=== PATIENT | male | born 1935 | race Caucasian/White ===

== ENCOUNTER 2020-07-25 08:39 | Outpatient (REF) | payer MEDICARE, OTHER, SELFPAY ==
[2020-07-25 09:55] LABS: MANUAL DIFF FLAG NO
[2020-07-25 10:05] LABS: Basophils Percent Auto 0.7 % (0-2); Eosinophils Absolute Auto 0.4 X10*3/uL (0.0-0.4); Eosinophils Percent Auto 7.3 % (0-4); Hematocrit 44.5 % (42-52); Hemoglobin 14.6 g/dl (14.0-18.0); Imm Gran Abs Auto 0.03 X10*3/uL (0.00-0.03); Imm Gran Pct Auto 0.5 % (0.0-0.4); Lymphocytes Absolute Auto 1.8 X10*3/uL (1.2-4.9); Lymphocytes Percent Auto 29.2 % (20-40); Mean Corpuscular HGB Conc 32.8 g/dl (31.0-36.0); Mean Corpuscular Hemoglobin 30.9 pg (27.0-33.0); Mean Corpuscular Volume 94.3 fL (80-98); Mean Platelet Volume 11.4 fL (9.4-12.4); Monocytes Absolute Auto 0.4 X10*3/uL (0.1-1.2); Monocytes Percent Auto 7.3 % (2-11); Neutrophils Absolute Auto 3.3 X10*3/uL (2.0-8.3); Platelet Count 176 X10*3/uL (160-400); Red Blood Count 4.72 X10*6/uL (4.60-5.80); Red Cell Distribution Width 12.5 % (11.0-16.0)
[2020-07-25 10:34] LABS: Creatinine Urine 237.54 mg/dL; Microalbum/Creatinine Ratio Ur 4.6 ug/mg cr
[2020-07-25 10:46] LABS: Alanine Aminotransferase 16 U/L (0-40); Albumin Level 4.1 g/dL (3.5-5.0); Alkaline Phosphatase 66 U/L (39-117); Anion Gap 10 (12-20); Aspartate Amino Transferase 21 U/L (5-37); Bilirubin Total 0.8 mg/dL (0.0-1.0); Blood Urea Nitrogen 22 mg/dL (9-16); Calcium 8.8 mg/dL (8.4-10.2); Carbon Dioxide 28 mmol/L (22-29); Chloride 110 mmol/L (96-108); Cholesterol 102 mg/dL; Estimated Glomerular Filt Rate > 60; Glucose Random 109 mg/dL (60-115); HDL Cholesterol 33 mg/dL; LDL Cholesterol Calculated 59 mg/dl; Potassium 4.3 mmol/L (3.3-5.1); Sodium 144 mmol/L (135-145); Total Protein 6.4 g/dL (6.5-8.0); Triglycerides 50 mg/dL
[2020-07-25 11:07] LABS: Free T4 (Free Thyroxine) 0.89 ng/dL (0.71-1.85); Prostate Specific Antigen Scr 0.13 ng/mL (<0.05-4.0); Thyroid Stimulating Hormone 2.33 uIU/mL (0.32-4.0)
[2020-07-25 13:02] LABS: Folate 12.1 ng/mL (> or = 4.0); Vitamin B12 279 pg/mL (200-900)
== END 2020-07-25 08:40 | disposition home or self-care (01) ==
LOC: HO.LAB 08:39
PROVIDERS: PCP Internal Medicine; Visit Provider Internal Medicine
DX: E78.00 Pure hypercholesterolemia, unspecified (principal); Z85.46 Personal history of malignant neoplasm of prostate; Z12.5 Encounter for screening for malignant neoplasm of prostate
CPT/HCPCS: 36415; 80053; 80061; 82043; 82607; 82746; 84153; 84439; 84443; 85025

== ENCOUNTER 2020-12-30 16:21 | Outpatient (REF) | payer MEDICARE, OTHER, SELFPAY ==
--- NOTE | ~2020-12-30 | US_ITS ---
EXAMINATION: US VENOUS ULTRASOUND WITH DOPPLER LOWER EXTREMITY, LEFT CLINICAL INFORMATION: Pain. Swelling. COMPARISON: None TECHNIQUE: Ultrasound of the deep veins is performed from the hip to the calf with compression sonography and color and pulse Doppler assessment. Spectral analysis with color-flow imaging is performed. FINDINGS: There is normal venous compression and respiratory variation and augmented flow. The visualized common femoral vein, superficial femoral vein, profunda femoral vein, popliteal vein, and the trifurcation region shows no evidence of deep venous thrombosis. There is no significant popliteal fossa cyst. If the patient's symptoms persist, followup ultrasound in 5 days 7 days might be of value to exclude proximal propagation from a non-visualized calf vein. US/US venous duplex LE LT IMPRESSION: No DVT demonstrated in the left lower extremity.
== END 2020-12-30 16:22 | disposition home or self-care (01) ==
LOC: HO.US 16:21
PROVIDERS: PCP Internal Medicine; Visit Provider Nurse Practitioner Family
DX: M79.605 Pain in left leg (principal)
CPT/HCPCS: 93971

== ENCOUNTER 2021-01-09 11:44 | Emergency (ER) | payer MEDICARE, OTHER, SELFPAY ==
--- NOTE | ~2021-01-09 | XR_ITS ---
EXAMINATION: XR TIBIA AND FIBULA, LEFT CLINICAL INFORMATION: Pain. Trauma COMPARISON: None TECHNIQUE: AP and lateral views of the left tibia and fibula were obtained. FINDINGS: There is soft tissue calcification along the tip of medial malleolus likely old old avulsion injury. The ankle mortise and subtalar joints are normal. There is mild medial malleolar soft tissue swelling. There is no acute fracture bony abnormality involving rest of the tibia or fibula. XR/XR tibia fibula LT 2V IMPRESSION: Old avulsion injury tip of medial malleolus. This was visualized on previous CT left foot exam 03/10/2015. No acute fracture or dislocation.
[2021-01-09 11:58] VITALS: BP 149/79; PULSE 53; RESP 18; TEMP 36.6; O2SAT 96; BMI 26.4
--- NOTE | 2021-01-09 12:45 | ED.EXTPRO ---
HPI - Extremity Problem General Chief complaint: Extremity Problem Stated complaint: left leg pain Time Seen by Provider: 01/09/21 12:02 Source: patient Mode of arrival: ambulatory Limitations: no limitations History of Present Illness HPI Narrative: 85-year-old male with a past medical history of AFib on eliquis, coronary artery disease status post stent placement in 2011, GERD, high cholesterol, hypertension, obstructive sleep apnea here with complaints of left lower extremity pain described as burning since November. Patient tells me initially while he was gardening he had a twisting injury of the left lower leg. Since then he has had persistent pain followed up with [facility] group on December 30 and had a an ultrasound which was negative for DVT. Started topical arthritis medication and Tylenol with continued symptoms. Followed up on January 07. Thought to be secondary to restless leg and so started ropinirole. Continued pain which is worsened at night time. Patient tells me he is only able to sleep for for 1-2 hours without experiencing pain. Since January 09 his pain is now up into his left hip and into the left buttocks. Pain is worsened with standing and sitting. Described as burning. No new injury or trauma. No numbness in the groin. No fevers or chills. No bowel or bladder incontinence. No recent illnesses or travel. Called primary today and referred into the emergency department for further evaluation. Related Data Home Medications Medication Instructions Recorded Confirmed apixaban 5 mg tablet (Eliquis) 5 mg PO BID 05/22/20 01/07/21 aspirin 81 mg tablet,delayed 81 mg PO DAILY 05/22/20 01/07/21 release (Adult Aspirin Regimen) atorvastatin 80 mg tablet 80 mg PO DAILY 05/22/20 01/07/21 cholecalciferol (vitamin D3) 25 25 mcg PO DAILY 05/22/20 01/07/21 mcg (1,000 unit) capsule fluticasone propionate 50 2 spray INTRANASAL DAILY 05/22/20 01/07/21 mcg/actuation nasal spray,suspension terazosin 2 mg capsule 4 mg PO DAILY cap 05/22/20 01/07/21 Previous Rx's Medication Instructions Recorded lisinopril 40 mg tablet 40 mg PO DAILY #90 cap 03/18/20 metoprolol succinate 50 mg 75 mg PO DAILY #135 cap 07/19/20 tablet,extended release 24 hr diclofenac sodium 1 % topical gel 4 g TOPICAL BID 14 Days #100 g 01/05/21 (Arthritis Pain (diclofenac)) ropinirole 0.25 mg tablet 0.25 mg PO BEDTIME 30 Days #30 tab 01/07/21 oxycodone 5 mg tablet 5 mg PO Q8H PRN #8 tab 01/09/21 Allergies Allergy/AdvReac Type Severity Reaction Status Date / Time cyclobenzaprine Allergy Mild UNCONTROLLED Verified 01/07/21 09:53 [Cyclobenzaprine] SHAKING oxycodone [From Percocet] Allergy Mild DIFFICULTING Verified 01/07/21 09:53 BREATHING tramadol [Tramadol] Allergy Mild UNCONTROLLED Verified 01/07/21 09:53 SHAKING acetaminophen [Percocet] Allergy Unknown Unknown Verified 01/07/21 09:53 meperidine [Demerol] Allergy Unknown Unknown Verified 01/07/21 09:53 Review of Systems Review of Systems: Yes all other systems are reviewed and are negative Constitutional: Constitutional: Reports no additional constitutional complaints, Denies body ache(s), Denies chills, Denies fever(s), Denies headache(s) and Denies weakness Eyes: Eyes: Reports no additional eye complaints and Denies change in vision ENT: Reports system reviewed and no additional complaints, except as documented, Denies dizziness, Denies headache(s), Denies nasal congestion, Denies nasal discharge and Denies neck pain Cardiovascular: Cardiovascular: Reports no additional cardiovascular complaints, Denies chest pain, Denies leg edema and Denies dyspnea Respiratory: Respiratory: Reports no additional respiratory complaints, Denies cough and Denies dyspnea Gastrointestinal: Gastrointestinal: Reports no additional gastrointestinal complaints, Denies abdominal pain, Denies diarrhea, Denies nausea and Denies vomiting Genitourinary: Genitourinary: Denies urinary incontinence Musculoskeletal: Musculoskeletal: Reports no additional musculoskeletal complaints, Denies back pain, Denies arthralgias, Denies joint swelling, Denies neck pain, Denies numbness, Reports radiating pain into limb and Denies tingling Comments: +burning Integumentary/Breasts: Skin/Breast: Reports system reviewed and no additional complaints, except as docu and Denies rash Neurologic: Reports system reviewed and no additional complaints, except as documented, Denies Abnormal speech present, Denies dizziness, Denies headache(s), Denies numbness, Denies tingling and Denies weakness [facility] Past Medical History Attestation statement: The following information was validated with the patient. Source: old records reviewed and nursing notes reviewed Medical History Atrial fibrillation Coronary artery disease Erectile dysfunction GERD (gastroesophageal reflux disease) History of prostate cancer Hypercholesterolemia Hypertension Left leg pain Obstructive sleep apnea Right foot drop Right leg pain Saddle thrombus of abdominal aorta Surgical History History of cervical spinal surgery History of inguinal hernia repair History of intravascular stent placement History of lumbar surgery History of pacemaker History of tonsillectomy Family History Family History Father No problems noted. Mother Hypertension Lung cancer Brother No problems noted. Sister No problems noted. Son No problems noted. Daughter No problems noted. Social History Social History Housing: House Alcohol intake: current Alcohol intake frequency: a few times a week Alcohol type: beer Patient Tobacco Use Status: Never used Tobacco e-Cigarette/Vaping Use: Never Used Advance Directives: Yes Advance Directives Information Provided: Yes Advance Directives on File: No Current occupational status: retired Physical Exam Vital Signs: Vital Signs: Last Vital Signs Temp 97.9 F 01/09/21 11:58 Pulse 87 01/09/21 13:03 Resp 16 01/09/21 13:03 BP 134/78 01/09/21 13:03 Pulse Ox 98 01/09/21 13:03 Body Mass Index 26.4 Const: General: cooperative, healthy appearing, comfortable and no acute distress Orientation/consciousness: patient oriented x3 Limitations: no limitations HENMT: Head: Yes normal to inspection Ears: hearing grossly normal bilaterally General nose exam: Normal external nose present Face and sinus: Yes normal facial exam Mouth: Normal oral and palatal mucosa present Throat: Yes posterior oropharynx normal Eyes: General: appearance normal, both eyes and all related structures Pupils: Equal, round and reactive pupils present Neck: Neck: Yes normal visual inspection Chest: Chest palpation & inspection: normal inspection of the chest Resp: Effort & Inspection: normal respiratory effort Auscultation: clear to auscultation bilaterally Cardio: Rate: regular rate Rhythm: regular rhythm Peripheral pulses: Peripheral pulses 2+ throughout GI: Inspection: Yes normal to inspection Palpation (GI): Soft to palpation and nontender Auscultation: normal bowel sounds : General: Yes no CVA tenderness Back/Spine/Pelvis: Other: No midline tenderness, step-offs or deformities. There is tenderness to the left buttocks on exam. Full range of motion of hips Straight leg raise normal Back: no CVA tenderness Thoracic/Lumbar Spine: thoracic and lumbar spine normal to inspection Pelvis: no pain with anterior-posterior compression Skin: General skin exam: no rashes or lesions noted Neuro: General: patient oriented x3, no focal motor deficits and normal sensation to monofilament Cranial nerves: Yes Equal, round and reactive pupils present, Yes Bilaterally intact EOM present, Yes Nystagmus not present and Yes Normal facial strength present Cognition (Neuro): normal cognition Speech: No Abnormal speech present Gait exam (Neuro): Normal gait present Motor exam (neuro): 5/5 motor strength present throughout Sensory Exam: Normal double simultaneous stimulation for sensation Deep tendon reflexes (DTR's): Right patellar reflex intensity grade: 2+, Left patellar reflex intensity grade: 2+, Right ankle reflex intensity grade: 2+ and Left ankle reflex intensity grade: 2+ Extrem: Other: Tenderness to the proximal tibia on the left side with no General: Yes normal to inspection Course Course Course Narrative: 85 year old male here with persistent left lower extremity pain after twisting injury in November. Pain is severe enough that the patient is taking both Tylenol, ropinirole with continued symptoms. Seen by PCP twice with negative ultrasound to rule out DVT. Also now complaining of pain in the left buttocks radiating down the leg. Normal neuro exam. No red flag symptoms or neurological deficits. Patient has not had x-rays of will check x-ray and labs. 1300-x-ray shows old medial malleolus avulsion fracture. However on my own independent review there appears to be some periosteal thickening of the proximal fibula at the site of the patient's pain. I discussed this with Aneta from Orthopedics. Recommended placing an walking boot and following up with Ortho next week. -all other labs are unremarkable. Patient was placed in a walking boot and referral given for Orthopedics. Reviewed worrisome signs and symptoms of when to return to the emergency department. Comfortable discharge home. MDM - Extremity (Nontraumatic) Lab Data Result diagrams: 01/09/21 12:46 01/09/21 12:46 Labs: Lab Results 01/09/21 01/09/21 Range/Units 12:46 12:46 WBC 7.0 (4.8-10.8) X10*3/uL RBC 4.47 L (4.60-5.80) X10*6/uL Hgb 14.0 (14.0-18.0) g/dl Hct 41.5 L (42-52) % MCV 92.8 (80-98) fL MCH 31.3 (27.0-33.0) pg MCHC 33.7 (31.0-36.0) g/dl RDW 12.5 (11.0-16.0) % Plt Count 148 L (160-400) X10*3/uL MPV 10.8 (9.4-12.4) fL Immature Gran % (Auto) 0.3 (0.0-0.4) % Neut % (Auto) 56.3 (45-73) % Lymph % (Auto) 28.8 (20-40) % [place] % (Auto) 7.8 (2-11) % Eos % (Auto) 6.2 H (0-4) % Baso % (Auto) 0.6 (0-2) % Lymph # (Auto) 2.0 (1.2-4.9) X10*3/uL [place] # (Auto) 0.5 (0.1-1.2) X10*3/uL Eos # (Auto) 0.4 (0.0-0.4) X10*3/uL Baso # (Auto) 0.0 (0.0-0.2) X10*3/uL Abs Immat Gran (auto) 0.02 (0.00-0.03) X10*3/uL Absolute Neuts (auto) 3.9 (2.0-8.3) X10*3/uL Absolute Nucleated RBC 0.000 (0.0-0.012) X10*3/uL Nucleated RBC % (auto) 0.0 (0.0-0.2) /100WBC Sodium 140 (135-145) mmol/L Potassium 3.9 (3.3-5.1) mmol/L Chloride 109 H (96-108) mmol/L Carbon Dioxide 23 (22-29) mmol/L Anion Gap 12 (12-20) BUN 17 H (9-16) mg/dL Creatinine 1.04 (0.5-1.4) mg/dL Estim Creat Clear Calc 56.3 Estimated GFR > 60 Random Glucose 93 (60-115) mg/dL Calcium 8.9 (8.4-10.2) mg/dL Magnesium 2.3 (1.6-2.6) mg/dL Total Bilirubin 0.6 (0.0-1.0) mg/dL Direct Bilirubin 0.3 (0.0-0.5) mg/dL AST 20 (5-37) U/L ALT 18 (0-40) U/L Alkaline Phosphatase 57 (39-117) U/L Total Creatine Kinase 106 (38-174) U/L Total Protein 6.2 L (6.5-8.0) g/dL Albumin 4.1 (3.5-5.0) g/dL Imaging Data tibia/fibula xray left: Attestation: I personally reviewed and interpreted this imaging study as follows: Radiologist's impression: FINDINGS: There is soft tissue calcification along the tip of medial malleolus likely old old avulsion injury. The ankle mortise and subtalar joints are normal. There is mild medial malleolar soft tissue swelling. There is no acute fracture bony abnormality involving rest of the tibia or fibula. XR/XR tibia fibula LT 2V IMPRESSION: Old avulsion injury tip of medial malleolus. This was visualized on previous CT left foot exam 03/10/2015. No acute fracture or dislocation. Procedures Procedure Narrative Procedure Narrative: Orthopedic walking boot Discharge Plan Discharge Clinical Impression: Stress fracture of left fibula with delayed healing Patient Disposition: Home, Self-Care Instructions: Leg Fracture (ED) Additional Instructions: You appear to have an old stress fracture of your left proximal fibula Use the boot during the day while walking When it is off apply ice as needed Take the oxycodone at nighttime for pain as needed. This may wake you feel sleepy to be careful moving around Call orthopedics today for a follow-up appointment next week Prescriptions: New oxycodone 5 mg tablet 5 mg PO Q8H PRN (Reason: pain) Qty: 8 RF: 0 No Action lisinopril 40 mg tablet 40 mg PO DAILY Qty: 90 RF: 3 metoprolol succinate 50 mg tablet extended release 24 hr 75 mg PO DAILY Qty: 135 RF: 1 diclofenac sodium [Arthritis Pain (diclofenac)] 1 % gel 4 g topical BID 14 Days Qty: 100 RF: 0 ropinirole 0.25 mg tablet 0.25 mg PO BEDTIME 30 Days Qty: 30 RF: 0 cholecalciferol (vitamin D3) 25 mcg (1,000 unit) capsule 25 mcg PO DAILY RF: 0 Eliquis 5 mg tablet 5 mg PO BID RF: 0 fluticasone propionate 50 mcg/actuation spray,suspension 2 spray intranasal DAILY RF: 0 aspirin [Adult Aspirin Regimen] 81 mg tablet,delayed release (DR/EC) 81 mg PO DAILY RF: 0 terazosin 2 mg capsule 4 mg PO DAILY RF: 0 atorvastatin 80 mg tablet 80 mg PO DAILY RF: 0 Referrals: Ye Ayers MD [Physician] - 2 days Interventions: ED Discharge Assessment Last Done: 01/09/21 14:01 Discharge Date/Time: 01/09/21 14:01
[2021-01-09 12:50] LABS: MANUAL DIFF FLAG NO
[2021-01-09 12:53] LABS: Basophils Percent Auto 0.6 % (0-2); Eosinophils Absolute Auto 0.4 X10*3/uL (0.0-0.4); Eosinophils Percent Auto 6.2 % (0-4); Hematocrit 41.5 % (42-52); Imm Gran Abs Auto 0.02 X10*3/uL (0.00-0.03); Imm Gran Pct Auto 0.3 % (0.0-0.4); Lymphocytes Percent Auto 28.8 % (20-40); Mean Corpuscular HGB Conc 33.7 g/dl (31.0-36.0); Mean Corpuscular Hemoglobin 31.3 pg (27.0-33.0); Mean Corpuscular Volume 92.8 fL (80-98); Mean Platelet Volume 10.8 fL (9.4-12.4); Monocytes Absolute Auto 0.5 X10*3/uL (0.1-1.2); Monocytes Percent Auto 7.8 % (2-11); Neutrophils Absolute Auto 3.9 X10*3/uL (2.0-8.3); Neutrophils Percent Auto 56.3 % (45-73); Platelet Count 148 X10*3/uL (160-400); Red Blood Count 4.47 X10*6/uL (4.60-5.80); Red Cell Distribution Width 12.5 % (11.0-16.0)
[2021-01-09] MEDS: Acetaminophen 325 MG TABLET 650 MG PO (12:56)
[2021-01-09 13:03] VITALS: BP 134/78; PULSE 87; RESP 16; O2SAT 98
[2021-01-09 13:14] LABS: Alanine Aminotransferase 18 U/L (0-40); Albumin Level 4.1 g/dL (3.5-5.0); Alkaline Phosphatase 57 U/L (39-117); Anion Gap 12 (12-20); Aspartate Amino Transferase 20 U/L (5-37); Bilirubin Direct 0.3 mg/dL (0.0-0.5); Bilirubin Total 0.6 mg/dL (0.0-1.0); Blood Urea Nitrogen 17 mg/dL (9-16); Calcium 8.9 mg/dL (8.4-10.2); Carbon Dioxide 23 mmol/L (22-29); Chloride 109 mmol/L (96-108); Creatinine Clr Calc Pharmacy 56.3; Estimated Glomerular Filt Rate > 60; Glucose Random 93 mg/dL (60-115); Magnesium 2.3 mg/dL (1.6-2.6); Potassium 3.9 mmol/L (3.3-5.1); Sodium 140 mmol/L (135-145); Total Protein 6.2 g/dL (6.5-8.0)
== END 2021-01-09 14:01 | disposition home or self-care (01) ==
PROVIDERS: Nurse Practitioner Family; Emergency Provider Emergency Medicine; PCP Internal Medicine
DX: S82.402A Unspecified fracture of shaft of left fibula, initial encounter for closed fracture (principal); M79.605 Pain in left leg; I48.91 Unspecified atrial fibrillation; I10 Essential (primary) hypertension; W01.0XXA Fall on same level from slipping, tripping and stumbling without subsequent striking against object, initial encounter; Y93.H2 Activity, gardening and landscaping; Y92.007 Garden or yard of unspecified non-institutional (private) residence as the place of occurrence of the external cause; Y99.9 Unspecified external cause status; Z79.899 Other long term (current) drug therapy; Z79.01 Long term (current) use of anticoagulants
CPT/HCPCS: 36415; 73590; 80048; 80076; 82550; 83735; 85025; 99283; 99284

== ENCOUNTER 2021-01-13 07:51 | Outpatient (REF) | payer MEDICARE, OTHER, SELFPAY ==
--- NOTE | ~2021-01-13 | XR_ITS ---
EXAMINATION: XR ANKLE, LEFT CLINICAL INFORMATION: Pain. COMPARISON: Left tibia and fibula radiographs dated 01/09/2021. CT left foot dated 03/10/2015. TECHNIQUE: AP, lateral, and mortise views of the left ankle. FINDINGS: No acute fracture or dislocation. The ankle mortise is maintained. Tiny, remote avulsion fractures at the medial malleolus, unchanged when compared to imaging from 2015. No new lytic or blastic osseous lesion. Plantar and dorsal calcaneal spurs. XR/XR ankle LT min 3V IMPRESSION: No acute osseous abnormality.
== END 2021-01-13 07:52 | disposition home or self-care (01) ==
LOC: HO.HOSX 07:51
PROVIDERS: Visit Provider Physician Assistant
DX: S82.832A Other fracture of upper and lower end of left fibula, initial encounter for closed fracture (principal)
CPT/HCPCS: 73610; 99202

== ENCOUNTER → 2021-01-16 08:02 | Outpatient (BNVA) | payer MEDICARE, OTHER, SELFPAY | PROVIDERS: PCP Internal Medicine; Visit Provider Internal Medicine | DX: M54.16 Radiculopathy, lumbar region (principal) | CPT/HCPCS: 99202 ==

== ENCOUNTER → 2021-01-23 08:22 | Outpatient (BNVA) | payer MEDICARE, OTHER, SELFPAY | PROVIDERS: PCP Internal Medicine; Visit Provider Internal Medicine | DX: M54.16 Radiculopathy, lumbar region (principal) | CPT/HCPCS: 99212 ==

== ENCOUNTER → 2021-01-26 08:54 | Outpatient (BNVA) | payer MEDICARE, OTHER, SELFPAY | PROVIDERS: PCP Internal Medicine; Visit Provider Internal Medicine | DX: M54.16 Radiculopathy, lumbar region (principal); Z95.0 Presence of cardiac pacemaker | CPT/HCPCS: 99212 ==

== ENCOUNTER 2021-01-29 10:06 | Outpatient (REF) | payer MEDICARE, OTHER, SELFPAY ==
--- NOTE | ~2021-01-29 | MR_ITS ---
EXAMINATION: MR LUMBAR SPINE WITHOUT CONTRAST CLINICAL INFORMATION: Left lower back pain with left leg/thigh pain. COMPARISON: Lumbar spine MRI dated 06/17/2008. TECHNIQUE: MRI of the lumbar spine was obtained using routine sequences without contrast. FINDINGS: VERTEBRAL BODIES AND PARASPINAL STRUCTURES: There is lumbarization of the S1 vertebral body, consistent with transitional anatomy. The examination is labeled as such any significant image. The lumbar lordosis is maintained. No acute fracture or subluxation. No loss of vertebral body height. Loss of intervertebral disc height with disc desiccation throughout the lumbar spine, most prominent at L5-S1 and slightly progressed when compared to the prior MRI. Probable vertebral body hemangiomas within L2 and L4. No marrow edema to suggest acute osseous injury. Modic type II degenerative endplate changes at L5-S1, slightly increased when compared to the prior MRI. The visualized paraspinal soft tissues are unremarkable. CONUS MEDULLARIS AND CAUDA EQUINA: Normal, terminating at the level of L2. SPINAL LEVELS: T12-L1: No significant disc bulge. No central canal or neural foraminal stenosis. L1-L2: Mild broad-based disc bulge with bilateral facet arthropathy. No significant central canal or neural foraminal stenosis. Findings are unchanged. L2-L3: Mild broad-based disc bulge with bilateral facet arthropathy and thickening of the ligamentum flavum causing mild bilateral neural foraminal stenosis, unchanged. L3-L4: Broad-based disc bulge with a superimposed left paracentral disc protrusion which abuts the traversing left L4 nerve root within the lateral recess, new/increased when compared to the prior examination. Bilateral facet arthropathy and thickening of the ligamentum flavum has slightly increased causing [id number] left and mild right neural foraminal stenosis, slightly progressed. L4-L5: Mild broad-based disc bulge with bilateral facet arthropathy and thickening of the ligamentum flavum causing mild central canal as well as moderate bilateral neural foraminal stenosis, progressed when compared to the prior examination. The previously seen disc extrusion at this level is no longer identified. L5-S1: Broad-based disc bulge with a superimposed right paracentral/subarticular disc protrusion which contacts the traversing bilateral S1 nerve roots, right greater than left. Bilateral facet arthropathy and thickening of ligamentum flavum causing [id number] central canal as well as severe right and moderate left neural foraminal stenosis, progressed when compared to the prior examination. MR/MR lumbar spine wo con IMPRESSION: 1. Broad-based disc bulge at L3-L4 with a left paracentral disc protrusion abutting the traversing left L4 nerve root, new/increased when compared to the prior examination. Bilateral facet arthropathy and thickening of the ligamentum flavum causing mild to moderate left and mild right neural foraminal stenosis, slightly increased. 2. Broad-based disc bulge at L5-S1 with a right paracentral/subarticular disc protrusion contacting the traversing bilateral S1 nerve roots, right greater than left. Bilateral facet arthropathy and thickening of the ligamentum flavum with [id number] central canal as well as severe right and moderate left neural foraminal stenosis. Findings have progressed when compared to the prior examination. 3. Mild broad-based disc bulge at L4-L5 with bilateral facet arthropathy and thickening of the ligamentum flavum causing mild central canal as well as moderate bilateral neural foraminal stenosis, slightly increased. The previously seen disc extrusion is no longer identified.
== END 2021-01-29 10:07 | disposition home or self-care (01) ==
LOC: HO.MRI 10:06
PROVIDERS: PCP Internal Medicine; Visit Provider Internal Medicine
DX: M54.16 Radiculopathy, lumbar region (principal)
CPT/HCPCS: 72148

== ENCOUNTER → 2021-02-06 11:47 | Outpatient (BNVA) | payer MEDICARE, OTHER, SELFPAY | PROVIDERS: Visit Provider Internal Medicine | DX: M48.061 Spinal stenosis, lumbar region without neurogenic claudication (principal) | CPT/HCPCS: 99212 ==

== ENCOUNTER 2021-02-13 11:30 | Outpatient (REF) | payer MEDICARE, OTHER, SELFPAY ==
--- NOTE | ~2021-02-13 | XR_ITS ---
EXAMINATION: XR TIBIA AND FIBULA, LEFT CLINICAL INFORMATION: Leg pain COMPARISON: Previous x-ray December 2020 TECHNIQUE: AP and lateral views of the left tibia and fibula were obtained. FINDINGS: Bone alignment is normal. No acute fracture or dislocation is seen. There are soft tissue calcifications or ossifications adjacent to the medial malleolus that appear unchanged suggestive of old trauma. Soft tissues are unremarkable. XR/XR tibia fibula LT 2V IMPRESSION: Evidence of old trauma to the medial malleolus. Otherwise unremarkable exam.
== END 2021-02-13 11:31 | disposition home or self-care (01) ==
LOC: HO.HMGCX 11:30
PROVIDERS: PCP Internal Medicine; Visit Provider Internal Medicine
DX: Z13.89 Encounter for screening for other disorder (principal)
CPT/HCPCS: 73590

== ENCOUNTER 2021-02-19 15:48 | Outpatient (REF) | payer MEDICARE, OTHER, SELFPAY ==
--- NOTE | ~2021-02-19 | XR_ITS ---
EXAMINATION: XR FOOT, LEFT CLINICAL INFORMATION: Pain in left foot COMPARISON: None TECHNIQUE: AP, lateral, and oblique views of the left foot. FINDINGS: There is no visible acute fracture, dislocation or subluxation seen. The ankle mortise and subtalar joints are normal. A small retrocalcaneal and calculi heel enthesophyte. The soft tissues are normal. XR/XR foot LT min 3V IMPRESSION: Small retrocalcaneal and calcaneal heel enthesophyte. No visible acute fracture or dislocation seen.
== END 2021-02-19 15:49 | disposition home or self-care (01) ==
LOC: HO.HMGCX 15:48
PROVIDERS: PCP Internal Medicine; Visit Provider Internal Medicine
DX: Z13.89 Encounter for screening for other disorder (principal)
CPT/HCPCS: 73630

== ENCOUNTER 2021-03-04 06:11 | Outpatient (REF) | payer MEDICARE, OTHER, SELFPAY ==
--- NOTE | ~2021-03-04 | FL_ITS ---
EXAMINATION: XR FLUOROSCOPY WITH IMAGES CLINICAL INFORMATION: M54.16 - Radiculopathy, lumbar region COMPARISON: Lumbar MRI on 01/29/2021 TECHNIQUE: Fluoroscopy performed by Dr. Lopez. Fluoroscopy time: 0.4 minutes DAP: 1.977 Gycm2 Images: 2 FINDINGS: There is a spinal needle at the interlaminar L5-S1 space with tip just left of midline. There is epidural contrast present. No visible vascular communication. FL/FL guidance in treatment room IMPRESSION: Fluoroscopy for pain management procedure.
== END 2021-03-04 06:12 | disposition home or self-care (01) ==
LOC: HO.RADIR 06:11
PROVIDERS: Visit Provider Internal Medicine
DX: M54.16 Radiculopathy, lumbar region (principal); M48.061 Spinal stenosis, lumbar region without neurogenic claudication
CPT/HCPCS: 62323; J1040; Q9967

== ENCOUNTER 2021-03-11 11:00 | Outpatient (RCR) | payer MEDICARE, OTHER, SELFPAY ==
--- NOTE | 2021-02-11 12:42 | MHC.PT.EP ---
[facility] [place] Office [place] Office [place] Office [address] Christen Ozuna [address] [phone] F: [phone] F: [phone] F: [phone] F: [phone] Physical Therapy Plan of Care Date of Evaluation: Date of Surgery: n/a Diagnosis: lumbar radiculopathy Assessment: Patient is a 85 year old male presenting to PT with complaints of pain in his low back extending into his LLE. Pt reports onset of pain began in early December 2020 due to insidious onset. He presents today with impairments in pain, hip strength, core strength, lumbar ROM, numbness and tingling. Pt's current occupation is retired, with baseline physical activities including pain, hip strength, core strength, lumbar ROM, numbness and tingling. Pt expresses mcc goal of returning to ambulating and aquaexercise with less pain and is motivated to work towards this in PT. Clinical presentation today is most consistent with signs and sx associated with MRI findings of disk bulge and stenosis and pt will benefit from skilled PT to address the following problems and impairments noted upon evaluation: pain, hip strength, core strength, lumbar ROM, numbness and tingling. These problems limit the patient with the following functional activities: pain, hip strength, core strength, lumbar ROM, numbness and tingling, and sleep. The prescribed treatment plan of care is medically necessary. Co-morbidities of pacemaker, L fib stress fx were identified and taken into considerations of plan of care. Pt was educated on HEP, role of PT, prognosis, POC, sleep position. Frequency and Duration: The patient will be seen 2x/week x 4 weeks Short Term Goals: Pt will demonstrate improved postural awareness by sitting with biomechanically correct posture without cues throughout session to improve overall postural function. Pt will demonstrate good TA recruitment in hook lying, sitting, and standing. Pt will demonstrate lumbar AROM without increase in pain in available range in 2 weeks. Pt will demonstrate increased B hip strength by 1/3 MMT for increased lumbopelvic stability in 2 weeks. [employer] Goals: Pt will demonstrate ability to care for his at home including cooking, shopping with pain <3/10 in 4 weeks. Pt will demonstrate ability to sleep through the night waking <2 times due to pain in 4 weeks. Pt will demonstrate ability return to leisure walking and aqua exercise classes in 4 weeks to allow return to PLOF. Pt will demonstrate improved score on LEFS by 9 points to improve tolerance to functional mobility in 4 weeks. Treatment Plan: Modalities to reduce pain, spasms and effusion. Manual therapy to restore motion and function. Therapeutic exercise to improve strength and flexibility. Neuromuscular re-education for posture and balance. Therapeutic activities to return to functional activities of daily living. Electronically signed by: Elena Stallworth, PT, DPT, ATC Please sign and return to therapist. Thank you for your referral.
--- NOTE | 2021-03-13 12:18 | MHC.PT.DC ---
[facility] [place] [facility] [place] [facility] [place] [facility] [address] Christen Ozuna [address] [phone] F: [phone] F: [phone] F: [phone] F: [phone] Physical Therapy Discharge Report Diagnosis: lumbar radiculopathy Date of Surgery: n/a Date of Evaluation: 02/11/21 Date of Discharge: 03/13/21 Treatments to Date: 6 Cancellations to Date: 1 No Shows to Date: 2 Discharge Status: Recommend MD Follow-up Discharge Summary: Pt no showed final appointment. Called and spoke with pt over the phone who stated he is continuing to have pain primarily in his anterior ankle and not feeling much improvement since starting PT. At this time he appears to have reached a plateau and not tolerated much progression due to inability to control his pain. The pain in his anterior ankle and dorsal foot is reproduced with palpation and ankle ROM however x-rays were negative. He recently had an injection in his back which does not appear to have resolved his pain. He states he is going to try to get back into the pool for aqua exercise and advised him that this will likely be a good mode of exercise for him. Max benefits of PT have been provided at this time and due to pt plateau, skilled PT is no longer indicated at this time. Pt is in agreement with d/c today and understands the importance of continuing HEP as tolerated to maintain gains that have been made with PT. Advised pt to follow up with MD regarding his continued pain as he feels it is limiting him and PT was not significantly helping with this. Pt with good verbal understanding. Electronically signed by: Elena Stallworth, PT, DPT, ATC Please sign and return to therapist. Thank you for your referral.
== END 2021-03-13 12:20 | disposition home or self-care (01) ==
LOC: HO.PT 11:00
PROVIDERS: PCP Internal Medicine; Visit Provider Internal Medicine
DX: M54.16 Radiculopathy, lumbar region (principal)
CPT/HCPCS: 97110; 97112; 97162

== ENCOUNTER → 2021-03-20 10:12 | Outpatient (BNVA) | payer MEDICARE, OTHER, SELFPAY | PROVIDERS: PCP Internal Medicine; Visit Provider Internal Medicine | DX: M54.16 Radiculopathy, lumbar region (principal); Z79.891 Long term (current) use of opiate analgesic | CPT/HCPCS: 99212 ==

== ENCOUNTER → 2021-04-03 10:14 | Outpatient (BNVA) | payer MEDICARE, OTHER, SELFPAY | PROVIDERS: PCP Internal Medicine; Visit Provider Internal Medicine | DX: Z51.81 Encounter for therapeutic drug level monitoring (principal); M54.16 Radiculopathy, lumbar region; Z79.891 Long term (current) use of opiate analgesic | CPT/HCPCS: 99212 ==

== ENCOUNTER 2021-04-06 09:51 | Outpatient (REF) | payer MEDICARE, OTHER, SELFPAY ==
[2021-04-06 10:37] LABS: MANUAL DIFF FLAG NO
[2021-04-06 11:33] LABS: B Type Natriuretic Peptide 69 pg/mL (<100)
[2021-04-06 11:41] LABS: Basophils Percent Auto 0.3 % (0-2); Eosinophils Absolute Auto 0.3 X10*3/uL (0.0-0.4); Eosinophils Percent Auto 5.4 % (0-4); Hematocrit 40.9 % (42.0-52.0); Hemoglobin 13.8 g/dl (14.0-18.0); Imm Gran Abs Auto 0.04 X10*3/uL (0.00-0.03); Imm Gran Pct Auto 0.6 % (0.0-0.4); Lymphocytes Absolute Auto 1.9 X10*3/uL (1.2-4.9); Lymphocytes Percent Auto 30.5 % (20-40); Mean Corpuscular HGB Conc 33.7 g/dl (31.0-36.0); Mean Corpuscular Volume 94.9 fL (80.0-98.0); Mean Platelet Volume 10.8 fL (9.4-12.4); Monocytes Absolute Auto 0.3 X10*3/uL (0.1-1.2); Monocytes Percent Auto 5.5 % (2-11); Neutrophils Absolute Auto 3.6 x10*3/uL (2.0-8.3); Neutrophils Percent Auto 57.7 % (45-73); Platelet Count 149 X10*3/uL (160-400); Red Blood Count 4.31 X10*6/uL (4.60-5.80); Red Cell Distribution Width 12.7 % (11.0-16.0); White Blood Count 6.2 X10*3/uL (4.8-10.8)
[2021-04-06 11:50] LABS: Alanine Aminotransferase 16 U/L (0-40); Alkaline Phosphatase 64 U/L (39-117); Anion Gap 9 (12-20); Aspartate Amino Transferase 19 U/L (5-37); Bilirubin Total 0.8 mg/dL (0.0-1.0); Blood Urea Nitrogen 16 mg/dL (9-16); Carbon Dioxide 24 mmol/L (22-29); Chloride 110 mmol/L (96-108); Cholesterol 106 mg/dL; Estimated Glomerular Filt Rate > 60; Free T4 (Free Thyroxine) 1.02 ng/dL (0.71-1.85); Glucose Random 109 mg/dL (60-115); HDL Cholesterol 35 mg/dL; LDL Cholesterol Calculated 59 mg/dl; Potassium 3.9 mmol/L (3.3-5.1); Sodium 139 mmol/L (135-145); Total Protein 6.1 g/dL (6.5-8.0); Triglycerides 60 mg/dL
[2021-04-06 12:57] LABS: PSA,Total (Free>4and<10) 0.19 ng/mL (0.00-4.00)
[2021-04-06 14:36] LABS: Folate 15.7 ng/mL (> or = 4.0); Vitamin B12 310 pg/mL (200-900)
== END 2021-04-06 09:52 | disposition home or self-care (01) ==
LOC: HO.LAB 09:51
PROVIDERS: PCP Internal Medicine; Visit Provider Internal Medicine
DX: Z12.5 Encounter for screening for malignant neoplasm of prostate (principal); E78.00 Pure hypercholesterolemia, unspecified; I48.91 Unspecified atrial fibrillation; Z85.46 Personal history of malignant neoplasm of prostate
CPT/HCPCS: 36415; 80053; 80061; 82607; 82746; 83880; 84153; 84439; 84443; 85025

== ENCOUNTER 2021-04-08 06:49 | Outpatient (REF) | payer MEDICARE, OTHER, SELFPAY ==
--- NOTE | ~2021-04-08 | FL_ITS ---
EXAMINATION: XR FLUOROSCOPY WITH IMAGES CLINICAL INFORMATION: Radiculopathy lumbar region COMPARISON: March 04, 2021 TECHNIQUE: Fluoroscopy performed by Jeanette Mohamud NP. Fluoroscopy time: 0.7 minutes DAP: 6.05 Gycm2 Images: 3 FINDINGS: Some contrast and needle is seen in the region of the right L4-L5 facet. FL/FL guidance in treatment room IMPRESSION: Intraoperative fluoroscopy.
== END 2021-04-08 06:50 | disposition home or self-care (01) ==
LOC: HO.RADIR 06:49
PROVIDERS: Visit Provider Internal Medicine
DX: M54.16 Radiculopathy, lumbar region (principal)
CPT/HCPCS: 64483; J1100; Q9967

== ENCOUNTER → 2021-05-01 11:00 | Outpatient (BNVA) | payer MEDICARE, OTHER, SELFPAY | PROVIDERS: PCP Internal Medicine; Visit Provider Internal Medicine | DX: Z51.81 Encounter for therapeutic drug level monitoring (principal); M54.16 Radiculopathy, lumbar region | CPT/HCPCS: 99212 ==

== ENCOUNTER → 2021-06-18 14:58 | Outpatient (REF) | payer MEDICARE, OTHER, SELFPAY | LOC: HO.SL 14:58 | PROVIDERS: PCP Internal Medicine; Visit Provider Internal Medicine | DX: G47.33 Obstructive sleep apnea (adult) (pediatric) (principal) | CPT/HCPCS: 95806 ==

== ENCOUNTER → 2021-07-21 13:30 | Outpatient (BNVA) | payer MEDICARE, OTHER, SELFPAY | PROVIDERS: PCP Internal Medicine; Visit Provider Internal Medicine | DX: G47.33 Obstructive sleep apnea (adult) (pediatric) (principal) | CPT/HCPCS: 99202 ==

== ENCOUNTER → 2021-09-23 09:51 | Outpatient (BNVA) | payer MEDICARE, OTHER, SELFPAY | PROVIDERS: PCP Internal Medicine; Visit Provider Internal Medicine | DX: G47.33 Obstructive sleep apnea (adult) (pediatric) (principal) | CPT/HCPCS: 99212 ==

== ENCOUNTER → 2021-10-23 11:33 | Outpatient (BNVA) | payer MEDICARE, OTHER, SELFPAY | PROVIDERS: PCP Internal Medicine; Referring Provider Internal Medicine; Visit Provider Internal Medicine Cardiovascular Disease | DX: I48.0 Paroxysmal atrial fibrillation (principal); I25.10 Atherosclerotic heart disease of native coronary artery without angina pectoris; I35.0 Nonrheumatic aortic (valve) stenosis; Z95.0 Presence of cardiac pacemaker | CPT/HCPCS: 93005; 93280; 99202 ==

== ENCOUNTER 2021-11-25 18:16 | Emergency (ER) | payer MEDICARE, OTHER, SELFPAY ==
--- NOTE | ~2021-11-25 | CT_ITS ---
EXAMINATION: NONCONTRAST HEAD CT NONCONTRAST CERVICAL SPINE CT INDICATION INFORMATION: Head injury. Fall. COMPARISON: 02/26/2016 TECHNIQUE: Separate noncontrast CT examinations of the head and cervical spine were performed. Coronal and sagittal images were created for each examination at the technologist workstation. This CT examination was performed using dose optimization techniques as appropriate, variously including the following: *Automated exposure control *Adjustment of mA and/or kV according to patient size (this includes techniques or standardized protocols for targeted exams where dose is matched to indication/reason for exam; i.e. extremities or head) *Use of iterative reconstruction technique DLP: 1171 mGy-cm FINDINGS: Head: There is no evidence of acute intracranial hemorrhage or territorial infarction. No abnormal mass effect or midline shift is seen. Dye to white matter differentiation is well preserved. No extra-axial fluid collections are identified. No hydrocephalus. Proportional prominence of the ventricles and sulcal spaces is consistent with mild volume loss. Patchy periventricular and deep white matter hypoattenuation is consistent with moderate small vessel ischemic changes. No acute osseous or soft tissue abnormality. The mastoid air cells are well aerated. Moderate opacification of the ethmoid air cells bilaterally. Mucous retention cyst of the left maxillary sinus. Cervical spine: There is anatomic alignment of the vertebral bodies and posterior elements. The atlantoaxial and atlantooccipital articulations are intact. Vertebral body heights are maintained. There is multilevel intervertebral disc space narrowing with endplate osteophyte formation and facet arthropathy. No evidence of acute fracture. No prevertebral soft tissue swelling. Calcification of the ligamentum nuchae. Visualized portions of the lung apices are unremarkable. The thyroid gland is unremarkable. CT/CT cervical spine wo con IMPRESSION: 1. No acute intracranial finding. 2. No fracture or malalignment of the cervical spine. Moderate degenerative change.
--- NOTE | ~2021-11-25 | XR_ITS ---
EXAMINATION: XR CHEST CLINICAL INFORMATION: Rhinorrhea. Sore throat, cough. COMPARISON: 10/15/2014 TECHNIQUE: 2 views of the chest were obtained. FINDINGS: Left chest wall pacer. The lungs are well expanded. There is no focal consolidation, edema, or effusion. No pneumothorax. The cardiomediastinal silhouette is within normal limits. No acute osseous abnormality. XR/XR chest 2V IMPRESSION: Clear lungs.
[2021-11-25 18:32] VITALS: BP 158/76; BP 166/88; PULSE 69; PULSE 96; RESP 18; TEMP 36.9; O2SAT 90; BMI 25.7
--- NOTE | 2021-11-25 18:40 | PC.NURSE ---
pt a&ox3, c/o 5/10 headache w some mild lower back pain and moderate bilateral lower extremity pain. pt fell out of bed during nap, denies headstrike/LOC, reports that he experienced bilateral leg weakness after fall and was unable to stand. normal ambulates independently, but endorses some recent increased difficulty walking. pt reports nausea and was diaphoretic during ambulance ride. radiation monitor applied - paced, hx stents. provider in room.
--- NOTE | 2021-11-25 18:52 | ECG_ITS ---
Test Reason : WEAKNESS Blood Pressure : / mmHG Vent. Rate : 075 BPM Atrial Rate : 075 BPM P-R Int : 174 ms QRS Dur : 190 ms QT Int : 450 ms P-R-T Axes : 030 -42 096 degrees QTc Int : 502 ms Atrial-sensed ventricular-paced rhythm Abnormal ECG When compared with ECG of 15-OCT-2014 18:13, Electronic ventricular pacemaker has replaced Sinus rhythm Referred By: Dougie Sawyer Electronically Signed By:RICKEY SALCIDO
--- NOTE | 2021-11-25 18:58 | ED.FALL ---
HPI - Fall General Chief Complaint: Weakness Stated Complaint: leg weakness Time Seen by Provider: 11/25/21 18:35 Source: patient Mode of arrival: EMS Limitations: no limitations History of Present Illness HPI Narrative: 86-year-old male who presents emergency department for evaluation of injuries from a fall. The patient states that he was tired and he took a nap . He states he takes a nap every afternoon. He woke up at 16:30 hours and reached over to look at his clock and fell out of bed. He is not certain if he hit his head but he believes that he landed on his back. He had no loss of consciousness. He tried to get up for approximately 30 minutes then called his . His was unable to assist him and she called 911. On presentation, the patient states that he is having some mild pain in his lower back and neck. He is also having some mild throbbing pain in his right lower extremity. He also states he has had mild nausea since the fall with no vomiting. He states that over the past 2 days he has had rhinorrhea sore throat nonproductive cough. He denied fever, chills, shortness of breath, dyspnea on exertion, vomiting, diarrhea, abdominal pain, frequency, dysuria, black tarry stools or bloody stools. The patient has a history of paroxysmal atrial fibrillation and is on apixaban. complaint: fall Onset (ago): hour(s) (2) Fall from: out of bed Fall witnessed: no Place fall occurred: home Loss of consciousness: none Prolonged down time: no (30 minutes) Symptoms prior to fall: other (Rhinorrhea, sore throat, nonproductive cough x2 days) Context: other (Rolled over to check o'clock in fell out of bed) Location of injury: neck, back (Lower) and other (Right lower extremity) Severity: mild Severity scale (1-10): 2 Quality: dull Associated symptoms (after fall): neck pain and other (Back pain, nausea) Related Data Home Medications Medication Instructions Recorded Confirmed apixaban 5 mg tablet (Eliquis) 5 mg PO BID 05/22/20 07/21/21 aspirin 81 mg tablet,delayed 81 mg PO DAILY 05/22/20 07/21/21 release (Adult Aspirin Regimen) atorvastatin 80 mg tablet 80 mg PO DAILY 05/22/20 07/21/21 cholecalciferol (vitamin D3) 25 25 mcg PO DAILY 05/22/20 07/21/21 mcg (1,000 unit) capsule fluticasone propionate 50 2 spray intranasal DAILY PRN 09/23/21 mcg/actuation nasal spray,suspension terazosin 2 mg capsule 4 mg PO BEDTIME 09/23/21 fexofenadine 180 mg tablet 180 mg PO DAILY 09/30/21 (Allergy Relief (fexofenadine)) nitroglycerin 0.4 mg sublingual 0.4 mg sublingual Q5M PRN 09/30/21 tablet (Nitrostat) tadalafil 20 mg tablet (Cialis) 20 mg PO DAILY PRN 09/30/21 tamsulosin 0.4 mg capsule 0.4 mg PO DAILY 09/30/21 Previous Rx's Medication Instructions Recorded metoprolol succinate 50 mg 75 mg PO DAILY #135 caps 01/26/21 tablet,extended release 24 hr cane #1 ea 03/09/21 lisinopril 40 mg tablet 40 mg PO DAILY #90 caps 03/23/21 AUTO PAP 6-16 cm humidified AIR #1 ea 06/04/21 full face nasal mask Allergies Allergy/AdvReac Type Severity Reaction Status Date / Time cyclobenzaprine Allergy Mild UNCONTROLLED Verified 11/25/21 18:37 [Cyclobenzaprine] SHAKING oxycodone [From Percocet] Allergy Mild DIFFICULTING Verified 11/25/21 18:37 BREATHING acetaminophen [Percocet] Allergy Unknown Unknown Verified 11/25/21 18:37 meperidine [Demerol] Allergy Unknown Unknown Verified 11/25/21 18:37 Review of Systems Review of Systems: Yes all other systems are reviewed and are negative [facility] Past Medical History [facility] Narrative: Social history: The patient is . He lives with his Ramila who is here in the emergency department with him. He denies tobacco, and drug use. He drinks 1 beer per day. Medical History Aortic stenosis Cardiac pacemaker in situ Coronary artery disease Erectile dysfunction GERD (gastroesophageal reflux disease) History of prostate cancer Hypercholesterolemia Hypertension Left leg pain Obstructive sleep apnea Paroxysmal atrial fibrillation Right foot drop Right leg pain Saddle thrombus of abdominal aorta Spinal stenosis of lumbar region Surgical History History of cervical spinal surgery History of inguinal hernia repair History of lumbar surgery History of tonsillectomy Stented coronary artery Family History Family History Father No problems noted. Mother Hypertension Lung cancer Brother No problems noted. Sister No problems noted. Son No problems noted. Daughter No problems noted. Social History Social History Housing: House Alcohol intake: current Alcohol intake frequency: 0-2 drinks per day Alcohol type: beer Patient Tobacco Use Status: Never used Tobacco e-Cigarette/Vaping Use: Never Used Second Hand Smoke Exposure: Yes Use of substances other than those prescribed or required for medical reasons: No Advance Directives: No service: Yes Current occupational status: retired Cognitive needs: No Hearing needs: No Vision needs: Yes Physical Exam Vital Signs: Vital Signs: Last Vital Signs Temp 99.2 F 11/25/21 19:06 Pulse 69 11/25/21 19:06 Resp 18 11/25/21 19:06 BP 165/68 H 11/25/21 19:06 Pulse Ox 96 11/25/21 19:06 O2 Del Method 11/25/21 19:06 O2 Flow Rate 4 11/25/21 19:06 BMI result Body Mass Index 25.7 Const: General: cooperative and no acute distress Orientation/consciousness: oriented to person and oriented to place Limitations: no limitations HEENT: Head: Yes normal to inspection, Yes normocephalic and Yes atraumatic Ears: external ears normal General nose exam: Normal external nose present Face and sinus: Yes normal facial exam Mouth: Normal oral and palatal mucosa present Throat: Yes posterior oropharynx normal Eyes: General: appearance normal, both eyes and all related structures Pupils: Equal, round and reactive pupils present Neck: Other: Mild trapezius muscle tenderness bilaterally and cervical spine tenderness Chest: Chest palpation & inspection: normal inspection of the chest and normal palpation of entire chest wall Resp: Effort & Inspection: normal respiratory effort and able to speak in complete sentences Auscultation: clear to auscultation bilaterally Cardio: Rate: regular rate Rhythm: regular rhythm Heart sounds: S1 normal heart sound present, S2 normal heart sound present and no murmurs GI: Inspection: Yes normal to inspection Palpation (GI): Soft to palpation, nontender and no guarding Auscultation: normal bowel sounds : General: Yes no CVA tenderness Back/Spine/Pelvis: Back: no CVA tenderness Skin: General skin exam: no rashes or lesions noted Neuro: General: oriented to person and oriented to place Cranial nerves: Yes CN's II-XII intact bilaterally and Yes Equal, round and reactive pupils present Cognition (Neuro): normal cognition Motor exam (neuro): 5/5 motor strength present throughout Extrem: Other: The patient has no obvious ecchymosis or hematomas to his lower extremities, the patient has full range of motion of both hips in his lower extremities both passively and actively without any discomfort Psych: Appearance: grossly normal Speech and movement: Normal speech and movement present Affect: normal affect Attitude: cooperative Thought process: Normal thought process present Thought content: Normal thought content present Course Course Course Narrative: 86-year-old male who has a history of atrial fibrillation on apixaban who rolled out of bed today at around 16:30 hours. The patient has had some minor symptoms over the past 2 days of an URI with rhinorrhea, sore throat and a nonproductive cough otherwise he was in his usual state of health. After falling he was unable to get off the floor and was on the floor for approximately 30 minutes and his then called 911. Here in the emergency department he states that he has nausea that was not present prior to the fall. He complains of neck pain lower back pain and right leg. He states that these pains are mild. Vital signs revealed an elevated blood pressure 158/76, O2 saturation was 90% on room air. The patient's exam did reveal tenderness palpation of his trapezius muscles and cervical spine, tenderness palpation does lower back and no significant abnormalities his lower extremities. Given his fall and the fact that he is on apixaban I did order CT scan of the head and cervical spine. Will also check a CBC, CMP, PT/INR, PTT, and chest x-ray. 2116: Patient's laboratory evaluation did reveal low platelet count of a 143 and elevated glucose of 142 otherwise was unremarkable. Twelve EKG revealed a paced rhythm. CT scan of the head and cervical spine revealed no acute fracture or bleed. Chest x-ray revealed no acute disease. The patient's O2 saturation is 91% on room air. I did have the patient stand and I did walk with him in the emergency department, the patient does have a slow gait but was able to walk without any difficulty. When we got back to the stretcher I placed O2 saturation pro back on his finger and it was still 91%. At this point I believe that the patient suffered minor contusions from the fall but I did discuss the risk of increased bleeding while on apixaban with the patient and the patient's . Patient was discharged home with printed and verbal instructions on contusions. He was advised to take Tylenol for pain. MDM - Fall Medical Records Attestation: I reviewed the patient's medical records. Lab Data Attestation: I reviewed the patient's lab results. Result diagrams: 11/25/21 20:01 11/25/21 20:01 Labs: Lab Results 11/25/21 11/25/21 11/25/21 Range/Units 20:01 20:01 20:01 WBC 10.0 (4.8-10.8) X10*3/uL RBC 4.41 L (4.60-5.80) X10*6/uL Hgb 14.0 (14.0-18.0) g/dl Hct 40.8 L (42.0-52.0) % MCV 92.5 (80.0-98.0) fL MCH 31.7 (27.0-33.0) pg MCHC 34.3 (31.0-36.0) g/dl RDW 12.7 (11.0-16.0) % Plt Count 143 L (160-400) X10*3/uL MPV 10.8 (9.4-12.4) fL Immature Gran % (Auto) 0.4 (0.0-0.4) % Neut % (Auto) 83.9 H (45-73) % Lymph % (Auto) 7.5 L (20-40) % [place] % (Auto) 7.1 (2-11) % Eos % (Auto) 0.8 (0-4) % Baso % (Auto) 0.3 (0-2) % Lymph # (Auto) 0.8 L (1.2-4.9) X10*3/uL [place] # (Auto) 0.7 (0.1-1.2) X10*3/uL Eos # (Auto) 0.1 (0.0-0.4) X10*3/uL Baso # (Auto) 0.0 (0.0-0.2) X10*3/uL Abs Immat Gran (auto) 0.04 H (0.00-0.03) X10*3/uL Absolute Neuts (auto) 8.4 H (2.0-8.3) x10*3/uL Absolute Nucleated RBC 0.000 (0.0-0.012) X10*3/uL Nucleated RBC % (auto) 0.0 (0.0-0.2) /100WBC PT (10.0-13.1) SEC INR (0.9-1.1) APTT 32.7 (24.1-38.0) SEC Sodium 140 (135-145) mmol/L Potassium 3.8 (3.3-5.1) mmol/L Chloride 109 H (96-108) mmol/L Carbon Dioxide 24 (22-29) mmol/L Anion Gap 11 L (12-20) BUN 21 H (9-16) mg/dL Creatinine 1.12 (0.5-1.4) mg/dL Estim Creat Clear Calc 51.3 Estimated GFR > 60 Random Glucose 142 H (60-115) mg/dL Calcium 8.5 (8.4-10.2) mg/dL Total Bilirubin 0.5 (0.0-1.0) mg/dL AST 20 (5-37) U/L ALT 13 (0-40) U/L Alkaline Phosphatase 69 (39-117) U/L Total Protein 6.2 L (6.5-8.0) g/dL Albumin 3.9 (3.5-5.0) g/dL 11/25/21 Range/Units 20:01 WBC (4.8-10.8) X10*3/uL RBC (4.60-5.80) X10*6/uL Hgb (14.0-18.0) g/dl Hct (42.0-52.0) % MCV (80.0-98.0) fL MCH (27.0-33.0) pg MCHC (31.0-36.0) g/dl RDW (11.0-16.0) % Plt Count (160-400) X10*3/uL MPV (9.4-12.4) fL Immature Gran % (Auto) (0.0-0.4) % Neut % (Auto) (45-73) % Lymph % (Auto) (20-40) % [place] % (Auto) (2-11) % Eos % (Auto) (0-4) % Baso % (Auto) (0-2) % Lymph # (Auto) (1.2-4.9) X10*3/uL [place] # (Auto) (0.1-1.2) X10*3/uL Eos # (Auto) (0.0-0.4) X10*3/uL Baso # (Auto) (0.0-0.2) X10*3/uL Abs Immat Gran (auto) (0.00-0.03) X10*3/uL Absolute Neuts (auto) (2.0-8.3) x10*3/uL Absolute Nucleated RBC (0.0-0.012) X10*3/uL Nucleated RBC % (auto) (0.0-0.2) /100WBC PT 15.6 H (10.0-13.1) SEC INR 1.3 H (0.9-1.1) APTT (24.1-38.0) SEC Sodium (135-145) mmol/L Potassium (3.3-5.1) mmol/L Chloride (96-108) mmol/L Carbon Dioxide (22-29) mmol/L Anion Gap (12-20) BUN (9-16) mg/dL Creatinine (0.5-1.4) mg/dL Estim Creat Clear Calc Estimated GFR Random Glucose (60-115) mg/dL Calcium (8.4-10.2) mg/dL Total Bilirubin (0.0-1.0) mg/dL AST (5-37) U/L ALT (0-40) U/L Alkaline Phosphatase (39-117) U/L Total Protein (6.5-8.0) g/dL Albumin (3.5-5.0) g/dL ECG Data Attestation: I personally reviewed and interpreted this ECG as follows: Interpretation: Paced rhythm with a rate of 75, atrial sensed ventricular paced Discharge Plan Discharge Clinical Impression: Fall Qualifiers: Encounter type: initial encounter Qualified Code(s): W19.XXXA - Unspecified fall, initial encounter Contusion Qualifiers: Encounter type: initial encounter Patient Disposition: Home, Self-Care Instructions: Contusion in Adults (ED) Additional Instructions: Your blood work was unremarkable. The CT scan of your head and neck did not reveal any broken bones or bleeding in your brain which is reassuring. The chest x-ray was also normal. Your EKG shows that your pacemaker is working. At this time I do not think that you had any significant injury broken bones from the fall, however you are on apixaban which is a blood thinner which makes you at increased risk for bleeding. If you developed headache, nausea, vomiting, weakness or any large hematomas (bleeding in the muscles) then you should either follow-up with her doctor return to the emergency department for re-evaluation. Continue taking medications as prescribed by your doctor Take Tylenol (acetaminophen) 500 mg pills, 2 pills every 4 to 6 hours as needed for pain. Follow-up with your doctor in 2 days. Please return to the emergency department if your symptoms get worse or if you develop any symptoms that are concerning to you. Prescriptions: No Action metoprolol succinate 50 mg tablet extended release 24 hr 75 mg PO DAILY Qty: 135 3RF lisinopril 40 mg tablet 40 mg PO DAILY Qty: 90 3RF (DME) AUTO PAP 6-16 cm humidified AIR full face nasal mask See Rx Instructions .Route .MEDSUPPLY Qty: 1 0RF Rx Instructions: As directed cholecalciferol (vitamin D3) 25 mcg (1,000 unit) capsule 25 mcg PO DAILY Eliquis 5 mg tablet 5 mg PO BID aspirin [Adult Aspirin Regimen] 81 mg tablet,delayed release (DR/EC) 81 mg PO DAILY atorvastatin 80 mg tablet 80 mg PO DAILY fluticasone propionate 50 mcg/actuation spray,suspension 2 spray intranasal DAILY PRN Rx Instructions: administer into each nostril (DME) cane Device See Rx Instructions .Route Qty: 1 0RF Rx Instructions: As directed tamsulosin 0.4 mg capsule 0.4 mg PO DAILY fexofenadine [Allergy Relief (fexofenadine)] 180 mg tablet 180 mg PO DAILY tadalafil [Cialis] 20 mg tablet 20 mg PO DAILY PRN Rx Instructions: administer approximately 30min before sexual activity; do not use more than 1 dose per 24hrs nitroglycerin [Nitrostat] 0.4 mg tablet, sublingual 0.4 mg sublingual Q5M PRN Rx Instructions: do not exceed 3 doses per episode terazosin 2 mg capsule 4 mg PO BEDTIME
[2021-11-25 19:06] VITALS: BP 165/68; PULSE 69; RESP 18; TEMP 37.3; O2SAT 96
[2021-11-25] MEDS: Acetaminophen 325 MG TABLET 975 MG PO (19:53)
--- NOTE | 2021-11-25 19:55 | PC.NURSE ---
medicated per provider order pt c/o 12/06 back of head/back/leg pain.
[2021-11-25 20:07] LABS: MANUAL DIFF FLAG NO
[2021-11-25 20:17] LABS: Basophils Percent Auto 0.3 % (0-2); Eosinophils Absolute Auto 0.1 X10*3/uL (0.0-0.4); Eosinophils Percent Auto 0.8 % (0-4); Hematocrit 40.8 % (42.0-52.0); Imm Gran Abs Auto 0.04 X10*3/uL (0.00-0.03); Imm Gran Pct Auto 0.4 % (0.0-0.4); Lymphocytes Absolute Auto 0.8 X10*3/uL (1.2-4.9); Lymphocytes Percent Auto 7.5 % (20-40); Mean Corpuscular HGB Conc 34.3 g/dl (31.0-36.0); Mean Corpuscular Hemoglobin 31.7 pg (27.0-33.0); Mean Corpuscular Volume 92.5 fL (80.0-98.0); Mean Platelet Volume 10.8 fL (9.4-12.4); Monocytes Absolute Auto 0.7 X10*3/uL (0.1-1.2); Monocytes Percent Auto 7.1 % (2-11); Neutrophils Absolute Auto 8.4 x10*3/uL (2.0-8.3); Neutrophils Percent Auto 83.9 % (45-73); Platelet Count 143 X10*3/uL (160-400); Red Blood Count 4.41 X10*6/uL (4.60-5.80); Red Cell Distribution Width 12.7 % (11.0-16.0)
[2021-11-25 20:23] LABS: Alanine Aminotransferase 13 U/L (0-40); Albumin Level 3.9 g/dL (3.5-5.0); Alkaline Phosphatase 69 U/L (39-117); Anion Gap 11 (12-20); Aspartate Amino Transferase 20 U/L (5-37); Bilirubin Total 0.5 mg/dL (0.0-1.0); Blood Urea Nitrogen 21 mg/dL (9-16); Calcium 8.5 mg/dL (8.4-10.2); Carbon Dioxide 24 mmol/L (22-29); Chloride 109 mmol/L (96-108); Creatinine Clr Calc Pharmacy 51.3; Estimated Glomerular Filt Rate > 60; Glucose Random 142 mg/dL (60-115); INTERNATIONAL NORM RATIO 1.3 (0.9-1.1); Potassium 3.8 mmol/L (3.3-5.1); Prothrombin Time 15.6 SEC (10.0-13.1); Sodium 140 mmol/L (135-145); Total Protein 6.2 g/dL (6.5-8.0)
[2021-11-25 20:25] LABS: Partial Thromboplastin Time 32.7 SEC (24.1-38.0)
[2021-11-25 21:35] VITALS: BP 134/61; PULSE 70; RESP 16; TEMP 37.1; O2SAT 92
[2021-11-25 21:46] LABS: Appearance Urine CLEAR; Color Urine YELLOW; Glucose Urine UA NEG (NEG); Leukocyte Esterase Urine NEG (NEG); Nitrite Urine NEG (NEG); PH 5.5 (5.0-8.0); UACC Culture Trigger NO; Urine Blood 1+ (NEG); Urine Ketones NEG (NEG); Urine Protein NEG (NEG-TRACE)
[2021-11-25 22:31] LABS: Squamous Epithelial Cell Urine TRACE /LPF
== END 2021-11-25 22:10 | disposition home or self-care (01) ==
PROVIDERS: Emergency Provider Emergency Medicine Emergency Medical Services; PCP Internal Medicine
DX: S00.93XA Contusion of unspecified part of head, initial encounter (principal); W06.XXXA Fall from bed, initial encounter; M54.50 Low back pain, unspecified; M54.2 Cervicalgia; M79.661 Pain in right lower leg; R53.1 Weakness; I10 Essential (primary) hypertension; I48.0 Paroxysmal atrial fibrillation; E78.5 Hyperlipidemia, unspecified; Z79.01 Long term (current) use of anticoagulants; Y93.89 Activity, other specified; Y92.013 Bedroom of single-family (private) house as the place of occurrence of the external cause; Y99.9 Unspecified external cause status
CPT/HCPCS: 36415; 70450; 71046; 72125; 80053; 81001; 85025; 85610; 85730; 93005; 99284

== ENCOUNTER 2021-11-27 13:13 | Outpatient (REF) | payer MEDICARE, OTHER, SELFPAY ==
[2021-11-27 13:47] LABS: Binax Internal Control QC Valid; Binax Now Covid-19 Ag Positive (Negative); Binax Performed by: HO.BONILM
== END 2021-11-27 13:14 | disposition home or self-care (01) ==
LOC: HO.HMGCLDS 13:13
DX: J06.9 Acute upper respiratory infection, unspecified (principal); Z20.822 Contact with and (suspected) exposure to COVID-19
CPT/HCPCS: 87811; C9803

== ENCOUNTER → 2022-03-23 10:08 | Outpatient (BNVA) | payer MEDICARE, OTHER, SELFPAY | PROVIDERS: PCP Internal Medicine; Visit Provider Internal Medicine | DX: G47.33 Obstructive sleep apnea (adult) (pediatric) (principal); Z99.89 Dependence on other enabling machines and devices | CPT/HCPCS: 99212 ==

== ENCOUNTER 2022-04-02 11:55 | Outpatient (REF) | payer MEDICARE, OTHER, SELFPAY ==
[2022-04-02 14:01] LABS: Prostate Specific Antigen 0.16 ng/mL (<0.05-4.0)
[2022-04-02 14:05] LABS: Appearance Urine Clear; Color Urine Yellow; Glucose Urine UA Negative (Negative); Leukocyte Esterase Urine Small (1+) (Negative); Nitrite Urine Negative (Negative); UMIC TRIGGER UACC YES; Urine Blood Trace (Negative); Urine Ketones Negative (Negative); Urine Protein Negative (Neg-Trace)
[2022-04-02 14:11] LABS: Bacteria Urine None Seen (None Seen); Hyaline Casts Urine 0-2 /LPF (0-2); UACC Culture Trigger YES
== END 2022-04-02 11:56 | disposition home or self-care (01) ==
LOC: HO.LAB 11:55
PROVIDERS: PCP Internal Medicine; Visit Provider Physician Assistant
DX: Z12.5 Encounter for screening for malignant neoplasm of prostate (principal); R30.9 Painful micturition, unspecified
CPT/HCPCS: 36415; 81001; 81003; 84153; 87086

== ENCOUNTER → 2022-04-19 13:37 | Outpatient (BNVA) | payer MEDICARE, OTHER, SELFPAY | PROVIDERS: PCP Internal Medicine; Referring Provider Internal Medicine; Visit Provider Internal Medicine Cardiovascular Disease | DX: Z45.018 Encounter for adjustment and management of other part of cardiac pacemaker (principal); I48.0 Paroxysmal atrial fibrillation; I25.10 Atherosclerotic heart disease of native coronary artery without angina pectoris; I35.0 Nonrheumatic aortic (valve) stenosis | CPT/HCPCS: 93280; 99212 ==

== ENCOUNTER 2022-06-22 09:19 | Outpatient (REF) | payer MEDICARE, OTHER, SELFPAY ==
[2022-06-22 09:38] LABS: MANUAL DIFF FLAG NO
[2022-06-22 10:37] LABS: Basophils Percent Auto 0.4 % (0-2); Eosinophils Absolute Auto 0.4 X10*3/uL (0.0-0.4); Eosinophils Percent Auto 5.6 % (0-4); Hematocrit 45.3 % (42.0-52.0); Hemoglobin 14.9 g/dl (14.0-18.0); Imm Gran Abs Auto 0.03 X10*3/uL (0.00-0.03); Imm Gran Pct Auto 0.4 % (0.0-0.4); Immature Retic Fraction 7.9 % (2.3-13.4); Lymphocytes Absolute Auto 2.3 X10*3/uL (1.2-4.9); Lymphocytes Percent Auto 33.2 % (20-40); Mean Corpuscular HGB Conc 32.9 g/dl (31.0-36.0); Mean Corpuscular Hemoglobin 31.1 pg (27.0-33.0); Mean Corpuscular Volume 94.6 fL (80.0-98.0); Mean Platelet Volume 10.9 fL (9.4-12.4); Monocytes Absolute Auto 0.5 X10*3/uL (0.1-1.2); Monocytes Percent Auto 6.9 % (2-11); Neutrophils Absolute Auto 3.7 x10*3/uL (2.0-8.3); Neutrophils Percent Auto 53.5 % (45-73); Platelet Count 167 X10*3/uL (160-400); Red Blood Count 4.79 X10*6/uL (4.60-5.80); Red Cell Distribution Width 12.6 % (11.0-16.0); Retic HGB Equivalent 36.7 pg (30.0-35.0); Reticulocyte Percent 0.8 % (0.5-1.8); Reticulocytes Absolute 0.038 X10*6/uL (0.026-0.095); White Blood Count 6.9 X10*3/uL (4.8-10.8)
[2022-06-22 10:50] LABS: Estimated Average Glucose 134 mg/dL; Hemoglobin A1c % 6.3 %
[2022-06-22 11:33] LABS: Alanine Aminotransferase 16 U/L (0-40); Albumin Level 4.1 g/dL (3.5-5.0); Alkaline Phosphatase 68 U/L (39-117); Anion Gap 11 (12-20); Aspartate Amino Transferase 22 U/L (5-37); Bilirubin Total 0.6 mg/dL (0.0-1.0); Blood Urea Nitrogen 18 mg/dL (9-16); Calcium 9.4 mg/dL (8.4-10.2); Carbon Dioxide 26 mmol/L (22-29); Chloride 108 mmol/L (96-108); Cholesterol 108 mg/dL; Estimated Glomerular Filt Rate > 60; Glucose Random 102 mg/dL (60-115); HDL Cholesterol 31 mg/dL; Iron 90 mcg/dL (45-160); LDL Cholesterol Calculated 63 mg/dl; Percent Iron Saturation 33 % (15-50); Potassium 4.1 mmol/L (3.3-5.1); Sodium 141 mmol/L (135-145); Total Iron Binding Capacity 274 mcg/dL (228-428); Total Protein 6.3 g/dL (6.5-8.0); Triglycerides 74 mg/dL; Unsaturated Iron Binding 184 ug/dL; Uric Acid 5.5 mg/dL (3.4-7.0)
[2022-06-22 11:53] LABS: Ferritin 161 ng/mL (20-250); Folate 12.4 ng/mL (> or = 4.0); Free T4 (Free Thyroxine) 0.92 ng/dL (0.71-1.85); PSA,Total (Free>4and<10) 0.11 ng/mL (0.00-4.00); Thyroid Stimulating Hormone 2.63 uIU/mL (0.32-4.0); Vitamin B12 372 pg/mL (200-900); Vitamin D 25-OH Total 33.6 ng/mL (>30)
== END 2022-06-22 09:20 | disposition home or self-care (01) ==
LOC: HO.LAB 09:19
PROVIDERS: PCP Internal Medicine; Visit Provider Internal Medicine
DX: Z12.5 Encounter for screening for malignant neoplasm of prostate (principal); D64.9 Anemia, unspecified; I48.0 Paroxysmal atrial fibrillation; E78.00 Pure hypercholesterolemia, unspecified; Z85.46 Personal history of malignant neoplasm of prostate; R73.02 Impaired glucose tolerance (oral); S82.402A Unspecified fracture of shaft of left fibula, initial encounter for closed fracture; X58.XXXA Exposure to other specified factors, initial encounter; Y93.9 Activity, unspecified; Y92.9 Unspecified place or not applicable; Y99.9 Unspecified external cause status
CPT/HCPCS: 36415; 80053; 80061; 82306; 82607; 82728; 82746; 83036; 83540; 84153; 84439; 84443; 84550; 85025; 85045

== ENCOUNTER 2022-07-09 08:30 | Outpatient (REF) | payer MEDICARE, OTHER, SELFPAY ==
--- NOTE | ~2022-07-09 | US_ITS ---
EXAMINATION: US ABDOMEN COMPLETE CLINICAL INFORMATION: Other specified abnormal findings of blood chemistry. COMPARISON: Ultrasound kidneys and bladder 03/21/2017. Ultrasound kidneys 11/11/2016. CT abdomen and pelvis 10/15/2014. TECHNIQUE: Real-time imaging of the abdominal viscera. FINDINGS: PANCREAS: Visualized portions of the pancreas are unremarkable. The pancreatic tail is obscured by bowel gas. ABDOMINAL AORTA: The proximal, mid, and distal segments are normal in caliber. INFERIOR VENA CAVA: Visualized portions are normal. LIVER: The liver is normal in size. The liver contour is normal. There is diffuse increased liver parenchymal echogenicity, consistent with infiltrative hepatocellular disease. Benign-appearing hepatic cysts measuring up to 2.9 cm. There is no intrahepatic biliary duct dilatation seen. GALLBLADDER: Normal. The gallbladder is physiologically distended without evidence of stones, sludge, polyps, wall thickening or pericholecystic fluid. COMMON BILE DUCT: Normal in caliber measuring 0.7 cm in diameter. RIGHT KIDNEY: Normal. No hydronephrosis. No renal calculi or focal parenchymal lesions. The kidney measures 10.6 cm in maximum dimension. LEFT KIDNEY: Normal. No hydronephrosis. No renal calculi or focal parenchymal lesions. The kidney measures 11.3 cm in maximum dimension. SPLEEN: Normal. The spleen measures 9.6 cm in maximum dimension. FREE FLUID: None. US/US abdomen complete IMPRESSION: Increased hepatic echogenicity which can be seen in the setting of hepatic steatosis or underlying liver disease.
== END 2022-07-09 08:31 | disposition home or self-care (01) ==
LOC: HO.HMGCX 08:30
PROVIDERS: PCP Internal Medicine; Visit Provider Internal Medicine
DX: R10.11 Right upper quadrant pain (principal); R79.89 Other specified abnormal findings of blood chemistry
CPT/HCPCS: 76700

== ENCOUNTER → 2022-09-22 10:06 | Outpatient (REF) | payer MEDICARE, OTHER, SELFPAY ==
--- NOTE | 2022-09-22 10:09 | CA_ITS ---
Transthoracic Echocardiogram Patient (Last, First, Middle): Yuriy Matthew H Gender: Male Date of : 1935 Age: 87 Procedure Date: 09/22/2022 Procedure Type: Transthoracic Echocardiogram Location: OP Height: 180.34 cm Weight: 88. kg BSA: 2.08 m2 Heart Rate: bpm BP: 134 / 70 mmHg Data Security Administrator: Referring MD: Abdirizak Barbosa MD Director Systems: Abdirizak Barbosa MD Symptoms: I35.0 - Nonrheumatic aortic (valve) stenosis Study Quality: Fair ECG Rhythm: Sinus Conclusions: - 1. Normal LV systolic function with LVEF of 60 65% with moderate LVH with impaired relaxation filling pattern 2. Moderate aortic stenosis 3. Normal RV systolic pressure 4. No gross pericardial effusion Findings Left Ventricle Normal left ventricular size and systolic function. There is moderately increased left ventricular wall thickness. The visually estimated ejection fraction is between 60-65%. Spectral Doppler is indicative of an impaired relaxation filling pattern. E/E prime ratio is <8, consistent with normal filling pressures. Evidence suggests grade I (mild) diastolic dysfunction. Right Ventricle Normal right ventricular cavity size and systolic function. Atria The left atrium is likely dilated. There is lipomatous hypertrophy of the interatrial septum. There is no evidence of interatrial shunt. The right atrium is normal in size. Aortic Valve The aortic valve was not well visualized. There is moderate calcification of the aortic valve. There is moderate aortic valve stenosis. There is no aortic valve regurgitation. Mitral Valve There is mild anterior and posterior mitral leaflet thickening. There is mild mitral annular calcification. There is trace mitral valve regurgitation. There is no mitral valve stenosis. Pulmonic Valve The pulmonic valve was not well visualized. Tricuspid Valve Likely normal tricuspid valve structure and function. There is mild tricuspid valve regurgitation. The right ventricular systolic pressure is normal. The right ventricular systolic pressure is 25 mmHg. Normal right atrial pressure. There is no evidence of pulmonary hypertension. Great Vessels The pulmonary artery was not well visualized. There is mild dilatation of the ascending aorta. Venous The inferior vena cava is normal in size and collapses greater than 50% with inspiration. Pericardium/Pleural There is no evidence of pericardial effusion. Prior Study Comparison Changes noted compared to prior study dated: 07/23/2016. moderate aortic stenosis is noted. LV systolic function appears to be normal on this study Measurements 2D Linear Measurements RVIDd: 3.90 RVIDd Index: 1.88 IVSd: 1.61 0.6-0.9/0.6-1.0 cm LVIDd: 4.52 3.9-5.3/4.2-5.9 cm LVIDd Index: 2.17 2.4-3.2/2.2-3.1 cm/m2 LVIDs: 3.38 2.0-3.6 cm LVPWd: 1.50 0.7-1.1 cm Ao Root: 3.50 2.1-3.5 cm LA Diam: 3.90 2.7-3.8/3.0-4.0 cm LAIDs Index: 1.88 1.5-2.3 cm/m2 LV Mass: 365.92 67-162/88-224 g LV Mass Index: 175.92 43-95/49-115 g/m2 LVOT Diam: 2.00 3.0+(-)1.3 cm 2D Systolic Function EF 4C: 68.20 >55% EF 2C: 49.20 >55% EF BiP: 61.80 >55% Mitral Valve MV Pk E: 0.40 MV PK A: 0.91 MV Decel Time: 243.00 E/A: 0.40 E'Lateral: 4.24 E'Medial: 4.35 E/E' Med: 9.10 E/E' Lat: 9.40 PHT: 71.00 MVA PHT: 3.10 Decel Duchesne: 1.63 Aortic Valve AoV Pk Jose Juan: 2.42 AoV Mn Jose Juan: 1.71 AoV VTI: 0.58 AoV Pk Grad: 23.00 Aov Mn Grad: 14.00 CARMELITA Cont.VTI: 1.15 LVOT LVOT Pk Jose Juan: 0.84 LVOT Mn Jose Juan: 0.56 LVOT VTI: 0.21 LVOT Pk Grad: 3.00 LVOT Mn Grad: 2.00 LVOT Diam: 2.00 LVOT Area: 3.14 Diastolic Function MV Pk E: 0.40 MV Pk A: 0.91 E/A: 0.40 E'Medial: 4.35 E/E' Med: 9.10 E' Laterial: 4.24 E/E' Lat: 9.40 Right Ventricle TAPSE (mm): 32.00 TVS' Jose Juan: 14.00 Tricuspid Valve TR Pk Jose Juan: 2.32 TR Pk Grad: 22.00 RA Press: 3.00 RVSP: 25.00 Great Vessels Aorta Ao Root-2D: 3.50 2.0-3.7 cm Ao Asc: 4.00 2.1-3.4 cm Pulmonary Valve PV Pk Jose Juan: 1.17 Peak PV Grad: 5.00 Updated in Other Vendor System with Status of Final Abdirizak Barbosa MD electronically signed on 09/22/2022 3:30:15 PM with status of Final
== END ==
LOC: HO.CARD 10:06
PROVIDERS: PCP Internal Medicine; Visit Provider Internal Medicine Cardiovascular Disease
DX: I35.0 Nonrheumatic aortic (valve) stenosis (principal)
CPT/HCPCS: 93306; 99212

== ENCOUNTER → 2022-09-30 12:45 | Outpatient (BNVA) | payer MEDICARE, OTHER, SELFPAY | PROVIDERS: PCP Internal Medicine; Referring Provider Internal Medicine; Visit Provider Internal Medicine Cardiovascular Disease | DX: Z45.018 Encounter for adjustment and management of other part of cardiac pacemaker (principal); I35.0 Nonrheumatic aortic (valve) stenosis; I48.0 Paroxysmal atrial fibrillation; I25.10 Atherosclerotic heart disease of native coronary artery without angina pectoris | CPT/HCPCS: 93280; 99212 ==

== ENCOUNTER → 2023-01-24 23:59 | Outpatient (BNV) | payer MEDICARE, OTHER, SELFPAY ==
--- NOTE | 2023-01-24 15:07 | MHC.OFFVIS ---
Intake Intake Visit Reasons: Remote Device Check- [employer] logo [employer] Allergies cyclobenzaprine [Cyclobenzaprine] Allergy (Mild, Verified 10/27/22 14:27) UNCONTROLLED SHAKING oxycodone [From Percocet] Allergy (Mild, Verified 10/27/22 14:27) DIFFICULTING BREATHING acetaminophen [Percocet] Allergy (Unknown, Verified 10/27/22 14:27) Unknown meperidine [Demerol] Allergy (Unknown, Verified 10/27/22 14:27) Unknown [facility] Medical History (Updated 10/27/22 @ 14:58 by Edmond Cevallos MD) Aortic stenosis Cardiac pacemaker in situ Coronary artery disease Erectile dysfunction GERD (gastroesophageal reflux disease) History of prostate cancer Hypercholesterolemia Hypertension Left leg pain Obstructive sleep apnea Paroxysmal atrial fibrillation Right foot drop Right leg pain Saddle thrombus of abdominal aorta Spinal stenosis of lumbar region Surgical History History of cervical spinal surgery History of inguinal hernia repair History of lumbar surgery History of tonsillectomy Stented coronary artery Family History Father No problems noted. Mother Hypertension Lung cancer Brother No problems noted. Sister No problems noted. Son No problems noted. Daughter No problems noted. Social History Housing: House Alcohol intake: current Alcohol intake frequency: 0-2 drinks per day Alcohol type: beer Patient Tobacco Use Status: Never used Tobacco e-Cigarette/Vaping Use: Never Used Second Hand Smoke Exposure: Yes service: Yes Current occupational status: retired Cognitive needs: No Hearing needs: No Vision needs: Yes Office Procedures Cardiac Device Check Cardiac Device Check Details: Remote pacemaker report generated 01/24/2023. Pacemaker function is adequate. Patient is pacer dependent in the ventricle. Few short episodes of PMT noted [id number] Cardiac Device Interrogation, pacemaker Procedure code (CPT) selection complete Coding Level of Care Code Procedure Only Diagnoses CPT Codes Cardiac Device Check - Cardiac Device 12: [id number] Cardiac Device Interrogation, pacemaker ([id number])
== END ==
PROVIDERS: PCP Internal Medicine; Visit Provider Internal Medicine Cardiovascular Disease
DX: I48.0 Paroxysmal atrial fibrillation (principal); Z95.0 Presence of cardiac pacemaker
CPT/HCPCS: 93294

== ENCOUNTER 2023-02-03 06:55 | Outpatient (REF) | payer MEDICARE, OTHER, SELFPAY ==
[2023-02-03 07:27] LABS: MANUAL DIFF FLAG NO
[2023-02-03 08:24] LABS: Estimated Average Glucose 126 mg/dL
[2023-02-03 08:37] LABS: Basophils Percent Auto 0.3 % (0-2); Eosinophils Absolute Auto 0.4 X10*3/uL (0.0-0.4); Eosinophils Percent Auto 5.1 % (0-4); Hematocrit 44.7 % (42.0-52.0); Hemoglobin 14.8 g/dl (14.0-18.0); Imm Gran Abs Auto 0.03 X10*3/uL (0.00-0.03); Imm Gran Pct Auto 0.4 % (0.0-0.4); Immature Retic Fraction 7.2 % (2.3-13.4); Lymphocytes Absolute Auto 2.6 X10*3/uL (1.2-4.9); Lymphocytes Percent Auto 37.2 % (20-40); Mean Corpuscular HGB Conc 33.1 g/dl (31.0-36.0); Mean Corpuscular Hemoglobin 30.6 pg (27.0-33.0); Mean Corpuscular Volume 92.4 fL (80.0-98.0); Mean Platelet Volume 11.4 fL (9.4-12.4); Monocytes Absolute Auto 0.5 X10*3/uL (0.1-1.2); Monocytes Percent Auto 7.4 % (2-11); Neutrophils Absolute Auto 3.5 x10*3/uL (2.0-8.3); Neutrophils Percent Auto 49.6 % (45-73); Platelet Count 135 X10*3/uL (160-400); Red Blood Count 4.84 X10*6/uL (4.60-5.80); Red Cell Distribution Width 12.5 % (11.0-16.0); Retic HGB Equivalent 37.3 pg (30.0-35.0); Reticulocyte Percent 1.1 % (0.5-1.8); Reticulocytes Absolute 0.052 X10*6/uL (0.026-0.095); White Blood Count 7.1 X10*3/uL (4.8-10.8)
[2023-02-03 08:54] LABS: Alanine Aminotransferase 16 U/L (0-40); Albumin Level 4.2 g/dL (3.5-5.0); Alkaline Phosphatase 62 U/L (39-117); Anion Gap 11 (12-20); Aspartate Amino Transferase 20 U/L (5-37); Bilirubin Total 0.5 mg/dL (0.0-1.0); Blood Urea Nitrogen 17 mg/dL (9-16); Calcium 9.3 mg/dL (8.4-10.2); Carbon Dioxide 24 mmol/L (22-29); Chloride 110 mmol/L (96-108); Cholesterol 109 mg/dL (<200); Estimated Glomerular Filt Rate > 60; Glucose Random 112 mg/dL (60-115); HDL Cholesterol 33 mg/dL (>40); Iron 78 mcg/dL (45-160); LDL Cholesterol Calculated 63 mg/dL (<100); Percent Iron Saturation 30 % (15-50); Potassium 3.9 mmol/L (3.3-5.1); Sodium 141 mmol/L (135-145); Total Iron Binding Capacity 257 mcg/dL (228-428); Total Protein 6.7 g/dL (6.5-8.0); Triglycerides 65 mg/dL (<150); Unsaturated Iron Binding 179 ug/dL
[2023-02-03 09:00] LABS: Ferritin 177 ng/mL (20-250); Free T4 (Free Thyroxine) 0.92 ng/dL (0.71-1.85); Thyroid Stimulating Hormone 3.44 uIU/mL (0.32-4.0)
[2023-02-03 09:20] LABS: Folate 12.8 ng/mL (> or = 4.0); Vitamin B12 408 pg/mL (200-900)
== END 2023-02-03 06:56 | disposition home or self-care (01) ==
LOC: HO.LAB 06:55
PROVIDERS: PCP Internal Medicine; Visit Provider Internal Medicine
DX: R73.02 Impaired glucose tolerance (oral) (principal); I48.0 Paroxysmal atrial fibrillation; E78.00 Pure hypercholesterolemia, unspecified
CPT/HCPCS: 36415; 80053; 80061; 82607; 82728; 82746; 83036; 83540; 84439; 84443; 85025; 85045

== ENCOUNTER 2023-02-08 15:47 | Outpatient (AMB) | payer MEDICARE, OTHER, SELFPAY ==
[2023-02-08 15:55] VITALS: BP 136/82; PULSE 55; O2SAT 95; BMI 27.1
--- NOTE | 2023-02-08 15:55 | MHC.PC.OV ---
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: Not Required per policy Accompanied by: Self / Same As Patient Allergies cyclobenzaprine [Cyclobenzaprine] Allergy (Mild, Verified 02/08/23 15:55) UNCONTROLLED SHAKING oxycodone [From Percocet] Allergy (Mild, Verified 02/08/23 15:55) DIFFICULTING BREATHING acetaminophen [Percocet] Allergy (Unknown, Verified 02/08/23 15:55) Unknown meperidine [Demerol] Allergy (Unknown, Verified 02/08/23 15:55) Unknown Medication List - Last Reconciled 02/08/23 by Edmond Cevallos MD apixaban (Eliquis) 5 mg PO BID 90 days atorvastatin 80 mg PO DAILY 90 days [AUTO PAP 6-16 cm humidified AIR full face nasal mask As directed] cane As directed cholecalciferol (vitamin D3) 25 mcg PO DAILY fexofenadine 180 mg PO DAILY PRN fluticasone propionate 50 mcg/actuation 2 sprays intranasal DAILY PRN lisinopril 40 mg PO DAILY metoprolol succinate ER 75 mg (1.5 x 50 mg) PO DAILY nitroglycerin (Nitrostat) 0.4 mg sublingual Q5M PRN tadalafil (Cialis) 20 mg PO DAILY PRN tamsulosin 0.4 mg PO DAILY terazosin 4 mg PO BEDTIME Tobacco use date assessed: 06/29/22 Fall risk assessment: No Falls in past year Last assessed Fall Risk: 02/08/23 Dental Screening Dental Screen Date: 02/08/23 Did you have a dental visit in the last 12 months?: Yes Did you have a dental problem in the last 6 months where you did not have access to dental care?: No Was dental information given to patient?: Patient has dentist HPI , HTN , IGT HPI Details 87-year-old male with impaired glucose tolerance aortic stenosis paroxysmal atrial fibrillation GERD hypertension obstructive sleep apnea hypercholesterolemia and coronary artery disease last seen in September 2022 patient is here for follow-up [facility] Medical History (Updated 02/08/23 @ 16:26 by Edmond Cevallos MD) Gait instability Aortic stenosis Cardiac pacemaker in situ Paroxysmal atrial fibrillation Spinal stenosis of lumbar region Left leg pain Right leg pain Right foot drop Erectile dysfunction GERD (gastroesophageal reflux disease) Hypertension Obstructive sleep apnea Saddle thrombus of abdominal aorta History of prostate cancer Hypercholesterolemia Coronary artery disease Surgical History Stented coronary artery History of lumbar surgery History of cervical spinal surgery History of inguinal hernia repair History of tonsillectomy Family History Father No problems noted. Mother Hypertension Lung cancer Brother No problems noted. Sister No problems noted. Son No problems noted. Daughter No problems noted. Social History Housing: House Alcohol intake: current Alcohol intake frequency: 0-2 drinks per day Alcohol type: beer Patient Tobacco Use Status: Never used Tobacco e-Cigarette/Vaping Use: Never Used Second Hand Smoke Exposure: Yes service: Yes Current occupational status: retired Cognitive needs: No Hearing needs: No Vision needs: Yes Questionnaire PHQ-9 Over the last 2 weeks, how often have you been bothered by any of the following problems? 1. Little interest or pleasure in doing things: not at all 2. Feeling down, depressed, or hopeless: not at all 3. Trouble falling or staying asleep, or sleeping too much: not at all 4. Feeling tired or having little energy: not at all 5. Poor appetite or overeating: not at all 6. Feeling bad about yourself - or that you are a failure or have let yourself or your family down: not at all 7. Trouble concentrating on things, such as reading the newspaper or watching television: not at all 8. Moving or speaking so slowly that other people could have noticed. Or the opposite - being so fidgety or restless that you have been moving around a lot more than usual: not at all 9. Thoughts that you would be better off or of hurting yourself in some way: not at all Total score: 0 Depression Screening Interpretation: Negative Source: Developed by Drs. Michael Boothe, Cindi Montenegro, Michele Dukes and colleagues, with an educational elliott from [employer]. Thrive Questionnaire Date Thrive assessed: 06/29/22 AUDIT C Alcohol Use Questionnaire (AUDIT-C) 1. How often do you have a drink containing alcohol?: Never 3. How often do you have six or more drinks on one occasion?: Never Total Score: 0 SEJAL-7 AMB Questionnaire SEJAL-7 Date SEJAL - 7 assessed: 10/27/22 Source: Developed by Drs. Michael Boothe, Cindi Montenegro, Michele Dukes and colleagues, with an educational elliott from [employer]. Physical exam (Primary Care) Vital Signs: Last Vital Signs Pulse 55 02/08/23 15:55 BP 136/82 02/08/23 15:55 Pulse Ox 95 02/08/23 15:55 Oxygen Delivery Method Room Air 02/08/23 15:55 BMI result Body Mass Index 27.1 Tobacco/Smoking Status: Tobacco use Status Tobacco use date assessed 06/29/22 02/08/23 16:01 Patient Tobacco Use Status Never used Tobacco 02/08/23 16:01 e-Cigarette/Vaping Use Never Used 02/08/23 16:01 PHQ-9: PHQ-9 Score PHQ-9: Total score 0 02/08/23 16:01 Depression Screening Interpretation: Negative Thrive Assessment: Date of Thrive Assessment Date Thrive assessed 06/29/22 02/08/23 16:01 Const General: alert; No acute distress Eyes Conjunctivae: conjunctivae normal Resp Auscultation: clear to auscultation bilaterally Cardio Rate: regular rate Rhythm: regular rhythm GI Inspection: Yes normal to inspection Extrem General: Yes normal to inspection and No edema Assessment and Plan Assessment & Plan (1) Coronary artery disease: Comment: Stent placement 2011 Code(s): I25.10 - Atherosclerotic heart disease of [place] coronary artery without angina pectoris Qualifiers: Coronary Disease-Associated Artery/Lesion type: [place] artery [place] vs. transplanted heart: [place] heart Associated angina: without angina Qualified Code(s): I25.10 - Atherosclerotic heart disease of [place] coronary artery without angina pectoris Plan: Control the cholesterol, weight, blood pressure, (2) Hypercholesterolemia: Code(s): E78.00 - Pure hypercholesterolemia, unspecified Plan: Avoid fried foods, chicken skin, eggs, butter margarine, pastries and meat. Be it pork or beef they have a lot of cholesterol LDL goal of less than 70 and triglyceride of less than 150 patient is presently taking atorvastatin 80 mg once a day January 2023 blood work (3) Obstructive sleep apnea: Comment: MODERATELY SEVERE OBSTRUCTIVE SLEEP APNEA WITH TOTAL SLEEP TIME AHI 20.3. 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 HE IS USING CPAP REGULARLY AND IS VERY COMPLIANT WELL BENEFITING. COMPLAINS OF PRESSURE BEING TOO HIGH SOMETIMES. DRYNESS OF THE MOUTH IS LESS WITH THE USE OF CHINSTRAP. TX: DOWN ADJUSTED THE PRESSURE TO 6-14. AND A RAMP MODE OF 5 MINUTES USE HUMIDIFCATION AT LEVEL 3 HE HAS SOME AEROPHAGIA , AND MAY USE MYLICON-82 TABLETS TO CHEW BEFORE PUTTING ON THE MASK. Code(s): G47.33 - Obstructive sleep apnea (adult) (pediatric) Plan: Continue to use the CPAP more than 4 hours a night and benefits from this (4) Hypertension: Code(s): I10 - Essential (primary) hypertension Qualifiers: Hypertension type: essential hypertension Qualified Code(s): I10 - Essential (primary) hypertension Plan: Continue with blood pressure medication. Decrease salt intake and exercise patient is on lisinopril 40 mg once a day metoprolol 75 mg once a day (5) GERD (gastroesophageal reflux disease): Code(s): K21.9 - Gastro-esophageal reflux disease without esophagitis Qualifiers: Esophagitis presence: without esophagitis Qualified Code(s): K21.9 - Gastro-esophageal reflux disease without esophagitis Plan: Avoid the foods that causes that usually spicy foods, tomato products, juices, coffee, soda and foods that your sensitive to. After eating do not lie down, allow 3-4 hours before in lie down. And keep the head of bed above 30 degrees to avoid the acid from going up. (6) Paroxysmal atrial fibrillation: Code(s): I48.0 - Paroxysmal atrial fibrillation Plan: Continue with anticoagulation semi annual renal function (7) Aortic stenosis: Comment: Mild September 2021 1.04 September 2022 moderate aortic stenosis Code(s): I35.0 - Nonrheumatic aortic (valve) stenosis Plan: Patient is due for echocardiogram (8) Cataract: Code(s): H26.9 - Unspecified cataract Plan: scheduled 02/2023 (9) Peripheral neuropathy: Code(s): G62.9 - Polyneuropathy, unspecified Plan: decline wirk up for now (10) Gait instability: Code(s): R26.81 - Unsteadiness on feet Plan: physical therapy Orders: Orders CA echo transthoracic complete Today I35.0 - Nonrheumatic aortic (valve) stenosis PT Evaluation and Treatment Today R26.81 - Unsteadiness on feet Coding Level of Care Code Est Pt Level 4 (36273) Diagnoses Coronary artery disease involving [place] coronary artery of [place] heart without angina pectoris I25.10 Coronary Disease-Associated Artery/Lesion type: [place] artery [place] vs. transplanted heart: [place] heart Associated angina: without angina Hypercholesterolemia E78.00 Obstructive sleep apnea G47.33 Essential hypertension I10 Hypertension type: essential hypertension Gastroesophageal reflux disease without esophagitis K21.9 Esophagitis presence: without esophagitis Paroxysmal atrial fibrillation I48.0 Aortic stenosis I35.0 Cataract H26.9 Peripheral neuropathy G62.9 Gait instability R26.81
== END 2023-02-08 16:37 | disposition home or self-care (01) ==
PROVIDERS: PCP Internal Medicine; Visit Provider Internal Medicine
DX: I10 Essential (primary) hypertension (principal); K21.9 Gastro-esophageal reflux disease without esophagitis; I48.0 Paroxysmal atrial fibrillation; I25.10 Atherosclerotic heart disease of native coronary artery without angina pectoris; E78.00 Pure hypercholesterolemia, unspecified; G47.33 Obstructive sleep apnea (adult) (pediatric); I35.0 Nonrheumatic aortic (valve) stenosis; H26.9 Unspecified cataract; G62.9 Polyneuropathy, unspecified; R26.81 Unsteadiness on feet
CPT/HCPCS: 99214

== ENCOUNTER 2023-03-24 10:22 | Outpatient (AMB) | payer MEDICARE, OTHER, SELFPAY ==
--- NOTE | 2023-03-24 10:25 | MHC.PC.OV ---
Vital Signs 03/24/23 10:26 Height 5 ft 11 in Weight 185 lb 4 oz BMI 25.8 BP 110/62 Blood Pressure Location Lt brachial Position Sitting Pulse 64 Pulse Source Pulse Oximeter Pulse Oximetry (%) 97 Oxygen Delivery Method Room Air Intake Visit Reasons: recently discharged home after rehab stay Char Filter Tank Tender Required: No Accompanied by: Self / Same As Patient Allergies cyclobenzaprine [Cyclobenzaprine] Allergy (Mild, Verified 03/24/23 10:37) UNCONTROLLED SHAKING oxycodone [From Percocet] Allergy (Mild, Verified 03/24/23 10:37) DIFFICULTING BREATHING acetaminophen [Percocet] Allergy (Unknown, Verified 03/24/23 10:37) Unknown meperidine [Demerol] Allergy (Unknown, Verified 03/24/23 10:37) Unknown Medication List - Last Reconciled 03/25/23 by Ulises Raphael MD acetaminophen 500 mg PO Q6H PRN apixaban (Eliquis) 5 mg PO BID 90 days atorvastatin 80 mg PO DAILY 90 days [AUTO PAP 6-16 cm humidified AIR full face nasal mask As directed] cane As directed cholecalciferol (vitamin D3) 25 mcg PO DAILY fexofenadine 180 mg PO DAILY PRN fluticasone propionate 50 mcg/actuation 2 sprays intranasal DAILY PRN lisinopril 40 mg PO DAILY metoprolol succinate ER 75 mg (1.5 x 50 mg) PO DAILY nitroglycerin (Nitrostat) 0.4 mg sublingual Q5M PRN tadalafil (Cialis) 20 mg PO DAILY PRN terazosin 4 mg PO BEDTIME Tobacco use date assessed: 03/24/23 Fall risk assessment: 1 Fall in past year Last assessed Fall Risk: 03/24/23 Dental Screening Dental Screen Date: 03/24/23 Did you have a dental visit in the last 12 months?: Yes Did you have a dental problem in the last 6 months where you did not have access to dental care?: No Was dental information given to patient?: Patient has dentist HPI recently discharged home after rehab stay HPI Details Patient comes in today for his [facility] follow up visit - was just discharged from short-term rehab a couple of weeks ago He was brought to the ER at [facility] on 02/25/2023 following a fall - he reportedly lost his balance when he was walking at a parking lot that day and he did not bring his cane with him thene He apparently hit his head on the pavement (on the left frontoparietal area) and passed out Initial head CT revealed (+) 3 mm left frontoparietal subdural hematoma and mild deformity of the nasal bone Patient is on Eliquis and low dose Aspirin at the time and these were held temporarily at the recommendation of neurosurgery Patient also sustained some laceration injuries to his left eyebrow area and left lower lip, both of which were sutured and are now resolved Repeat head CT done a couple of days later revealed a stable and possibly improved left subdural hematoma and his anticoagulation was restarted a couple of days later on 02/27/2023 He was then discharged to short-term rehab for gait training and strengthening States that he spent about weeks at rehab and was just discharged couple of weeks ago States that he is currently still experiencing some on and off dizziness; denies any headaches Denies any chest pains, no increased shortness of breath No nausea/ vomiting, no abdominal pain No change in bowel habits noted [facility] Medical History (Updated 03/25/23 @ 05:51 by Ulises Raphael MD) Subdural hematoma Benign prostatic hyperplasia Pure hypercholesterolemia Benign essential hypertension Gait instability Aortic stenosis Cardiac pacemaker in situ Paroxysmal atrial fibrillation Spinal stenosis of lumbar region Right foot drop Erectile dysfunction GERD (gastroesophageal reflux disease) Obstructive sleep apnea Saddle thrombus of abdominal aorta History of prostate cancer Coronary artery disease Surgical History Stented coronary artery History of lumbar surgery History of cervical spinal surgery History of inguinal hernia repair History of tonsillectomy Family History Father No problems noted. Mother Hypertension Lung cancer Brother No problems noted. Sister No problems noted. Son No problems noted. Daughter No problems noted. Social History Housing: House Alcohol intake: current Alcohol intake frequency: 0-2 drinks per day Alcohol type: beer Patient Tobacco Use Status: Never used Tobacco e-Cigarette/Vaping Use: Never Used Second Hand Smoke Exposure: Yes service: Yes Current occupational status: retired Cognitive needs: No Hearing needs: No Vision needs: Yes Questionnaire PHQ-9 Over the last 2 weeks, how often have you been bothered by any of the following problems? 1. Little interest or pleasure in doing things: not at all 2. Feeling down, depressed, or hopeless: not at all 3. Trouble falling or staying asleep, or sleeping too much: not at all 4. Feeling tired or having little energy: not at all 5. Poor appetite or overeating: not at all 6. Feeling bad about yourself - or that you are a failure or have let yourself or your family down: not at all 7. Trouble concentrating on things, such as reading the newspaper or watching television: not at all 8. Moving or speaking so slowly that other people could have noticed. Or the opposite - being so fidgety or restless that you have been moving around a lot more than usual: not at all 9. Thoughts that you would be better off or of hurting yourself in some way: not at all Total score: 0 Depression Screening Interpretation: Negative Depression Screening Done: Yes 00020 - PHQ-9 Billing: Yes Source: Developed by Drs. Michael Boothe, Cindi Montenegro, Michele Dukes and colleagues, with an educational elliott from [employer]. Thrive Questionnaire Date Thrive assessed: 03/24/23 I am a: Patient What is your living situation today?: I have a steady place to live Within the past 12 months, did the food you bought not last and you didn't have the money to get more?: Never true Within the past 12 months, did you worry whether your food would run out before you got money to buy more?: Never true Do you have trouble paying for medicines?: No Do you have trouble getting transportation to medical appointments?: No Do you have trouble paying your heating and electricity bill?: No Do you have trouble taking care of your child, family member or friend?: No Do you have trouble with day-to-day activities such as bathing, preparing meals, shopping, managing finances, etc.?: No Are you currently unemployed and looking for a job?: No Are you interested in more education?: No Please select the resources that you would like help with: None Currently or been in a relationship where the following occur: no concerns reported AUDIT C Alcohol Use Questionnaire (AUDIT-C) 1. How often do you have a drink containing alcohol?: Never 3. How often do you have six or more drinks on one occasion?: Never Total Score: 0 Score Reviewed/Action Taken: Yes SEJAL-7 AMB Questionnaire SEJAL-7 Date SEJAL - 7 assessed: 03/24/23 Feeling nervous, anxious, or on edge: 0 = Not at all Not being able to stop or control worryin = Not at all Worrying too much about different things: 0 = Not at all Trouble relaxin = Not at all Being so restless that it is hard to sit still: 0 = Not at all Becoming easily annoyed or irritable: 0 = Not at all Feeling afraid as if something awful might happen: 0 = Not at all Total SEJAL-7 score (0-4 normal; 5-9 mild; 10-14 moderate; 15-21 severe): 0 Source: Developed by Drs. Michael Boothe, Cindi Montenegro, Michele Dukes and colleagues, with an educational elliott from [employer]. Review of Systems Const Denies chills, Reports fatigue, Denies fever(s) and Denies headache(s) ENT Denies dysphagia, Reports dizziness (on and off), Denies otalgia, Denies headache(s), Denies neck pain, Denies odynophagia and Denies sore throat Card Denies chest pain, Denies palpitations and Denies dyspnea Resp Denies cough and Denies dyspnea GI Denies abdominal pain, Denies constipation, Denies dysphagia, Denies heartburn, Denies diarrhea, Denies nausea, Denies odynophagia and Denies vomiting Denies dysuria, Denies nocturia and Denies urinary frequency Musc Reports abnormal gait (unsteady) and Denies neck pain Neuro Reports abnormal gait (unsteady), Reports dizziness (on and off) and Denies headache(s) Endo Reports fatigue and Denies palpitations Physical exam (Primary Care) Vital Signs: Last Vital Signs Pulse 64 03/24/23 10:26 BP 110/62 03/24/23 10:26 Pulse Ox 97 03/24/23 10:26 Oxygen Delivery Method Room Air 03/24/23 10:26 BMI result Body Mass Index 25.8 Tobacco/Smoking Status: Tobacco use Status Tobacco use date assessed 03/24/23 03/24/23 10:33 Patient Tobacco Use Status Never used Tobacco 03/24/23 10:33 e-Cigarette/Vaping Use Never Used 03/24/23 10:33 PHQ-9: PHQ-9 Score PHQ-9: Total score 0 03/25/23 05:32 Depression Screening Interpretation: Negative Thrive Assessment: Date of Thrive Assessment Date Thrive assessed 03/24/23 03/24/23 10:33 Currently or been in a relationship where the following occur: no concerns reported Const General: no acute distress and alert Neck Neck: Yes no lymphadenopathy and Yes supple Resp Auscultation: clear to auscultation bilaterally, no rales and no wheezes Cardio Rate: regular rate Rhythm: regular rhythm Heart sounds: no murmurs GI Palpation (GI): Soft to palpation, nontender and No hepatosplenomegaly present Extrem General: Yes no clubbing, cyanosis or edema Assessment and Plan Assessment & Plan (1) Subdural hematoma: Comment: S/P fall with head trauma and brief LOC on 02/25/2023 Code(s): S06.5XAA - Traumatic subdural hemorrhage with loss of consciousness status unknown, initial encounter Plan: S/P fall on 02/25/2023 with head trauma and brief LOC Initial head CT revealed a 3 mm left frontoparietal subdural hematoma as well as a mild deformity of the nasal bone Repeat head CT subsequently showed a stable and possibly improved left subdural hematoma He is neurologically intact and has no surgical indication Patient also sustained a left eyebrow laceration and left lip laceration from his fall - both lacerations have been sutured and are currently healed (2) Gait instability: Code(s): R26.81 - Unsteadiness on feet Plan: S/P short term rehab - was just discharged from rehab facility a couple of weeks ago Fall precautions reinforced He is instructed to continue using assistive devices, including a cane and/or walker when ambulating to help minimize his risks of falling (3) Paroxysmal atrial fibrillation: Code(s): I48.0 - Paroxysmal atrial fibrillation Plan: Continue Eliquis 5 mg BID for thromboembolism prophylaxis His anticoagulation was briefly held when his initial head CT revealed a left frontoparietal subdural hematoma and was resumed when subsequent head CT revealed stability of the subdural hematomaS/ (4) Coronary artery disease: Comment: Stent placement 2011 (ROMÁN x 2 to LAD) Code(s): I25.10 - Atherosclerotic heart disease of [place] coronary artery without angina pectoris Qualifiers: Associated angina: without angina Coronary Disease-Associated Artery/Lesion type: [place] artery [place] vs. transplanted heart: [place] heart Qualified Code(s): I25.10 - Atherosclerotic heart disease of [place] coronary artery without angina pectoris Plan: S/P PCI and stenting (ROMÁN x 2 to LAD) on 04/06/2012 Has Nitrostat 0.4 mg SL PRN for chest pains; was previously also on Aspirin 81 mg QD but this was discontinued on 12/10/2021 - patient is on Eliquis Follow-up with cardiology as scheduled (5) Cardiac pacemaker in situ: Comment: Biotronik pacemaker for sick sinus syndrome?, 2010 Code(s): Z95.0 - Presence of cardiac pacemaker Plan: S/P pacemaker insertion in 2010 for what appears to be syncope and bradycardia as well as underlying left bundle-branch block Pacemaker is monitored remotely by cardiology Follow up with cardiology as scheduled (6) Benign essential hypertension: Code(s): I10 - Essential (primary) hypertension Plan: Reinforced low sodium diet - goal is systolic BP of 120 to 130 mm or less Continue Lisinopril 40 mg QD and Metoprolol ER 50 mg 1.5 tablets (75 mg) QD He was also on Amlodipine previously and dose was reportedly increased to 10 mg QD back on 03/15/2023 but this was recently discontinued - patient states that he was only given a limited supply of his Rx and last took it about 3 days ago His blood pressure currently appears okay without his Amlodipine (systolic BP is actually lower than expected at 110 mm despite being off Amlodipine at 10 mg recently) - have advised patient to continue to hold his Amlodpine for now and to continue monitoring his blood pressure regularly (he has [facility]NA services who can help check his BP) Have advised patient to call us of as soon as possible if his systolic blood pressure increases and consistently stays above 130 to 140 mm over the next few weeks (7) Pure hypercholesterolemia: Code(s): E78.00 - Pure hypercholesterolemia, unspecified Plan: Reinforced low cholesterol diet Continue Atorvastatin 80 mg QD (8) Obstructive sleep apnea: Comment: MODERATELY SEVERE OBSTRUCTIVE SLEEP APNEA WITH TOTAL SLEEP TIME AHI 20.3. 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 HE IS USING CPAP REGULARLY AND IS VERY COMPLIANT WELL BENEFITING. COMPLAINS OF PRESSURE BEING TOO HIGH SOMETIMES. DRYNESS OF THE MOUTH IS LESS WITH THE USE OF CHINSTRAP. TX: DOWN ADJUSTED THE PRESSURE TO 6-14. AND A RAMP MODE OF 5 MINUTES USE HUMIDIFCATION AT LEVEL 3 HE HAS SOME AEROPHAGIA , AND MAY USE MYLICON-82 TABLETS TO CHEW BEFORE PUTTING ON THE MASK. Code(s): G47.33 - Obstructive sleep apnea (adult) (pediatric) Plan: Continue using his CPAP device regularly when sleeping at night Follow up with Sleep Medicine (Dr. Fajardo) as scheduled (9) Impaired fasting glucose: Code(s): R73.01 - Impaired fasting glucose Plan: Reinforced low calorie/low carb diet HgbA1c was at 6.0% recently on 02/03/2023 (10) Benign prostatic hyperplasia: Code(s): N40.0 - Benign prostatic hyperplasia without lower urinary tract symptoms Qualifiers: Lower urinary tract symptom presence: symptoms present Lower urinary tract symptom detail: urinary frequency Qualified Code(s): N40.1 - Benign prostatic hyperplasia with lower urinary tract symptoms; R35.0 - Frequency of micturition Plan: Continue Terazosin 4 mg Q HS Follow up with urology (Dr. Jean Huerta) as scheduled Plan Follow up with PCP as scheduled in May 2023 Coding Level of Care Code Est Pt Level 4 (76610) Diagnoses Subdural hematoma S06.5XAA Gait instability R26.81 Paroxysmal atrial fibrillation I48.0 Coronary artery disease involving [place] coronary artery of [place] heart without angina pectoris I25.10 Associated angina: without angina Coronary Disease-Associated Artery/Lesion type: [place] artery [place] vs. transplanted heart: [place] heart Cardiac pacemaker in situ Z95.0 Benign essential hypertension I10 Pure hypercholesterolemia E78.00 Obstructive sleep apnea G47.33 Impaired fasting glucose R73.01 Benign prostatic hyperplasia with urinary frequency N40.1; R35.0 Lower urinary tract symptom presence: symptoms present Lower urinary tract symptom detail: urinary frequency
[2023-03-24 10:26] VITALS: BP 110/62; PULSE 64; O2SAT 97; BMI 25.8
== END 2023-03-24 11:03 | disposition home or self-care (01) ==
PROVIDERS: PCP Internal Medicine; Visit Provider Internal Medicine
DX: S06.5XAA Traumatic subdural hemorrhage with loss of consciousness status unknown, initial encounter (principal); R26.81 Unsteadiness on feet; I48.0 Paroxysmal atrial fibrillation; I25.10 Atherosclerotic heart disease of native coronary artery without angina pectoris; Z95.0 Presence of cardiac pacemaker; I10 Essential (primary) hypertension; E78.00 Pure hypercholesterolemia, unspecified; G47.33 Obstructive sleep apnea (adult) (pediatric); R73.01 Impaired fasting glucose; N40.1 Benign prostatic hyperplasia with lower urinary tract symptoms; R35.0 Frequency of micturition
CPT/HCPCS: 99214

== ENCOUNTER 2023-03-30 11:20 | Outpatient (AMB) | payer MEDICARE, OTHER, SELFPAY ==
--- NOTE | 2023-03-30 11:30 | A.OFFVIS_ITS ---
Intake Vital Signs 03/30/23 11:31 Height 5 ft 11 in Weight 186 lb BMI 25.9 BP 80/62 L Blood Pressure Location Lt brachial Position Sitting Pulse 57 Pulse Source Pulse Oximeter Pulse Oximetry (%) 96 Oxygen Delivery Method Room Air Intake Visit Reasons: jaswinder Intake Note: pt is here for follow up of JASWINDER and states he is doing better with chin strap, but only little water in reservoir and it is set on 3. 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: No Allergies cyclobenzaprine [Cyclobenzaprine] Allergy (Mild, Verified 03/30/23 11:38) UNCONTROLLED SHAKING oxycodone [From Percocet] Allergy (Mild, Verified 03/30/23 11:38) DIFFICULTING BREATHING acetaminophen [Percocet] Allergy (Unknown, Verified 03/30/23 11:38) Unknown meperidine [Demerol] Allergy (Unknown, Verified 03/30/23 11:38) Unknown Medication List - Last Reconciled 03/30/23 by Satinder Fajardo MD acetaminophen 500 mg PO Q6H PRN apixaban (Eliquis) 5 mg PO BID 90 days atorvastatin 80 mg PO DAILY 90 days [AUTO PAP 6-16 cm humidified AIR full face nasal mask As directed] cane As directed cholecalciferol (vitamin D3) 25 mcg PO DAILY fexofenadine 180 mg PO DAILY PRN fluticasone propionate 50 mcg/actuation 2 sprays intranasal DAILY PRN lisinopril 40 mg PO DAILY metoprolol succinate ER 75 mg (1.5 x 50 mg) PO DAILY nitroglycerin (Nitrostat) 0.4 mg sublingual Q5M PRN tadalafil (Cialis) 20 mg PO DAILY PRN terazosin 4 mg PO BEDTIME Do you need a note to return to daycare/school/sports/work: No HPI jaswinder HPI Details 87 YEARS OLD VERY PLEASANT GENTLEMAN WIT H A CASE OF OBSTRUCTIVE SLEEP APNEA, COMES AFTER 6 MONTHS FOR HIS ROUTINE FOLLOW-UP. A FEW WEEKS AGO HE FELL DOWN AND WAS TREATED AT [facility]. FOR MINOR INJURIES THERE WAS NO RELATIONSHIP TO HIS USE OF CPAP. HE USES CPAP WITH THE NASAL INTERFACE AND A CHINSTRAP WHICH . HAS BEEN VERY HELPFUL HAS SOME ISSUES WITH HUMIDIFICATION WHICH WE HAVE TALKED ABOUT. KEEPING HUMIDIFICATION AT LEVEL 3 IS WORKING OKAY. HE HAS AN OLD Gather MODEL AND WE CANNOT DOWNLOAD THE COMPLIANCE DATA. HE IS NOT GETTING SUPPLIES REGULARLY AND HAS BEEN USING THE SAME OLD MASK AND TUBING. WE HAVE DISCUSSED WITH HIM AND ADVISED HIM TO TAKE THE MACHINE TO DME SUPPLIER, AND HAVE IT CHECKED . [facility] Medical History Subdural hematoma Benign prostatic hyperplasia Pure hypercholesterolemia Benign essential hypertension Gait instability Aortic stenosis Cardiac pacemaker in situ Paroxysmal atrial fibrillation Spinal stenosis of lumbar region Right foot drop Erectile dysfunction GERD (gastroesophageal reflux disease) Obstructive sleep apnea Saddle thrombus of abdominal aorta History of prostate cancer Coronary artery disease Surgical History Stented coronary artery History of lumbar surgery History of cervical spinal surgery History of inguinal hernia repair History of tonsillectomy Family History Father No problems noted. Mother Hypertension Lung cancer Brother No problems noted. Sister No problems noted. Son No problems noted. Daughter No problems noted. Social History Housing: House Alcohol intake: current Alcohol intake frequency: 0-2 drinks per day Alcohol type: beer Patient Tobacco Use Status: Never used Tobacco e-Cigarette/Vaping Use: Never Used Second Hand Smoke Exposure: Yes service: Yes Current occupational status: retired Cognitive needs: No Hearing needs: No Vision needs: Yes Review of Systems Const All systems reviewed & are unremarkable except as noted in HPI and below Eyes Reports no additional complaints ENT Denies nasal congestion, Denies nasal discharge and Reports other (Dry mouth in the morning) Card Reports irregular heart rhythm and Denies leg edema Resp Reports no additional complaints, Denies cough and Denies wheezing GI Reports no additional complaints Reports erectile dysfunction Musc Reports back pain and Reports arthralgias (Left lower extremity) Skin/Breast Reports system reviewed and no additional complaints, except as documented Neuro Reports no additional complaints Psych Reports no additional complaints Endo Reports no additional complaints Aller/Immun Denies wheezing Physical Exam Vital Signs: Last Vital Signs Pulse 57 03/30/23 11:31 BP 80/62 L 03/30/23 11:31 Pulse Ox 96 03/30/23 11:31 Oxygen Delivery Method Room Air 03/30/23 11:31 BMI result Body Mass Index 25.9 He is only slightly overweight, Const General: healthy appearing, comfortable, no acute distress, alert and awake Orientation/consciousness: patient oriented x3 HEENT Head: Yes normal to inspection General nose exam: No nasal polyps present and No nasal discharge present Face and sinus: Yes sinuses nontender Mouth: oropharynx normal Teeth and gingiva: other (Has moderate retroganthia of the lower jaw.) Throat: Yes posterior oropharynx normal Eyes General: appearance normal, both eyes and all related structures Neck Neck: Yes normal visual inspection, Yes no lymphadenopathy, Yes trachea midline and Yes no JVD Thyroid: Thyroid normal Chest Chest palpation & inspection: normal inspection of the chest, normal palpation of entire chest wall and no tenderness Resp Effort & Inspection: normal respiratory effort Auscultation: clear to auscultation bilaterally, no crackles and no wheezes Percussion: percussion normal Cardio Palpation: normal PMI Rate: regular rate Rhythm: regular rhythm and abnormal rhythm (Atrial fib) Heart sounds: Gallop heart sound present and Murmur heart sound present GI Palpation (GI): Soft to palpation, nontender, No hepatosplenomegaly present and no masses Auscultation: normal bowel sounds Back/Spine/Pelvis Thoracic/Lumbar Spine: thoracic and lumbar spine normal to inspection, thoraco- lumbar ROM limited and thoraco-lumbar spasm Skin General skin exam: no rashes or lesions noted Neuro General: patient oriented x3 and no focal motor deficits Cranial nerves: Yes CN's II-XII intact bilaterally Extrem General: Yes normal to inspection, Yes no clubbing, cyanosis or edema and Yes no calf tenderness Psych Appearance: grossly normal and well kempt Speech and movement: Normal speech and movement present Assessment & Plan Assessment & Plan (1) Obstructive sleep apnea: Comment: CAT IS KNOWN TO HAVE MODERATELY SEVERE OBSTRUCTIVE SLEEP APNEA WITH TOTAL SLEEP TIME AHI 20.3. 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 HE IS USING CPAP REGULARLY AND IS VERY COMPLIANT WELL BENEFITING. CURRENT OF PRESSURE SETTING USE OF CHINSTRAP IS WORKING WELL, DRYNESS OF THE MOUTH IS LESS WITH THE USE OF CHINSTRAP. TX: PRESSURE SETTING 6-14. AND A RAMP MODE OF 5 MINUTES NASAL MASK WITH A CHIN STRAP USE HUMIDIFCATION AT LEVEL 3 HE HAS SOME AEROPHAGIA , AND MAY USE MYLICON-82 TABLETS TO CHEW BEFORE PUTTING ON THE MASK. Code(s): G47.33 - Obstructive sleep apnea (adult) (pediatric) Coding Level of Care Code Est Pt Level 3 (76470) Diagnoses Obstructive sleep apnea G47.33
[2023-03-30 11:31] VITALS: BP 80/62; PULSE 57; O2SAT 96; BMI 25.9
== END 2023-03-30 11:59 | disposition home or self-care (01) ==
PROVIDERS: PCP Internal Medicine; Visit Provider Internal Medicine
DX: G47.33 Obstructive sleep apnea (adult) (pediatric) (principal)
CPT/HCPCS: 99213

== ENCOUNTER → 2023-03-30 11:20 | Outpatient (BNVA) | payer MEDICARE, OTHER, SELFPAY | PROVIDERS: PCP Internal Medicine; Visit Provider Internal Medicine | DX: G47.33 Obstructive sleep apnea (adult) (pediatric) (principal) | CPT/HCPCS: 99212 ==

== ENCOUNTER 2023-04-18 13:19 | Outpatient (AMB) | payer MEDICARE, OTHER, SELFPAY ==
[2023-04-18 13:42] VITALS: BP 114/64; PULSE 60; BMI 25.8
--- NOTE | 2023-04-18 13:42 | A.OFFVIS_ITS ---
Intake Vital Signs 04/18/23 13:42 Height 5 ft 11 in Weight 185 lb BMI 25.8 BP 114/64 Blood Pressure Location Rt brachial Position Sitting Pulse 60 Intake Visit Reasons: 6 mth w/ [employer] [facility] Allergies cyclobenzaprine [Cyclobenzaprine] Allergy (Mild, Verified 04/18/23 13:42) UNCONTROLLED SHAKING oxycodone [From Percocet] Allergy (Mild, Verified 04/18/23 13:42) DIFFICULTING BREATHING acetaminophen [Percocet] Allergy (Unknown, Verified 04/18/23 13:42) Unknown meperidine [Demerol] Allergy (Unknown, Verified 04/18/23 13:42) Unknown Medication List - Last Reconciled 04/18/23 by BHAVIK Shepherd acetaminophen 500 mg PO Q6H PRN apixaban (Eliquis) 5 mg PO BID 90 days atorvastatin 80 mg PO DAILY 90 days [AUTO PAP 6-16 cm humidified AIR full face nasal mask As directed] cane As directed cholecalciferol (vitamin D3) 25 mcg PO DAILY fexofenadine 180 mg PO DAILY PRN fluticasone propionate 50 mcg/actuation 2 sprays intranasal DAILY PRN lisinopril 20 mg PO DAILY metoprolol succinate ER 50 mg PO DAILY nitroglycerin (Nitrostat) 0.4 mg sublingual Q5M PRN tadalafil (Cialis) 20 mg PO DAILY PRN terazosin 4 mg PO BEDTIME HPI 6 mth w/ [employer] [facility] HPI Details Yuriy is an 87-year-old male with past medical history of hypertension, hyperlipidemia, paroxysmal AFib, CAD with coronary stent 2011, aortic stenosis, Biotronik dual-chamber pacemaker who was admitted to [facility] on 02/25/2023 after having a fall and receiving facial lacerations and found to have frontoparietal subdural hematoma. His anticoagulation was held for a few days then restarted. He now presents for follow-up. Today he reports he has been feeling some mild lightheadedness at times since his hospital discharge. His blood pressure had been low in his PCP office and his lisinopril was reduced from to 40 mg daily down to 20 mg daily earlier this month. Blood pressure remains on the low side and he does have symptoms with position changes still. No recurrent falls, no presyncope, syncope. No chest discomfort at rest or with activity. No shortness of breath, PND, orthopnea or edema. He is taking his meds as directed. No bleeding issues reported. He is wearing his CPAP at night. [facility] Medical History Subdural hematoma Benign prostatic hyperplasia Pure hypercholesterolemia Benign essential hypertension Gait instability Aortic stenosis Cardiac pacemaker in situ Paroxysmal atrial fibrillation Spinal stenosis of lumbar region Right foot drop Erectile dysfunction GERD (gastroesophageal reflux disease) Obstructive sleep apnea Saddle thrombus of abdominal aorta History of prostate cancer Coronary artery disease Surgical History Stented coronary artery History of lumbar surgery History of cervical spinal surgery History of inguinal hernia repair History of tonsillectomy Family History Father No problems noted. Mother Hypertension Lung cancer Brother No problems noted. Sister No problems noted. Son No problems noted. Daughter No problems noted. Social History Housing: House Alcohol intake: current Alcohol intake frequency: 0-2 drinks per day Alcohol type: beer Patient Tobacco Use Status: Never used Tobacco e-Cigarette/Vaping Use: Never Used Second Hand Smoke Exposure: Yes service: Yes Current occupational status: retired Cognitive needs: No Hearing needs: No Vision needs: Yes Review of Systems Const All systems reviewed & are unremarkable except as noted in HPI and below ENT Denies dizziness Card Denies chest pain, Denies chest pain at rest, Denies chest pain with activity, Denies rapid heart rate, Denies pedal edema, Denies edema, Denies leg edema, Denies lightheadedness, Denies palpitations, Denies dyspnea, Denies dyspnea on exertion and Denies orthopnea Resp Denies cough, Denies dyspnea and Denies dyspnea on exertion GI Denies hematochezia and Denies change in stool character Musc Denies abnormal gait, Denies limited range of motion, Denies muscle cramps, Denies muscle weakness, Denies numbness, Denies radiating pain into limb, Denies stiffness and Denies tingling Neuro Denies abnormal gait, Denies dizziness, Denies numbness and Denies tingling Endo Denies palpitations Physical Exam Vital Signs: Last Vital Signs Pulse 60 04/18/23 13:42 BP 114/64 04/18/23 13:42 BMI result Body Mass Index 25.8 Const General: cooperative, healthy appearing, comfortable and no acute distress Orientation/consciousness: patient oriented x3 Eyes Sclerae: sclerae normal Neck Neck: Yes normal visual inspection Resp Effort & Inspection: normal respiratory effort Auscultation: clear to auscultation bilaterally, no crackles, no rales, no rhonchi and no wheezes Cardio Jugular venous distension: no JVD Rate: regular rate Rhythm: regular rhythm Heart sounds: S1 normal heart sound present, S2 normal heart sound present, no murmurs and no rubs Skin General skin exam: no rashes or lesions noted Neuro General: patient oriented x3 Extrem General: Yes normal to inspection Psych Appearance: grossly normal Mental Status: mental status grossly normal Speech and movement: Normal speech and movement present Office Procedures Cardiac Device Check Cardiac Device Check Details: [employer] dual-chamber pacemaker in place, battery 1.5 years, DDD are mode low rate 50, upper tracking rate 120, V paced 100%, a paced 22%, RA threshold 0.6 at 0.4, RV threshold 1.8 at 1.0, V output changed to 3.3 for safety margin [id number] Cardiac Device Check, pacemaker dual lead Procedure code (CPT) selection complete EKG Details: Today, read by me, atrial sensed and ventricular paced rhythm, rate 60 [id number], Complete Assessment & Plan Assessment & Plan (1) Aortic stenosis: Comment: Mild September 2021 1.04 September 2022 moderate aortic stenosis Code(s): I35.0 - Nonrheumatic aortic (valve) stenosis Plan: History of aortic stenosis. Last echo 09/22/2022 shows EF 60-65%, moderate a ortic stenosis. Heart murmur noted on examination today. He denies cardinal symptoms of severe including presyncope/syncope, chest discomfort, shortness of breath. He does have some lightheadedness with position changes. Will reduce his lisinopril dose to give him more blood pressure support. Will plan for repeat echo 1 year from last, due for 2023. Cardiology follow-up 6 months, sooner if needed. Instructed to call us if he has any concerning symptoms in the meantime. (2) Paroxysmal atrial fibrillation: Code(s): I48.0 - Paroxysmal atrial fibrillation Plan: History of paroxysmal atrial fibrillation. Pulse regular on examination today. EKG done today showing a sensed, V paced rhythm, 60 beats per minute, QTC falsely prolonged at 492 millisecond. He is on metoprolol for heart rate control. He is on Eliquis for anticoagulation. Recent mechanical fall with subdural hematoma that was Evaluated and treated at [facility]. Records reviewed. Eliquis was initially held for a few days then restarted. Since his hospital discharge he has not had any bleeding issues, headaches, vision changes, neurological changes. He reports good activity tolerance. (3) Coronary artery disease: Comment: Stent placement 2011 (ROMÁN x 2 to LAD) Code(s): I25.10 - Atherosclerotic heart disease of [place] coronary artery without angina pectoris Qualifiers: Associated angina: without angina Coronary Disease-Associated Artery/Lesion type: [place] artery [place] vs. transplanted heart: [place] heart Qualified Code(s): I25.10 - Atherosclerotic heart disease of [place] coronary artery without angina pectoris Plan: History of CAD with coronary stent 2011. No reports of anginal sounding symptoms at this time. Continue with risk factor modification. He is not on aspirin as he is on Eliquis. Continue high-dose atorvastatin with ideal LDL goal less than 70. Continue metoprolol. Labs done on 02/03/2023 show LDL 63. (4) Cardiac pacemaker in situ: Comment: Biotronik pacemaker for sick sinus syndrome?, 2010 Code(s): Z95.0 - Presence of cardiac pacemaker Plan: Biotronik dual-chamber pacemaker in place. Functioning normally on interrogation today. Next office interrogation due in 6 months. Remote monitoring in use. (5) Benign essential hypertension: Code(s): I10 - Essential (primary) hypertension Plan: Running on low side. Will further reduce lisinopril due to reports of lightheadedness at times with position changes (6) Hospital discharge follow-up: Code(s): Z09 - Encounter for follow-up examination after completed treatment for conditions other than malignant neoplasm Plan: [facility] records reviewed Orders: Orders CA echo transthoracic complete 5 Months I35.0 - Nonrheumatic aortic (valve) stenosis Medications: New lisinopril 10 mg PO DAILY 30 days 30 tabs 5RF Coding Level of Care Code Est Pt Level 4 (93119) Diagnoses Aortic stenosis I35.0 Paroxysmal atrial fibrillation I48.0 Coronary artery disease involving [place] coronary artery of [place] heart without angina pectoris I25.10 Associated angina: without angina Coronary Disease-Associated Artery/Lesion type: [place] artery [place] vs. transplanted heart: [place] heart Cardiac pacemaker in situ Z95.0 Benign essential hypertension I10 Hospital discharge follow-up Z09 CPT Codes Cardiac Device Check - Cardiac Device 2: [id number] Cardiac Device Check, pacemaker dual lead ([id number]) EKG - CPT: 00788-[id number], Complete ([id number]) Time Spent (min) 28
== END 2023-04-18 14:09 | disposition home or self-care (01) ==
PROVIDERS: Visit Provider Nurse Practitioner Family
DX: I35.0 Nonrheumatic aortic (valve) stenosis (principal); I48.0 Paroxysmal atrial fibrillation; I25.10 Atherosclerotic heart disease of native coronary artery without angina pectoris; Z95.0 Presence of cardiac pacemaker; I10 Essential (primary) hypertension; Z09 Encounter for follow-up examination after completed treatment for conditions other than malignant neoplasm
CPT/HCPCS: 93280; 99214

== ENCOUNTER → 2023-04-18 13:19 | Outpatient (BNVA) | payer MEDICARE, OTHER, SELFPAY | PROVIDERS: Visit Provider Nurse Practitioner Family | DX: I35.0 Nonrheumatic aortic (valve) stenosis (principal); I48.0 Paroxysmal atrial fibrillation; I25.10 Atherosclerotic heart disease of native coronary artery without angina pectoris; I10 Essential (primary) hypertension; Z95.5 Presence of coronary angioplasty implant and graft; Z45.02 Encounter for adjustment and management of automatic implantable cardiac defibrillator; Z79.01 Long term (current) use of anticoagulants; Z79.899 Other long term (current) drug therapy | CPT/HCPCS: 93005; 93280; 99212 ==

== ENCOUNTER → 2023-04-25 23:59 | Outpatient (BNV) | payer MEDICARE, OTHER, SELFPAY ==
--- NOTE | 2023-04-25 15:10 | MHC.OFFVIS ---
Intake Intake Visit Reasons: Remote Device Check- [employer] Allergies cyclobenzaprine [Cyclobenzaprine] Allergy (Mild, Verified 04/18/23 13:42) UNCONTROLLED SHAKING oxycodone [From Percocet] Allergy (Mild, Verified 04/18/23 13:42) DIFFICULTING BREATHING acetaminophen [Percocet] Allergy (Unknown, Verified 04/18/23 13:42) Unknown meperidine [Demerol] Allergy (Unknown, Verified 04/18/23 13:42) Unknown [facility] Medical History Subdural hematoma Benign prostatic hyperplasia Pure hypercholesterolemia Benign essential hypertension Gait instability Aortic stenosis Cardiac pacemaker in situ Paroxysmal atrial fibrillation Spinal stenosis of lumbar region Right foot drop Erectile dysfunction GERD (gastroesophageal reflux disease) Obstructive sleep apnea Saddle thrombus of abdominal aorta History of prostate cancer Coronary artery disease Surgical History Stented coronary artery History of lumbar surgery History of cervical spinal surgery History of inguinal hernia repair History of tonsillectomy Family History Father No problems noted. Mother Hypertension Lung cancer Brother No problems noted. Sister No problems noted. Son No problems noted. Daughter No problems noted. Housing: House Alcohol intake: current Alcohol intake frequency: 0-2 drinks per day Alcohol type: beer Patient Tobacco Use Status: Never used Tobacco e-Cigarette/Vaping Use: Never Used Second Hand Smoke Exposure: Yes service: Yes Current occupational status: retired Cognitive needs: No Hearing needs: No Vision needs: Yes Office Procedures Cardiac Device Check Cardiac Device Check Details: Remote pacemaker report generated 04/25/2023. Pacemaker function is adequate [id number] Cardiac Device Interrogation, pacemaker Procedure code (CPT) selection complete Coding Level of Care Code Procedure Only CPT Codes Cardiac Device Check - Cardiac Device 12: [id number] Cardiac Device Interrogation, pacemaker ([id number])
== END ==
PROVIDERS: PCP Internal Medicine; Visit Provider Internal Medicine Cardiovascular Disease
DX: I48.0 Paroxysmal atrial fibrillation (principal); Z95.0 Presence of cardiac pacemaker
CPT/HCPCS: 93294

== ENCOUNTER 2023-05-26 10:07 | Outpatient (REF) | payer MEDICARE, OTHER, SELFPAY ==
[2023-05-26 10:21] LABS: MANUAL DIFF FLAG NO
[2023-05-26 11:46] LABS: Basophils Percent Auto 0.5 % (0-2); Eosinophils Absolute Auto 0.3 X10*3/uL (0.0-0.4); Eosinophils Percent Auto 4.7 % (0-4); Hematocrit 45.4 % (42.0-52.0); Hemoglobin 15.2 g/dl (14.0-18.0); Imm Gran Abs Auto 0.02 X10*3/uL (0.00-0.03); Imm Gran Pct Auto 0.3 % (0.0-0.4); Lymphocytes Absolute Auto 2.4 X10*3/uL (1.2-4.9); Lymphocytes Percent Auto 36.3 % (20-40); Mean Corpuscular HGB Conc 33.5 g/dl (31.0-36.0); Mean Corpuscular Hemoglobin 31.4 pg (27.0-33.0); Mean Corpuscular Volume 93.8 fL (80.0-98.0); Mean Platelet Volume 11.8 fL (9.4-12.4); Monocytes Absolute Auto 0.4 X10*3/uL (0.1-1.2); Monocytes Percent Auto 5.9 % (2-11); Neutrophils Absolute Auto 3.5 x10*3/uL (2.0-8.3); Neutrophils Percent Auto 52.3 % (45-73); Platelet Count 170 X10*3/uL (160-400); Red Blood Count 4.84 X10*6/uL (4.60-5.80); White Blood Count 6.6 X10*3/uL (4.8-10.8)
[2023-05-26 12:12] LABS: B Type Natriuretic Peptide 92 pg/mL (<100)
[2023-05-26 12:30] LABS: Alanine Aminotransferase 11 U/L (0-40); Albumin Level 4.2 g/dL (3.5-5.0); Alkaline Phosphatase 74 U/L (39-117); Anion Gap 8 (12-20); Aspartate Amino Transferase 18 U/L (5-37); Bilirubin Total 0.6 mg/dL (0.0-1.0); Blood Urea Nitrogen 16 mg/dL (9-16); Calcium 9.4 mg/dL (8.4-10.2); Carbon Dioxide 29 mmol/L (22-29); Chloride 110 mmol/L (96-108); Cholesterol 113 mg/dL (<200); Estimated Glomerular Filt Rate > 60; Glucose Random 104 mg/dL (60-115); HDL Cholesterol 36 mg/dL (>40); LDL Cholesterol Calculated 63 mg/dL (<100); Potassium 3.9 mmol/L (3.3-5.1); Sodium 143 mmol/L (135-145); Total Protein 6.9 g/dL (6.5-8.0); Triglycerides 72 mg/dL (<150)
[2023-05-26 12:48] LABS: Free T4 (Free Thyroxine) 0.88 ng/dL (0.71-1.85); Thyroid Stimulating Hormone 2.33 uIU/mL (0.32-4.0)
[2023-05-26 12:50] LABS: Folate 9.7 ng/mL (> or = 4.0); Prostate Specific Antigen Scr 0.11 ng/mL (<0.05-4.0)
[2023-05-26 13:03] LABS: Estimated Average Glucose 120 mg/dL; Hemoglobin A1c % 5.8 % (<6.0)
[2023-05-26 14:16] LABS: Vitamin B12 355 pg/mL (200-900)
== END 2023-05-26 10:08 | disposition home or self-care (01) ==
LOC: HO.LAB 10:07
PROVIDERS: PCP Internal Medicine; Visit Provider Internal Medicine
DX: R73.01 Impaired fasting glucose (principal); R10.11 Right upper quadrant pain; N40.1 Benign prostatic hyperplasia with lower urinary tract symptoms; R35.0 Frequency of micturition; E78.00 Pure hypercholesterolemia, unspecified; I48.0 Paroxysmal atrial fibrillation; Z12.5 Encounter for screening for malignant neoplasm of prostate
CPT/HCPCS: 36415; 80053; 80061; 82607; 82746; 83036; 83880; 84153; 84439; 84443; 85025

== ENCOUNTER 2023-06-01 11:56 | Outpatient (AMB) | payer MEDICARE, OTHER, SELFPAY ==
--- NOTE | 2023-06-01 11:57 | MHC.PC.OV ---
Vital Signs 06/01/23 11:58 Height 5 ft 11 in Weight 186 lb BMI 25.9 BP 128/82 Blood Pressure Location Lt brachial Position Sitting Pulse 55 Pulse Source Pulse Oximeter Pulse Oximetry (%) 97 Oxygen Delivery Method Room Air Intake Visit Reasons: A fib Joint Setter Required: No Allergies cyclobenzaprine [Cyclobenzaprine] Allergy (Mild, Verified 06/01/23 12:00) UNCONTROLLED SHAKING oxycodone [From Percocet] Allergy (Mild, Verified 06/01/23 12:00) DIFFICULTING BREATHING acetaminophen [Percocet] Allergy (Unknown, Verified 06/01/23 12:00) Unknown meperidine [Demerol] Allergy (Unknown, Verified 06/01/23 12:00) Unknown Tobacco use date assessed: 06/01/23 Fall risk assessment: No Falls in past year Last assessed Fall Risk: 06/01/23 HPI A fib HPI Details 87-year-old male with coronary artery disease hypercholesterolemia hypertension obstructive sleep apnea GERD atrial fibrillation coming in for follow-up. Last seen in January 2023 had cataracts scheduled surgery in February patient is here for follow-up. Review of the notes was seen by Urology in May 04 having history of prostate cancer TRUS P December 2010 presently disease just followed up with PSA patient was offered gym test. Avoid anticholinergics. Patient did follow-up with cardiology March 2023 had a fall in January 2023 facial laceration and found to have frontoparietal subdural hematoma. For the aortic stenosis mild September 2021 1.04 September 2022 moderate aortic stenosis. For the paroxysmal atrial fibrillation has the pacemaker on metoprolol also on anticoagulation January 2023 last blood work LDL of 63 fall showing left frontal 2 mm acute subdural hematoma and advised to have a re scan. Patient also follows up with Pulmonary for the obstructive sleep apnea uses the CPAP regular. PAtient is still feeling orthostatic [facility] Medical History Subdural hematoma Benign prostatic hyperplasia Pure hypercholesterolemia Benign essential hypertension Gait instability Aortic stenosis Cardiac pacemaker in situ Paroxysmal atrial fibrillation Spinal stenosis of lumbar region Right foot drop Erectile dysfunction GERD (gastroesophageal reflux disease) Obstructive sleep apnea Saddle thrombus of abdominal aorta History of prostate cancer Coronary artery disease Surgical History Stented coronary artery History of lumbar surgery History of cervical spinal surgery History of inguinal hernia repair History of tonsillectomy Family History Father No problems noted. Mother Hypertension Lung cancer Brother No problems noted. Sister No problems noted. Son No problems noted. Daughter No problems noted. Social History Housing: House Alcohol intake: current Alcohol intake frequency: 0-2 drinks per day Alcohol type: beer Patient Tobacco Use Status: Never used Tobacco e-Cigarette/Vaping Use: Never Used Second Hand Smoke Exposure: Yes service: Yes Current occupational status: retired Cognitive needs: No Hearing needs: No Vision needs: Yes Questionnaire Thrive Questionnaire Date Thrive assessed: 03/24/23 AUDIT C Alcohol Use Questionnaire (AUDIT-C) 1. How often do you have a drink containing alcohol?: Never 3. How often do you have six or more drinks on one occasion?: Never Total Score: 0 Score Reviewed/Action Taken: Yes SEJAL-7 AMB Questionnaire SEJAL-7 Date SEJAL - 7 assessed: 03/24/23 Source: Developed by Drs. Michael Boothe, Cindi Montenegro, Michele Dukes and colleagues, with an educational elliott from [employer]. Physical exam (Primary Care) Vital Signs: Last Vital Signs Pulse 55 06/01/23 11:58 BP 128/82 06/01/23 11:58 Pulse Ox 97 06/01/23 11:58 Oxygen Delivery Method Room Air 06/01/23 11:58 BMI result Body Mass Index 25.9 Tobacco/Smoking Status: Tobacco use Status Tobacco use date assessed 06/01/23 06/01/23 12:01 Patient Tobacco Use Status Never used Tobacco 06/01/23 12:01 e-Cigarette/Vaping Use Never Used 06/01/23 12:01 Thrive Assessment: Date of Thrive Assessment Date Thrive assessed 03/24/23 06/01/23 12:01 Const General: alert; No acute distress Eyes Conjunctivae: conjunctivae normal Resp Auscultation: clear to auscultation bilaterally Cardio Rate: regular rate Rhythm: regular rhythm GI Inspection: Yes normal to inspection Extrem General: Yes normal to inspection and No edema Assessment and Plan Assessment & Plan (1) Coronary artery disease: Comment: Stent placement 2011 (ROMÁN x 2 to LAD) Code(s): I25.10 - Atherosclerotic heart disease of [place] coronary artery without angina pectoris Qualifiers: Coronary Disease-Associated Artery/Lesion type: [place] artery [place] vs. transplanted heart: [place] heart Associated angina: without angina Qualified Code(s): I25.10 - Atherosclerotic heart disease of [place] coronary artery without angina pectoris Plan: Control the cholesterol, weight, blood pressure presently on anticoagulation with Eliquis (2) Hypercholesterolemia: Code(s): E78.00 - Pure hypercholesterolemia, unspecified Plan: Avoid fried foods, chicken skin, eggs, butter margarine, pastries and meat. Be it pork or beef they have a lot of cholesterol LDL goal of less than January last blood work patient takes atorvastatin 80 mg once a (3) Obstructive sleep apnea: Comment: CAT IS KNOWN TO HAVE MODERATELY SEVERE OBSTRUCTIVE SLEEP APNEA WITH TOTAL SLEEP TIME AHI 20.3. 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 HE IS USING CPAP REGULARLY AND IS VERY COMPLIANT WELL BENEFITING. CURRENT OF PRESSURE SETTING USE OF CHINSTRAP IS WORKING WELL, DRYNESS OF THE MOUTH IS LESS WITH THE USE OF CHINSTRAP. TX: PRESSURE SETTING 6-14. AND A RAMP MODE OF 5 MINUTES NASAL MASK WITH A CHIN STRAP USE HUMIDIFCATION AT LEVEL 3 HE HAS SOME AEROPHAGIA , AND MAY USE MYLICON-82 TABLETS TO CHEW BEFORE PUTTING ON THE MASK. Code(s): G47.33 - Obstructive sleep apnea (adult) (pediatric) Plan: Continue to use the CPAP more than 4 hours a night and benefits from this and follows up with Pulmonary (4) Hypertension: Code(s): I10 - Essential (primary) hypertension Qualifiers: Hypertension type: essential hypertension Qualified Code(s): I10 - Essential (primary) hypertension Plan: Continue with blood pressure medication. Decrease salt intake and exercise because of hypotension patient had changes in the lisinopril to 10 mg once a day and metoprolol 50 mg once a day (5) GERD (gastroesophageal reflux disease): Code(s): K21.9 - Gastro-esophageal reflux disease without esophagitis Qualifiers: Esophagitis presence: without esophagitis Qualified Code(s): K21.9 - Gastro-esophageal reflux disease without esophagitis Plan: Avoid the foods that causes that usually spicy foods, tomato products, juices, coffee, soda and foods that your sensitive to. After eating do not lie down, allow 3-4 hours before in lie down. And keep the head of bed above 30 degrees to avoid the acid from going up. (6) History of prostate cancer: Comment: External beam radiation May 2011 Code(s): Z85.46 - Personal history of malignant neoplasm of prostate Plan: Patient follows up with urology on terazosin and Cialis (7) Aortic stenosis: Comment: Mild September 2021 1.04 September 2022 moderate aortic stenosis Code(s): I35.0 - Nonrheumatic aortic (valve) stenosis Plan: Continue to follow-up with echocardiogram cardiology is aware (8) Subdural hematoma: Comment: S/P fall with head trauma and brief LOC on 02/25/2023 Code(s): S06.5XAA - Traumatic subdural hemorrhage with loss of consciousness status unknown, initial encounter (9) Hip pain, right: Code(s): M25.551 - Pain in right hip (10) Hip pain, right: Code(s): M25.551 - Pain in right hip Orders: Orders XR hip RT w PEL1V Today M25.551 - Pain in right hip Coding Level of Care Code Est Pt Level 4 (76544) Diagnoses Coronary artery disease involving [place] coronary artery of [place] heart without angina pectoris I25.10 Coronary Disease-Associated Artery/Lesion type: [place] artery [place] vs. transplanted heart: [place] heart Associated angina: without angina Hypercholesterolemia E78.00 Obstructive sleep apnea G47.33 Essential hypertension I10 Hypertension type: essential hypertension Gastroesophageal reflux disease without esophagitis K21.9 Esophagitis presence: without esophagitis History of prostate cancer Z85.46 Aortic stenosis I35.0 Subdural hematoma S06.5XAA Hip pain, right M25.551
[2023-06-01 11:58] VITALS: BP 128/82; PULSE 55; O2SAT 97; BMI 25.9
== END 2023-06-01 12:52 | disposition home or self-care (01) ==
PROVIDERS: PCP Internal Medicine; Visit Provider Internal Medicine
DX: I25.10 Atherosclerotic heart disease of native coronary artery without angina pectoris (principal); S06.5XAA Traumatic subdural hemorrhage with loss of consciousness status unknown, initial encounter; I48.0 Paroxysmal atrial fibrillation; E78.00 Pure hypercholesterolemia, unspecified; G47.33 Obstructive sleep apnea (adult) (pediatric); I10 Essential (primary) hypertension; K21.9 Gastro-esophageal reflux disease without esophagitis; Z85.46 Personal history of malignant neoplasm of prostate; I35.0 Nonrheumatic aortic (valve) stenosis; M25.551 Pain in right hip
CPT/HCPCS: 99214

== ENCOUNTER → 2023-07-25 23:59 | Outpatient (BNV) | payer MEDICARE, OTHER, SELFPAY ==
--- NOTE | 2023-07-26 13:30 | MHC.OFFVIS ---
Intake Intake Visit Reasons: Remote Device Check- [employer] Allergies cyclobenzaprine [Cyclobenzaprine] Allergy (Mild, Verified 06/01/23 12:00) UNCONTROLLED SHAKING oxycodone [From Percocet] Allergy (Mild, Verified 06/01/23 12:00) DIFFICULTING BREATHING acetaminophen [Percocet] Allergy (Unknown, Verified 06/01/23 12:00) Unknown meperidine [Demerol] Allergy (Unknown, Verified 06/01/23 12:00) Unknown [facility] Medical History Subdural hematoma Benign prostatic hyperplasia Pure hypercholesterolemia Benign essential hypertension Gait instability Aortic stenosis Cardiac pacemaker in situ Paroxysmal atrial fibrillation Spinal stenosis of lumbar region Right foot drop Erectile dysfunction GERD (gastroesophageal reflux disease) Obstructive sleep apnea Saddle thrombus of abdominal aorta History of prostate cancer Coronary artery disease Surgical History Stented coronary artery History of lumbar surgery History of cervical spinal surgery History of inguinal hernia repair History of tonsillectomy Family History Father No problems noted. Mother Hypertension Lung cancer Brother No problems noted. Sister No problems noted. Son No problems noted. Daughter No problems noted. Social History Housing: House Alcohol intake: current Alcohol intake frequency: 0-2 drinks per day Alcohol type: beer Patient Tobacco Use Status: Never used Tobacco e-Cigarette/Vaping Use: Never Used Second Hand Smoke Exposure: Yes service: Yes Current occupational status: retired Cognitive needs: No Hearing needs: No Vision needs: Yes Office Procedures Cardiac Device Check Cardiac Device Check Details: Remote pacemaker report generated 07/25/2023. Patient pacer dependent in the ventricle. Few high atrial rate episodes noted although they are [id number] Cardiac Device Interrogation, pacemaker Procedure code (CPT) selection complete Assessment & Plan Assessment & Plan (1) Cardiac pacemaker in situ: Comment: Biotronik pacemaker for sick sinus syndrome?, 2010 Code(s): Z95.0 - Presence of cardiac pacemaker Plan: See above Coding Level of Care Code Procedure Only Diagnoses Cardiac pacemaker in situ Z95.0 CPT Codes Cardiac Device Check - Cardiac Device 12: [id number] Cardiac Device Interrogation, pacemaker ([id number])
== END ==
PROVIDERS: PCP Internal Medicine; Visit Provider Internal Medicine Cardiovascular Disease
DX: I48.0 Paroxysmal atrial fibrillation (principal); Z95.0 Presence of cardiac pacemaker
CPT/HCPCS: 93294

== ENCOUNTER 2023-08-31 10:07 | Outpatient (AMB) | payer MEDICARE, OTHER, SELFPAY ==
[2023-08-31 10:15] VITALS: BP 126/74; PULSE 50; O2SAT 98; BMI 26.4
--- NOTE | 2023-08-31 10:15 | A.OFFPC_ITS ---
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: No Allergies cyclobenzaprine [Cyclobenzaprine] Allergy (Mild, Verified 08/31/23 10:18) UNCONTROLLED SHAKING oxycodone [From Percocet] Allergy (Mild, Verified 08/31/23 10:18) DIFFICULTING BREATHING acetaminophen [Percocet] Allergy (Unknown, Verified 08/31/23 10:18) Unknown meperidine [Demerol] Allergy (Unknown, Verified 08/31/23 10:18) Unknown Medication List - Last Reconciled 08/31/23 by Edmond Mathias Po, acetaminophen 500 mg PO Q6H PRN apixaban (Eliquis) 5 mg PO BID 90 days atorvastatin 80 mg PO DAILY 90 days [AUTO PAP 6-16 cm humidified AIR full face nasal mask As directed] cane As directed cholecalciferol (vitamin D3) 25 mcg PO DAILY fexofenadine 180 mg PO DAILY PRN fluticasone propionate 50 mcg/actuation 2 sprays intranasal DAILY PRN lisinopril 10 mg PO DAILY 30 days metoprolol succinate ER 50 mg PO DAILY nitroglycerin (Nitrostat) 0.4 mg sublingual Q5M PRN tadalafil (Cialis) 20 mg PO DAILY PRN terazosin 4 mg PO BEDTIME Tobacco use date assessed: 08/31/23 Fall risk assessment: No Falls in past year Last assessed Fall Risk: 08/31/23 Dental Screening Dental Screen Date: 03/24/23 HPI CAD, SALMA HPI Details 88-year-old male with coronary artery di sease hypercholesterolemia obstructive sleep apnea hypertension GERD history of prostate cancer coming in for follow-up. Last seen in May 2023 patient has aortic stenosis also. [facility] Medical History Subdural hematoma Benign prostatic hyperplasia Pure hypercholesterolemia Benign essential hypertension Gait instability Aortic stenosis Cardiac pacemaker in situ Paroxysmal atrial fibrillation Spinal stenosis of lumbar region Right foot drop Erectile dysfunction GERD (gastroesophageal reflux disease) Obstructive sleep apnea Saddle thrombus of abdominal aorta History of prostate cancer Coronary artery disease Surgical History Stented coronary artery History of lumbar surgery History of cervical spinal surgery History of inguinal hernia repair History of tonsillectomy Family History Father No problems noted. Mother Hypertension Lung cancer Brother No problems noted. Sister No problems noted. Son No problems noted. Daughter No problems noted. Social History Housing: House Alcohol intake: current Alcohol intake frequency: 0-2 drinks per day Alcohol type: beer Patient Tobacco Use Status: Never used Tobacco e-Cigarette/Vaping Use: Never Used Second Hand Smoke Exposure: Yes service: Yes Current occupational status: retired Cognitive needs: No Hearing needs: No Vision needs: Yes Questionnaire PHQ-9 Over the last 2 weeks, how often have you been bothered by any of the following problems? 1. Little interest or pleasure in doing things: not at all 2. Feeling down, depressed, or hopeless: not at all 3. Trouble falling or staying asleep, or sleeping too much: not at all 4. Feeling tired or having little energy: not at all 5. Poor appetite or overeating: not at all 6. Feeling bad about yourself - or that you are a failure or have let yourself or your family down: not at all 7. Trouble concentrating on things, such as reading the newspaper or watching television: not at all 8. Moving or speaking so slowly that other people could have noticed. Or the opposite - being so fidgety or restless that you have been moving around a lot more than usual: not at all 9. Thoughts that you would be better off or of hurting yourself in some way: not at all Total score: 0 Depression Screening Interpretation: Negative Depression Screening Done: Yes 98154 - PHQ-9 Billing: Yes Source: Developed by Drs. Michael Boothe, Cindi Montenegro, Michele Dukes and colleagues, with an educational elliott from [employer]. Thrive Questionnaire Date Thrive assessed: 08/31/23 I am a: Patient What is your living situation today?: I have a steady place to live Within the past 12 months, did the food you bought not last and you didn't have the money to get more?: Never true Within the past 12 months, did you worry whether your food would run out before you got money to buy more?: Never true Do you have trouble paying for medicines?: No Do you have trouble getting transportation to medical appointments?: No Do you have trouble paying your heating and electricity bill?: No Do you have trouble taking care of your child, family member or friend?: No Do you have trouble with day-to-day activities such as bathing, preparing meals, shopping, managing finances, etc.?: No Are you currently unemployed and looking for a job?: No Are you interested in more education?: No Please select the resources that you would like help with: None Currently or been in a relationship where the following occur: no concerns reported THRIVE Score: 0 AUDIT C Alcohol Use Questionnaire (AUDIT-C) 1. How often do you have a drink containing alcohol?: Never 3. How often do you have six or more drinks on one occasion?: Never Total Score: 0 Score Reviewed/Action Taken: Yes SEJAL-7 AMB Questionnaire SEJAL-7 Date SEJAL - 7 assessed: 08/31/23 Feeling nervous, anxious, or on edge: 1 = Several days Not being able to stop or control worryin = Not at all Worrying too much about different things: 0 = Not at all Trouble relaxin = Not at all Being so restless that it is hard to sit still: 0 = Not at all Becoming easily annoyed or irritable: 0 = Not at all Feeling afraid as if something awful might happen: 0 = Not at all Total SEJAL-7 score (0-4 normal; 5-9 mild; 10-14 moderate; 15-21 severe): 1 Source: Developed by Drs. Michael Boothe, Cindi Montenegro, Michele Dukes and colleagues, with an educational elliott from [employer]. SEJAL-7 Assessment Billing SEJAL-7 Assessment Tool: SEJAL-7 Assessment 53957 Physical exam (Primary Care) Vital Signs: Last Vital Signs Pulse 50 08/31/23 10:15 BP 126/74 08/31/23 10:15 Pulse Ox 98 08/31/23 10:15 Oxygen Delivery Method Room Air 08/31/23 10:15 BMI result Body Mass Index 26.4 Tobacco/Smoking Status: Tobacco use Status Tobacco use date assessed 08/31/23 08/31/23 10:21 Patient Tobacco Use Status Never used Tobacco 08/31/23 10:15 e-Cigarette/Vaping Use Never Used 08/31/23 10:15 PHQ-9: PHQ-9 Score PHQ-9: Total score 0 08/31/23 10:21 Depression Screening Interpretation: Negative Thrive Assessment: Date of Thrive Assessment Date Thrive assessed 08/31/23 08/31/23 10:21 Currently or been in a relationship where the following occur: no concerns reported Const General: alert; No acute distress Eyes Conjunctivae: conjunctivae normal Resp Auscultation: clear to auscultation bilaterally Cardio Rate: regular rate Rhythm: regular rhythm GI Inspection: Yes normal to inspection Extrem General: Yes normal to inspection and No edema Assessment and Plan Assessment & Plan (1) Paroxysmal atrial fibrillation: Code(s): I48.0 - Paroxysmal atrial fibrillation Plan: Continue with anticoagulation twice a day year blood work needed (2) History of prostate cancer: Comment: External beam radiation May 2011 Code(s): Z85.46 - Personal history of malignant neoplasm of prostate Plan: Stable (3) Coronary artery disease: Comment: Stent placement 2011 (ROMÁN x 2 to LAD) Code(s): I25.10 - Atherosclerotic heart disease of [place] coronary artery without angina pectoris Qualifiers: Coronary Disease-Associated Artery/Lesion type: [place] artery [place] vs. transplanted heart: [place] heart Associated angina: without angina Qualified Code(s): I25.10 - Atherosclerotic heart disease of [place] coronary art yuniel without angina pectoris Plan: Control the cholesterol, weight, blood pressure, April 2023 last blood work patient is on anticoagulation (4) Hypercholesterolemia: Code(s): E78.00 - Pure hypercholesterolemia, unspecified Plan: Avoid fried foods, chicken skin, eggs, butter margarine, pastries and meat. Be it pork or beef they have a lot of cholesterol LDL goal of less than 70 and triglyceride of less than 150 on atorvastatin 80 mg once a day (5) Obstructive sleep apnea: Comment: CAT IS KNOWN TO HAVE MODERATELY SEVERE OBSTRUCTIVE SLEEP APNEA WITH TO GRANT SLEEP TIME AHI 20.3. 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 HE IS USING CPAP REGULARLY AND IS VERY COMPLIANT WELL BENEFITING. CURRENT OF PRESSURE SETTING USE OF CHINSTRAP IS WORKING WELL, DRYNESS OF THE MOUTH IS LESS WITH THE USE OF CHINSTRAP. TX: PRESSURE SETTING 6-14. AND A RAMP MODE OF 5 MINUTES NASAL MASK WITH A CHIN STRAP USE HUMIDIFCATION AT LEVEL 3 HE HAS SOME AEROPHAGIA , AND MAY USE MYLICON-82 TABLETS TO CHEW BEFORE PUTTING ON THE MASK. Code(s): G47.33 - Obstructive sleep apnea (adult) (pediatric) Plan: Continue to use the CPAP more than 4 hours a night and benefits from the (6) Hypertension: Code(s): I10 - Essential (primary) hypertension Qualifiers: Hypertension type: essential hypertension Qualified Code(s): I10 - Essential (primary) hypertension Plan: Continue with blood pressure medication. Decrease salt intake and exercise on metoprolol 50 mg once a day lisinopril 10 mg once a day (7) GERD (gastroesophageal reflux disease): Code(s): K21.9 - Gastro-esophageal reflux disease without esophagitis Qualifiers: Esophagitis presence: without esophagitis Qualified Code(s): K21.9 - Gastro-esophageal reflux disease without esophagitis Plan: Avoid the foods that causes that usually spicy foods, tomato products, juices, coffee, soda and foods that your sensitive to. After eating do not lie down, allow 3-4 hours before in lie down. And keep the head of bed above 30 degrees to avoid the acid from going up. (8) Cardiac pacemaker in situ: Comment: Biotronik pacemaker for sick sinus syndrome?, 2010 Code(s): Z95.0 - Presence of cardiac pacemaker Plan: Patient follows up with Cardiology and has the device check routinely. (9) Aortic stenosis: Comment: Mild September 2021 1.04 September 2022 moderate aortic stenosis Code(s): I35.0 - Nonrheumatic aortic (valve) stenosis Plan: Continue to follow-up August 2022 last echocardiogram (10) Impaired fasting glucose: Code(s): R73.01 - Impaired fasting glucose Plan: Decrease the amount of carbohydrate intake, pasta, bread, rice and potatoes are all sugar and that is aside from all the sweet stuff, remember that fruits are good but they are Sweet also. Orders: Orders Comprehensive Met. Panel Today I48.0 - Paroxysmal atrial fibrillation Hemoglobin A1c Today R73.02 - Impaired glucose tolerance (oral) Complete Blood Count Auto Diff Today I48.0 - Paroxysmal atrial fibrillation Coding Level of Care Code Est Pt Level 4 (93528) Diagnoses Paroxysmal atrial fibrillation I48.0 History of prostate cancer Z85.46 Coronary artery disease involving [place] coronary artery of [place] heart without angina pectoris I25.10 Coronary Disease-Associated Artery/Lesion type: [place] artery [place] vs. transplanted heart: [place] heart Associated angina: without angina Hypercholesterolemia E78.00 Obstructive sleep apnea G47.33 Essential hypertension I10 Hypertension type: essential hypertension Gastroesophageal reflux disease without esophagitis K21.9 Esophagitis presence: without esophagitis Cardiac pacemaker in situ Z95.0 Aortic stenosis I35.0 Impaired fasting glucose R73.01 Additional Codes SEJAL-7 Assessment Billing - SEJAL-7 Assessment Tool: SEJAL-7 Assessment 12214 ([id number])
== END 2023-08-31 10:46 | disposition home or self-care (01) ==
PROVIDERS: PCP Internal Medicine; Visit Provider Internal Medicine
DX: I48.0 Paroxysmal atrial fibrillation (principal); Z85.46 Personal history of malignant neoplasm of prostate; I25.10 Atherosclerotic heart disease of native coronary artery without angina pectoris; E78.00 Pure hypercholesterolemia, unspecified; G47.33 Obstructive sleep apnea (adult) (pediatric); I10 Essential (primary) hypertension; K21.9 Gastro-esophageal reflux disease without esophagitis; Z95.0 Presence of cardiac pacemaker; I35.0 Nonrheumatic aortic (valve) stenosis; R73.01 Impaired fasting glucose
CPT/HCPCS: 99214

== ENCOUNTER 2023-09-07 10:56 | Outpatient (AMB) | payer MEDICARE, OTHER, SELFPAY ==
[2023-09-07 11:06] VITALS: BP 120/62; PULSE 56; O2SAT 96; BMI 27.0
--- NOTE | 2023-09-07 11:06 | HO.NEPHOV ---
HPI HPI Comments History of Present Illness Details I had the privilege of seeing Yuriy in follow-up of his hypertension and mild CKD. He had a fall with subdural hematoma. Those issues are currently resolved. He is caring for his who has dementia which is adding a lot of stress on him. He does not eat much sodium in the diet. He denies chest pain, shortness of breath, syncope, paroxysmal nocturnal dyspnea, orthopnea, pedal edema or orthostatic symptoms. He does not have any dysuria, frequency or hematuria. He does not take any nonsteroidal anti-inflammatories. His blood pressure has been at goal. At times he feels he is having some memory lapses. He ambulates with a cane as a security to prevent him from falls. [facility] Medical History Subdural hematoma Benign prostatic hyperplasia Pure hypercholesterolemia Benign essential hypertension Gait instability Aortic stenosis Cardiac pacemaker in situ Paroxysmal atrial fibrillation Spinal stenosis of lumbar region Right foot drop Erectile dysfunction GERD (gastroesophageal reflux disease) Obstructive sleep apnea Saddle thrombus of abdominal aorta History of prostate cancer Coronary artery disease Surgical History Stented coronary artery History of lumbar surgery History of cervical spinal surgery History of inguinal hernia repair History of tonsillectomy Family History Father No problems noted. Mother Hypertension Lung cancer Brother No problems noted. Sister No problems noted. Son No problems noted. Daughter No problems noted. Social History Housing: House Alcohol intake: current Alcohol intake frequency: 0-2 drinks per day Alcohol type: beer Patient Tobacco Use Status: Never used Tobacco e-Cigarette/Vaping Use: Never Used Second Hand Smoke Exposure: Yes service: Yes Current occupational status: retired Cognitive needs: No Hearing needs: No Vision needs: Yes Vital Signs 09/07/23 11:06 Height 5 ft 11 in Weight 193 lb 6 oz BMI 27.0 BP 120/62 Blood Pressure Location Lt brachial Position Sitting Pulse 56 Pulse Source Pulse Oximeter Pulse Oximetry (%) 96 Oxygen Delivery Method Room Air Physical Exam Vital Signs: Last Vital Signs Pulse 56 09/07/23 11:06 BP 120/62 09/07/23 11:06 Pulse Ox 96 09/07/23 11:06 Oxygen Delivery Method Room Air 09/07/23 11:06 BMI result Body Mass Index 27.0 Const General: comfortable and no acute distress Orientation/consciousness: patient oriented x3 HEENT Head: Yes normocephalic Mouth: Normal oral and palatal mucosa present Eyes EOM: EOMs intact bilaterally Neck Neck: Yes supple Resp Auscultation: clear to auscultation bilaterally Cardio Jugular venous distension: no JVD Rate: regular rate Heart sounds: Murmur heart sound present GI Palpation (GI): Soft to palpation Auscultation: normal bowel sounds General: Yes no CVA tenderness Back/Spine/Pelvis Back: no CVA tenderness Skin General skin exam: no rashes or lesions noted Neuro General: patient oriented x3 and moves all extremities Extrem General: Yes no pedal edema Assessment & Plan Assessment & Plan (1) Hypertension: Code(s): I10 - Essential (primary) hypertension Qualifiers: Hypertension type: essential hypertension Qualified Code(s): I10 - Essential (primary) hypertension Plan Yuriy has mild CKD which has been stable. His blood pressure is at goal. He is not orthostatic. His volume status is optimal. His serum potassium and creatinine are at baseline. He maintains good hydration and avoids nonsteroidal anti-inflammatories. I did not make any medication changes today. All the recent blood work and current physical exam findings were discussed in detail. Answered all questions. Orders: Orders Blood Urea Nitrogen Today I10 - Essential (primary) hypertension Creatinine Today I10 - Essential (primary) hypertension Electrolytes Today I10 - Essential (primary) hypertension Calcium Today I10 - Essential (primary) hypertension Coding Level of Care Code Est Pt Level 4 (22732) Diagnoses Essential hypertension I10 Hypertension type: essential hypertension Results Reviewed Nephrology Results: Hgb 15.2 g/dl (14.0-18.0) 05/26/23 WBC 6.6 X10*3/uL (4.8-10.8) 05/26/23 Plt Count 170 X10*3/uL (160-400) 05/26/23 Sodium 143 mmol/L (135-145) 05/26/23 Potassium 3.9 mmol/L (3.3-5.1) 05/26/23 Chloride 110 mmol/L (96-108) H 05/26/23 Carbon Dioxide 29 mmol/L (22-29) 05/26/23 BUN 16 mg/dL (9-16) 05/26/23 Creatinine 0.96 mg/dL (0.5-1.4) 05/26/23 Calcium 9.4 mg/dL (8.4-10.2) 05/26/23
== END 2023-09-07 12:30 ==
PROVIDERS: PCP Internal Medicine; Visit Provider Internal Medicine Nephrology
DX: I10 Essential (primary) hypertension (principal)
CPT/HCPCS: 99214

== ENCOUNTER → 2023-09-07 10:56 | Outpatient (BNVA) | payer MEDICARE, OTHER, SELFPAY | PROVIDERS: PCP Internal Medicine; Visit Provider Internal Medicine Nephrology | DX: I10 Essential (primary) hypertension (principal) | CPT/HCPCS: 99212 ==

== ENCOUNTER → 2023-09-20 10:08 | Outpatient (REF) | payer MEDICARE, OTHER, SELFPAY ==
--- NOTE | 2023-09-20 10:13 | CA_ITS ---
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 Normal LV ejection fraction of 60 65% with moderate left ventricular hypertrophy with impaired relaxation filling pattern 2. Mildly dilated left atrium 3. Fpor-er-dphpbbej calcific aortic stenosis 4. Normal RV systolic pressure 5. Mildly dilated ascending aorta at 3.8 cm 6. No pericardial effusion Findings Left Ventricle Normal left ventricular size and systolic function. There is moderately increased left ventricular wall thickness. The visually estimated ejection fraction is between 60-65%. Spectral Doppler is indicative of an impaired relaxation filling pattern. E/E prime ratio is between 8 and 15 consistent with indeterminate filling pressures. Right Ventricle Normal right ventricular cavity size and systolic function. Atria The left atrium is mildly dilated. The right atrium is normal in size. Aortic Valve There is moderate calcification of the aortic valve. There is mild to moderate aortic valve stenosis. The peak aortic gradient is 26 mmHg.The mean gradient is 15 mmHg. The aortic valve area is 1.53 cm2. There is no aortic valve regurgitation. Mitral Valve There is mild anterior and posterior mitral leaflet thickening. There is trace mitral valve regurgitation. There is no mitral valve stenosis. Pulmonic Valve The pulmonic valve was not well visualized. Tricuspid Valve Likely normal tricuspid valve structure and function. There is trace tricuspid valve regurgitation. The right ventricular systolic pressure is normal. The right ventricular systolic pressure is 27 mmHg. Normal right atrial pressure. There is no evidence of pulmonary hypertension. Great Vessels The pulmonary artery was not well visualized. There is mild dilatation of the ascending aorta measuring 3.80 cm. Venous The inferior vena cava is normal in size and collapses greater than 50% with inspiration. Pericardium/Pleural There is no evidence of pericardial effusion. Measurements 2D Linear Measurements IVSd: 1.65 0.6-0.9/0.6-1.0 cm LVIDd: 4.42 3.9-5.3/4.2-5.9 cm LVIDd Index: 2.16 2.4-3.2/2.2-3.1 cm/m2 LVIDs: 2.53 2.0-3.6 cm LVPWd: 1.38 0.7-1.1 cm Ao Root: 3.70 2.1-3.5 cm LA Diam: 3.80 2.7-3.8/3.0-4.0 cm LAIDs Index: 1.85 1.5-2.3 cm/m2 LV Mass: 340.23 67-162/88-224 g LV Mass Index: 165.97 43-95/49-115 g/m2 LVOT Diam: 2.20 3.0+(-)1.3 cm 2D Systolic Function EF 4C: 65.40 >55% EF 2C: 60.90 >55% EF BiP: 63.80 >55% Mitral Valve MV Pk E: 0.56 MV PK A: 0.80 MV Decel Time: 279.00 E/A: 0.70 E'Lateral: 5.33 E'Medial: 4.79 E/E' Med: 11.70 E/E' Lat: 10.50 PHT: 82.00 MVA PHT: 2.68 Decel Parke: 2.01 Aortic Valve AoV Pk Jose Juan: 2.53 AoV Mn Jose Juan: 1.83 AoV VTI: 0.62 AoV Pk Grad: 26.00 Aov Mn Grad: 15.00 CARMELITA Cont.VTI: 1.53 LVOT LVOT Pk Jose Juan: 0.91 LVOT Mn Jose Juan: 0.68 LVOT VTI: 0.25 LVOT Pk Grad: 3.00 LVOT Mn Grad: 2.00 LVOT Diam: 2.20 LVOT Area: 3.80 Diastolic Function MV Pk E: 0.56 MV Pk A: 0.80 E/A: 0.70 E'Medial: 4.79 E/E' Med: 11.70 E' Laterial: 5.33 E/E' Lat: 10.50 Right Ventricle TAPSE (mm): 12.00 TVS' Jose Juan: 12.00 Tricuspid Valve TR Pk Jose Juan: 2.44 TR Pk Grad: 24.00 RA Press: 3.00 RVSP: 27.00 Great Vessels Aorta Ao Root-2D: 3.70 2.0-3.7 cm Ao Asc: 3.80 2.1-3.4 cm Pulmonary Valve PV Pk Jose Juan: 1.29 Peak PV Grad: 7.00 Updated in Other Vendor System with Status of Final Abdirizak Barbosa MD electronically signed on 09/21/2023 2:28:08 PM with status of Final
== END ==
LOC: HO.CARD 10:08
PROVIDERS: PCP Internal Medicine; Visit Provider Nurse Practitioner Family
DX: I35.0 Nonrheumatic aortic (valve) stenosis (principal)
CPT/HCPCS: 93306

== ENCOUNTER → 2023-09-20 10:13 | Outpatient (BNV) | payer MEDICARE, OTHER, SELFPAY | PROVIDERS: PCP Internal Medicine; Visit Provider Internal Medicine Cardiovascular Disease | DX: I35.0 Nonrheumatic aortic (valve) stenosis (principal) | CPT/HCPCS: 93306 ==

== ENCOUNTER 2023-10-05 11:12 | Outpatient (AMB) | payer MEDICARE, OTHER, SELFPAY ==
--- NOTE | 2023-10-05 11:16 | MHC.OFFVIS ---
Vital Signs 10/05/23 11:17 Height 5 ft 11 in Weight 194 lb 0.108 oz BMI 27.1 BP 112/54 L Blood Pressure Location Lt brachial Position Sitting Pulse 64 Pulse Source Pulse Oximeter Pulse Oximetry (%) 94 Oxygen Delivery Method Room Air Intake Visit Reasons: Obstructive sleep apnea Intake Note: pt is here for follow up and using cpap at night and daytime with naps, the only problem is that it does not use much water. 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 Allergies cyclobenzaprine [Cyclobenzaprine] Allergy (Mild, Verified 10/05/23 11:33) UNCONTROLLED SHAKING oxycodone [From Percocet] Allergy (Mild, Verified 10/05/23 11:33) DIFFICULTING BREATHING acetaminophen [Percocet] Allergy (Unknown, Verified 10/05/23 11:33) Unknown meperidine [Demerol] Allergy (Unknown, Verified 10/05/23 11:33) Unknown Medication List - Last Reconciled 10/05/23 by Satinder Fajardo MD acetaminophen 500 mg PO Q6H PRN apixaban (Eliquis) 5 mg PO BID 90 days atorvastatin 80 mg PO DAILY 90 days [AUTO PAP 6-16 cm humidified AIR full face nasal mask As directed] cane As directed cholecalciferol (vitamin D3) 25 mcg PO DAILY fexofenadine 180 mg PO DAILY PRN fluticasone propionate 50 mcg/actuation 2 sprays intranasal DAILY PRN lisinopril 10 mg PO DAILY 30 days metoprolol succinate ER 50 mg PO DAILY nitroglycerin (Nitrostat) 0.4 mg sublingual Q5M PRN tadalafil (Cialis) 20 mg PO DAILY PRN terazosin 4 mg PO BEDTIME Do you need a note to return to daycare/school/sports/work: No HPI HPI Obstructive sleep apnea: Details: 88 YEARS OLD VERY PLEASANT GENTLEMAN A CASE OF OBSTRUCTIVE SLEEP APNEA DUE TO RETROGANTHIA OF THE LOWER JAW, HE USES CPAP VERY REGULARLY THROUGHOUT THE NIGHT AND FOR 1-2 HOURS IN THE AFTERNOON WHEN H.E TAKES A NAP. HAS NO ISSUE WITH THE MASK ( NASAL PILLOWS + CHINSTRAP ) INTERESTINGLY HIS ALSO HAS SALMA AND USES NASAL PILLOWS WITH CHINSTRAP. NO PROBLEM WITH HIS BREATHING. [facility] Medical History Subdural hematoma Benign prostatic hyperplasia Pure hypercholesterolemia Benign essential hypertension Gait instability Aortic stenosis Cardiac pacemaker in situ Paroxysmal atrial fibrillation Spinal stenosis of lumbar region Right foot drop Erectile dysfunction GERD (gastroesophageal reflux disease) Obstructive sleep apnea Saddle thrombus of abdominal aorta History of prostate cancer Coronary artery disease Surgical History Stented coronary artery History of lumbar surgery History of cervical spinal surgery History of inguinal hernia repair History of tonsillectomy Family History Father No problems noted. Mother Hypertension Lung cancer Brother No problems noted. Sister No problems noted. Son No problems noted. Daughter No problems noted. Social History Housing: House Alcohol intake: current Alcohol intake frequency: 0-2 drinks per day Alcohol type: beer Patient Tobacco Use Status: Never used Tobacco e-Cigarette/Vaping Use: Never Used Second Hand Smoke Exposure: Yes service: Yes Current occupational status: retired Cognitive needs: No Hearing needs: No Vision needs: Yes Review of Systems Const All systems reviewed & are unremarkable except as noted in HPI and below Eyes Reports no additional complaints ENT Denies nasal congestion, Denies nasal discharge and Reports other (Dry mouth in the morning) Card Reports irregular heart rhythm and Denies leg edema Resp Reports no additional complaints, Denies cough and Denies wheezing GI Reports no additional complaints Reports erectile dysfunction Musc Reports back pain and Reports arthralgias (Left lower extremity) Skin/Breast Reports system reviewed and no additional complaints, except as documented Neuro Reports no additional complaints Psych Reports no additional complaints Endo Reports no additional complaints Aller/Immun Denies wheezing Physical Exam Vital Signs: Last Vital Signs Pulse 64 10/05/23 11:17 BP 112/54 L 10/05/23 11:17 Pulse Ox 94 10/05/23 11:17 Oxygen Delivery Method Room Air 10/05/23 11:17 BMI result Body Mass Index 27.1 He is only slightly overweight, Const General: healthy appearing, comfortable, no acute distress, alert and awake Orientation/consciousness: patient oriented x3 HEENT Head: Yes normal to inspection General nose exam: No nasal polyps present and No nasal discharge present Face and sinus: Yes sinuses nontender Mouth: oropharynx normal Teeth and gingiva: other (Has moderate retroganthia of the lower jaw.) Throat: Yes posterior oropharynx normal Eyes General: appearance normal, both eyes and all related structures Neck Neck: Yes normal visual inspection, Yes no lymphadenopathy, Yes trachea midline and Yes no JVD Thyroid: Thyroid normal Chest Chest palpation & inspection: normal inspection of the chest, normal palpation of entire chest wall and no tenderness Resp Effort & Inspection: normal respiratory effort Auscultation: clear to auscultation bilaterally, no crackles and no wheezes Percussion: percussion normal Cardio Palpation: normal PMI Rate: regular rate Rhythm: regular rhythm and abnormal rhythm (Atrial fib) Heart sounds: Gallop heart sound present and Murmur heart sound present GI Palpation (GI): Soft to palpation, nontender, No hepatosplenomegaly present and no masses Auscultation: normal bowel sounds Back/Spine/Pelvis Thoracic/Lumbar Spine: thoracic and lumbar spine normal to inspection, thoraco-lumbar ROM limited and thoraco-lumbar spasm Skin General skin exam: no rashes or lesions noted Neuro General: patient oriented x3 and no focal motor deficits Cranial nerves: Yes CN's II-XII intact bilaterally Extrem General: Yes normal to inspection, Yes no clubbing, cyanosis or edema and Yes no calf tenderness Psych Appearance: grossly normal and well kempt Speech and movement: Normal speech and movement present Assessment & Plan Assessment & Plan (1) Obstructive sleep apnea: Comment: CAT IS KNOWN TO HAVE MODERATELY SEVERE OBSTRUCTIVE SLEEP APNEA WITH TOTAL SLEEP TIME AHI 20.3. 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 HE IS USING CPAP REGULARLY AND IS VERY COMPLIANT WELL BENEFITING. HE DESCRIBES SOME ISSUE WITH THE HUMIDIFICATION, AND APPARENTLY NOT USING THE WHOLE WATER IN THE TANK. Code(s): G47.33 - Obstructive sleep apnea (adult) (pediatric) Category: Medical Plan: . TX: PRESSURE SETTING 6-14. AND A RAMP MODE OF 5 MINUTES NASAL MASK WITH A CHIN STRAP USE HUMIDIFCATION AT LEVEL 3 AND MAY INCREASE TO LEVEL 4, IF NEEDED HE HAS SOME AEROPHAGIA , AND MAY USE MYLICON-82 TABLETS TO CHEW BEFORE PUTTING ON THE MASK. Coding Level of Care Code Est Pt Level 3 (30239) Diagnoses Obstructive sleep apnea G47.33
[2023-10-05 11:17] VITALS: BP 112/54; PULSE 64; O2SAT 94; BMI 27.1
== END 2023-10-05 11:36 | disposition home or self-care (01) ==
PROVIDERS: PCP Internal Medicine; Visit Provider Internal Medicine
DX: G47.33 Obstructive sleep apnea (adult) (pediatric) (principal)
CPT/HCPCS: 99213

== ENCOUNTER → 2023-10-05 11:12 | Outpatient (BNVA) | payer MEDICARE, OTHER, SELFPAY | PROVIDERS: PCP Internal Medicine; Visit Provider Internal Medicine | DX: G47.33 Obstructive sleep apnea (adult) (pediatric) (principal) | CPT/HCPCS: 99212 ==

== ENCOUNTER 2023-10-17 14:15 | Outpatient (AMB) | payer MEDICARE, OTHER, SELFPAY ==
[2023-10-17 14:28] VITALS: BP 108/52; PULSE 55; BMI 26.1
--- NOTE | 2023-10-17 14:28 | MHC.OFFVIS ---
Vital Signs 10/17/23 14:28 Height 5 ft 11 in Weight 187 lb BMI 26.1 BP 108/52 L Blood Pressure Location Lt brachial Position Sitting Pulse 55 Pulse Source Pulse Oximeter Intake Visit Reasons: 6 mth w/ charisma [employer] Required: No Allergies cyclobenzaprine [Cyclobenzaprine] Allergy (Mild, Verified 10/17/23 14:29) UNCONTROLLED SHAKING oxycodone [From Percocet] Allergy (Mild, Verified 10/17/23 14:29) DIFFICULTING BREATHING acetaminophen [Percocet] Allergy (Unknown, Verified 10/17/23 14:29) Unknown meperidine [Demerol] Allergy (Unknown, Verified 10/17/23 14:29) Unknown Medication List - Last Reconciled 10/17/23 by Stephany Gibson NP-C acetaminophen 500 mg PO Q6H PRN apixaban (Eliquis) 5 mg PO BID 90 days atorvastatin 80 mg PO DAILY 90 days [AUTO PAP 6-16 cm humidified AIR full face nasal mask As directed] cane As directed cholecalciferol (vitamin D3) 25 mcg PO DAILY fexofenadine 180 mg PO DAILY PRN fluticasone propionate 50 mcg/actuation 2 sprays intranasal DAILY PRN lisinopril 10 mg PO DAILY metoprolol succinate ER 50 mg PO DAILY nitroglycerin (Nitrostat) 0.4 mg sublingual Q5M PRN tadalafil (Cialis) 20 mg PO DAILY PRN terazosin 4 mg PO BEDTIME PFSH Medical History Subdural hematoma Benign prostatic hyperplasia Pure hypercholesterolemia Benign essential hypertension Gait instability Aortic stenosis Cardiac pacemaker in situ Paroxysmal atrial fibrillation Spinal stenosis of lumbar region Right foot drop Erectile dysfunction GERD (gastroesophageal reflux disease) Obstructive sleep apnea Saddle thrombus of abdominal aorta History of prostate cancer Coronary artery disease Surgical History Stented coronary artery History of lumbar surgery History of cervical spinal surgery History of inguinal hernia repair History of tonsillectomy Family History Father No problems noted. Mother Hypertension Lung cancer Brother No problems noted. Sister No problems noted. Son No problems noted. Daughter No problems noted. Social History Housing: House Alcohol intake: current Alcohol intake frequency: 0-2 drinks per day Alcohol type: beer Patient Tobacco Use Status: Never used Tobacco e-Cigarette/Vaping Use: Never Used Second Hand Smoke Exposure: Yes service: Yes Current occupational status: retired Cognitive needs: No Hearing needs: No Vision needs: Yes Review of Systems Const All systems reviewed & are unremarkable except as noted in HPI and below ENT Denies dizziness Card Denies chest pain, Denies chest pain at rest, Denies chest pain with activity, Denies rapid heart rate, Denies pedal edema, Denies edema, Denies leg edema, Denies lightheadedness, Denies palpitations, Denies dyspnea, Denies dyspnea on exertion and Denies orthopnea Resp Denies cough, Denies dyspnea and Denies dyspnea on exertion GI Denies hematochezia and Denies change in stool character Musc Denies abnormal gait, Denies limited range of motion, Denies muscle cramps, Denies muscle weakness, Denies numbness, Denies radiating pain into limb, Denies stiffness and Denies tingling Neuro Denies abnormal gait, Denies dizziness, Denies numbness and Denies tingling Endo Denies palpitations Physical Exam Vital Signs: Last Vital Signs Pulse 55 10/17/23 14:28 BP 108/52 L 10/17/23 14:28 BMI result Body Mass Index 26.1 Const General: cooperative, healthy appearing, comfortable and no acute distress Orientation/consciousness: patient oriented x3 Neck Neck: Yes normal visual inspection and Yes no JVD Chest Chest palpation & inspection: normal inspection of the chest Resp Effort & Inspection: normal respiratory effort Auscultation: clear to auscultation bilaterally, no rales, no rhonchi and no wheezes Cardio Jugular venous distension: no JVD Rate: regular rate Rhythm: regular rhythm Heart sounds: S1 normal heart sound present, S2 normal heart sound present, no murmurs and no rubs Neuro General: patient oriented x3 Extrem General: Yes normal to inspection and No no pedal edema Psych Appearance: grossly normal Mental Status: mental status grossly normal Speech and movement: Normal speech and movement present Office Procedures Cardiac Device Check Cardiac Device Check Details: GoGoPin dual-chamber pacemaker interrogation today shows battery 11 months, DDDR mode, low rate 50, upper tracking rate 130, 21% atrial paced, 100% ventricular paced, right atrial threshold 0.7 volts at 0.4 milliseconds, RV threshold 1.1 volts at 1 millisecond [id number] Cardiac Device Check, dual lead implantable defibrillator Procedure code (CPT) selection complete Assessment & Plan Assessment & Plan (1) Aortic stenosis: Comment: Mild September 2021 1.04 September 2022 moderate aortic stenosis Code(s): I35.0 - Nonrheumatic aortic (valve) stenosis Category: Medical Plan: History of aortic stenosis. Last echo 09/22/2022 shows EF 60-65%, moderate aortic stenosis. Heart murmur noted on examination today. He denies cardinal symptoms of severe including presyncope/syncope, chest discomfort, shortness of breath. He does have some lightheadedness with position changes. Will reduce his lisinopril dose to give him more blood pressure support. Will plan for repeat echo 1 year from last, due for 2023. Cardiology follow-up 6 months, sooner if needed. Instructed to call us if he has any concerning symptoms in the meantime. (2) Paroxysmal atrial fibrillation: Code(s): I48.0 - Paroxysmal atrial fibrillation Category: Medical Plan: History of paroxysmal atrial fibrillation. Pulse regular on examination today. EKG done today showing a sensed, V paced rhythm, 60 beats per minute, QTC falsely prolonged at 492 millisecond. He is on metoprolol for heart rate control. He is on Eliquis for anticoagulation. Recent mechanical fall with subdural hematoma that was Evaluated and treated at [facility]. Records reviewed. Eliquis was initially held for a few days then restarted. Since his hospital discharge he has not had any bleeding issues, headaches, vision changes, neurological changes. He reports good activity tolerance. (3) Coronary artery disease: Comment: Stent placement 2011 (ROMÁN x 2 to LAD) Code(s): I25.10 - Atherosclerotic heart disease of [place] coronary artery without angina pectoris Category: Medical Qualifiers: Coronary Disease-Associated Artery/Lesion type: [place] artery [place] vs. transplanted heart: [place] heart Associated angina: without angina Qualified Code(s): I25.10 - Atherosclerotic heart disease of [place] coronary artery without angina pectoris Plan: History of CAD with coronary stent 2011. No reports of anginal sounding symptoms at this time. Continue with risk factor modification. He is not on aspirin as he is on Eliquis. Continue high-dose atorvastatin with ideal LDL goal less than 70. Continue metoprolol. Labs done on 02/03/2023 show LDL 63. (4) Cardiac pacemaker in situ: Comment: Biotronik pacemaker for sick sinus syndrome?, 2010 Code(s): Z95.0 - Presence of cardiac pacemaker Category: Medical Plan: Biotronik dual-chamber pacemaker in place. Functioning normally on interrogation today. Next office interrogation due in 6 months. Remote monitoring in use. (5) Benign essential hypertension: Code(s): I10 - Essential (primary) hypertension Category: Medical Plan: Running on low side. Will further reduce lisinopril due to reports of lightheadedness at times with position changes (6) Hospital discharge follow-up: Code(s): Z09 - Encounter for follow-up examination after completed treatment for conditions other than malignant neoplasm Category: Medical Plan: [facility] [place] Coding Level of Care Code Est Pt Level 4 (77364) Diagnoses Aortic stenosis I35.0 Paroxysmal atrial fibrillation I48.0 Coronary artery disease involving [place] coronary artery of [place] heart without angina pectoris I25.10 Coronary Disease-Associated Artery/Lesion type: [place] artery [place] vs. transplanted heart: [place] heart Associated angina: without angina Cardiac pacemaker in situ Z95.0 Benign essential hypertension I10 Hospital discharge follow-up Z09 CPT Codes Cardiac Device Check - Cardiac Device 5: [id number] Cardiac Device Check, dual lead implantable defibrillator ([id number]) Time Spent (min) 28
== END 2023-10-17 15:23 | disposition home or self-care (01) ==
PROVIDERS: PCP Internal Medicine; Visit Provider Nurse Practitioner Family
DX: I35.0 Nonrheumatic aortic (valve) stenosis (principal); I48.0 Paroxysmal atrial fibrillation; I25.10 Atherosclerotic heart disease of native coronary artery without angina pectoris; Z95.0 Presence of cardiac pacemaker; I10 Essential (primary) hypertension; Z09 Encounter for follow-up examination after completed treatment for conditions other than malignant neoplasm
CPT/HCPCS: 93283; 99214

== ENCOUNTER → 2023-10-17 14:15 | Outpatient (BNVA) | payer MEDICARE, OTHER, SELFPAY | PROVIDERS: PCP Internal Medicine; Visit Provider Nurse Practitioner Family | DX: I48.0 Paroxysmal atrial fibrillation (principal); I25.10 Atherosclerotic heart disease of native coronary artery without angina pectoris; I35.0 Nonrheumatic aortic (valve) stenosis; I10 Essential (primary) hypertension; Z45.018 Encounter for adjustment and management of other part of cardiac pacemaker | CPT/HCPCS: 99212 ==

== ENCOUNTER → 2023-10-24 23:59 | Outpatient (BNV) | payer MEDICARE, OTHER, SELFPAY ==
--- NOTE | 2023-11-01 15:57 | MHC.OFFVIS ---
Intake Visit Reasons: Remote Device check- [employer] Allergies cyclobenzaprine [Cyclobenzaprine] Allergy (Mild, Verified 10/17/23 14:29) UNCONTROLLED SHAKING oxycodone [From Percocet] Allergy (Mild, Verified 10/17/23 14:29) DIFFICULTING BREATHING acetaminophen [Percocet] Allergy (Unknown, Verified 10/17/23 14:29) Unknown meperidine [Demerol] Allergy (Unknown, Verified 10/17/23 14:29) Unknown [facility] Medical History Subdural hematoma Benign prostatic hyperplasia Pure hypercholesterolemia Benign essential hypertension Gait instability Aortic stenosis Cardiac pacemaker in situ Paroxysmal atrial fibrillation Spinal stenosis of lumbar region Right foot drop Erectile dysfunction GERD (gastroesophageal reflux disease) Obstructive sleep apnea Saddle thrombus of abdominal aorta History of prostate cancer Coronary artery disease Surgical History Stented coronary artery History of lumbar surgery History of cervical spinal surgery History of inguinal hernia repair History of tonsillectomy Family History Father No problems noted. Mother Hypertension Lung cancer Brother No problems noted. Sister No problems noted. Son No problems noted. Daughter No problems noted. Social History Housing: House Alcohol intake: current Alcohol intake frequency: 0-2 drinks per day Alcohol type: beer Patient Tobacco Use Status: Never used Tobacco e-Cigarette/Vaping Use: Never Used Second Hand Smoke Exposure: Yes service: Yes Current occupational status: retired Cognitive needs: No Hearing needs: No Vision needs: Yes Office Procedures Cardiac Device Check Cardiac Device Check Details: Remote pacemaker report generated 10/24/2023. Pacemaker function is adequate [id number] Cardiac Device Interrogation, pacemaker Procedure code (CPT) selection complete Assessment & Plan Assessment & Plan (1) Cardiac pacemaker in situ: Comment: Biotronik pacemaker for sick sinus syndrome?, 2010 Code(s): Z95.0 - Presence of cardiac pacemaker Category: Medical Plan: See above Coding Level of Care Code Procedure Only Diagnoses Cardiac pacemaker in situ Z95.0 CPT Codes Cardiac Device Check - Cardiac Device 12: [id number] Cardiac Device Interrogation, pacemaker ([id number])
== END ==
PROVIDERS: PCP Internal Medicine; Visit Provider Internal Medicine Cardiovascular Disease
DX: Z45.018 Encounter for adjustment and management of other part of cardiac pacemaker (principal)
CPT/HCPCS: 93294

== ENCOUNTER 2024-01-13 09:52 | Outpatient (AMB) | payer MEDICARE, OTHER, SELFPAY ==
--- NOTE | 2024-01-13 10:00 | A.OFFPC_ITS ---
Vital Signs 01/13/24 10:01 Height 5 ft 11 in Weight 193 lb BMI 26.9 BP 124/72 Blood Pressure Location Lt brachial Position Sitting Pulse 53 Pulse Source Pulse Oximeter Pulse Oximetry (%) 96 Oxygen Delivery Method Room Air Intake Visit Reasons: SHAYY, Teresa fib, HTN Grape Grower Required: No Allergies cyclobenzaprine [Cyclobenzaprine] Allergy (Mild, Verified 01/13/24 10:06) UNCONTROLLED SHAKING oxycodone [From Percocet] Allergy (Mild, Verified 01/13/24 10:06) DIFFICULTING BREATHING acetaminophen [Percocet] Allergy (Unknown, Verified 01/13/24 10:06) Unknown meperidine [Demerol] Allergy (Unknown, Verified 01/13/24 10:06) Unknown Medication List - Last Reconciled 01/13/24 by Edmond Cevallos MD acetaminophen 500 mg PO Q6H PRN apixaban (Eliquis) 5 mg PO BID 90 days atorvastatin 80 mg PO DAILY 90 days [AUTO PAP 6-16 cm humidified AIR full face nasal mask As directed] cane As directed cholecalciferol (vitamin D3) 25 mcg PO DAILY fexofenadine 180 mg PO DAILY PRN fluticasone propionate 50 mcg/actuation 2 sprays intranasal DAILY PRN lisinopril TAKE ONE TABLET BY MOUTH ONCE DAILY metoprolol succinate ER 50 mg PO DAILY nitroglycerin (Nitrostat) 0.4 mg sublingual Q5M PRN tadalafil (Cialis) 20 mg PO DAILY PRN terazosin 4 mg PO BEDTIME Tobacco use date assessed: 08/31/23 Fall risk assessment: No Falls in past year Last assessed Fall Risk: 01/13/24 Dental Screening Dental Screen Date: 03/24/23 HPI , A fib, HTN HPI Details 88-year-old male with atrial fibrillatio n prostate cancer coronary artery disease hypercholesterolemia obstructive sleep apnea hypertension GERD aortic stenosis impaired glucose tolerance last seen in August 2023. Patient follows up with Cardiology and was seen in September aortic stenosis moderate at 1.8 in 09/16/2022 ejection fraction of 60-65% lisinopril dose was decreased atrial fibrillation on anticoagulation. Patient also follows up with Pulmonary for the obstructive sleep apnea on CPAP. Echocardiogram August 2023 . Normal LV ejection fraction of 60 65% with moderate left ventricular hypertrophy with impaired relaxation filling pattern 2. Mildly dilated left atrium 3. [id number] calcific aortic sten osis 1.5 4. Normal RV systolic pressure 5. Mildly dilated ascending aorta at 3.8 cm 6. No pericardial effusion Patient has also seen nephrology for the hypertension with mild chronic kidney disease [facility] Medical History (Updated 01/13/24 @ 10:45 by Edmond Cevallos MD) Subdural hematoma Benign prostatic hyperplasia Pure hypercholesterolemia Benign essential hypertension Gait instability Aortic stenosis Cardiac pacemaker in situ Paroxysmal atrial fibrillation Spinal stenosis of lumbar region Right foot drop Erectile dysfunction GERD (gastroesophageal reflux disease) Obstructive sleep apnea Saddle thrombus of abdominal aorta History of prostate cancer Coronary artery disease Surgical History Stented coronary artery History of lumbar surgery History of cervical spinal surgery History of inguinal hernia repair History of tonsillectomy Family History Father No problems noted. Mother Hypertension Lung cancer Brother No problems noted. Sister No problems noted. Son No problems noted. Daughter No problems noted. Social History Housing: House Alcohol intake: current Alcohol intake frequency: 0-2 drinks per day Alcohol type: beer Patient Tobacco Use Status: Never used Tobacco e-Cigarette/Vaping Use: Never Used Second Hand Smoke Exposure: Yes service: Yes Current occupational status: retired Cognitive needs: No Hearing needs: No Vision needs: Yes Questionnaire Thrive Questionnaire Date Thrive assessed: 08/31/23 AUDIT C Alcohol Use Questionnaire (AUDIT-C) 1. How often do you have a drink containing alcohol?: Never 3. How often do you have six or more drinks on one occasion?: Never Total Score: 0 Score Reviewed/Action Taken: Yes SEJAL-7 AMB Questionnaire SEJAL-7 Date SEJAL - 7 assessed: 08/31/23 Source: Developed by Drs. Michael Boothe, Cindi Montenegro, Michele Dukes and colleagues, with an educational elliott from [employer]. Physical exam (Primary Care) Vital Signs: Last Vital Signs Pulse 53 01/13/24 10:01 BP 124/72 01/13/24 10:01 Pulse Ox 96 01/13/24 10:01 Oxygen Delivery Method Room Air 01/13/24 10:01 BMI result Body Mass Index 26.9 Tobacco/Smoking Status: Tobacco use Status Tobacco use date assessed 08/31/23 01/13/24 10:00 Patient Tobacco Use Status Never used Tobacco 01/13/24 10:00 e-Cigarette/Vaping Use Never Used 01/13/24 10:00 Thrive Assessment: Date of Thrive Assessment Date Thrive assessed 08/31/23 01/13/24 10:00 Const General: alert; No acute distress Eyes Conjunctivae: conjunctivae normal Resp Auscultation: clear to auscultation bilaterally Cardio Rate: regular rate Rhythm: regular rhythm GI Inspection: Yes normal to inspection Extrem General: Yes normal to inspection and No edema Assessment and Plan Assessment & Plan (1) Obstructive sleep apnea: Comment: CAT IS KNOWN TO HAVE MODERATELY SEVERE OBSTRUCTIVE SLEEP APNEA WITH TOTAL SLEEP TIME AHI 20.3. 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 HE IS USING CPAP REGULARLY AND IS VERY COMPLIANT WELL BENEFITING. HE DESCRIBES SOME ISSUE WITH THE HUMIDIFICATION, AND APPARENTLY NOT USING THE WHOLE WATER IN THE TANK. Code(s): G47.33 - Obstructive sleep apnea (adult) (pediatric) Plan: Patient follows up with Pulmonary and continuing to use the CPAP every day more than 4 hours a night (2) Coronary artery disease: Comment: Stent placement 2011 (ROMÁN x 2 to LAD) Code(s): I25.10 - Atherosclerotic heart disease of [place] coronary artery without angina pectoris Qualifiers: Coronary Disease-Associated Artery/Lesion type: [place] artery [place] vs. transplanted heart: [place] heart Associated angina: without angina Qualified Code(s): I25.10 - Atherosclerotic heart disease of [place] coronary artery without angina pectoris Plan: Control the cholesterol, weight, blood pressure, continue with anticoagulation (3) Hypercholesterolemia: Code(s): E78.00 - Pure hypercholesterolemia, unspecified Plan: Avoid fried foods, chicken skin, eggs, butter margarine, pastries and meat. Be it pork or beef they have a lot of cholesterol LDL goal of less than 70 and triglyceride of less than 150 on atorvastatin 80 mg once a day (4) Hypertension: Code(s): I10 - Essential (primary) hypertension Qualifiers: Hypertension type: essential hypertension Qualified Code(s): I10 - Essential (primary) hypertension Plan: Continue with blood pressure medication. Decrease salt intake and exercise follows up by Nephrology on metoprolol 50 mg once a day lisinopril (5) GERD (gastroesophageal reflux disease): Code(s): K21.9 - Gastro-esophageal reflux disease without esophagitis Qualifiers: Esophagitis presence: without esophagitis Qualified Code(s): K21.9 - Gastro-esophageal reflux disease without esophagitis Plan: Avoid the foods that causes that usually spicy foods, tomato products, juices, coffee, soda and foods that your sensitive to. After eating do not lie down, allow 3-4 hours before in lie down. And keep the head of bed above 30 degrees to avoid the acid from going up. (6) Paroxysmal atrial fibrillation: Code(s): I48.0 - Paroxysmal atrial fibrillation Plan: Continue with anticoagulation (7) Aortic stenosis: Comment: Mild September 2021 1.04 September 2022 moderate aortic stenosis August 2023 1.5 cm Code(s): I35.0 - Nonrheumatic aortic (valve) stenosis Plan: Continue with monitoring August 2023 last (8) Urinary incontinence: Code(s): R32 - Unspecified urinary incontinence (9) Peripheral neuropathy: Code(s): G62.9 - Polyneuropathy, unspecified Plan: uses the cane and asking for the handicap silviod (10) Left lumbar radiculopathy: Code(s): M54.16 - Radiculopathy, lumbar region Orders: Orders Hemoglobin A1c Today R73.01 - Impaired fasting glucose Complete Blood Count Auto Diff Today E78.00 - Pure hypercholesterolemia, unspecified Thyroid Stimulating Hormone Today E78.00 - Pure hypercholesterolemia, u nspecified Free T4 (Free Thyroxine) Today E78.00 - Pure hypercholesterolemia, unspecified Vitamin B12 and Folate Today E78.00 - Pure hypercholesterolemia, unspecified PSA,Total (Free>4and<10) Today Z85.46 - Personal history of malignant neoplasm of prostate US bladder Today R32 - Unspecified urinary incontinence Comprehensive Met. Panel Today R73.01 - Impaired fasting glucose Lipid Panel Today E78.00 - Pure hypercholesterolemia, unspecified Coding Level of Care Code Est Pt Level 4 (59995) Diagnoses Obstructive sleep apnea G47.33 Coronary artery disease involving [place] coronary artery of [place] heart without angina pectoris I25.10 Coronary Disease-Associated Artery/Lesion type: [place] artery [place] vs. transplanted heart: [place] heart Associated angina: without angina Hypercholesterolemia E78.00 Essential hypertension I10 Hypertension type: essential hypertension Gastroesophageal reflux disease without esophagitis K21.9 Esophagitis presence: without esophagitis Paroxysmal atrial fibrillation I48.0 Aortic stenosis I35.0 Urinary incontinence R32 Peripheral neuropathy G62.9 Left lumbar radiculopathy M54.16
[2024-01-13 10:01] VITALS: BP 124/72; PULSE 53; O2SAT 96; BMI 26.9
== END 2024-01-13 10:55 | disposition home or self-care (01) ==
PROVIDERS: PCP Internal Medicine; Visit Provider Internal Medicine
DX: G47.33 Obstructive sleep apnea (adult) (pediatric) (principal); I48.0 Paroxysmal atrial fibrillation; I25.10 Atherosclerotic heart disease of native coronary artery without angina pectoris; E78.00 Pure hypercholesterolemia, unspecified; I10 Essential (primary) hypertension; K21.9 Gastro-esophageal reflux disease without esophagitis; I35.0 Nonrheumatic aortic (valve) stenosis; R32 Unspecified urinary incontinence; G62.9 Polyneuropathy, unspecified; M54.16 Radiculopathy, lumbar region
CPT/HCPCS: 99214

== ENCOUNTER → 2024-01-23 23:59 | Outpatient (BNV) | payer MEDICARE, OTHER, SELFPAY ==
--- NOTE | 2024-01-24 11:54 | MHC.OFFVIS ---
Intake Visit Reasons: Remote device check- Kieran Scient Allergies cyclobenzaprine [Cyclobenzaprine] Allergy (Mild, Verified 01/13/24 10:06) UNCONTROLLED SHAKING oxycodone [From Percocet] Allergy (Mild, Verified 01/13/24 10:06) DIFFICULTING BREATHING acetaminophen [Percocet] Allergy (Unknown, Verified 01/13/24 10:06) Unknown meperidine [Demerol] Allergy (Unknown, Verified 01/13/24 10:06) Unknown [facility] Medical History (Updated 01/13/24 @ 10:45 by Edmond Cevallos MD) Subdural hematoma Benign prostatic hyperplasia Pure hypercholesterolemia Benign essential hypertension Gait instability Aortic stenosis Cardiac pacemaker in situ Paroxysmal atrial fibrillation Spinal stenosis of lumbar region Right foot drop Erectile dysfunction GERD (gastroesophageal reflux disease) Obstructive sleep apnea Saddle thrombus of abdominal aorta History of prostate cancer Coronary artery disease Surgical History Stented coronary artery History of lumbar surgery History of cervical spinal surgery History of inguinal hernia repair History of tonsillectomy Family History Father No problems noted. Mother Hypertension Lung cancer Brother No problems noted. Sister No problems noted. Son No problems noted. Daughter No problems noted. Social History Housing: House Alcohol intake: current Alcohol intake frequency: 0-2 drinks per day Alcohol type: beer Patient Tobacco Use Status: Never used Tobacco e-Cigarette/Vaping Use: Never Used Second Hand Smoke Exposure: Yes service: Yes Current occupational status: retired Cognitive needs: No Hearing needs: No Vision needs: Yes Office Procedures Cardiac Device Check Cardiac Device Check Details: Remote pacemaker report generated 01/23/2024. Pacemaker function is adequate [id number] Cardiac Device Interrogation, pacemaker Procedure code (CPT) selection complete Assessment & Plan Assessment & Plan (1) Cardiac pacemaker in situ: Comment: Biotronik pacemaker for sick sinus syndrome?, 2010 Code(s): Z95.0 - Presence of cardiac pacemaker Category: Medical Plan: See above Coding Level of Care Code Procedure Only Diagnoses Cardiac pacemaker in situ Z95.0 CPT Codes Cardiac Device Check - Cardiac Device 12: [id number] Cardiac Device Interrogation, pacemaker ([id number])
== END ==
PROVIDERS: PCP Internal Medicine; Visit Provider Internal Medicine Cardiovascular Disease
DX: I49.5 Sick sinus syndrome (principal); Z95.0 Presence of cardiac pacemaker
CPT/HCPCS: 93294

== ENCOUNTER 2024-02-02 13:26 | Outpatient (AMB) | payer MEDICARE, OTHER, SELFPAY ==
[2024-02-02 13:31] VITALS: BP 112/68; PULSE 69; O2SAT 95; BMI 26.8
--- NOTE | 2024-02-02 13:31 | MHC.PC.OV ---
Vital Signs 02/02/24 13:31 Height 5 ft 11 in Weight 192 lb BMI 26.8 BP 112/68 Blood Pressure Location Lt brachial Position Sitting Pulse 69 Pulse Source Pulse Oximeter Pulse Oximetry (%) 95 Oxygen Delivery Method Room Air Intake Visit Reasons: Pre op 02/15 L eye cataract surgery Intake Note: Patient is here for a Pre-op for Bilateral Cataract scheduled with on 02/16/24 and 03/01/24 Allergies cyclobenzaprine [Cyclobenzaprine] Allergy (Mild, Verified 02/02/24 13:41) UNCONTROLLED SHAKING oxycodone [From Percocet] Allergy (Mild, Verified 02/02/24 13:41) DIFFICULTING BREATHING acetaminophen [Percocet] Allergy (Unknown, Verified 02/02/24 13:41) Unknown meperidine [Demerol] Allergy (Unknown, Verified 02/02/24 13:41) Unknown Medication List - Last Reconciled 02/02/24 by June Michael PA-C acetaminophen 500 mg PO Q6H PRN apixaban (Eliquis) 5 mg PO BID 90 days atorvastatin 80 mg PO DAILY 90 days [AUTO PAP 6-16 cm humidified AIR full face nasal mask As directed] cane As directed cholecalciferol (vitamin D3) 25 mcg PO DAILY fexofenadine 180 mg PO DAILY PRN fluticasone propionate 50 mcg/actuation 2 sprays intranasal DAILY PRN lisinopril TAKE ONE TABLET BY MOUTH ONCE DAILY metoprolol succinate ER 50 mg PO DAILY nitroglycerin (Nitrostat) 0.4 mg sublingual Q5M PRN tadalafil (Cialis) 20 mg PO DAILY PRN terazosin 4 mg PO BEDTIME Tobacco use date assessed: 08/31/23 Fall risk assessment: No Falls in past year Last assessed Fall Risk: 02/02/24 Dental Screening Dental Screen Date: 03/24/23 HPI Pre op 02/15 L eye cataract surgery HPI Details 88-year-old male with past medical history of coronary artery disease, hypercholesterolemia, obstructive sleep apnea, hypertension, GERD, history of prostate cancer, atrial fibrillation on Eliquis, impaired glucose tolerance, BPH last seen by Dr. Cevallos coming in for preop. Patient is scheduled for left eye cataract surgery 02/16/2024. Patient has had anesthesia in the past without issue. According to the paperwork patient has the appointment with eye physicians have [facility] with Dr. Montenegro under local anesthesia on 02/16/2024 and 03/01/2024. No history of OH, CVA, diabetes mellitus, CHF. Hypertension: Blood pressure well controlled on lisinopril and metoprolol, today 112/68. Obstructive sleep apnea: Reliably uses a CPAP for more than 4 hours per night. Impaired glucose tolerance: Last A1c 5.8% not currently on medical management Atrial fibrillation: Implanted pacemaker regularly followed by Cardiology and [facility] Medical History Subdural hematoma Benign prostatic hyperplasia Pure hypercholesterolemia Benign essential hypertension Gait instability Aortic stenosis Cardiac pacemaker in situ Paroxysmal atrial fibrillation Spinal stenosis of lumbar region Right foot drop Erectile dysfunction GERD (gastroesophageal reflux disease) Obstructive sleep apnea Saddle thrombus of abdominal aorta History of prostate cancer Coronary artery disease Surgical History Stented coronary artery History of lumbar surgery History of cervical spinal surgery History of inguinal hernia repair History of tonsillectomy Family History Father No problems noted. Mother Hypertension Lung cancer Brother No problems noted. Sister No problems noted. Son No problems noted. Daughter No problems noted. Social History Housing: House Alcohol intake: current Alcohol intake frequency: 0-2 drinks per day Alcohol type: beer Patient Tobacco Use Status: Never used Tobacco e-Cigarette/Vaping Use: Never Used Second Hand Smoke Exposure: Yes service: Yes Current occupational status: retired Cognitive needs: No Hearing needs: No Vision needs: Yes Questionnaire Thrive Questionnaire Date Thrive assessed: 08/31/23 AUDIT C Alcohol Use Questionnaire (AUDIT-C) 1. How often do you have a drink containing alcohol?: Never 3. How often do you have six or more drinks on one occasion?: Never Total Score: 0 Score Reviewed/Action Taken: Yes SEJAL-7 AMB Questionnaire SEJAL-7 Date SEJAL - 7 assessed: 08/31/23 Source: Developed by Drs. Michael Boothe, Cindi Montenegro, Michele Dukes and colleagues, with an educational elliott from [employer]. Review of Systems Const Denies body aches, Denies chills, Denies fever(s), Denies headache(s) and Denies poor appetite Eyes Reports no additional complaints ENT Denies dysphagia, Denies dizziness, Denies headache(s) and Denies odynophagia Card Denies chest pain, Denies syncope, Denies edema, Denies irregular heart rhythm, Denies lightheadedness and Denies dyspnea Resp Denies cough and Denies dyspnea GI Denies abdominal pain, Denies constipation, Denies dysphagia, Denies diarrhea, Denies nausea, Denies odynophagia and Denies vomiting Reports no additional complaints Musc Reports no additional complaints and Denies abnormal gait Skin/Breast Reports system reviewed and no additional complaints, except as documented Neuro Denies abnormal gait, Denies dizziness, Denies syncope and Denies headache(s) Psych Reports no additional complaints Physical exam (Primary Care) Tobacco/Smoking Status: Tobacco use Status Tobacco use date assessed 08/31/23 01/13/24 10:00 Patient Tobacco Use Status Never used Tobacco 01/13/24 10:00 e-Cigarette/Vaping Use Never Used 01/13/24 10:00 Thrive Assessment: Date of Thrive Assessment Date Thrive assessed 08/31/23 01/13/24 10:00 Const General: cooperative, healthy appearing, comfortable and no acute distress Orientation/consciousness: patient oriented x3 HENMT Head: Yes normocephalic Ears: hearing grossly normal bilaterally General nose exam: Normal external nose present Eyes General: appearance normal, both eyes and all related structures Conjunctivae: conjunctivae normal Neck Neck: Yes full ROM and Yes no lymphadenopathy Resp Effort & Inspection: normal respiratory effort Auscultation: clear to auscultation bilaterally, no crackles, no rales, no rhonchi and no wheezes Cardio Rate: regular rate Rhythm: regular rhythm Skin General skin exam: no rashes or lesions noted Neuro General: patient oriented x3 Gait exam (Neuro): Normal gait present Extrem General: Yes normal to inspection, Yes full ROM and No edema Psych Affect: normal affect Attitude: cooperative Insight: Good insight present (Psych) Judgement: Good judgement present (Psych) Assessment and Plan Assessment & Plan (1) Pre-op evaluation: Code(s): Z01.818 - Encounter for other preprocedural examination Plan: Regarding preop clearance, the patient is at moderate risk for proposed surgery due to age and presence of comorbidities. His comorbidities are well managed and he follows appropriately with his specialists. Reviewed with the patient that no surgery is completely free of risk and that this examination is to assist the surgeon in reviewing informed consent. Patient will be undergoing cataract surgery with local anesthesia. No need to discontinue medications and may continue on current medical regimen. Per paperwork, lab testing and EKGs not necessary for this procedure. Plan This note was constructed using voice recognition software. While every effort has been made to ensure accuracy and photographic artist, still areas may have been included sometimes these areas may affect the content or meeting of the given symptoms. Total time spent caring for the patient today was 30 minutes. This includes time spent before the visit reviewing the chart, time spent during the visit, and time spent after the visit and documentation. Coding Level of Care Code Est Pt Level 3 (21398) Diagnoses Pre-op evaluation Z01.818
== END 2024-02-02 13:58 | disposition home or self-care (01) ==
PROVIDERS: PCP Internal Medicine
DX: Z01.818 Encounter for other preprocedural examination (principal)
CPT/HCPCS: 99213

== ENCOUNTER 2024-02-14 13:24 | Outpatient (REF) | payer MEDICARE, OTHER, SELFPAY ==
--- NOTE | ~2024-02-14 | US_ITS ---
EXAMINATION: US PELVIS LIMITED (BLADDER) CLINICAL INFORMATION: Urinary incontinence. COMPARISON: 07/09/2022 TECHNIQUE: Real-time imaging of the bladder. FINDINGS: BLADDER: Well distended and normal. Bilateral ureteral jets are demonstrated. Prevoid bladder volume is 192 mL. Postvoid bladder volume is 45.2 mL. Prostate is within normal limits. US/US bladder IMPRESSION: Large postvoid residual of 45.2 mL. Electronically signed by: Leigh Ann Benitez MD 02/18/2024 12:18 AM EDT
== END 2024-02-14 13:25 | disposition home or self-care (01) ==
LOC: HO.HMGCX 13:24
PROVIDERS: PCP Internal Medicine; Visit Provider Internal Medicine
DX: R32 Unspecified urinary incontinence (principal)
CPT/HCPCS: 76857

== ENCOUNTER 2024-04-10 11:09 | Outpatient (AMB) | payer MEDICARE, OTHER, SELFPAY ==
--- NOTE | 2024-04-10 11:11 | A.OFFVIS_ITS ---
Vital Signs 04/10/24 11:14 Height 5 ft 11 in Weight 196 lb BMI 27.3 BP 102/58 L Blood Pressure Location Lt brachial Position Sitting Respiration 16 Pulse 67 Pulse Source Pulse Oximeter Pulse Oximetry (%) 95 Oxygen Delivery Method Room Air Intake Visit Reasons: Obstructive sleep apnea Allergies cyclobenzaprine [Cyclobenzaprine] Allergy (Mild, Verified 04/10/24 11:16) UNCONTROLLED SHAKING oxycodone [From Percocet] Allergy (Mild, Verified 04/10/24 11:16) DIFFICULTING BREATHING meperidine [Demerol] Allergy (Unknown, Verified 04/10/24 11:16) Unknown Medication List - Last Reconciled 04/10/24 by Satinder Fajardo MD acetaminophen 500 mg PO Q6H PRN apixaban (Eliquis) 5 mg PO BID 90 days atorvastatin 80 mg PO DAILY 90 days [AUTO PAP 6-16 cm humidified AIR full face nasal mask As directed] cane As directed cholecalciferol (vitamin D3) 25 mcg PO DAILY fexofenadine 180 mg PO DAILY PRN fluticasone propionate 50 mcg/actuation 2 sprays intranasal DAILY PRN lisinopril TAKE ONE TABLET BY MOUTH ONCE DAILY metoprolol succinate ER 50 mg PO DAILY nitroglycerin (Nitrostat) 0.4 mg sublingual Q5M PRN tadalafil (Cialis) 20 mg PO DAILY PRN terazosin 4 mg PO BEDTIME Do you need a note to return to daycare/school/sports/work: No HPI HPI Obstructive sleep apnea: Details: THIS 88 YEARS OLD VERY PLEASANT GENTLEMAN IS A CASE OF OBSTRUCTIVE SLEEP APNEA, 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 SALMA IS WELL CONTROLLED WITH THE USE OF CPAP. USES THE NASAL MASK, AND TO AVOID AIR LEAK THROUGH THE MOUTH HE IS USING THE CHINSTRAP. HE USES EVERY NIGHT REGULARLY AT LEAST FOR 6-7 HOURS AND SOMETIME FOR SHORT PERIODS DURING THE DAY ALSO. MAIN ISSUE IS THAT HIS MOUTH FEELS DRY AND THERE IS THE ISSUE WITH THE HUMIDIFICATION. WHEN HE WAKES UP IN THE MORNING THERE IS STILL SOME WATER IN THE WATER 10. HE SAY IS THAT HE HAS SET HIS HUMIDITY LEVEL AT 2 . THAT MAY BE LOW FOR HIM. OVERALL HE REMAINS VERY COMPLIANT AND IS BENEFITING FROM THE USE OF CPAP . PENDING SALE TO [facility] Medical History Subdural hematoma Benign prostatic hyperplasia Pure hypercholesterolemia Benign essential hypertension Gait instability Aortic stenosis Cardiac pacemaker in situ Paroxysmal atrial fibrillation Spinal stenosis of lumbar region Right foot drop Erectile dysfunction GERD (gastroesophageal reflux disease) Obstructive sleep apnea Saddle thrombus of abdominal aorta History of prostate cancer Coronary artery disease Surgical History Stented coronary artery History of lumbar surgery History of cervical spinal surgery History of inguinal hernia repair History of tonsillectomy Family History Father No problems noted. Mother Hypertension Lung cancer Brother No problems noted. Sister No problems noted. Son No problems noted. Daughter No problems noted. Social History Housing: House Alcohol intake: current Alcohol intake frequency: 0-2 drinks per day Alcohol type: beer Patient Tobacco Use Status: Never used Tobacco e-Cigarette/Vaping Use: Never Used Second Hand Smoke Exposure: Yes service: Yes Current occupational status: retired Cognitive needs: No Hearing needs: No Vision needs: Yes Review of Systems Const All systems reviewed & are unremarkable except as noted in HPI and below Eyes Reports no additional complaints ENT Denies nasal congestion, Denies nasal discharge and Reports other (Dry mouth in the morning) Card Reports irregular heart rhythm and Denies leg edema Resp Reports no additional complaints, Denies cough and Denies wheezing GI Reports no additional complaints Reports erectile dysfunction Musc Reports back pain and Reports arthralgias (Left lower extremity) Skin/Breast Reports system reviewed and no additional complaints, except as documented Neuro Reports no additional complaints Psych Reports no additional complaints Endo Reports no additional complaints Aller/Immun Denies wheezing Physical Exam Vital Signs: Last Vital Signs Pulse 67 04/10/24 11:14 Resp 16 04/10/24 11:14 BP 102/58 L 04/10/24 11:14 Pulse Ox 95 04/10/24 11:14 Oxygen Delivery Method Room Air 04/10/24 11:14 BMI result Body Mass Index 27.3 He is only slightly overweight, Const General: healthy appearing, comfortable, no acute distress, alert and awake Orientation/consciousness: patient oriented x3 HEENT Head: Yes normal to inspection General nose exam: No nasal polyps present and No nasal discharge present Face and sinus: Yes sinuses nontender Mouth: oropharynx normal Teeth and gingiva: other (Has moderate retroganthia of the lower jaw.) Throat: Yes posterior oropharynx normal Eyes General: appearance normal, both eyes and all related structures Neck Neck: Yes normal visual inspection, Yes no lymphadenopathy, Yes trachea midline and Yes no JVD Thyroid: Thyroid normal Chest Chest palpation & inspection: normal inspection of the chest, normal palpation of entire chest wall and no tenderness Resp Effort & Inspection: normal respiratory effort Auscultation: clear to auscultation bilaterally, no crackles and no wheezes Percussion: percussion normal Cardio Palpation: normal PMI Rate: regular rate Rhythm: regular rhythm and abnormal rhythm (Atrial fib) Heart sounds: Gallop heart sound present and Murmur heart sound present GI Palpation (GI): Soft to palpation, nontender, No hepatosplenomegaly present and no masses Auscultation: normal bowel sounds Back/Spine/Pelvis Thoracic/Lumbar Spine: thoracic and lumbar spine normal to inspection, thoraco- lumbar ROM limited and thoraco-lumbar spasm Skin General skin exam: no rashes or lesions noted Neuro General: patient oriented x3 and no focal motor deficits Cranial nerves: Yes CN's II-XII intact bilaterally Extrem General: Yes normal to inspection, Yes no clubbing, cyanosis or edema and Yes no calf tenderness Psych Appearance: grossly normal and well kempt Speech and movement: Normal speech and movement present Results Reviewed Results Reviewed: COMPLIANCE REPORT COULD NOT BE DOWNLOADED. BUT ACCORDING TO HIM HE IS USING CPAP REGULARLY EVERY NIGHT AND MORE THAN 6 HOURS PER NIGHT ALSO SOME TIMES DURING THE DAY WELL. Assessment & Plan Assessment & Plan (1) Obstructive sleep apnea: Comment: CAT IS KNOWN TO HAVE MODERATELY SEVERE OBSTRUCTIVE SLEEP APNEA WITH TOTAL SLEEP TIME AHI 20.3. 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 HE IS USING CPAP REGULARLY AND IS VERY COMPLIANT AND WELL BENEFITING. HE DESCRIBES SOME ISSUE WITH THE HUMIDIFICATION, AND APPARENTLY NOT USING THE WHOLE WATER IN THE TANK. Code(s): G47.33 - Obstructive sleep apnea (adult) (pediatric) Category: Medical Plan: ADVISED TO CONTINUE USING THE CPAP REGULARLY EVERY NIGHT. USE THE WITH THE NASAL MASK AND CHINSTRAP. THE HUMIDITY ISSUES DISCUSSED. HE NEEDS TO INCREASE THE LEVEL OF HUMIDIFICATION TO MEDIUM LEVEL. I ASKED HIM TO DISCUSS WITH THE PROVIDER [facility], AND HAVE THEM CHECK THE CPAP MACHINE. HE TOLD ME THAT THEY WANT HIM TO SENT THE MACHINE BY [employer], AND THEY USUALLY RETURNED IT BACK WITHOUT ANY CHANGES. I HAVE OFFERED HIM TO BRING THE CPAP DEVICE HERE TO THE OFFICE AND WE WILL BE GLAD TO CHECK AND RESET THE HUMIDITY LEVEL Coding Level of Care Code Est Pt Level 3 (09012) Diagnoses Obstructive sleep apnea G47.33
[2024-04-10 11:14] VITALS: BP 102/58; PULSE 67; RESP 16; O2SAT 95; BMI 27.3
== END 2024-04-10 11:49 | disposition home or self-care (01) ==
PROVIDERS: PCP Internal Medicine; Visit Provider Internal Medicine
DX: G47.33 Obstructive sleep apnea (adult) (pediatric) (principal)
CPT/HCPCS: 99213

== ENCOUNTER → 2024-04-10 11:09 | Outpatient (BNVA) | payer MEDICARE, OTHER, SELFPAY | PROVIDERS: PCP Internal Medicine; Visit Provider Internal Medicine | DX: G47.33 Obstructive sleep apnea (adult) (pediatric) (principal); Z99.89 Dependence on other enabling machines and devices | CPT/HCPCS: 99212 ==

== ENCOUNTER 2024-04-16 13:25 | Outpatient (AMB) | payer MEDICARE, OTHER, SELFPAY ==
[2024-04-16 13:21] VITALS: BP 122/70; PULSE 64; BMI 27.4
--- NOTE | 2024-04-16 13:21 | MHC.OFFVIS ---
Vital Signs 04/16/24 13:21 Height 5 ft 11 in Weight 196 lb 3.382 oz BMI 27.4 BP 122/70 Blood Pressure Location Lt brachial Position Sitting Pulse 64 Intake Visit Reasons: 6 mth f/up w/ [facility] Intake Note: 6 month follow-up with [facility] feeling good Chief Airport Guide Required: No Take Off Man: Take Off Man Present Accompanied by: Spouse Allergies cyclobenzaprine [Cyclobenzaprine] Allergy (Mild, Verified 04/10/24 11:16) UNCONTROLLED SHAKING oxycodone [From Percocet] Allergy (Mild, Verified 04/10/24 11:16) DIFFICULTING BREATHING meperidine [Demerol] Allergy (Unknown, Verified 04/10/24 11:16) Unknown Medication List - Last Reviewed 04/16/24 by RANJEET Bee acetaminophen 500 mg PO Q6H PRN apixaban (Eliquis) 5 mg PO BID 90 days atorvastatin 80 mg PO DAILY 90 days [AUTO PAP 6-16 cm humidified AIR full face nasal mask As directed] cane As directed cholecalciferol (vitamin D3) 25 mcg PO DAILY fexofenadine 180 mg PO DAILY PRN fluticasone propionate 50 mcg/actuation 2 sprays intranasal DAILY PRN lisinopril TAKE ONE TABLET BY MOUTH ONCE DAILY metoprolol succinate ER 75 mg PO DAILY nitroglycerin (Nitrostat) 0.4 mg sublingual Q5M PRN tadalafil (Cialis) 20 mg PO DAILY PRN terazosin 4 mg PO BEDTIME HPI Comments Details: Yuriy comes for follow-up, accompanied by his . Overall he has been doing well from cardiac perspective. Denies any symptoms of prolonged palpitation. Occasionally gets orthostatic lightheadedness especially if he is brings up quickly. He denies any exertional chest pain or shortness of breath. No orthopnea, PND, leg edema. Takes all his medications. No bleeding issues or neurologic events. [facility] Medical History Subdural hematoma Benign prostatic hyperplasia Pure hypercholesterolemia Benign essential hypertension Gait instability Aortic stenosis Cardiac pacemaker in situ Paroxysmal atrial fibrillation Spinal stenosis of lumbar region Right foot drop Erectile dysfunction GERD (gastroesophageal reflux disease) Obstructive sleep apnea Saddle thrombus of abdominal aorta History of prostate cancer Coronary artery disease Surgical History Stented coronary artery History of lumbar surgery History of cervical spinal surgery History of inguinal hernia repair History of tonsillectomy Family History Father No problems noted. Mother Hypertension Lung cancer Brother No problems noted. Sister No problems noted. Son No problems noted. Daughter No problems noted. Social History Housing: House Alcohol intake: current Alcohol intake frequency: 0-2 drinks per day Alcohol type: beer Patient Tobacco Use Status: Never used Tobacco e-Cigarette/Vaping Use: Never Used Second Hand Smoke Exposure: Yes service: Yes Current occupational status: retired Cognitive needs: No Hearing needs: No Vision needs: Yes Review of Systems Const Denies chills, Denies fatigue, Denies fever(s), Denies frequent falls, Denies weakness, Denies weight gain and Denies weight loss ENT Denies dizziness Card Denies chest pain, Denies leg edema, Denies lightheadedness, Denies palpitations, Denies dyspnea, Denies dyspnea on exertion, Denies orthopnea and Denies other (loss of consciousness) Resp Denies cough, Denies dyspnea and Denies dyspnea on exertion GI Denies hematochezia and Denies change in stool character Musc Denies abnormal gait, Denies muscle weakness, Denies numbness, Denies radiating pain into limb and Denies tingling Neuro Denies abnormal gait, Denies dizziness, Denies frequent falls, Denies numbness, Denies tingling and Denies weakness Endo Denies fatigue and Denies palpitations Physical Exam Vital Signs: Last Vital Signs Pulse 64 04/16/24 13:21 BP 122/70 04/16/24 13:21 BMI result Body Mass Index 27.4 Const General: cooperative, healthy appearing, comfortable and no acute distress Orientation/consciousness: patient oriented x3 Neck Neck: Yes normal visual inspection and Yes no JVD Chest Chest palpation & inspection: normal inspection of the chest Resp Effort & Inspection: normal respiratory effort Auscultation: clear to auscultation bilaterally, no rales, no rhonchi and no wheezes Cardio Jugular venous distension: no JVD Rate: regular rate Rhythm: regular rhythm Heart sounds: S1 normal heart sound present, S2 normal heart sound present, no murmurs and no rubs Neuro General: patient oriented x3 Extrem General: Yes normal to inspection and No no pedal edema Psych Appearance: grossly normal Mental Status: mental status grossly normal Speech and movement: Normal speech and movement present Office Procedures Cardiac Device Check Cardiac Device Check Details: Dual-chamber [employer] pacemaker in place. Ventricular pacing 100% of time. Couple of episodes of brief atrial fibrillation noted. Battery life is at about 4 months. Atrial ventricular sensing is adequate. Pacing lead impedance is stable. Atrial ventricular pacing thresholds adequate. [id number] Cardiac Device Check, pacemaker dual lead Procedure code (CPT) selection complete Assessment & Plan Assessment & Plan (1) Paroxysmal atrial fibrillation: Code(s): I48.0 - Paroxysmal atrial fibrillation Category: Medical Plan: Paroxysmal atrial fibrillation without any overt significant symptoms at this point time. Brief episodes of AFib noted. No need for antiarrhythmic drug therapy. Continue full oral anticoagulation, currently on Eliquis 5 mg b.i.d.. Quarterly renal function test should be pursued. Avoidance of stimulants was discussed. Advised to call me with any new symptoms. (2) Cardiac pacemaker in situ: Comment: [employer]ron[employer] pacemaker for sick sinus syndrome?, 2010 Code(s): Z95.0 - Presence of cardiac pacemaker Category: Medical Plan: Cardiac pacemaker in-situ, dual-chamber with ventricularly pacer dependent. Battery life is at 4 months will recheck in 3 months in the office. (3) Aortic stenosis: Comment: Mild September 2021 1.04 September 2022 moderate aortic stenosis August 2023 1.5 cm Code(s): I35.0 - Nonrheumatic aortic (valve) stenosis Category: Medical Plan: Aortic stenosis which appears to be [id number]. Continue monitor by echocardiogram, follow up in 6 months time. Continue full oral anticoagulation Eliquis. Continue aggressive vascular risk factor modification. See below (4) Coronary artery disease: Comment: Stent placement 2011 (ROMÁN x 2 to LAD) Code(s): I25.10 - Atherosclerotic heart disease of [place] coronary artery without angina pectoris Category: Medical Qualifiers: Coronary Disease-Associated Artery/Lesion type: [place] artery [place] vs. transplanted heart: [place] heart Associated angina: without angina Qualified Code(s): I25.10 - Atherosclerotic heart disease of [place] coronary artery without angina pectoris Plan: LAD with drug-eluting stents with no symptoms. Currently on full oral anticoagulation therefore would avoid aspirin therapy to reduce bleeding risk. Continue aggressive blood pressure control which is currently well optimized. Continue statin therapy with target goal LDL closer to 60 mg/dL. Advised to call me with any new symptoms. (5) Orthostatic lightheadedness: Code(s): R42 - Dizziness and giddiness Plan: Symptoms of orthostatic lightheadedness. Discussed management. Discussed orthostatic precautions. Advised to increase oral hydration. Continue monitor blood pressure at home maintain a log. Follow up in the clinic in 3 months time for pacer check. Orders: Orders CA echo transthoracic complete 6 Months I35.0 - Nonrheumatic aortic (valve) stenosis Coding Level of Care Code Est Pt Level 4 (49415) Complex EM visit Add On G2211 Diagnoses Paroxysmal atrial fibrillation I48.0 Cardiac pacemaker in situ Z95.0 Aortic stenosis I35.0 Coronary artery disease involving [place] coronary artery of [place] heart without angina pectoris I25.10 Coronary Disease-Associated Artery/Lesion type: [place] artery [place] vs. transplanted heart: [place] heart Associated angina: without angina Orthostatic lightheadedness R42 CPT Codes Cardiac Device Check - Cardiac Device 2: [id number] Cardiac Device Check, pacemaker dual lead ([id number])
== END 2024-04-16 13:49 | disposition home or self-care (01) ==
PROVIDERS: PCP Internal Medicine; Visit Provider Internal Medicine Cardiovascular Disease
DX: I48.0 Paroxysmal atrial fibrillation (principal); Z95.0 Presence of cardiac pacemaker; I35.0 Nonrheumatic aortic (valve) stenosis; I25.10 Atherosclerotic heart disease of native coronary artery without angina pectoris; R42 Dizziness and giddiness
CPT/HCPCS: 93280; 99214; G2211

== ENCOUNTER → 2024-04-16 13:25 | Outpatient (BNVA) | payer MEDICARE, OTHER, SELFPAY | PROVIDERS: PCP Internal Medicine; Visit Provider Internal Medicine Cardiovascular Disease | DX: I48.0 Paroxysmal atrial fibrillation (principal); I35.0 Nonrheumatic aortic (valve) stenosis; I25.10 Atherosclerotic heart disease of native coronary artery without angina pectoris; R42 Dizziness and giddiness; Z45.018 Encounter for adjustment and management of other part of cardiac pacemaker | CPT/HCPCS: 93280; 99212 ==

== ENCOUNTER 2024-04-18 10:42 | Outpatient (AMB) | payer MEDICARE, OTHER, SELFPAY ==
[2024-04-18 10:44] VITALS: BP 128/66; PULSE 52; O2SAT 96; BMI 27.1
--- NOTE | 2024-04-18 10:44 | A.OFFPC_ITS ---
Vital Signs 04/18/24 10:44 Height 5 ft 11 in Weight 194 lb BMI 27.1 BP 128/66 Blood Pressure Location Lt brachial Position Sitting Pulse 52 Pulse Source Pulse Oximeter Pulse Oximetry (%) 96 Oxygen Delivery Method Room Air Intake Visit Reasons: , SALMA Allergies cyclobenzaprine [Cyclobenzaprine] Allergy (Mild, Verified 04/10/24 11:16) UNCONTROLLED SHAKING oxycodone [From Percocet] Allergy (Mild, Verified 04/10/24 11:16) DIFFICULTING BREATHING meperidine [Demerol] Allergy (Unknown, Verified 04/10/24 11:16) Unknown Tobacco use date assessed: 08/31/23 Fall risk assessment: No Falls in past year Last assessed Fall Risk: 04/18/24 Dental Screening Dental Screen Date: 03/24/23 HPI , SALMA HPI Details 88-year-old male with past medical histo ry of coronary artery disease, hypercholesterolemia, obstructive sleep apnea, hypertension, GERD, history of prostate cancer, atrial fibrillation on Eliquis, impaired glucose tolerance, BPH last seen January 2024 coming in for follow up.? In review of the notes, patient was seen by [facility] Cardiology 04/16/2024 advised to follow up in 3 months and doing well on current medication.? Patient was seen by [facility] pulmonology 04/10/2024 advised to continue with CPAP. Patient states he has a follow up with Cardiology in April. He does still have some occasional dizziness and lightheadedness when going from sitting to standing and does mentioned cardiology advised him to increase his fluid intake she has not done yet. He has an appointment with Dr. Huerta in April for follow up with Urology. He has been doing much better with the CPAP since the adjustment made by the paster supervisor. He does mentioned he has leg cramping at night only without numbness or tingling that will happen occasionally. [facility] Medical History Subdural hematoma Benign prostatic hyperplasia Pure hypercholesterolemia Benign essential hypertension Gait instability Aortic stenosis Cardiac pacemaker in situ Paroxysmal atrial fibrillation Spinal stenosis of lumbar region Right foot drop Erectile dysfunction GERD (gastroesophageal reflux disease) Obstructive sleep apnea Saddle thrombus of abdominal aorta History of prostate cancer Coronary artery disease Surgical History Stented coronary artery History of lumbar surgery History of cervical spinal surgery History of inguinal hernia repair History of tonsillectomy Family History Father No problems noted. Mother Hypertension Lung cancer Brother No problems noted. Sister No problems noted. Son No problems noted. Daughter No problems noted. Social History Housing: House Alcohol intake: current Alcohol intake frequency: 0-2 drinks per day Alcohol type: beer Patient Tobacco Use Status: Never used Tobacco e-Cigarette/Vaping Use: Never Used Second Hand Smoke Exposure: Yes service: Yes Current occupational status: retired Cognitive needs: No Hearing needs: No Vision needs: Yes Questionnaire Thrive Questionnaire Date Thrive assessed: 08/31/23 AUDIT C Alcohol Use Questionnaire (AUDIT-C) 1. How often do you have a drink containing alcohol?: Never 3. How often do you have six or more drinks on one occasion?: Never Total Score: 0 Score Reviewed/Action Taken: Yes SEJAL-7 AMB Questionnaire SEJAL-7 Date SEJAL - 7 assessed: 08/31/23 Source: Developed by Drs. Michael Boothe, Cindi Montenegro, Michele Dukes and colleagues, with an educational elliott from [employer]. Review of Systems Const Denies body aches, Denies chills, Denies fever(s), Denies headache(s) and Denies poor appetite Eyes Reports no additional complaints ENT Denies dysphagia, Denies dizziness, Denies headache(s) and Denies odynophagia Card Denies chest pain, Denies syncope, Denies edema, Denies irregular heart rhythm, Denies lightheadedness and Denies dyspnea Resp Denies cough and Denies dyspnea GI Denies abdominal pain, Denies constipation, Denies dysphagia, Denies diarrhea, Denies nausea, Denies odynophagia and Denies vomiting Reports no additional complaints Musc Reports no additional complaints and Denies abnormal gait Skin/Breast Reports system reviewed and no additional complaints, except as documented Neuro Denies abnormal gait, Denies dizziness, Denies syncope and Denies headache(s) Psych Reports no additional complaints Physical exam (Primary Care) Vital Signs: Last Vital Signs Pulse 52 04/18/24 10:44 BP 128/66 04/18/24 10:44 Pulse Ox 96 04/18/24 10:44 Oxygen Delivery Method Room Air 04/18/24 10:44 BMI result Body Mass Index 27.1 Tobacco/Smoking Status: Tobacco use Status Tobacco use date assessed 08/31/23 04/18/24 10:46 Patient Tobacco Use Status Never used Tobacco 04/18/24 10:46 e-Cigarette/Vaping Use Never Used 04/18/24 10:46 Thrive Assessment: Date of Thrive Assessment Date Thrive assessed 08/31/23 04/18/24 10:46 Const General: cooperative, healthy appearing, comfortable and no acute distress Orientation/consciousness: patient oriented x3 HENMT Head: Yes normocephalic Ears: hearing grossly normal bilaterally General nose exam: Normal external nose present Eyes General: appearance normal, both eyes and all related structures Conjunctivae: conjunctivae normal Neck Neck: Yes full ROM and Yes no lymphadenopathy Resp Effort & Inspection: normal respiratory effort Auscultation: clear to auscultation bilaterally, no crackles, no rales, no rhonchi and no wheezes Cardio Rate: regular rate Rhythm: regular rhythm Skin General skin exam: no rashes or lesions noted Neuro General: patient oriented x3 Gait exam (Neuro): Normal gait present Extrem General: Yes normal to inspection, Yes full ROM and No edema Psych Affect: normal affect Attitude: cooperative Insight: Good insight present (Psych) Judgement: Good judgement present (Psych) Coding Level of Care Code Est Pt Level 3 (43794) Diagnoses Impaired fasting glucose R73.01 Pure hypercholesterolemia E78.00 Benign essential hypertension I10 Aortic stenosis I35.0 Paroxysmal atrial fibrillation I48.0 Gastroesophageal reflux disease without esophagitis K21.9 Esophagitis presence: without esophagitis Obstructive sleep apnea G47.33 Coronary artery disease involving [place] coronary artery of [place] heart without angina pectoris I25.10 Associated angina: without angina Coronary Disease-Associated Artery/Lesion type: [place] artery [place] vs. transplanted heart: [place] heart Leg cramps R25.2 Assessment & Plan Assessment & Plan (1) Impaired fasting glucose: Code(s): R73.01 - Impaired fasting glucose Category: Medical Plan: Decrease the amount of carbohydrates such as pasta, bread, rice, and potatoes and limit the amount of sweets. Although fruits are generally healthy they should be eaten in moderation as they are still high in sugar. Reminded about blood work (2) Pure hypercholesterolemia: Code(s): E78.00 - Pure hypercholesterolemia, unspecified Category: Medical Plan: Avoid foods that are high in cholesterol such as red meat, fried foods, eggs and baked goods. Triglyceride goal of less than 150 and LDL goal of less than 70. Continue on atorvastatin 80 mg. Reminded about blood work (3) Benign essential hypertension: Code(s): I10 - Essential (primary) hypertension Category: Medical Plan: Continue on current blood pressure medication. Avoid salt intake and encourage healthy diet and regular exercise. (4) Aortic stenosis: Comment: Mild September 2021 1.04 September 2022 moderate aortic stenosis August 2023 1.5 cm Code(s): I35.0 - Nonrheumatic aortic (valve) stenosis Category: Medical Plan: Aortic stenosis which appears to be [id number]. Continue to follow with Cardiology with plans to monitor by echocardiogram, in 6 months time. (5) Paroxysmal atrial fibrillation: Code(s): I48.0 - Paroxysmal atrial fibrillation Category: Medical Plan: Per cardiology brief episodes of AFib noted and asymptomatic at this time. No indication for antiarrhythmic drug therapy but advised to continue on full oral anticoagulation with Eliquis. Continue to follow with Cardiology (6) GERD (gastroesophageal reflux disease): Code(s): K21.9 - Gastro-esophageal reflux disease without esophagitis Category: Medical Qualifiers: Esophagitis presence: without esophagitis Qualified Code(s): K21.9 - Gastro-esophageal reflux disease without esophagitis Plan: Avoid trigger foods such as citrus, tomato products, soda, caffeine, spicy foods and other foods that may be irritating to your stomach. Avoid laying flat 3-4 hours after eating and elevate the head of the bed 30 degrees to prevent acid from moving into the esophagus. (7) Obstructive sleep apnea: Comment: CAT IS KNOWN TO HAVE MODERATELY SEVERE OBSTRUCTIVE SLEEP APNEA WITH TOTAL SLEEP TIME AHI 20.3. 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 HE IS USING CPAP REGULARLY AND IS VERY COMPLIANT AND WELL BENEFITING. HE DESCRIBES SOME ISSUE WITH THE HUMIDIFICATION, AND APPARENTLY NOT USING THE WHOLE WATER IN THE TANK. Code(s): G47.33 - Obstructive sleep apnea (adult) (pediatric) Category: Medical Plan: Following with pulmonology at this time strongly advised to continue on CPAP and was advised to bring in machine for adjustments as needed. Uses CPAP faithfully at least 4 hours a night and benefits from this therapy. (8) Coronary artery disease: Comment: Stent placement 2011 (ROMÁN x 2 to LAD) Code(s): I25.10 - Atherosclerotic heart disease of [place] coronary artery without angina pectoris Category: Medical Qualifiers: Associated angina: without angina Coronary Disease-Associated Artery/L esion type: [place] artery [place] vs. transplanted heart: [place] heart Qualified Code(s): I25.10 - Atherosclerotic heart disease of [place] coronary artery without angina pectoris Plan: Currently on full oral anticoagulation therefore would avoid aspirin therapy to reduce bleeding risk. Continue aggressive blood pressure control which is currently well optimized. Continue statin therapy with target goal LDL less than 70. Continue to follow with Cardiology. (9) Leg cramps: Code(s): R25.2 - Cramp and spasm Category: Medical Plan: Advised patient to increase fluid intake and ordered for blood work to look for underlying cause. Plan This note was constructed using voice recognition software. While every effort has been made to ensure accuracy and project superintendent, still areas may have been included sometimes these areas may affect the content or meeting of the given symptoms. Total time spent caring for the patient today was 30 minutes. This includes time spent before the visit reviewing the chart, time spent during the visit, and time spent after the visit and documentation. Orders: Orders Magnesium Today R25.2 - Cramp and spasm
--- OUTSIDE RECORDS SUMMARY | 2024-04-20 14:02 | XMS_ITS | Patient Health Record ---
Author Organization [facility] Address [address] [place] [id number] Care Team Providers Care Manager Resource Name Role Phone Edmond Cevallos MD Primary Care Provider Albert Lord Jr Unavailable REASON FOR REFERRAL No Information MEDICATIONS Medication SIG (Take, Route, Frequency, Duration) Notes Start Date End Date Status Fluticasone Propionate 50 MCG/ACT 1 spray in each nostril Nasally Once a day for 30 day(s) 07/14/2022 Active Fexofenadine HCl 180 MG 1 tablet Swallow whole with water; do not take with fruit juices. Orally Once a day for 30 day(s) 07/14/2022 Active Tamsulosin HCl 0.4 MG 1 capsule Orally O nce a day for 30 day(s) 07/14/2022 Active Atorvastatin Calcium 80 MG Oral for 90 Active Lisinopril 40 MG Oral for 90 A ctive Nitrostat 0.4 MG as directed Sublingual 07/14/2022 Active Cialis 20 MG 1 tablet as needed O rally Once a day for 30 day(s) 07/14/2022 Active Metoprolol Succinate ER 50 MG Oral for 90 Active Vitamin D-[address] 25 MCG (1000 UT) 1 tablet Orally Once a day for 30 day(s) 07/14/2022 Active Eliquis 5 MG Oral for 30 Activ e Terazosin HCl 2 MG Oral for 90 Active IMMUNIZATIONS Vaccine Route Administration Date Status Comme nts Influenza Unknown 03/16/2022 Administered SOCIAL HISTORY Sex Assigned At : Social History Observation Description Sex Assigned At Unknown PROBLEMS Problem Type ICD Code Onset Dates Problem Status W/U Status Risk SNOMED Code Notes Problem Incontinence of feces, unspecified fecal incontinence type (R15.9) Active confirmed [id number] PLAN OF TREATMENT No Information Insurance Providers Payer Name Payer Address Payer Phone Subscriber Number Group Number Insured Name Patient Relationship to Insured Coverage Start Date Coverage End Date MEDICARE OF [place] [address] [place] [address] [id number] CAT AHUMADA Self - patient is the insured [facility] [address] [place] [address] [id number] CAT AHUMADA Self - patient is the insured MEDICAL (GENERAL) HISTORY Medical History History ICD Code Hypertension Hyperlipidemia Prostate cancer status post external melissa m radiation Atrial fibrillation Colonoscopy 09/30/10 hyperplastic polyp, f ollowup optional based on age Coronary artery disease with history of stent and pacemaker placement SALMA/CPAP Chronic renal insufficiency Spinal stenosis and back pain Surgical History Surgery Date(Month/Year) Pacemaker and cardiac stent placement Back surgery Tonsillectomy Inguinal hernia repair
== END 2024-04-18 11:15 | disposition home or self-care (01) ==
LOC: HO.HMCH 10:42
PROVIDERS: PCP Internal Medicine
DX: R73.01 Impaired fasting glucose (principal); E78.00 Pure hypercholesterolemia, unspecified; I48.0 Paroxysmal atrial fibrillation; I10 Essential (primary) hypertension; I35.0 Nonrheumatic aortic (valve) stenosis; K21.9 Gastro-esophageal reflux disease without esophagitis; G47.33 Obstructive sleep apnea (adult) (pediatric); I25.10 Atherosclerotic heart disease of native coronary artery without angina pectoris; R25.2 Cramp and spasm

== ENCOUNTER → 2024-04-18 10:42 | Outpatient (BNVA) | payer MEDICARE, OTHER, SELFPAY | PROVIDERS: PCP Internal Medicine | DX: R73.01 Impaired fasting glucose (principal); I10 Essential (primary) hypertension; I35.0 Nonrheumatic aortic (valve) stenosis; I48.0 Paroxysmal atrial fibrillation; K21.9 Gastro-esophageal reflux disease without esophagitis; G47.33 Obstructive sleep apnea (adult) (pediatric); I25.10 Atherosclerotic heart disease of native coronary artery without angina pectoris; E78.00 Pure hypercholesterolemia, unspecified | CPT/HCPCS: 99212 ==

== ENCOUNTER → 2024-04-23 23:59 | Outpatient (BNV) | payer MEDICARE, OTHER, SELFPAY ==
--- NOTE | 2024-04-25 10:32 | MHC.OFFVIS ---
Intake Visit Reasons: Remote device check- Kieran Scient Allergies cyclobenzaprine [Cyclobenzaprine] Allergy (Mild, Verified 04/10/24 11:16) UNCONTROLLED SHAKING oxycodone [From Percocet] Allergy (Mild, Verified 04/10/24 11:16) DIFFICULTING BREATHING meperidine [Demerol] Allergy (Unknown, Verified 04/10/24 11:16) Unknown PFSH Medical History Subdural hematoma Benign prostatic hyperplasia Pure hypercholesterolemia Benign essential hypertension Gait instability Aortic stenosis Cardiac pacemaker in situ Paroxysmal atrial fibrillation Spinal stenosis of lumbar region Right foot drop Erectile dysfunction GERD (gastroesophageal reflux disease) Obstructive sleep apnea Saddle thrombus of abdominal aorta History of prostate cancer Coronary artery disease Surgical History Stented coronary artery History of lumbar surgery History of cervical spinal surgery History of inguinal hernia repair History of tonsillectomy Family History Father No problems noted. Mother Hypertension Lung cancer Brother No problems noted. Sister No problems noted. Son No problems noted. Daughter No problems noted. Social History Housing: House Alcohol intake: current Alcohol intake frequency: 0-2 drinks per day Alcohol type: beer Patient Tobacco Use Status: Never used Tobacco e-Cigarette/Vaping Use: Never Used Second Hand Smoke Exposure: Yes service: Yes Current occupational status: retired Cognitive needs: No Hearing needs: No Vision needs: Yes Office Procedures Cardiac Device Check Cardiac Device Check Details: Remote pacemaker report generated 04/24/2024. Pacemaker function is adequate. Battery life is at about 1 year [id number] Cardiac Device Interrogation, pacemaker Procedure code (CPT) selection complete Assessment & Plan Assessment & Plan (1) Cardiac pacemaker in situ: Comment: Biotronik pacemaker for sick sinus syndrome?, 2011 Code(s): Z95.0 - Presence of cardiac pacemaker Category: Medical Plan: See above Coding Level of Care Code Procedure Only Diagnoses Cardiac pacemaker in situ Z95.0 CPT Codes Cardiac Device Check - Cardiac Device 12: [id number] Cardiac Device Interrogation, pacemaker ([id number])
== END ==
PROVIDERS: PCP Internal Medicine; Visit Provider Internal Medicine Cardiovascular Disease
DX: Z45.018 Encounter for adjustment and management of other part of cardiac pacemaker (principal)
CPT/HCPCS: 93294

== ENCOUNTER → 2024-06-04 10:27 | Outpatient (REF) | payer MEDICARE, OTHER, SELFPAY ==
--- NOTE | 2024-06-04 10:33 | ECG_ITS ---
Test Reason : I48.0 PAF Blood Pressure : / mmHG Vent. Rate : 051 BPM Atrial Rate : 051 BPM P-R Int : 176 ms QRS Dur : 174 ms QT Int : 522 ms P-R-T Axes : 000 -48 098 degrees QTc Int : 481 ms AV dual-paced rhythm Abnormal ECG When compared with ECG of 25-NOV-2021 19:39, Vent. rate has decreased BY 24 BPM Referred By: Edmond Cevallos Electronically Signed By:RICKEY SALCIDO
[2024-06-04 10:46] LABS: MANUAL DIFF FLAG NO
[2024-06-04 12:11] LABS: Basophils Percent Auto 0.5 % (0-2); Eosinophils Absolute Auto 0.3 X10*3/uL (0.0-0.4); Eosinophils Percent Auto 4.2 % (0-4); Hematocrit 46.5 % (42.0-52.0); Hemoglobin 15.1 g/dl (14.0-18.0); Imm Gran Abs Auto 0.03 X10*3/uL (0.00-0.03); Imm Gran Pct Auto 0.5 % (0.0-0.4); Lymphocytes Absolute Auto 2.4 X10*3/uL (1.2-4.9); Lymphocytes Percent Auto 37.2 % (20-40); Mean Corpuscular HGB Conc 32.5 g/dl (31.0-36.0); Mean Corpuscular Hemoglobin 30.8 pg (27.0-33.0); Mean Corpuscular Volume 94.9 fL (80.0-98.0); Mean Platelet Volume 11.2 fL (9.4-12.4); Monocytes Absolute Auto 0.4 X10*3/uL (0.1-1.2); Monocytes Percent Auto 6.8 % (2-11); Neutrophils Absolute Auto 3.3 x10*3/uL (2.0-8.3); Neutrophils Percent Auto 50.8 % (45-73); Platelet Count 162 X10*3/uL (160-400); Red Cell Distribution Width 12.6 % (11.0-16.0); White Blood Count 6.5 X10*3/uL (4.8-10.8)
[2024-06-04 12:25] LABS: Estimated Average Glucose 134 mg/dL; Hemoglobin A1C 180.5477 umol/L; Hemoglobin A1c % 6.3 % (<6.0); Total Hemoglobin (HGBA1C) 3960.2321 umol/L
[2024-06-04 13:14] LABS: Alanine Aminotransferase 21 U/L (0-40); Albumin Level 4.1 g/dL (3.5-5.0); Alkaline Phosphatase 64 U/L (39-117); Anion Gap 8 (12-20); Aspartate Amino Transferase 26 U/L (5-37); Bilirubin Total 0.7 mg/dL (0.0-1.0); Blood Urea Nitrogen 16 mg/dL (9-16); Calcium 8.5 mg/dL (8.4-10.2); Carbon Dioxide 25 mmol/L (22-29); Chloride 112 mmol/L (96-108); Cholesterol 113 mg/dL (<200); Estimated Glomerular Filt Rate > 60; Glucose Random 110 mg/dL (60-115); HDL Cholesterol 33 mg/dL (>40); LDL Cholesterol Calculated 69 mg/dL (<100); Magnesium 2.4 mg/dL (1.6-2.6); Sodium 141 mmol/L (135-145); Thyroid Stimulating Hormone 1.73 uIU/mL (0.32-4.0); Total Protein 6.6 g/dL (6.5-8.0); Triglycerides 59 mg/dL (<150)
[2024-06-04 13:17] LABS: PSA,Total (Free>4and<10) 0.11 ng/mL (0.00-4.00)
[2024-06-04 13:18] LABS: Free T4 (Free Thyroxine) 1.07 ng/dL (0.71-1.85)
[2024-06-04 13:30] LABS: Folate 11.7 ng/mL (> or = 4.0); Vitamin B12 328 pg/mL (200-900)
== END ==
LOC: HO.CARD 10:27
PROVIDERS: PCP Internal Medicine; Visit Provider Internal Medicine
DX: Z12.5 Encounter for screening for malignant neoplasm of prostate (principal); I48.0 Paroxysmal atrial fibrillation; R25.2 Cramp and spasm; R73.01 Impaired fasting glucose; E78.00 Pure hypercholesterolemia, unspecified; Z85.46 Personal history of malignant neoplasm of prostate
CPT/HCPCS: 36415; 80053; 80061; 82607; 82746; 83036; 83735; 84153; 84439; 84443; 85025; 93005

== ENCOUNTER → 2024-06-04 10:33 | Outpatient (BNV) | payer MEDICARE, OTHER, SELFPAY | PROVIDERS: PCP Internal Medicine; Visit Provider Internal Medicine | DX: R94.31 Abnormal electrocardiogram [ECG] [EKG] (principal) | CPT/HCPCS: 93010 ==

== ENCOUNTER 2024-07-19 10:58 | Outpatient (AMB) | payer MEDICARE, OTHER, SELFPAY ==
--- NOTE | 2024-07-19 11:00 | MHC.PC.OV ---
Vital Signs 07/19/24 11:01 Height 5 ft 11 in Weight 194 lb 8 oz BMI 27.1 BP 120/70 Blood Pressure Location Lt brachial Position Sitting Pulse 73 Pulse Source Pulse Oximeter Temp 97.3 F Temp Source Temporal Artery Scan Pulse Oximetry (%) 97 Oxygen Delivery Method Room Air Intake Visit Reasons: f/u IGT, SALMA, Intake Note: Patient is here to follow up on IGT, SALMA, . Bone Char Puller Required: No Fisher Gill Net: Not Required per policy Accompanied by: Self / Same As Patient Allergies cyclobenzaprine [Cyclobenzaprine] Allergy (Mild, Verified 07/19/24 11:01) UNCONTROLLED SHAKING oxycodone [From Percocet] Allergy (Mild, Verified 07/19/24 11:01) DIFFICULTING BREATHING meperidine [Demerol] Allergy (Unknown, Verified 07/19/24 11:01) Unknown Medication List - Last Reconciled 07/19/24 by June Michael PA-C acetaminophen 500 mg PO Q6H PRN apixaban (Eliquis) 5 mg PO BID 90 days atorvastatin 80 mg PO DAILY 90 days [AUTO PAP 6-16 cm humidified AIR full face nasal mask As directed] cane As directed cholecalciferol (vitamin D3) 25 mcg PO DAILY fexofenadine 180 mg PO DAILY PRN fluticasone propionate 50 mcg/actuation 2 sprays intranasal DAILY PRN lisinopril TAKE ONE TABLET BY MOUTH ONCE DAILY metoprolol succinate ER 75 mg PO DAILY nitroglycerin (Nitrostat) 0.4 mg sublingual Q5M PRN tadalafil (Cialis) 20 mg PO DAILY PRN terazosin 4 mg PO BEDTIME Tobacco use date assessed: 07/19/24 Fall risk assessment: No Falls in past year Last assessed Fall Risk: 07/19/24 Dental Screening Dental Screen Date: 07/19/24 Did you have a dental visit in the last 12 months?: Yes Did you have a dental problem in the last 6 months where you did not have access to dental care?: No Was dental information given to patient?: Patient has dentist HPI f/u IGT, SALMA, HPI Details 88-year-old male with past medical history of coronary artery disease, hypercholesterolemia, obstructive sleep apnea, hypertension, GERD, history of prostate cancer, atrial fibrillation on Eliquis, impaired glucose tolerance, BPH last seen 03/2024 coming in for follow up. Patient tells us today overall he is feeling generally well. Does endorse a bilateral leg pain primarily at bedtime that he describes as pain and occasional burning sensation. He uses a Lubriderm cream and we will have relief after using this lotion. [facility] Medical History Subdural hematoma Benign prostatic hyperplasia Pure hypercholesterolemia Benign essential hypertension Gait instability Aortic stenosis Cardiac pacemaker in situ Paroxysmal atrial fibrillation Spinal stenosis of lumbar region Right foot drop Erectile dysfunction GERD (gastroesophageal reflux disease) Obstructive sleep apnea Saddle thrombus of abdominal aorta History of prostate cancer Coronary artery disease Surgical History Stented coronary artery History of lumbar surgery History of cervical spinal surgery History of inguinal hernia repair History of tonsillectomy Family History Father No problems noted. Mother Hypertension Lung cancer Brother No problems noted. Sister No problems noted. Son No problems noted. Daughter No problems noted. Social History Housing: House Alcohol intake: current Alcohol intake frequency: 0-2 drinks per day Alcohol type: beer Patient Tobacco Use Status: Never used Tobacco e-Cigarette/Vaping Use: Never Used Second Hand Smoke Exposure: Yes service: Yes Current occupational status: retired Cognitive needs: Yes (Cane) Hearing needs: No Vision needs: Yes Questionnaire PHQ-9 Over the last 2 weeks, how often have you been bothered by any of the following problems? 1. Little interest or pleasure in doing things: not at all 2. Feeling down, depressed, or hopeless: not at all 3. Trouble falling or staying asleep, or sleeping too much: not at all 4. Feeling tired or having little energy: not at all 5. Poor appetite or overeating: not at all 6. Feeling bad about yourself - or that you are a failure or have let yourself or your family down: not at all 7. Trouble concentrating on things, such as reading the newspaper or watching television: not at all 8. Moving or speaking so slowly that other people could have noticed. Or the opposite - being so fidgety or restless that you have been moving around a lot more than usual: not at all 9. Thoughts that you would be better off or of hurting yourself in some way: not at all Total score: 0 Depression Screening Interpretation: Negative Depression Screening Done: Yes Source: Developed by Drs. Michael Boothe, Cindi Montenegro, Michele Dukes and colleagues, with an educational elliott from [employer]. Thrive Questionnaire Date Thrive assessed: 07/19/24 I am a: Patient What is your living situation today?: I have a steady place to live Within the past 12 months, did the food you bought not last and you didn't have the money to get more?: Never true Within the past 12 months, did you worry whether your food would run out before you got money to buy more?: Never true Do you have trouble paying for medicines?: No Do you have trouble getting transportation to medical appointments?: No Do you have trouble paying your heating and electricity bill?: No Do you have trouble taking care of your child, family member or friend?: No Do you have trouble with day-to-day activities such as bathing, preparing meals, shopping, managing finances, etc.?: No Are you currently unemployed and looking for a job?: No Are you interested in more education?: No Please select the resources that you would like help with: None Currently or been in a relationship where the following occur: No concerns reported THRIVE Score: 0 AUDIT C Alcohol Use Questionnaire (AUDIT-C) 1. How often do you have a drink containing alcohol?: Never Total Score: 0 SEJAL-7 AMB Questionnaire SEJAL-7 Date SEJAL - 7 assessed: 07/19/24 Feeling nervous, anxious, or on edge: 0 = Not at all Not being able to stop or control worryin = Not at all Worrying too much about different things: 0 = Not at all Trouble relaxin = Not at all Being so restless that it is hard to sit still: 0 = Not at all Becoming easily annoyed or irritable: 0 = Not at all Feeling afraid as if something awful might happen: 0 = Not at all Total SEJAL-7 score (0-4 normal; 5-9 mild; 10-14 moderate; 15-21 severe): 0 Source: Developed by Drs. Michael Boothe, Cindi Montenegro, Michele Dukes and colleagues, with an educational elliott from [employer]. Review of Systems Const Denies body aches, Denies chills, Denies fever(s), Denies headache(s) and Denies poor appetite Eyes Reports no additional complaints ENT Denies dysphagia, Denies dizziness, Denies headache(s) and Denies odynophagia Card Denies chest pain, Denies syncope, Denies edema, Denies irregular heart rhythm, Denies lightheadedness and Denies dyspnea Resp Denies cough and Denies dyspnea GI Denies abdominal pain, Denies constipation, Denies dysphagia, Denies diarrhea, Denies nausea, Denies odynophagia and Denies vomiting Reports no additional complaints Musc Reports no additional complaints and Denies abnormal gait Skin/Breast Reports system reviewed and no additional complaints, except as documented Neuro Denies abnormal gait, Denies dizziness, Denies syncope and Denies headache(s) Psych Reports no additional complaints Physical exam (Primary Care) Vital Signs: Last Vital Signs Temp 97.3 F 07/19/24 11:01 Pulse 73 07/19/24 11:01 BP 120/70 07/19/24 11:01 Pulse Ox 97 07/19/24 11:01 Oxygen Delivery Method Room Air 07/19/24 11:01 BMI result Body Mass Index 27.1 Tobacco/Smoking Status: Tobacco use Status Tobacco use date assessed 07/19/24 07/19/24 11:08 Patient Tobacco Use Status Never used Tobacco 07/19/24 11:08 e-Cigarette/Vaping Use Never Used 07/19/24 11:08 PHQ-9: PHQ-9 Score PHQ-9: Total score 0 07/19/24 11:12 Depression Screening Interpretation: Negative Thrive Assessment: Date of Thrive Assessment Date Thrive assessed 07/19/24 07/19/24 11:08 Currently or been in a relationship where the following occur: No concerns reported Const General: cooperative, healthy appearing, comfortable and no acute distress Orientation/consciousness: patient oriented x3 HENMT Head: Yes normocephalic Ears: hearing grossly normal bilaterally General nose exam: Normal external nose present Eyes General: appearance normal, both eyes and all related structures Conjunctivae: conjunctivae normal Neck Neck: Yes full ROM and Yes no lymphadenopathy Resp Effort & Inspection: normal respiratory effort Auscultation: clear to auscultation bilaterally, no crackles, no rales, no rhonchi and no wheezes Cardio Rate: regular rate Rhythm: regular rhythm Skin General skin exam: no rashes or lesions noted Neuro General: patient oriented x3 Gait exam (Neuro): Normal gait present Extrem Other: No pain to palpation, redness or swelling of bilateral lower extremities. Intact sensation, strength and pulses in bilateral lower extremities. General: Yes full ROM and No edema Psych Affect: normal affect Attitude: cooperative Insight: Good insight present (Psych) Judgement: Good judgement present (Psych) Coding Level of Care Code Est Pt Level 3 (25169) Diagnoses Impaired fasting glucose R73.01 Aortic stenosis I35.0 Paroxysmal atrial fibrillation I48.0 Gastroesophageal reflux disease without esophagitis K21.9 Esophagitis presence: without esophagitis Essential hypertension I10 Hypertension type: essential hypertension Obstructive sleep apnea G47.33 Hypercholesterolemia E78.00 Coronary artery disease involving [place] coronary artery of [place] heart without angina pectoris I25.10 Associated angina: without angina Coronary Disease-Associated Artery/Lesion type: [place] artery [place] vs. transplanted heart: little shell tribe heart Foot pain, right M79.671 Leg cramps R25.2 Onychomycosis B35.1 Assessment & Plan Assessment & Plan (1) Impaired fasting glucose: Code(s): R73.01 - Impaired fasting glucose Category: Medical Plan: Decrease the amount of carbohydrates such as pasta, bread, rice, and potatoes and limit the amount of sweets. Although fruits are generally healthy they should be eaten in moderation as they are still high in sugar. A1c elevated today from last value 6.3%. (2) Aortic stenosis: Comment: Mild September 2021 1.04 September 2022 moderate aortic stenosis August 2023 1.5 cm Code(s): I35.0 - Nonrheumatic aortic (valve) stenosis Category: Medical Plan: Patient is scheduled to have repeat ultrasound in the next coming months. Continue to follow with Cardiology. (3) Paroxysmal atrial fibrillation: Code(s): I48.0 - Paroxysmal atrial fibrillation Category: Medical Plan: Patient has presence of pacemaker and routinely follows with cardiology for device checks and follow up. Currently on anticoagulation with Eliquis 5 mg twice daily and metoprolol for rate control. (4) GERD (gastroesophageal reflux disease): Code(s): K21.9 - Gastro-esophageal reflux disease without esophagitis Category: Medical Qualifiers: Esophagitis presence: without esophagitis Qualified Code(s): K21.9 - Gastro-esophageal reflux disease without esophagitis Plan: Avoid trigger foods such as citrus, tomato products, soda, caffeine, spicy foods and other foods that may be irritating to your stomach. Avoid laying flat 3-4 hours after eating and elevate the head of the bed 30 degrees to prevent acid from moving into the esophagus. (5) Hypertension: Code(s): I10 - Essential (primary) hypertension Category: Medical Qualifiers: Hypertension type: essential hypertension Qualified Code(s): I10 - Essential (primary) hypertension Plan: Continue on current blood pressure medication. Avoid salt intake and encourage healthy diet and regular exercise. (6) Obstructive sleep apnea: Comment: CAT IS KNOWN TO HAVE MODERATELY SEVERE OBSTRUCTIVE SLEEP APNEA WITH TOTAL SLEEP TIME AHI 20.3. 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 HE IS USING CPAP REGULARLY AND IS VERY COMPLIANT AND WELL BENEFITING. HE DESCRIBES SOME ISSUE WITH THE HUMIDIFICATION, AND APPARENTLY NOT USING THE WHOLE WATER IN THE TANK. Code(s): G47.33 - Obstructive sleep apnea (adult) (pediatric) Category: Medical Plan: Uses CPAP faithfully at least 4 hours a night and benefits from this therapy. (7) Hypercholesterolemia: Code(s): E78.00 - Pure hypercholesterolemia, unspecified Category: Medical Plan: Avoid foods that are high in cholesterol such as red meat, fried foods, eggs and baked goods. Triglyceride goal of less than 150 and LDL goal of less than 70. Continue on atorvastatin 80 (8) Coronary artery disease: Comment: Stent placement 2011 (ROMÁN x 2 to LAD) Code(s): I25.10 - Atherosclerotic heart disease of [place] coronary artery without angina pectoris Category: Medical Qualifiers: Associated angina: without angina Coronary Disease-Associated Artery/Lesion type: [place] artery [place] vs. transplanted heart: [place] heart Qualified Code(s): I25.10 - Atherosclerotic heart disease of [place] coronary artery without angina pectoris Plan: Advised good control of blood pressure, tight control of cholesterol with LDL goal less than 70 and good control of blood sugars. Continue to follow with Cardiology (9) Foot pain, right: Code(s): M79.671 - Pain in right foot Category: Medical Plan: Patient complaining of right foot pain primarily in the big toe ordered for uric acid to evaluate for gout. (10) Leg cramps: Code(s): R25.2 - Cramp and spasm Category: Medical Plan: On exam today no tenderness to palpation, redness, warmth or swelling of bilateral lower extremities. Intact strength, sensation and pulses in bilateral lower extremities. Like cramping likely related to more recent elevated blood sugars. I did offer a trial of gabapentin which was declined at this time. Continue to monitor follow up at next visit. Low suspicion for DVT at this time given exam findings (11) Onychomycosis: Code(s): B35.1 - Tinea unguium Category: Medical Plan: Patient having presence of toenail fungus on all 10 toenails. Has been using topical treatments. Given the condition of the toenails recommended podiatry referral for both treatment and toenail trimmings. Plan This note was constructed using voice recognition software. While every effort has been made to ensure accuracy and virtual customer assistant, still areas may have been included sometimes these areas may affect the content or meeting of the given symptoms. Total time spent caring for the patient today was 20 minutes. This includes time spent before the visit reviewing the chart, time spent during the visit, and time spent after the visit and documentation. Orders: Orders Uric Acid Today M79.671 - Pain in right foot Referrals Podiatry Referral B35.1 - Tinea unguium
[2024-07-19 11:01] VITALS: BP 120/70; PULSE 73; TEMP 36.3; O2SAT 97; BMI 27.1
--- OUTSIDE RECORDS SUMMARY | 2024-07-19 12:16 | XMS_ITS | Clinical Summary ---
Author Organization [facility] Address [address] [place] [address] Phone Care Team Providers Care Chisel Trimmer Name Role Phone Edmond Cevallos MD Primary Care Provider [phone] Allergies Active Allergy Reactions Criticality Noted Date Comments Cyclobenzaprine Other (see comments) 08/29/2020 Indomethacin 09/08/2021 Meperidine Other (see comments) 08/29/2020 Oxycodone Other (see comments) 08/29/2020 Oxycodone-Acetaminophen Other (see comments) Tramadol Other (see comments) 08/29/2020 Medications atorvastatin (LIPITOR) 80 MG tablet Take 1 tablet by mouth 1 (one) time each day Active cholecalciferol (VITAMIN D-3) 25 MCG (1000 UT) capsule Take 1 capsule by mouth 1 (one) time each day Active fexofenadine (KVNG) 180 MG tablet Take 1 tablet by mouth if needed Active fluticasone (FLONASE) 50 MCG/ACT nasal spray Administer 2 sprays into each nostril 1 (one) time each day Active lisinopril (PRINIVIL,ZESTR IL) 40 MG tablet Take 1 tablet by mouth 1 (one) time each day Active nitroglycerin (NITROSTAT) 0.[address] 1 tablet under the tongue if needed Active terazosin (HYTRIN) 1 MG capsule Take 4 capsules by mouth 1 (one) time each day Active metoprolol succinate XL (TOPROL-XL) 50 MG 24 hr tablet Take 1 tablet by mouth 1 (one) time each day Active Eliquis 5 MG tablet Take 1 tablet by mouth 2 (two) times a day Active ASPIRIN 81 PO Take 1 tablet by mouth 1 (one) time each day Active tamsulosin (FLOMAX) 0.4 MG 24 hr capsule Take 0.4 mg by mouth 1 (one) time each day Active tadalafil (CIALIS) 20 MG tablet Take 20 mg by mouth 1 (one) time each day if needed for erectile dysfunction Active Active Problems Problem Noted Date Diagnosed Date Hypertension 09/09/2021 Hypertensive disorder 09/08/2021 Stage 3a chronic kidney disease 08/29/2020 Hypertensive renal disease 08/29/2020 Resolved Problems Problem Noted Date Diagnosed Date Resolved Date Chest pain 09/08/2021 09/08/2021 Coronary arteriosclerosis 09/08/2021 Overview (09/08/2021): s/p stent placement Hyperlipidemia 09/08/2021 09/08/2021 Sleep apnea 09/08/2021 09/08/2021 Family History Medical History Relation Comments Hypertension Mother Relation Status Comments Father Mother Social History Tobacco Use Types Packs/Day Years Used Date Smoking Tobacco: Never Smokeless Tobacco: Never Tobacco Cessation:Counseling Given: Not Answered Alcohol Use Standard Drinks/Week Comments Yes 0 (1 standard drink = 0.6 oz pure alcohol) Alcoholic Drinks/day: 1-2 drinks per day Sex and Gender Information Value Date Recorded Sex Assigned at Not on file Legal Sex Male 4:48 PM EST Gender Identity Not on file Sexual Orientation Not on file Last Filed Vital Signs Vital Sign Reading Time Taken Comments Blood Pressure 124/70 09/01/2022 12:24 PM EDT Pulse 59 09/01/2022 12:24 PM EDT Temperature - - Respiratory Rate - - Oxygen Saturation - - Inhaled Oxygen Concentration - - Weight 88.3 kg (194 lb 9.6 oz) 09/01/2022 12:24 PM EDT Height 180.3 cm (5' 11 ) 08/29/2019 12:00 PM EDT Body Mass Index 27.14 08/29/2019 12:00 PM EDT Plan of Treatment Health Maintenance Due Date Last Done Comments Pneumococcal Vaccine: 65+ Ye ars (1 of 2 - PCV) 1941 Influenza Vaccine (#1) 2024 Hepatitis B Vaccine Aged Out No longe r eligible based on patient's age to complete this topic Insurance UNICARE MEDICARE [facility] MEDICARE Care Teams Chisel Trimmer Relationship Specialty Start Date End Date Edmond Cevallos MD [address] [place] PCP - General 06/09/20
--- OUTSIDE RECORDS SUMMARY | 2024-07-19 12:16 | XMS_ITS | Patient Health Record ---
Author Organization [facility] Address [address] [place] [id number] Care Team Providers Care Cable Mock Up Assembler Name Role Phone Edmond Cevallos MD Primary Care Provider Albert Lord Jr Unavailable [phone] REASON FOR REFERRAL No Information MEDICATIONS Medication [...] unspecified fecal incontinence type (R15.9) Active confirmed [id number] PLAN OF TREATMENT No Information Insurance Providers Payer Name Payer Address Payer Phone Subscriber Number Group Number Insured Name Patient Relationship to Insured Coverage Start Date Coverage End Date MEDICARE OF [place] [address] [place] [address] [id number] CAT AHUMADA Self - patient is the insured [facility] INDEMNITY [address] [place] [address] [id number] CAT AHUMADA Self - patient is the [...]
== END 2024-07-19 11:32 | disposition home or self-care (01) ==
PROVIDERS: PCP Internal Medicine
DX: R73.01 Impaired fasting glucose (principal); I35.0 Nonrheumatic aortic (valve) stenosis; I48.0 Paroxysmal atrial fibrillation; K21.9 Gastro-esophageal reflux disease without esophagitis; I10 Essential (primary) hypertension; G47.33 Obstructive sleep apnea (adult) (pediatric); E78.00 Pure hypercholesterolemia, unspecified; I25.10 Atherosclerotic heart disease of native coronary artery without angina pectoris; M79.671 Pain in right foot; R25.2 Cramp and spasm; B35.1 Tinea unguium

== ENCOUNTER → 2024-07-19 10:58 | Outpatient (BNVA) | payer MEDICARE, OTHER, SELFPAY | PROVIDERS: PCP Internal Medicine | DX: R73.01 Impaired fasting glucose (principal); I35.0 Nonrheumatic aortic (valve) stenosis; I48.0 Paroxysmal atrial fibrillation; K21.9 Gastro-esophageal reflux disease without esophagitis; I10 Essential (primary) hypertension; G47.33 Obstructive sleep apnea (adult) (pediatric); E78.00 Pure hypercholesterolemia, unspecified; I25.10 Atherosclerotic heart disease of native coronary artery without angina pectoris; M79.671 Pain in right foot; R25.2 Cramp and spasm; B35.1 Tinea unguium | CPT/HCPCS: 99212 ==

== ENCOUNTER → 2024-07-23 23:59 | Outpatient (BNV) | payer MEDICARE, OTHER, SELFPAY ==
--- NOTE | 2024-07-23 15:50 | A.OFFVIS_ITS ---
Intake Visit Reasons: Remote device check- [place] [employer] Allergies cyclobenzaprine [Cyclobenzaprine] Allergy (Mild, Verified 07/19/24 11:01) UNCONTROLLED SHAKING oxycodone [From Percocet] Allergy (Mild, Verified 07/19/24 11:01) DIFFICULTING BREATHING meperidine [Demerol] Allergy (Unknown, Verified 07/19/24 11:01) Unknown [facility] Medical History Subdural hematoma Benign prostatic hyperplasia Pure hypercholesterolemia Benign essential hypertension Gait instability Aortic stenosis Cardiac pacemaker in situ Paroxysmal atrial fibrillation Spinal stenosis of lumbar region Right foot drop Erectile dysfunction GERD (gastroesophageal reflux disease) Obstructive sleep apnea Saddle thrombus of abdominal aorta History of prostate cancer Coronary artery disease Surgical History Stented coronary artery History of lumbar surgery History of cervical spinal surgery History of inguinal hernia repair History of tonsillectomy Family History Father No problems noted. Mother Hypertension Lung cancer Brother No problems noted. Sister No problems noted. Son No problems noted. Daughter No problems noted. Social History Housing: House Alcohol intake: current Alcohol intake frequency: 0-2 drinks per day Alcohol type: beer Patient Tobacco Use Status: Never used Tobacco e-Cigarette/Vaping Use: Never Used Second Hand Smoke Exposure: Yes service: Yes Current occupational status: retired Cognitive needs: Yes (Cane) Hearing needs: No Vision needs: Yes Office Procedures Cardiac Device Check Cardiac Device Check Details: Remote pacemaker report generated 07/23/2024. Battery is close to CATHERINE. Check in the office next pacer clinic [id number] Cardiac Device Interrogation, pacemaker Procedure code (CPT) selection complete Assessment & Plan Assessment & Plan (1) Cardiac pacemaker in situ: Comment: Biotronik pacemaker for sick sinus syndrome?, 2010 Code(s): Z95.0 - Presence of cardiac pacemaker Category: Medical Plan: See above Coding Level of Care Code Procedure Only Diagnoses Cardiac pacemaker in situ Z95.0 CPT Codes Cardiac Device Check - Cardiac Device 12: [id number] Cardiac Device In terrogation, pacemaker ([id number])
== END ==
PROVIDERS: PCP Internal Medicine; Visit Provider Internal Medicine Cardiovascular Disease
DX: Z45.018 Encounter for adjustment and management of other part of cardiac pacemaker (principal)
CPT/HCPCS: 93294

== ENCOUNTER 2024-08-29 15:26 | Outpatient (AMB) | payer MEDICARE, OTHER, SELFPAY ==
[2024-08-29 15:28] VITALS: BP 118/72; PULSE 56; O2SAT 95; BMI 26.8
--- NOTE | 2024-08-29 15:28 | A.OFFPC_ITS ---
Vital Signs 08/29/24 15:28 Height 5 ft 11 in Weight 192 lb 6 oz BMI 26.8 BP 118/72 Blood Pressure Location Lt brachial Position Sitting Pulse 56 Pulse Source Pulse Oximeter Pulse Oximetry (%) 95 Oxygen Delivery Method Room Air Intake Visit Reasons: [facility] ED on 08/10/24 Dye Blender Required: No Accompanied by: Self / Same As Patient Allergies cyclobenzaprine [Cyclobenzaprine] Allergy (Mild, Verified 08/29/24 15:45) UNCONTROLLED SHAKING oxycodone [From Percocet] Allergy (Mild, Verified 08/29/24 15:45) DIFFICULTING BREATHING meperidine [Demerol] Allergy (Unknown, Verified 08/29/24 15:45) Unknown Medication List - Last Reconciled 08/29/24 by FANG Robles acetaminophen 500 mg PO Q6H PRN apixaban (Eliquis) 5 mg PO BID 90 days atorvastatin 80 mg PO DAILY 90 days [AUTO PAP 6-16 cm humidified AIR full face nasal mask As directed] cane As directed cholecalciferol (vitamin D3) 25 mcg PO DAILY fexofenadine 180 mg PO DAILY PRN fluticasone propionate 50 mcg/actuation 2 sprays intranasal DAILY PRN lisinopril TAKE ONE TABLET BY MOUTH ONCE DAILY metoprolol succinate ER 75 mg (1.5 x 50 mg) PO DAILY nitroglycerin (Nitrostat) 0.4 mg sublingual Q5M PRN tadalafil (Cialis) 20 mg PO DAILY PRN terazosin 4 mg PO BEDTIME Tobacco use date assessed: 08/29/24 Fall risk assessment: 2 + Falls in past year Last assessed Fall Risk: 08/29/24 Dental Screening Dental Screen Date: 08/29/24 Did you have a dental visit in the last 12 months?: Yes Did you have a dental problem in the last 6 months where you did not have access to dental care?: No Was dental information given to patient?: Patient has dentist HPI [facility] ED on 08/10/24 HPI Details Patient is a 89-year-old with significant past medical history of subdural hematoma, benign essential hypertension, cardiac pacemaker in-situ, paroxysmal atrial fibrillation on Eliquis, anemia, history of prostate cancer, obstructive sleep apnea, CAD. Patient of Dr. Cevallos, last seen in office on 07/19/24 Patient is presenting for post [facility] [place] ED visit follow up appointment Patient went to emergency room after passing out in dental office while waiting for his , who was having dental cleaning Syncopal episode was witnessed. Per chart review the patient reported that he remembers feeling lightheaded and that things were becoming farther and farther away then woke up with multiple people in front of him. There was no head trauma or seizure-like activity noted. The patient had denied chest pain shortness of breath, headaches or dizziness The patient was given fluids by EMT on his way to the ER.s derangement and troponins for elevation which was all reassuring There was no acute concerns for CVA/TIA or seizure, and given the absence of chest pain lowered the suspicion for cardiogenic syncope-questioned due to watch in his getting her teeth cleaned causing vasovagal episode The patient reports that this has been going on for a long time. He had multiple episodes of passing out without any acute findings. The patient is present with his granddaughter Kay who reports that the same day after the patient went to emergency room. He had an episode at home where was unable to get up from the chair around the living room table and they had to physically hold him up. Reports that that night the patient also fell out of bed and was crawling on the floor. Patient reports that he was trying to get out of bed but it was too weak in his sit down onto the floor and by him trying to get up on his own he put himself in a position where he could not move much, but he did not have a not a syncopal episode per patient. The patient reports that he fell in the past and had to go to [facility] due to a head bleed. The patient reports in the emergency room that he felt like the lights was shut off. The patient reports that he is still drives intermittently. Discussed with the patient that this is not a good idea and he could get into a serious accident if one of these episodes happen while he is driving. The patient is going get his pacemaker 09/06/24. [facility] Medical History Subdural hematoma Benign prostatic hyperplasia Pure hypercholesterolemia Benign essential hypertension Gait instability Aortic stenosis Cardiac pacemaker in situ Paroxysmal atrial fibrillation Spinal stenosis of lumbar region Right foot drop Erectile dysfunction GERD (gastroesophageal reflux disease) Obstructive sleep apnea Saddle thrombus of abdominal aorta History of prostate cancer Coronary artery disease Surgical History Stented coronary artery History of lumbar surgery History of cervical spinal surgery History of inguinal hernia repair History of tonsillectomy Family History Father No problems noted. Mother Hypertension Lung cancer Brother No problems noted. Sister No problems noted. Son No problems noted. Daughter No problems noted. Social History Housing: House Alcohol intake: current Alcohol intake frequency: 0-2 drinks per day Alcohol type: beer Patient Tobacco Use Status: Never used Tobacco e-Cigarette/Vaping Use: Never Used Second Hand Smoke Exposure: Yes service: Yes Current occupational status: retired Cognitive needs: Yes (Cane) Hearing needs: No Vision needs: Yes Questionnaire PHQ-9 Over the last 2 weeks, how often have you been bothered by any of the following problems? 1. Little interest or pleasure in doing things: not at all 2. Feeling down, depressed, or hopeless: not at all 3. Trouble falling or staying asleep, or sleeping too much: not at all 4. Feeling tired or having little energy: not at all 5. Poor appetite or overeating: not at all 6. Feeling bad about yourself - or that you are a failure or have let yourself or your family down: not at all 7. Trouble concentrating on things, such as reading the newspaper or watching television: not at all 8. Moving or speaking so slowly that other people could have noticed. Or the opposite - being so fidgety or restless that you have been moving around a lot more than usual: not at all 9. Thoughts that you would be better off or of hurting yourself in some way: not at all Total score: 0 Depression Screening Interpretation: Negative Depression Screening Done: Yes Source: Developed by Drs. Michael Boothe, Cindi Montenegro, Michele Dukes and colleagues, with an educational elliott from [employer]. Thrive Questionnaire Date Thrive assessed: 08/29/24 I am a: Patient What is your living situation today?: I have a steady place to live Within the past 12 months, did the food you bought not last and you didn't have the money to get more?: Never true Within the past 12 months, did you worry whether your food would run out before you got money to buy more?: Never true Do you have trouble paying for medicines?: No Do you have trouble getting transportation to medical appointments?: No Do you have trouble paying your heating and electricity bill?: No Do you have trouble taking care of your child, family member or friend?: No Do you have trouble with day-to-day activities such as bathing, preparing meals, shopping, managing finances, etc.?: No Are you currently unemployed and looking for a job?: No Are you interested in more education?: No Please select the resources that you would like help with: None Currently or been in a relationship where the following occur: No concerns reported THRIVE Score: 0 AUDIT C Alcohol Use Questionnaire (AUDIT-C) 1. How often do you have a drink containing alcohol?: Monthly or less 2. How many drinks containing alcohol do you have on a typical day when you are drinking?: 1 or 2 3. How often do you have six or more drinks on one occasion?: Never Total Score: 1 SEAJL-7 AMB Questionnaire SEJAL-7 Date SEJAL - 7 assessed: 08/29/24 Feeling nervous, anxious, or on edge: 0 = Not at all Not being able to stop or control worryin = Not at all Worrying too much about different things: 0 = Not at all Trouble relaxin = Not at all Being so restless that it is hard to sit still: 0 = Not at all Becoming easily annoyed or irritable: 0 = Not at all Feeling afraid as if something awful might happen: 0 = Not at all Total SEJAL-7 score (0-4 normal; 5-9 mild; 10-14 moderate; 15-21 severe): 0 Source: Developed by Drs. Michael Boothe, Cindi Montenegro, Michele Dukes and colleagues, with an educational elliott from [employer]. Review of Systems Const Reports frequent falls and Denies headache(s) Eyes Denies loss of vision ENT Denies vertigo, Denies dizziness, Denies headache(s) and Denies sore throat Card Denies chest pain, Reports syncope, Denies leg edema and Reports lightheadedness (When standing up quickly) Resp Denies cough, Denies hemoptysis and Denies wheezing GI Denies abdominal pain, Denies melena, Denies constipation, Denies diarrhea and Denies vomiting Denies dysuria, Denies urinary frequency and Denies urinary urgency Musc Denies arthralgias, Denies joint swelling, Denies numbness, Denies tingling and Reports other (legs become hot at night when laying down) Neuro Denies Abnormal speech present, Denies behavioral changes, Denies vertigo, Denies dizziness, Reports syncope, Reports frequent falls, Denies headache(s), Denies loss of vision, Denies memory loss, Denies numbness, Denies seizure-like activity and Denies tingling Psych Denies anxiety, Denies behavioral changes, Denies depression, Denies memory loss and Denies panic attacks Morales/Lymph Denies easy bleeding and Denies easy bruising Aller/Immun Denies wheezing Physical exam (Primary Care) Vital Signs: Last Vital Signs Pulse 56 08/29/24 15:28 BP 118/72 08/29/24 15:28 Pulse Ox 95 08/29/24 15:28 Oxygen Delivery Method Room Air 08/29/24 15:28 BMI result Body Mass Index 26.8 Tobacco/Smoking Status: Tobacco use Status Tobacco use date assessed 08/29/24 08/29/24 15:42 Patient Tobacco Use Status Never used Tobacco 08/29/24 15:42 e-Cigarette/Vaping Use Never Used 08/29/24 15:42 PHQ-9: PHQ-9 Score PHQ-9: Total score 0 08/30/24 08:20 Depression Screening Interpretation: Negative Thrive Assessment: Date of Thrive Assessment Date Thrive assessed 08/29/24 08/29/24 15:42 Currently or been in a relationship where the following occur: No concerns reported Const General: healthy appearing, no acute distress, alert and awake Nutritional Appearance: well nourished Orientation/consciousness: oriented to person, oriented to place and oriented to time HENMT Ears: TM's normal bilaterally General nose exam: Normal nasal mucous membranes and turbinates present Eyes Conjunctivae: conjunctivae normal Sclerae: sclerae normal Pupils: Equal, round and reactive pupils present Neck Neck: Yes no lymphadenopathy and Yes no JVD Thyroid: Thyroid normal Carotids: no bruits Resp Effort & Inspection: normal respiratory effort and not tachypneic Auscultation: no crackles, no rales, no rhonchi and no wheezes Cardio Rate: bradycardic Rhythm: regular rhythm Heart sounds: no murmurs and normal S1 and S2 GI Palpation (GI): Soft to palpation, nontender, no hepatomegaly and no splenomegaly Auscultation: normal bowel sounds Skin General skin exam: no rashes or lesions noted and dry skin Neuro General: oriented to person, oriented to place and oriented to time Cranial nerves: Yes Equal, round and reactive pupils present Speech: No Abnormal speech present Gait exam (Neuro): Normal gait present Motor exam (neuro): no tremor noted Extrem Right upper extremity: full ROM Left upper extremity: full ROM Right lower extremity: full ROM and lower leg Details: pitting edema Details: 1+; no edema Left lower extremity: full ROM and lower leg Details: pitting edema Details: 1+; no edema Psych Mental Status: mental status grossly normal Speech and movement: Normal speech and movement present Affect: normal affect Attitude: cooperative Thought process: Normal thought process present Coding Level of Care Code Tele Est Pt Level 4 (57214) Diagnoses Syncope, unspecified syncope type R55 Syncope type: unspecified Time Spent (min) 43 Assessment & Plan Assessment & Plan (1) Syncopal episodes: Code(s): R55 - Syncope and collapse Category: Medical Qualifiers: Syncope type: unspecified Qualified Code(s): R55 - Syncope and collapse Plan: The patient went to the ER for syncopal episode after watching his getting her teeth cleaned. This was a witnessed fall in the patient did not hit his head. All testings were nonacute in the emergency room. Patient has a pacemaker it has a appointment on 09/06/2024. Encouraged the patient to reach out to manager business operations before this appointment and informed them of the syncopal episode. Patient reports that this has been going on for a long time and no one has been able the pinpoint the cause. The patient reports that he has been seen by neurology in the hospital and when he had a syncopal episode in the past as well. Consider referring the patient to neurology outpatient as well. Orders: Referrals Neurology Referral R55 - Syncope and collapse
--- OUTSIDE RECORDS SUMMARY | 2024-08-29 17:44 | XMS_ITS | Clinical Summary ---
Author Organization [facility] Address [address] [place] [address] Phone Care Team Providers Care Food Handler Name Role Phone Edmond Cevallos MD Primary Care Provider [phone] Allergies Active Allergy Reactions Criticality Noted Date [...] by mouth 1 (one) time each day 1 Active Eliquis 5 MG tablet Take 1 tablet by mouth 2 (two) times a day 1 Active ASPIRIN 81 PO Take 1 tablet [...] to complete this topic Insurance UNICARE MEDICARE [facility] MEDICARE Care Teams Food Handler Relationship Specialty Start Date End Date Edmond Cevallos MD [address] [place] PCP - General 06/09/20
--- OUTSIDE RECORDS SUMMARY | 2024-08-29 17:44 | XMS_ITS | Patient Health Record ---
Author Organization [facility] Address [address] [place] [id number] Care Team Providers Care Television Writer Name Role Phone Po Edmond RAMOS Primary Care Provider Albert Lord Jr Unavailable [phone] Reason For Referral No Information Medications Medication SIG (Take, Route, Frequency, Duration) Notes [...] HCl 2 MG Oral for 90 Active Immunizations Vaccine Route Administration Date Status Comme nts Influenza Unknown 03/16/2022 Administered Problems Problem Type SNOMED Code ICD Code Onset Dates Problem Status W/U Status Risk Notes Problem [id number] Incontinence of feces, unspecified fecal incontinence type (R15.9) Active confirmed Plan Of Treatment No Information Insurance Providers Payer Name Payer Address Payer Phone Subscriber Number Group Number Insured Name Patient Relationship to Insured Coverage Start Date Coverage End Date MEDICARE OF [place] [address] [place] [place] [address] [id number] CAT AHUMAAD Self - patient is the insured FORMERLY [facility] INDEMNITY [address] [place] [address] [id number] CAT AHUMADA Self - patient is the insured Medical (General) History Medical History History ICD Code Hypertension Hyperlipidemia [...]
== END 2024-08-29 16:26 | disposition home or self-care (01) ==
LOC: HO.HMCH 15:27
PROVIDERS: PCP Internal Medicine
DX: R55 Syncope and collapse (principal)

== ENCOUNTER → 2024-08-29 15:26 | Outpatient (BNVA) | payer MEDICARE, OTHER, SELFPAY | PROVIDERS: PCP Internal Medicine | DX: R55 Syncope and collapse (principal) | CPT/HCPCS: 99212 ==

== ENCOUNTER 2024-09-01 09:31 | Outpatient (REF) | payer MEDICARE, OTHER, SELFPAY ==
--- OUTSIDE RECORDS SUMMARY | 2024-09-01 09:34 | XMS_ITS | Clinical Summary ---
Author Organization [facility] Address [address] [place] [address] Phone Care Team Providers Care Sheet Metal Operator Name Role Phone Edmond Cevallos MD Primary Care Provider [phone] Allergies Active Allergy Reactions Criticality Noted Date [...] to complete this topic Insurance UNICARE MEDICARE [facility] MEDICARE Care Teams Sheet Metal Operator Relationship Specialty Start Date End Date Edmond Cevallos MD [address] [place] PCP - General 06/09/20
--- OUTSIDE RECORDS SUMMARY | 2024-09-01 09:34 | XMS_ITS | Patient Health Record ---
Author Organization [facility] Address [address] [place] [id number] Care Team Providers Care Retirement Sales Consultant Name Role Phone Po Edmond RAMOS Primary Care Provider Albert Lord Jr Unavailable Reason For Referral No Information Medications Medication [...] Problem Status W/U Status Risk Notes Problem [id number] Incontinence of feces, unspecified fecal incontinence type (R15.9) Active confirmed Plan Of Treatment No Information Insurance Providers Payer Name Payer Address Payer Phone Subscriber Number Group Number Insured Name Patient Relationship to Insured Coverage Start Date Coverage End Date MEDICARE OF [place] [address] [facility] [place] [address] [id number] CAT AHUMADA Self - patient is the insured [facility] INDEMNITY [address] [place] [address] [id number] CAT AHUMADA Self - patient is the [...]
[2024-09-01 09:53] LABS: MANUAL DIFF FLAG NO
[2024-09-01 10:23] LABS: Basophils Percent Auto 0.3 % (0-2); Eosinophils Absolute Auto 0.2 X10*3/uL (0.0-0.4); Eosinophils Percent Auto 2.8 % (0-4); Hemoglobin 14.7 g/dl (14.0-18.0); Imm Gran Abs Auto 0.03 X10*3/uL (0.00-0.03); Imm Gran Pct Auto 0.4 % (0.0-0.4); Lymphocytes Absolute Auto 2.4 X10*3/uL (1.2-4.9); Lymphocytes Percent Auto 34.1 % (20-40); Mean Corpuscular HGB Conc 33.4 g/dl (31.0-36.0); Mean Corpuscular Hemoglobin 30.9 pg (27.0-33.0); Mean Corpuscular Volume 92.6 fL (80.0-98.0); Monocytes Absolute Auto 0.5 X10*3/uL (0.1-1.2); Monocytes Percent Auto 6.9 % (2-11); Neutrophils Absolute Auto 3.9 x10*3/uL (2.0-8.3); Neutrophils Percent Auto 55.5 % (45-73); Platelet Count 168 X10*3/uL (160-400); Red Blood Count 4.75 X10*6/uL (4.60-5.80); Red Cell Distribution Width 12.6 % (11.0-16.0); White Blood Count 7.1 X10*3/uL (4.8-10.8)
[2024-09-01 10:28] LABS: INTERNATIONAL NORM RATIO 1.1 (0.9-1.1); Prothrombin Time 13.2 SEC (10.9-12.4)
[2024-09-01 11:00] LABS: Anion Gap 8 (12-20); Blood Urea Nitrogen 20 mg/dL (9-16); Calcium 9.1 mg/dL (8.4-10.2); Carbon Dioxide 27 mmol/L (22-29); Chloride 112 mmol/L (96-108); Estimated Glomerular Filt Rate > 60; Glucose Random 115 mg/dL (60-115); Potassium 4.1 mmol/L (3.3-5.1); Sodium 143 mmol/L (135-145)
== END 2024-09-01 09:32 | disposition home or self-care (01) ==
LOC: HO.LAB 09:31
PROVIDERS: PCP Internal Medicine; Visit Provider Student in an Organized Health Care Education/Training Program
DX: Z01.818 Encounter for other preprocedural examination (principal); Z45.018 Encounter for adjustment and management of other part of cardiac pacemaker; Z79.01 Long term (current) use of anticoagulants
CPT/HCPCS: 36415; 80048; 85025; 85610

== ENCOUNTER 2024-09-06 11:55 | Day surgery (SDC) | payer MEDICARE, OTHER, SELFPAY ==
--- OUTSIDE RECORDS SUMMARY | 2024-08-31 13:05 | XMS_ITS | Clinical Summary ---
Author Organization [facility] Address [address] [place] [address] Phone Care Team Providers Care Senior Information Developer Name Role Phone Edmond Cevallos MD Primary Care Provider [phone] Allergies Active Allergy Reactions Criticality Noted Date [...] to complete this topic Insurance UNICARE MEDICARE [facility] MEDICARE Care Teams Senior Information Developer Relationship Specialty Start Date End Date Edmond Cevallos MD [address] [place] PCP - General 06/09/20
[2024-09-04 07:56] VITALS: BMI 27.3
[2024-09-06 12:41] VITALS: BMI 26.9
[2024-09-06 12:57] VITALS: BP 143/91; PULSE 51; RESP 16; TEMP 36.3; O2SAT 95
[2024-09-06] MEDS: Lactated Ringers 1,000 ML 50 ML IVCONT (13:00)
--- NOTE | 2024-09-06 13:03 | P.CONAN_ITS ---
[facility] Active Problems Active Problems: All Active Problems Syncopal episodes (Acute) Onychomycosis (Acute) Leg cramps (Acute) Pancreatic duct dilated (Acute) Pre-op evaluation (Acute) Urinary incontinence (Acute) Hip pain, right (Acute) Hospital discharge follow-up (Acute) Impaired fasting glucose (Acute) Subdural hematoma (Acute) Benign prostatic hyperplasia (Acute) Pure hypercholesterolemia (Acute) Benign essential hypertension (Acute) Gait instability (Acute) Peripheral neuropathy (Acute) Cataract (Acute) Tinnitus of left ear (Acute) RUQ abdominal pain (Acute) Impaired glucose tolerance (Acute) Hip pain, right (Acute) Foot pain, right (Acute) Stool incontinence (Acute) Annual physical exam (Acute) COVID-19 virus infection (Acute) Aortic stenosis (Acute) Cardiac pacemaker in situ (Acute) Paroxysmal atrial fibrillation (Acute) Anemia (Acute) Left lumbar radiculopathy (Acute) Opioid contract exists (Acute) Earlobe lesion (Acute) Impacted cerumen of right ear (Acute) Annual physical exam (Acute) Foot pain, left (Acute) Leg pain, left (Acute) Spinal stenosis of lumbar region (Acute) Lumbar radiculopathy, acute (Acute) Fracture of proximal end of left fibula (Acute) History of burning pain in lower extremity (Acute) Left leg pain (Acute) Right leg pain (Acute) Vertigo (Acute) History of prostate cancer (Acute) GERD (gastroesophageal reflux disease) (Acute) Hypertension (Acute) Obstructive sleep apnea (Acute) Hypercholesterolemia (Acute) Coronary artery disease (Acute) Past Medical History Medical History Subdural hematoma Benign prostatic hyperplasia Pure hypercholesterolemia Benign essential hypertension Gait instability Aortic stenosis Cardiac pacemaker in situ Paroxysmal atrial fibrillation Spinal stenosis of lumbar region Right foot drop Erectile dysfunction GERD (gastroesophageal reflux disease) Obstructive sleep apnea Saddle thrombus of abdominal aorta History of prostate cancer Coronary artery disease Functional capacity: independent ambulation Family History Family History Father No problems noted. Mother Hypertension Lung cancer Brother No problems noted. Sister No problems noted. Son No problems noted. Daughter No problems noted. Family history of problems with anesthesia: No Surgical History Surgical History Stented coronary artery History of lumbar surgery History of cervical spinal surgery History of inguinal hernia repair History of tonsillectomy History of Problems with Anesthesia: No Social History Social History Housing: House Alcohol intake: current Alcohol intake frequency: 0-2 drinks per day Alcohol type: beer Patient Tobacco Use Status: Never used Tobacco e-Cigarette/Vaping Use: Never Used Second Hand Smoke Exposure: Yes Use of substances other than those prescribed or required for medical reasons: No Are you DNR?: No Advance Directives: No Advance Directives Information Provided: Yes service: Yes Current occupational status: retired Cognitive needs: Yes (Cane) Hearing needs: No Vision needs: Yes Meds Allergies Allergy/AdvReac Type Severity Reaction Status Date / Time No Known Allergies Allergy Verified 09/06/24 12:40 Active Medications: Current Medications Lactated Ringer's (Lr) 1,000 mls @ 50 mls/hr IVCONT .Q20H DANYELL Last Admin: 09/06/24 13:00 Dose: 50 mls/hr Home Medications ?Medication ?Instructions ?Recorded ?Confirmed ?Last Taken ?Type cholecalciferol (vitamin D3) 25 25 mcg PO DAILY 05/22/20 09/06/24 Unknown History mcg (1,000 unit) capsule fluticasone propionate 50 2 spray intranasal DAILY PRN 09/23/21 09/06/24 Unknown History mcg/actuation nasal Allergy Symptoms spray,suspension terazosin 2 mg capsule 4 mg PO BEDTIME 09/23/21 09/06/24 Unknown History nitroglycerin 0.4 mg sublingual 0.4 mg sublingual Q5M PRN Chest 09/30/21 09/06/24 Unknown History tablet (Nitrostat) Pain tadalafil 20 mg tablet (Cialis) 20 mg PO DAILY PRN unknwon 09/30/21 09/06/24 Unknown History fexofenadine 180 mg tablet 180 mg PO DAILY PRN Allergy 09/22/22 09/06/24 Unknown History Symptoms acetaminophen 500 mg tablet 500 mg PO Q6H PRN pain 03/25/23 09/06/24 Unknown History Exam Height,Weight and Vital Signs: Height 5 ft 11 in Weight 87.5 kg Last Vital Signs Temp 97.4 F 09/06/24 12:57 Pulse 51 09/06/24 12:57 Resp 16 09/06/24 12:57 BP 143/91 H 09/06/24 12:57 Pulse Ox 95 09/06/24 12:57 O2 Del Method Room Air 09/06/24 12:57 Airway Mallampati Class: III TM Dist: >3cm Neck ROM: Full Heart: RRR Lungs: CTA Assessment and Plan Assessment Anesthesia Assessment: Anesthesia Plan Discussed and Chart Reviewed Final Anesthetic Review Family History of Problems with Anesthesia: No History of Problems with Anesthesia: No NPO: Yes ASA Class: III Final Preanesthetic Review: Meds/Allgs Chart Reviewed, Consent Obtained/Reviewed and Anes Risks/Benef Reviewed Patient Risk: Intermediate Procedure Risk: Low Anesthetic Plan Anesthetic Plan: MAC: Disposition: Standard PACU
--- NOTE | 2024-09-06 14:49 | HO.ANESPROP2 ---
[facility] Active Problems Active Problems: All Active Problems Syncopal episodes (Acute) Onychomycosis (Acute) Leg cramps (Acute) Pancreatic duct dilated (Acute) Pre-op evaluation (Acute) Urinary incontinence (Acute) Hip pain, right (Acute) Hospital discharge follow-up (Acute) Impaired fasting glucose (Acute) Subdural hematoma (Acute) Benign prostatic hyperplasia (Acute) Pure hypercholesterolemia (Acute) Benign essential hypertension (Acute) Gait instability (Acute) Peripheral neuropathy (Acute) Cataract (Acute) Tinnitus of left ear (Acute) RUQ abdominal pain (Acute) Impaired glucose tolerance (Acute) Hip pain, right (Acute) Foot pain, right (Acute) Stool incontinence (Acute) Annual physical exam (Acute) COVID-19 virus infection (Acute) Aortic stenosis (Acute) Cardiac pacemaker in situ (Acute) Paroxysmal atrial fibrillation (Acute) Anemia (Acute) Left lumbar radiculopathy (Acute) Opioid contract exists (Acute) Earlobe lesion (Acute) Impacted cerumen of right ear (Acute) Annual physical exam (Acute) Foot pain, left (Acute) Leg pain, left (Acute) Spinal stenosis of lumbar region (Acute) Lumbar radiculopathy, acute (Acute) Fracture of proximal end of left fibula (Acute) History of burning pain in lower extremity (Acute) Left leg pain (Acute) Right leg pain (Acute) Vertigo (Acute) History of prostate cancer (Acute) GERD (gastroesophageal reflux disease) (Acute) Hypertension (Acute) Obstructive sleep apnea (Acute) Hypercholesterolemia (Acute) Coronary artery disease (Acute) Past Medical History Medical History Subdural hematoma Benign prostatic hyperplasia Pure hypercholesterolemia Benign essential hypertension Gait instability Aortic stenosis Cardiac pacemaker in situ Paroxysmal atrial fibrillation Spinal stenosis of lumbar region Right foot drop Erectile dysfunction GERD (gastroesophageal reflux disease) Obstructive sleep apnea Saddle thrombus of abdominal aorta History of prostate cancer Coronary artery disease Functional capacity: independent ambulation Family History Family History Father No problems noted. Mother Hypertension Lung cancer Brother No problems noted. Sister No problems noted. Son No problems noted. Daughter No problems noted. Family history of problems with anesthesia: No Surgical History Surgical History Stented coronary artery History of lumbar surgery History of cervical spinal surgery History of inguinal hernia repair History of tonsillectomy History of Problems with Anesthesia: No Social History Social History Housing: House Alcohol intake: current Alcohol intake frequency: 0-2 drinks per day Alcohol type: beer Comment: COUNTS CORRECT Patient Tobacco Use Status: Never used Tobacco e-Cigarette/Vaping Use: Never Used Second Hand Smoke Exposure: Yes service: Yes Current occupational status: retired Cognitive needs: Yes (Cane) Hearing needs: No Vision needs: Yes Meds Allergies Allergy/AdvReac Type Severity Reaction Status Date / Time No Known Allergies Allergy Verified 09/06/24 12:40 Active Medications: Current Medications Lactated Ringer's (Lr) 1,000 mls @ 50 mls/hr IVCONT .Q20H DANYELL Last Admin: 09/06/24 13:00 Dose: 50 mls/hr Naloxone HCl (Naloxone Hcl 0.4 Mg/Ml Vial) 0.04 mg IVPUSH Q5M PRN PRN Reason: Excessive sedation or RR < 8 Home Medications ?Medication ?Instructions ?Recorded ?Confirmed ?Last Taken ?Type cholecalciferol (vitamin D3) 25 25 mcg PO DAILY 05/22/20 09/06/24 Unknown History mcg (1,000 unit) capsule fluticasone propionate 50 2 spray intranasal DAILY PRN 09/23/21 09/06/24 Unknown History mcg/actuation nasal Allergy Symptoms spray,suspension terazosin 2 mg capsule 4 mg PO BEDTIME 09/23/21 09/06/24 Unknown History nitroglycerin 0.4 mg sublingual 0.4 mg sublingual Q5M PRN Chest 09/30/21 09/06/24 Unknown History tablet (Nitrostat) Pain tadalafil 20 mg tablet (Cialis) 20 mg PO DAILY PRN unknwon 09/30/21 09/06/24 Unknown History fexofenadine 180 mg tablet 180 mg PO DAILY PRN Allergy 09/22/22 09/06/24 Unknown History Symptoms acetaminophen 500 mg tablet 500 mg PO Q6H PRN pain 03/25/23 09/06/24 Unknown History Exam Height,Weight and Vital Signs: Height 5 ft 11 in Weight 87.5 kg Last Vital Signs Temp 97.4 F 09/06/24 12:57 Pulse 51 09/06/24 12:57 Resp 16 09/06/24 12:57 BP 143/91 H 09/06/24 12:57 Pulse Ox 95 09/06/24 12:57 O2 Del Method Room Air 09/06/24 12:57 Airway Mallampati Class: III TM Dist: >3cm Neck ROM: Full Heart: regular Lungs: CTA Assessment and Plan Assessment Anesthesia Assessment: Anesthesia Plan Discussed Final Anesthetic Review Family History of Problems with Anesthesia: No History of Problems with Anesthesia: No NPO: Yes ASA Class: III Final Preanesthetic Review: Meds/Allgs Chart Reviewed, Consent Obtained/Reviewed and Anes Risks/Benef Reviewed Patient Risk: Intermediate Procedure Risk: Intermediate Anesthetic Plan Anesthetic Plan: MAC: Disposition: Standard PACU
--- NOTE | 2024-09-06 15:43 | W.PM.OPN ---
Operative Note Operative Note Date of Service: 09/06/24 Narrative: Procedure Indication: 1. Dual chamber [employer] pacemaker generator CATHERINE 2. Complete heart block Procedure Performed: 1. Generator replacement of dual chamber [employer] pacemaker (CPT 82934) Procedure Narrative: The patient presented to the EP lab in a fasting, nonsedated state after written informed consent was verified. A timeout was called at the beginning of the procedure. 2g of IV Ancef was initiated. The left chest region was prepped and draped in the usual sterile manner. A 1-inch incision was made medial to the left deltopectoral groove. The existing pacemaker generator was exposed with a combination of electrocautery and blunt dissection. The leads were detached from the existing generator. The leads were inserted into the new pacemaker generator and secured into the header via the provided screw tool. A gentle tug test was applied on the leads to ensure optimal insertion of the leads into the generator. Pacemaker parameters were checked to be within the desirable range. The pocket was flushed with an antibiotic irrigant. The pacemaker generator system was placed inside the pocket. A TYRX antibiotic envelope was placed within the pocket. The pocket was closed in 3 layers: 2-0 Vicyl running followed by 4-0 V-Loc. Exofin was applied over the incision site. A gauze and Tegaderm dressing were applied over the incision site. The patient was then transported back to recovery in a stable condition. Recommendations: 1. Keep incision site dry for 7 days. 2. Resume Eliquis after 3 days. 3. Follow up in the EP clinic in 7-10 days for incision site check. 4. Follow up with Dr. Barbosa as scheduled.
[2024-09-06 15:49] VITALS: BP 139/78; PULSE 60; RESP 16; TEMP 36.6; O2SAT 95
[2024-09-06 16:04] VITALS: BP 146/82; PULSE 60; RESP 16; O2SAT 95
--- NOTE | 2024-09-06 16:08 | HO.POSTANES ---
Post Anesthesia Evaluation Post Anesthesia Evaluation Date of Service: 09/06/24 Vital Signs: Vital Signs Temp Pulse Resp BP Pulse Ox O2 Del Method 09/06/24 16:04 60 16 146/82 H 95 Room Air 09/06/24 15:49 97.9 F 60 16 139/78 95 Room Air 09/06/24 12:57 97.4 F 51 16 143/91 H 95 Room Air Anesthesia: Monitored Mental Status: Awake Pain Control: Satisfactory Nausea/Vomiting: None Hydration: Adequate Anesthesia-Related Issues: No Anes. Related Issues
[2024-09-06 16:19] VITALS: BP 150/84; PULSE 60; RESP 16; O2SAT 94
[2024-09-06 16:34] VITALS: BP 160/83; PULSE 60; RESP 16; O2SAT 95
[2024-09-06 16:49] VITALS: BP 160/84; PULSE 60; RESP 16; TEMP 36.7; O2SAT 96
== END 2024-09-06 17:10 | disposition home or self-care (01) ==
PROVIDERS: PCP Internal Medicine; Visit Provider Student in an Organized Health Care Education/Training Program
PROC: (CPT 33228; principal; 2024-09-06 13:30)
DX: Z45.018 Encounter for adjustment and management of other part of cardiac pacemaker (principal); I44.2 Atrioventricular block, complete; I35.0 Nonrheumatic aortic (valve) stenosis; I25.10 Atherosclerotic heart disease of native coronary artery without angina pectoris; Z95.5 Presence of coronary angioplasty implant and graft; I48.0 Paroxysmal atrial fibrillation; I10 Essential (primary) hypertension; E78.00 Pure hypercholesterolemia, unspecified; G47.33 Obstructive sleep apnea (adult) (pediatric); R26.89 Other abnormalities of gait and mobility; R42 Dizziness and giddiness; Z79.01 Long term (current) use of anticoagulants; Z79.899 Other long term (current) drug therapy; Z88.8 Allergy status to other drugs, medicaments and biological substances; Z98.890 Other specified postprocedural states
CPT/HCPCS: 33228; C1785; C1889; J0690; J2003; J3370

== ENCOUNTER 2024-10-09 11:24 | Outpatient (AMB) | payer MEDICARE, OTHER, SELFPAY ==
[2024-10-09 11:32] VITALS: BP 130/68; PULSE 61; O2SAT 96; BMI 27.2
--- NOTE | 2024-10-09 11:32 | MHC.OFFVIS ---
Vital Signs 10/09/24 11:32 Height 5 ft 11 in Weight 195 lb 1.745 oz BMI 27.2 BP 130/68 Blood Pressure Location Lt brachial Position Sitting Pulse 61 Pulse Source Pulse Oximeter Pulse Oximetry (%) 96 Oxygen Delivery Method Room Air Intake Visit Reasons: Obstructive sleep apnea Intake Note: pt is here for follow up and cpap is going well, needs a new chin strap. [place] Machine Operator Required: No Allergies No Known Allergies Allergy (Verified 10/09/24 11:46) Medication List - Last Reconciled 10/09/24 by Satinder Fajardo MD acetaminophen 500 mg PO Q6H PRN apixaban (Eliquis) 5 mg PO BID 90 days atorvastatin 80 mg PO DAILY 90 days [AUTO PAP 6-16 cm humidified AIR full face nasal mask As directed] cane As directed cholecalciferol (vitamin D3) 25 mcg PO DAILY fexofenadine 180 mg PO DAILY PRN fluticasone propionate 50 mcg/actuation 2 sprays intranasal DAILY PRN lisinopril 10 mg PO DAILY metoprolol succinate ER 75 mg (1.5 x 50 mg) PO DAILY nitroglycerin (Nitrostat) 0.4 mg sublingual Q5M PRN tadalafil (Cialis) 20 mg PO DAILY PRN terazosin 4 mg PO BEDTIME Do you need a note to return to daycare/school/sports/work: No HPI HPI Obstructive sleep apnea: Details: 89 YEARS OLD VERY PLEASANT GENTLEMAN, A CASE OF OBSTRUCTIVE SLEEP 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 HE USES HIS CPAP VERY REGULARLY, ABOUT 6 HOURS AT NIGHT AND 1-2 HOURS IN THE AFTERNOON. HIS ALSO USES CPAP EVERY NIGHT, PHYSICALLY REMAINS VERY ACTIVE. BREATHING MAZARIEGOS NO PROBLEM. EVEN AT 89 YEARS AGE , HE IS DOING WELL AND WALKS WITH A CANE. RECENTLY HAD PACEMAKER BATTERY CHANGED. [facility] Medical History Subdural hematoma Benign prostatic hyperplasia Pure hypercholesterolemia Benign essential hypertension Gait instability Aortic stenosis Cardiac pacemaker in situ Paroxysmal atrial fibrillation Spinal stenosis of lumbar region Right foot drop Erectile dysfunction GERD (gastroesophageal reflux disease) Obstructive sleep apnea Saddle thrombus of abdominal aorta History of prostate cancer Coronary artery disease Surgical History Stented coronary artery History of lumbar surgery History of cervical spinal surgery History of inguinal hernia repair History of tonsillectomy Family History Father No problems noted. Mother Hypertension Lung cancer Brother No problems noted. Sister No problems noted. Son No problems noted. Daughter No problems noted. Social History Housing: House Alcohol intake: current Alcohol intake frequency: 0-2 drinks per day Alcohol type: beer Comment: COUNTS CORRECT Patient Tobacco Use Status: Never used Tobacco e-Cigarette/Vaping Use: Never Used Second Hand Smoke Exposure: Yes service: Yes Current occupational status: retired Cognitive needs: Yes (Cane) Hearing needs: No Vision needs: Yes Review of Systems Const All systems reviewed & are unremarkable except as noted in HPI and below Eyes Reports no additional complaints ENT Denies nasal congestion, Denies nasal discharge and Reports other (Dry mouth in the morning) Card Reports irregular heart rhythm and Denies leg edema Resp Reports no additional complaints, Denies cough and Denies wheezing GI Reports no additional complaints Reports erectile dysfunction Musc Reports back pain and Reports arthralgias (Left lower extremity) Skin/Breast Reports system reviewed and no additional complaints, except as documented Neuro Reports no additional complaints Psych Reports no additional complaints Endo Reports no additional complaints Aller/Immun Denies wheezing Physical Exam Vital Signs: Last Vital Signs Pulse 61 10/09/24 11:32 BP 130/68 10/09/24 11:32 Pulse Ox 96 10/09/24 11:32 Oxygen Delivery Method Room Air 10/09/24 11:32 BMI result Body Mass Index 27.2 He is only slightly overweight, Const General: healthy appearing, comfortable, no acute distress, alert and awake Orientation/consciousness: patient oriented x3 HEENT Head: Yes normal to inspection General nose exam: No nasal polyps present and No nasal discharge present Face and sinus: Yes sinuses nontender Mouth: oropharynx normal Teeth and gingiva: other (Has moderate retroganthia of the lower jaw.) Throat: Yes posterior oropharynx normal Eyes General: appearance normal, both eyes and all related structures Neck Neck: Yes normal visual inspection, Yes no lymphadenopathy, Yes trachea midline and Yes no JVD Thyroid: Thyroid normal Chest Chest palpation & inspection: normal inspection of the chest, normal palpation of entire chest wall and no tenderness Resp Effort & Inspection: normal respiratory effort Auscultation: clear to auscultation bilaterally, no crackles and no wheezes Percussion: percussion normal Cardio Palpation: normal PMI Rate: regular rate Rhythm: regular rhythm and abnormal rhythm (Atrial fib) Heart sounds: Gallop heart sound present and Murmur heart sound present GI Palpation (GI): Soft to palpation, nontender, No hepatosplenomegaly present and no masses Auscultation: normal bowel sounds Back/Spine/Pelvis Thoracic/Lumbar Spine: thoracic and lumbar spine normal to inspection, thoraco-lumbar ROM limited and thoraco-lumbar spasm Skin General skin exam: no rashes or lesions noted Neuro General: patient oriented x3 and no focal motor deficits Cranial nerves: Yes CN's II-XII intact bilaterally Extrem General: Yes normal to inspection, Yes no clubbing, cyanosis or edema and Yes no calf tenderness Psych Appearance: grossly normal and well kempt Speech and movement: Normal speech and movement present Assessment & Plan Assessment & Plan (1) Obstructive sleep apnea: Comment: CAT IS KNOWN TO HAVE MODERATELY SEVERE OBSTRUCTIVE SLEEP APNEA WITH TOTAL SLEEP TIME AHI 20.3. * THE MAIN ETIOLOGIC FACTOR FOR HIS SLEEP APNEA IS, RETROGNATHIA OF THE LOWER JAW., WHICH WILL BE A PERMANENT CAUSE OF THIS DISORDER. HE IS USING CPAP REGULARLY AND IS VERY COMPLIANT AND BENEFITING. ( NASAL PILLOWS WITH CHINSTRAP, AP 6-16 CM ) HE NEEDS TO HAVE A NEW CHINSTRAP. Code(s): G47.33 - Obstructive sleep apnea (adult) (pediatric) Category: Medical Plan: COMMENDED FOR GOOD COMPLIANCE. ORDER FOR A NEW CHINSTRAP SENT. WILL RECHECK HIM IN 6 MONTHS Coding Level of Care Code Est Pt Level 3 (15438) Diagnoses Obstructive sleep apnea G47.33
--- OUTSIDE RECORDS SUMMARY | 2024-10-09 12:54 | XMS_ITS | Patient Health Record ---
Author Organization [facility] Address [address] [place] [id number] Care Team Providers Care Special Client Bus Driver Name Role Phone Po Edmond RAMOS Primary Care Provider Albert Lord Jr Unavailable [phone] Reason For Referral No Information Medications Medication [...] Problem Status W/U Status Risk Notes Problem [id number] Incontinence of feces, unspecified fecal incontinence type (R15.9) Active confirmed Plan Of Treatment No Information Insurance Providers Payer Name Payer Address Payer Phone Subscriber Number Group Number Insured Name Patient Relationship to Insured Coverage Start Date Coverage End Date MEDICARE OF [place] [address] [place] [address] [id number] CAT AHUMADA Self - patient is the insured [facility] INDEMNITY [address] [place] [address] [id number] CAT AHUMADA Self - patient is the [...]
--- OUTSIDE RECORDS SUMMARY | 2024-10-09 12:54 | XMS_ITS | Clinical Summary ---
Author Organization [facility] Address [address] [place] [address] Phone Care Team Providers Care Senior Telecommunications Specialist Name Role Phone Edmond Cevallos MD Primary Care Provider [phone] Allergies Active Allergy Reactions Criticality Noted Date [...] Due Date Last Done Comments Pneumococcal Vaccine: 50+ Ye ars (1 of 2 - PCV) 08/04/1954 Influenza Vaccine (Season Ended) 2025 Hepatitis B Vaccine Aged Out No longe r eligible based on patient's age to complete this topic Insurance Unicare Medicare [facility] Medicare Care Teams Senior Telecommunications Specialist Relationship Specialty Start Date End Date Edmond Cevallos MD [address] [place] PCP - General 06/09/20
== END 2024-10-09 11:47 | disposition home or self-care (01) ==
LOC: HO.HPS 11:25
PROVIDERS: PCP Internal Medicine; Visit Provider Internal Medicine
DX: G47.33 Obstructive sleep apnea (adult) (pediatric) (principal)
CPT/HCPCS: 99213

== ENCOUNTER → 2024-10-09 11:24 | Outpatient (BNVA) | payer MEDICARE, OTHER, SELFPAY | PROVIDERS: PCP Internal Medicine; Visit Provider Internal Medicine | DX: G47.33 Obstructive sleep apnea (adult) (pediatric) (principal) | CPT/HCPCS: 99212 ==

== ENCOUNTER → 2024-10-15 11:14 | Outpatient (REF) | payer MEDICARE, OTHER, SELFPAY ==
--- NOTE | 2024-10-15 11:16 | CA_ITS ---
Transthoracic Echocardiogram Patient (Last, First, Middle): Yuriy Matthew H Gender: Male Date of : 1935 Age: 89 Procedure Date: 10/15/2024 Procedure Type: Transthoracic Echocardiogram Location: OP Height: 180. cm Weight: 83.92 kg BSA: 2.04 m2 Heart Rate: 65 bpm BP: 125 / 65 mmHg Family Medicine Chair: YOANNA Referring MD: Abdirizak Barbosa MD Symptoms: I35.0 - Nonrheumatic aortic (valve) stenosis Study Quality: Fair ECG Rhythm: Sinus Conclusions: - The left ventricular systolic function is low normal. The visually estimated ejection fraction is between 50-55%. - There is severely increased left ventricular wall thickness. - There is mild to moderate aortic valve stenosis. - There is mild dilatation of the ascending aorta measuring 4.10 cm. Findings Left Ventricle Normal left ventricular cavity size. There is severely increased left ventricular wall thickness. The left ventricular systolic function is low normal. The visually estimated ejection fraction is between 50-55%. There is paradoxical septal motion consistent with a right ventricular pacemaker. Evidence suggests grade I (mild) diastolic dysfunction. Right Ventricle Mildly increased right ventricular cavity size. There is low normal right ventricular systolic function. Atria Both atria are normal in size. Aortic Valve There is mild calcification of the aortic valve. There is mild to moderate aortic valve stenosis. There is no aortic valve regurgitation. Mitral Valve The mitral valve appears normal. There is no mitral valve regurgitation. There is no mitral valve stenosis. Pulmonic Valve The pulmonic valve is likely normal. Tricuspid Valve There is trace tricuspid valve regurgitation. There is no evidence of pulmonary hypertension. Great Vessels The aortic arch is normal in size. There is mild dilatation of the ascending aorta measuring 4.10 cm. Venous The inferior vena cava is normal in size and collapses greater than 50% with inspiration. Pericardium/Pleural There is no evidence of pericardial effusion. Prior Study Comparison Changes noted compared to prior study dated: 09/20/2023. see comment on ascending aorta. Measurements 2D Linear Measurements IVSd: 1.55 0.6-0.9/0.6-1.0 cm LVIDd: 4.15 3.9-5.3/4.2-5.9 cm LVIDd Index: 2.03 2.4-3.2/2.2-3.1 cm/m2 LVIDs: 2.22 2.0-3.6 cm LVPWd: 1.46 0.7-1.1 cm LA Diam: 4.40 2.7-3.8/3.0-4.0 cm LAIDs Index: 2.16 1.5-2.3 cm/m2 LV Mass: 307.41 67-162/88-224 g LV Mass Index: 150.69 43-95/49-115 g/m2 LVOT Diam: 2.20 3.0+(-)1.3 cm 2D Systolic Function EF 4C: 54.80 >55% EF 2C: 54.00 >55% EF BiP: 54.60 >55% Mitral Valve MV Pk E: 0.46 MV PK A: 0.88 MV Decel Time: 459.00 E/A: 0.50 E'Lateral: 4.03 E'Medial: 3.05 E/E' Med: 15.00 E/E' Lat: 11.40 PHT: 134.00 MVA PHT: 1.64 Decel Duchesne: 1.00 Aortic Valve AoV Pk Jose Juan: 2.23 AoV Mn Jose Juan: 1.69 AoV VTI: 0.49 AoV Pk Grad: 20.00 Aov Mn Grad: 13.00 CARMELITA Cont.VTI: 1.37 LVOT LVOT Pk Jose Juan: 0.80 LVOT Mn Jose Juan: 0.64 LVOT VTI: 0.18 LVOT Pk Grad: 3.00 LVOT Mn Grad: 2.00 LVOT Diam: 2.20 LVOT Area: 3.80 Diastolic Function MV Pk E: 0.46 MV Pk A: 0.88 E/A: 0.50 E'Medial: 3.05 E/E' Med: 15.00 E' Laterial: 4.03 E/E' Lat: 11.40 Right Ventricle TAPSE (mm): 17.00 TVS' Jose Juan: 12.10 Tricuspid Valve TR Pk Jose Juan: 1.67 TR Pk Grad: 11.00 RA Press: 3.00 RVSP: 14.00 Great Vessels Aorta Sinus of Valsalva: 3.60 2.0-3.5 cm Ao Asc: 4.10 2.1-3.4 cm Ao Arch: 3.30 Pulmonary Valve PV Pk Jose Juan: 1.14 Peak PV Grad: 5.00 Updated in Other Vendor System with Status of Final César Licea MD electronically signed on 10/16/2024 12:24:44 PM with status of Final
--- OUTSIDE RECORDS SUMMARY | 2024-10-15 12:00 | XMS_ITS | Patient Health Record ---
Author Organization [facility] Address [address] [place] [id number] Care Team Providers Care Medical Affairs Specialist Name Role Phone Po Edmond RAMOS Primary Care Provider Albert Lord Jr Unavailable [phone] Reason For Referral No Information Medications Medication [...] Problem Status W/U Status Risk Notes Problem [id number] Incontinence of feces, unspecified fecal incontinence type (R15.9) Active confirmed Plan Of Treatment No Information Insurance Providers Payer Name Payer Address Payer Phone Subscriber Number Group Number Insured Name Patient Relationship to Insured Coverage Start Date Coverage End Date MEDICARE OF [place] [address] [place] [address] [id number] CAT AHUMADA Self - patient is the insured [facility] INDEMN[employer] [address] [place] [address] [id number] CAT AHUMADA Self - patient is the [...]
--- OUTSIDE RECORDS SUMMARY | 2024-10-15 12:00 | XMS_ITS | Clinical Summary ---
Author Organization [facility] Address [address] [place] [address] Phone Care Team Providers Care Enamel Buffer Name Role Phone Edmond Cevallos MD Primary Care Provider [phone] Allergies Active Allergy Reactions Criticality Noted Date [...] to complete this topic Insurance Unicare Medicare [facility] Medicare Care Teams Enamel Buffer Relationship Specialty Start Date End Date Edmond Cevallos MD [address] [place] PCP - General 06/09/20
== END ==
LOC: HO.CARD 11:14
PROVIDERS: PCP Internal Medicine; Visit Provider Internal Medicine Cardiovascular Disease
DX: I35.0 Nonrheumatic aortic (valve) stenosis (principal)
CPT/HCPCS: 93306

== ENCOUNTER → 2024-10-15 11:16 | Outpatient (BNV) | payer MEDICARE, OTHER, SELFPAY | PROVIDERS: PCP Internal Medicine; Visit Provider Internal Medicine | DX: I35.0 Nonrheumatic aortic (valve) stenosis (principal); I35.8 Other nonrheumatic aortic valve disorders; I42.8 Other cardiomyopathies | CPT/HCPCS: 93306 ==

== ENCOUNTER 2024-10-18 13:48 | Outpatient (AMB) | payer MEDICARE, OTHER, SELFPAY ==
--- NOTE | 2024-10-18 13:54 | A.OFFPC_ITS ---
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 Accompanied by: Daughter Allergies No Known Allergies Allergy (Verified 10/18/24 13:58) Tobacco use date assessed: 08/29/24 Dental Screening Dental Screen Date: 08/29/24 [facility] Medical History Subdural hematoma Benign prostatic hyperplasia Pure hypercholesterolemia Benign essential hypertension Gait instability Aortic stenosis Cardiac pacemaker in situ Paroxysmal atrial fibrillation Spinal stenosis of lumbar region Right foot drop Erectile dysfunction GERD (gastroesophageal reflux disease) Obstructive sleep apnea Saddle thrombus of abdominal aorta History of prostate cancer Coronary artery disease Surgical History Stented coronary artery History of lumbar surgery History of cervical spinal surgery History of inguinal hernia repair History of tonsillectomy Family History Father No problems noted. Mother Hypertension Lung cancer Brother No problems noted. Sister No problems noted. Son No problems noted. Daughter No problems noted. Social History Housing: House Alcohol intake: current Alcohol intake frequency: 0-2 drinks per day Alcohol type: beer Comment: COUNTS CORRECT Patient Tobacco Use Status: Never used Tobacco e-Cigarette/Vaping Use: Never Used Second Hand Smoke Exposure: Yes service: Yes Current occupational status: retired Cognitive needs: Yes (Cane) Hearing needs: No Vision needs: Yes Questionnaire PHQ-9 Over the last 2 weeks, how often have you been bothered by any of the following problems? 1. Little interest or pleasure in doing things: several days 2. Feeling down, depressed, or hopeless: several days 3. Trouble falling or staying asleep, or sleeping too much: not at all 4. Feeling tired or having little energy: more than half the days 5. Poor appetite or overeating: not at all 6. Feeling bad about yourself - or that you are a failure or have let yourself or your family down: several days 7. Trouble concentrating on things, such as reading the newspaper or watching television: not at all 8. Moving or speaking so slowly that other people could have noticed. Or the opposite - being so fidgety or restless that you have been moving around a lot more than usual: not at all 9. Thoughts that you would be better off or of hurting yourself in some way: not at all Total score: 5 Depression Screening Interpretation: Positive Depression Screening Done: Yes Source: Developed by Drs. Michael Boothe, Cindi Montenegro, Michele Dukes and colleagues, with an educational elliott from [employer]. Thrive Questionnaire Date Thrive assessed: 08/29/24 I am a: Parent/Caregiver What is your living situation today?: I have a steady place to live Within the past 12 months, did the food you bought not last and you didn't have the money to get more?: Never true Within the past 12 months, did you worry whether your food would run out before you got money to buy more?: Never true Do you have trouble paying for medicines?: No Do you have trouble getting transportation to medical appointments?: No Do you have trouble paying your heating and electricity bill?: No Do you have trouble taking care of your child, family member or friend?: No Do you have trouble with day-to-day activities such as bathing, preparing meals, shopping, managing finances, etc.?: No Are you currently unemployed and looking for a job?: No Are you interested in more education?: No Please select the resources that you would like help with: Care for elder or disabled Currently or been in a relationship where the following occur: No concerns reported THRIVE Score: 0 AUDIT C Alcohol Use Questionnaire (AUDIT-C) 1. How often do you have a drink containing alcohol?: 2-4 times a month 2. How many drinks containing alcohol do you have on a typical day when you are drinking?: 1 or 2 3. How often do you have six or more drinks on one occasion?: Never Total Score: 2 SEJAL-7 AMB Questionnaire SEJAL-7 Date SEJAL - 7 assessed: 08/29/24 Feeling nervous, anxious, or on edge: 1 = Several days Not being able to stop or control worryin = Several days Worrying too much about different things: 1 = Several days Trouble relaxin = Several days Being so restless that it is hard to sit still: 0 = Not at all Becoming easily annoyed or irritable: 1 = Several days Feeling afraid as if something awful might happen: 0 = Not at all Total SEJAL-7 score (0-4 normal; 5-9 mild; 10-14 moderate; 15-21 severe): 5 Source: Developed by Drs. Michael Boothe, Cindi Montenegro, Michele Dukes and colleagues, with an educational elliott from [employer]. Physical exam (Primary Care) Vital Signs: Last Vital Signs Pulse 60 10/18/24 13:55 BP 118/72 10/18/24 13:55 Pulse Ox 97 10/18/24 13:55 Oxygen Delivery Method Room Air 10/18/24 13:55 BMI result Body Mass Index 26.9 Tobacco/Smoking Status: Tobacco use Status Tobacco use date assessed 08/29/24 10/18/24 14:02 Patient Tobacco Use Status Never used Tobacco 10/18/24 14:02 e-Cigarette/Vaping Use Never Used 10/18/24 14:02 PHQ-9: PHQ-9 Score PHQ-9: Total score 5 10/18/24 14:11 Depression Screening Interpretation: Positive Thrive Assessment: Date of Thrive Assessment Date Thrive assessed 08/29/24 10/18/24 14:02 Currently or been in a relationship where the following occur: No concerns reported Const General: alert; No acute distress Eyes Conjunctivae: conjunctivae normal Resp Auscultation: clear to auscultation bilaterally Cardio Rate: regular rate Rhythm: regular rhythm GI Inspection: Yes normal to inspection Extrem General: Yes normal to inspection and No edema Coding Level of Care Code Est Pt Level 4 (22975) Complex EM visit Add On G2211 Diagnoses Syncope, unspecified syncope type R55 Syncope type: unspecified Impaired fasting glucose R73.01 Pure hypercholesterolemia E78.00 Aortic stenosis I35.0 Paroxysmal atrial fibrillation I48.0 History of prostate cancer Z85.46 Gastroesophageal reflux disease without esophagitis K21.9 Esophagitis presence: without esophagitis Obstructive sleep apnea G47.33 Coronary artery disease involving [place] coronary artery of [place] heart without angina pectoris I25.10 Associated angina: without angina Coronary Disease-Associated Artery/Lesion type: [place] artery [place] vs. transplanted heart: [place] heart Assessment & Plan Assessment & Plan (1) Syncopal episodes: Code(s): R55 - Syncope and collapse Category: Medical Qualifiers: Syncope type: unspecified Qualified Code(s): R55 - Syncope and collapse Plan: Patient has been referred to Neurology but has been follow-up with cardiology and had some generator change for the pacemaker. (2) Impaired fasting glucose: Code(s): R73.01 - Impaired fasting glucose Category: Medical Plan: Decrease the amount of carbohydrate intake, pasta, bread, rice and potatoes are all sugar and that is aside from all the sweet stuff, remember that fruits are good but they are Sweet also. (3) Pure hypercholesterolemia: Code(s): E78.00 - Pure hypercholesterolemia, unspecified Category: Medical Plan: Avoid fried foods, chicken skin, eggs, butter margarine, pastries and meat. Be it pork or beef they have a lot of cholesterol on atorvastatin 80 mg once a day (4) Aortic stenosis: Comment: Mild September 2021 1.04 September 2022 moderate aortic stenosis August 2023 1.5 cm September 2024 1.37 Code(s): I35.0 - Nonrheumatic aortic (valve) stenosis Category: Medical Plan: Continue to monitor. (5) Paroxysmal atrial fibrillation: Code(s): I48.0 - Paroxysmal atrial fibrillation Category: Medical Plan: Continue with anticoagulation on Eliquis August 2024 last blood work (6) History of prostate cancer: Comment: External beam radiation May 2011 Code(s): Z85.46 - Personal history of malignant neoplasm of prostate Category: Medical Plan: Patient follows up with urology (7) GERD (gastroesophageal reflux disease): Code(s): K21.9 - Gastro-esophageal reflux disease without esophagitis Category: Medical Qualifiers: Esophagitis presence: without esophagitis Qualified Code(s): K21.9 - Gastro-esophageal reflux disease without esophagitis Plan: Avoid the foods that causes that usually spicy foods, tomato products, juices, coffee, soda and foods that your sensitive to. After eating do not lie down, allow 3-4 hours before in lie down. And keep the head of bed above 30 degrees to avoid the acid from going up. (8) Obstructive sleep apnea: Comment: CAT IS KNOWN TO HAVE MODERATELY SEVERE OBSTRUCTIVE SLEEP APNEA WITH TOTAL SLEEP TIME AHI 20.3. * THE MAIN ETIOLOGIC FACTOR FOR HIS SLEEP APNEA IS, RETROGNATHIA OF THE LOWER JAW., WHICH WILL BE A PERMANENT CAUSE OF THIS DISORDER. HE IS USING CPAP REGULARLY AND IS VERY COMPLIANT AND BENEFITING. ( NASAL PILLOWS WITH CHINSTRAP, AP 6-16 CM ) HE NEEDS TO HAVE A NEW CHINSTRAP. Code(s): G47.33 - Obstructive sleep apnea (adult) (pediatric) Category: Medical Plan: Continue to follow up with Pulmonary and continue to use the CPAP more than 4 hours a night and benefits from this (9) Coronary artery disease: Comment: Stent placement 2011 (ROMÁN x 2 to LAD) Code(s): I25.10 - Atherosclerotic heart disease of [place] coronary artery without angina pectoris Category: Medical Qualifiers: Associated angina: without angina Coronary Disease-Associated Artery/Lesion type: [place] artery [place] vs. transplanted heart: [place] heart Qualified Code(s): I25.10 - Atherosclerotic heart disease of [place] coronary artery without angina pectoris Plan: Control the cholesterol, weight, blood pressure, on anticoagulation Plan History of Present Illness The patient is an 89-year-old male presenting for follow-up on chronic medical conditions. He has been previously diagnosed with coronary artery disease, hypercholesterolemia, and obstructive sleep apnea. His medical history is significant for prostate cancer treated in 2011, aortic stenosis, paroxysmal atrial fibrillation, and lumbar radiculopathy with spinal stenosis. The patient continues to manage these conditions with medications, including atorvastatin and Eliquis for hypercholesterolemia and anticoagulation respectively, and uses CPAP for sleep apnea. Recent echocardiogram results show moderately severe cardiac involvement, and recent blood work reveals mildly elevated blood glucose with stable renal function and normal cholesterol levels. Ongoing management involves routine pacemaker checks, continued neurological follow-up, and urological management using Gemtesa for an overactive bladder, with Myrbetric as a discussed option. Health Maintenance - Atorvastatin prescribed for hypercholesterolemia management. - Anticoagulation management using Eliquis. - CPAP usage for obstructive sleep apnea for more than 4 hours per night. - Routine pacemaker management and generator replacement. - Cholesterol levels monitored with recent results indicating an LDL of 69. - Impaired glucose tolerance monitoring with elevated blood sugar awareness. - Continued follow-up with cardiology, pulmonary, and urology specialists. Social History Review of Systems - Cardiovascular: Reports coronary artery disease, paroxysmal atrial fibrillation, and aortic stenosis. - Respiratory: Reports obstructive sleep apnea, continues CPAP therapy. - Gastrointestinal: Reports gastroesophageal reflux disease. - Genitourinary: Reports history of prostate cancer, benign prostatic hyperplasia, and overactive bladder. - Neurological: Reports lumbar radiculopathy with spinal stenosis. Physical Exam Results - Labs: Last blood work showed normal blood counts and electrolytes, stable renal function, and mildly elevated blood glucose. LDL cholesterol was 69. - Tests and Diagnostics: Echocardiogram shows left ventricular function normal at 50 to 55% EF, severely increased left ventricular thickness, mild dilatation of the ascending aorta at 4.1 cm, and aortic valve area at 1.37 cm?. Plan The patient's coronary artery disease is being managed with atorvastatin and ongoing anticoagulation with Eliquis for his atrial fibrillation. CPAP therapy is maintained for sleep apnea, and routine follow-up with cardiology for pacemaker adjustment is essential. The patient's overactive bladder management includes Gemtesa, with consideration of Myrbetric, while monitoring impaired glucose tolerance through dietary adjustments is advised. Continued interdepartmental coordination ensures comprehensive care and regular monitoring facilitates prompt management of chronic conditions. Blood work and echocardiograms are instrumental in guiding treatment efficacy and necessary adjustments. Patient was informed and verbally consented to the use of an ambient scribe for clinic note documentation during this visit. Discussion Notes I discussed the continuation of atorvastatin and Eliquis as vital components of managing coronary artery disease and atrial fibrillation risks, emphasizing the importance of CPAP therapy for sleep apnea. We addressed recent pacemaker adjustments and future follow-ups, along with BPH management options including ongoing Gemtesa use and potential Myrbetric application. The patient was informed about the possibility of switching to alternative medications to suit his management needs better. We also covered the significance of monitoring glycemic control due to impaired glucose tolerance and maintaining regular interdisciplinary check-ups to ensure optimal disease management. Follow-up plans mentioned include urgency precautions and specific instructions to engage with specialists where necessary. Patient Instructions - Continue atorvastatin 80 mg once daily for cholesterol control. - Maintain CPAP therapy for more than 4 hours each night. - Use Gemtesa 75 mg daily for bladder management. - Follow-up with cardiology for pacemaker and anticoagulation management. - Monitor and maintain dietary control for blood sugar levels. - Visit urology for prostate cancer history management. - Contact healthcare provider if any new symptoms arise or health concerns escalate. - Regularly schedule blood tests and consultations as advised. Orders: Orders Comprehensive Met. Panel Today R73.01 - Impaired fasting glucose Complete Blood Count Auto Diff Today R73.01 - Impaired fasting glucose Hemoglobin A1c Today R73.01 - Impaired fasting glucose
[2024-10-18 13:55] VITALS: BP 118/72; PULSE 60; O2SAT 97; BMI 26.9
--- OUTSIDE RECORDS SUMMARY | 2024-10-18 13:58 | XMS_ITS | Clinical Summary ---
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
== END 2024-10-18 14:35 | disposition home or self-care (01) ==
LOC: HO.HMCH 13:49
PROVIDERS: PCP Internal Medicine; Visit Provider Internal Medicine
DX: R55 Syncope and collapse (principal); I48.0 Paroxysmal atrial fibrillation; R73.01 Impaired fasting glucose; E78.00 Pure hypercholesterolemia, unspecified; I35.0 Nonrheumatic aortic (valve) stenosis; Z85.46 Personal history of malignant neoplasm of prostate; K21.9 Gastro-esophageal reflux disease without esophagitis; G47.33 Obstructive sleep apnea (adult) (pediatric); I25.10 Atherosclerotic heart disease of native coronary artery without angina pectoris

== ENCOUNTER → 2024-10-18 13:48 | Outpatient (BNVA) | payer MEDICARE, OTHER, SELFPAY | PROVIDERS: PCP Internal Medicine; Visit Provider Internal Medicine | DX: R55 Syncope and collapse (principal); R73.01 Impaired fasting glucose; E78.00 Pure hypercholesterolemia, unspecified; I35.0 Nonrheumatic aortic (valve) stenosis; I48.0 Paroxysmal atrial fibrillation; K21.9 Gastro-esophageal reflux disease without esophagitis; I25.10 Atherosclerotic heart disease of native coronary artery without angina pectoris; G47.33 Obstructive sleep apnea (adult) (pediatric); Z85.46 Personal history of malignant neoplasm of prostate | CPT/HCPCS: 99212 ==

== ENCOUNTER → 2024-10-22 23:59 | Outpatient (BNV) | payer MEDICARE, OTHER, SELFPAY ==
--- NOTE | 2024-10-25 14:53 | A.OFFVIS_ITS ---
Intake Visit Reasons: Remote device check- Kieran Scient Allergies No Known Allergies Allergy (Verified 10/18/24 13:58) [facility] Medical History Subdural hematoma Benign prostatic hyperplasia Pure hypercholesterolemia Benign essential hypertension Gait instability Aortic stenosis Cardiac pacemaker in situ Paroxysmal atrial fibrillation Spinal stenosis of lumbar region Right foot drop Erectile dysfunction GERD (gastroesophageal reflux disease) Obstructive sleep apnea Saddle thrombus of abdominal aorta History of prostate cancer Coronary artery disease Surgical History Stented coronary artery History of lumbar surgery History of cervical spinal surgery History of inguinal hernia repair History of tonsillectomy Family History Father No problems noted. Mother Hypertension Lung cancer Brother No problems noted. Sister No problems noted. Son No problems noted. Daughter No problems noted. Social History Housing: House Alcohol intake: current Alcohol intake frequency: 0-2 drinks per day Alcohol type: beer Comment: COUNTS CORRECT Patient Tobacco Use Status: Never used Tobacco e-Cigarette/Vaping Use: Never Used Second Hand Smoke Exposure: Yes service: Yes Current occupational status: retired Cognitive needs: Yes (Cane) Hearing needs: No Vision needs: Yes Office Procedures Cardiac Device Check Cardiac Device Check Details: remote pacemaker report generated 10/23/2024. Pacemaker function is adequate [id number] Cardiac Device Interrogation, pacemaker Procedure code (CPT) selection complete Assessment & Plan Assessment & Plan (1) Cardiac pacemaker in situ: Comment: Biotronik pacemaker for sick sinus syndrome?, 2010 Code(s): Z95.0 - Presence of cardiac pacemaker Category: Medical Plan: see above Coding Level of Care Code Procedure Only Diagnoses Cardiac pacemaker in situ Z95.0 CPT Codes Cardiac Device Check - Cardiac Device 12: [id number] Cardiac Device Interrogation, pacemaker ([id number])
== END ==
PROVIDERS: PCP Internal Medicine; Visit Provider Internal Medicine Cardiovascular Disease
DX: I49.5 Sick sinus syndrome (principal); Z95.0 Presence of cardiac pacemaker
CPT/HCPCS: 93294

== ENCOUNTER 2024-10-29 14:39 | Outpatient (AMB) | payer MEDICARE, OTHER, SELFPAY ==
--- NOTE | 2024-10-29 15:07 | MHC.OFFVIS ---
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 Allergies No Known Allergies Allergy (Verified 10/18/24 13:58) Medication List - Last Reconciled 10/29/24 by Abdirizak Barbosa MD acetaminophen 500 mg PO Q6H PRN apixaban (Eliquis) 5 mg PO BID 90 days atorvastatin 80 mg PO DAILY 90 days [AUTO PAP 6-16 cm humidified AIR full face nasal mask As directed] cane As directed cholecalciferol (vitamin D3) 25 mcg PO DAILY fexofenadine 180 mg PO DAILY PRN fluticasone propionate 50 mcg/actuation 2 sprays intranasal DAILY PRN lisinopril 10 mg PO DAILY metoprolol succinate ER 50 mg PO DAILY nitroglycerin (Nitrostat) 0.4 mg sublingual Q5M PRN tadalafil (Cialis) 20 mg PO DAILY PRN terazosin 4 mg PO BEDTIME vibegron (Gemtesa) 75 mg PO DAILY HPI Comments Details: Yuriy comes for follow-up. He has not had any significant cardiac complaints. He had 1 syncopal episode during a doctor's visit for his . Obvious cause was found. He was then seen in the emergency room and everything was negative. Since then he has had remote pacemaker falls which have been within normal limits. He had a recent echo which showed normal LV ejection fraction with severe LVH with mildly dilated ascending aorta with [id number] aortic stenosis. He denied any symptoms exertional chest pain or shortness of breath. [facility] Medical History Subdural hematoma Benign prostatic hyperplasia Pure hypercholesterolemia Benign essential hypertension Gait instability Aortic stenosis Cardiac pacemaker in situ Paroxysmal atrial fibrillation Spinal stenosis of lumbar region Right foot drop Erectile dysfunction GERD (gastroesophageal reflux disease) Obstructive sleep apnea Saddle thrombus of abdominal aorta History of prostate cancer Coronary artery disease Surgical History Stented coronary artery History of lumbar surgery History of cervical spinal surgery History of inguinal hernia repair History of tonsillectomy Family History Father No problems noted. Mother Hypertension Lung cancer Brother No problems noted. Sister No problems noted. Son No problems noted. Daughter No problems noted. Social History Housing: House Alcohol intake: current Alcohol intake frequency: 0-2 drinks per day Alcohol type: beer Comment: COUNTS CORRECT Patient Tobacco Use Status: Never used Tobacco e-Cigarette/Vaping Use: Never Used Second Hand Smoke Exposure: Yes service: Yes Current occupational status: retired Cognitive needs: Yes (Cane) Hearing needs: No Vision needs: Yes Review of Systems Const Denies chills, Denies fatigue, Denies fever(s), Denies frequent falls, Denies weakness, Denies weight gain and Denies weight loss ENT Denies dizziness Card Denies chest pain, Denies leg edema, Denies lightheadedness, Denies palpitations, Denies dyspnea, Denies dyspnea on exertion, Denies orthopnea and Denies other (loss of consciousness) Resp Denies cough, Denies dyspnea and Denies dyspnea on exertion GI Denies hematochezia and Denies change in stool character Musc Denies abnormal gait, Denies muscle weakness, Denies numbness, Denies radiating pain into limb and Denies tingling Neuro Denies abnormal gait, Denies dizziness, Denies frequent falls, Denies numbness, Denies tingling and Denies weakness Endo Denies fatigue and Denies palpitations Physical Exam Vital Signs: Last Vital Signs Pulse 62 10/29/24 15:08 BP 120/74 10/29/24 15:08 BMI result Body Mass Index 26.7 Const General: cooperative, healthy appearing, comfortable and no acute distress Orientation/consciousness: patient oriented x3 Neck Neck: Yes normal visual inspection and Yes no JVD Chest Chest palpation & inspection: normal inspection of the chest Resp Effort & Inspection: normal respiratory effort Auscultation: clear to auscultation bilaterally, no rales, no rhonchi and no wheezes Cardio Jugular venous distension: no JVD Rate: regular rate Rhythm: regular rhythm Heart sounds: S1 normal heart sound present, S2 normal heart sound present, no murmurs and no rubs Neuro General: patient oriented x3 Extrem General: Yes normal to inspection and No no pedal edema Psych Appearance: grossly normal Mental Status: mental status grossly normal Speech and movement: Normal speech and movement present Assessment & Plan Assessment & Plan (1) Aortic stenosis: Comment: Mild September 2021 1.04 September 2022 moderate aortic stenosis August 2023 1.5 cm September 2024 1.37 Code(s): I35.0 - Nonrheumatic aortic (valve) stenosis Category: Medical Plan: Aortic stenosis which is [id number]. No or indication for any repair at this point time. Continue aggressive vascular risk factor modification. Continue aggressive blood pressure control. Recent syncopal episode without any obvious cardiac etiology could be related to orthostatic hypotension. Advised to increase overall fluid intake. Orthostatic precautions were discussed. (2) Cardiac pacemaker in situ: Comment: Biotronik pacemaker for sick sinus syndrome?, 2010 Code(s): Z95.0 - Presence of cardiac pacemaker Category: Medical Plan: Cardiac pacemaker in-situ, working well. Will follow remotely. Follow up in the clinic in 6 months time. (3) Paroxysmal atrial fibrillation: Code(s): I48.0 - Paroxysmal atrial fibrillation Category: Medical Plan: Paroxysmal atrial fibrillation without any obvious significant clinical recurrence at this point time. Continue to avoid stimulants. Continue metoprolol therapy. No indication for antiarrhythmic drug therapy. Continue full oral anticoagulation, currently on Eliquis 5 mg b.i.d.. Quarterly renal function test should be pursued. Will follow up in the clinic in 6 months time, sooner p.r.n.. Thank you for allowing me to partake in his care Medications: Changed From metoprolol succinate ER 75 mg (1.5 x 50 mg) PO DAILY 135 caps 3RF To metoprolol succinate ER 50 mg PO DAILY Coding Level of Care Code Est Pt Level 4 (86377) Complex EM visit Add On G2211 Diagnoses Aortic stenosis I35.0 Cardiac pacemaker in situ Z95.0 Paroxysmal atrial fibrillation I48.0
[2024-10-29 15:08] VITALS: BP 120/74; PULSE 62; BMI 26.7
--- OUTSIDE RECORDS SUMMARY | 2024-10-29 15:56 | XMS_ITS | Clinical Summary ---
Author Organization [facility] Address [address] [place] [address] Phone Care Team Providers Care Punch Press Operator Helper Name Role Phone Edmond Cevallos MD Primary Care Provider [phone] Allergies Active Allergy Reactions Criticality Noted Date [...] to complete this topic Insurance [employer] Medicare [facility] Medicare Care Teams Punch Press Operator Helper Relationship Specialty Start Date End Date Edmond Cevallos MD [address] [place] PCP - General 06/09/20
== END 2024-10-29 16:34 | disposition home or self-care (01) ==
LOC: HO.HCS 14:40
PROVIDERS: PCP Internal Medicine; Visit Provider Internal Medicine Cardiovascular Disease
DX: I35.0 Nonrheumatic aortic (valve) stenosis (principal); Z95.0 Presence of cardiac pacemaker; I48.0 Paroxysmal atrial fibrillation
CPT/HCPCS: 99214; G2211

== ENCOUNTER → 2024-10-29 14:39 | Outpatient (BNVA) | payer MEDICARE, OTHER, SELFPAY | PROVIDERS: PCP Internal Medicine; Visit Provider Internal Medicine Cardiovascular Disease | DX: I48.0 Paroxysmal atrial fibrillation (principal); I35.0 Nonrheumatic aortic (valve) stenosis; Z95.0 Presence of cardiac pacemaker | CPT/HCPCS: 99212 ==

== ENCOUNTER → 2025-01-21 23:59 | Outpatient (BNV) | payer MEDICARE, OTHER, SELFPAY ==
--- NOTE | 2025-01-23 10:43 | MHC.OFFVIS ---
Intake Visit Reasons: device check- Kieran Scient Allergies No Known Allergies Allergy (Verified 10/18/24 13:58) PFSH Medical History Subdural hematoma Benign prostatic hyperplasia Pure hypercholesterolemia Benign essential hypertension Gait instability Aortic stenosis Cardiac pacemaker in situ Paroxysmal atrial fibrillation Spinal stenosis of lumbar region Right foot drop Erectile dysfunction GERD (gastroesophageal reflux disease) Obstructive sleep apnea Saddle thrombus of abdominal aorta History of prostate cancer Coronary artery disease Surgical History Stented coronary artery History of lumbar surgery History of cervical spinal surgery History of inguinal hernia repair History of tonsillectomy Family History Father No problems noted. Mother Hypertension Lung cancer Brother No problems noted. Sister No problems noted. Son No problems noted. Daughter No problems noted. Social History Housing: House Alcohol intake: current Alcohol intake frequency: 0-2 drinks per day Alcohol type: beer Comment: COUNTS CORRECT Patient Tobacco Use Status: Never used Tobacco e-Cigarette/Vaping Use: Never Used Second Hand Smoke Exposure: Yes service: Yes Current occupational status: retired Cognitive needs: Yes (Cane) Hearing needs: No Vision needs: Yes Office Procedures Cardiac Device Check Cardiac Device Check Details: Remote pacemaker report generated 01/21/2025. Pacemaker function is adequate. Reported high atrial rate episodes consistent with atrial tachycardia although I could not see any EGMs strips [id number] Cardiac Device Interrogation, pacemaker Procedure code (CPT) selection complete Assessment & Plan Assessment & Plan (1) Cardiac pacemaker in situ: Comment: Biotronik pacemaker for sick sinus syndrome?, 2010 Code(s): Z95.0 - Presence of cardiac pacemaker Category: Medical Plan: See above Coding Level of Care Code Procedure Only Diagnoses Cardiac pacemaker in situ Z95.0 CPT Codes Cardiac Device Check - Cardiac Device 12: [id number] Cardiac Device Interrogation, pacemaker ([id number])
== END ==
PROVIDERS: PCP Internal Medicine; Visit Provider Internal Medicine Cardiovascular Disease
DX: R00.0 Tachycardia, unspecified (principal); Z95.0 Presence of cardiac pacemaker
CPT/HCPCS: 93294

== ENCOUNTER 2025-02-18 10:01 | Outpatient (AMB) | payer MEDICARE, OTHER, SELFPAY ==
[2025-02-18 10:08] VITALS: BP 126/82; PULSE 69; TEMP 36.2; O2SAT 97; BMI 26.9
--- NOTE | 2025-02-18 10:08 | MHC.PC.OV ---
Vital Signs 02/18/25 10:08 Height 5 ft 11 in Weight 193 lb BMI 26.9 BP 126/82 Blood Pressure Location Lt brachial Position Sitting Pulse 69 Pulse Source Pulse Oximeter Temp 97.1 F Temp Source Temporal Artery Scan Pulse Oximetry (%) 97 Oxygen Delivery Method Room Air Intake Visit Reasons: Atrial fibrillation Allergies No Known Allergies Allergy (Verified 02/18/25 10:11) Tobacco use date assessed: 02/18/25 Fall risk assessment: No Falls in past year Last assessed Fall Risk: 02/18/25 Dental Screening Dental Screen Date: 02/18/25 Did you have a dental visit in the last 12 months?: Yes Did you have a dental problem in the last 6 months where you did not have access to dental care?: No Was dental information given to patient?: Patient has dentist [facility] Medical History Subdural hematoma Benign prostatic hyperplasia Pure hypercholesterolemia Benign essential hypertension Gait instability Aortic stenosis Cardiac pacemaker in situ Paroxysmal atrial fibrillation Spinal stenosis of lumbar region Right foot drop Erectile dysfunction GERD (gastroesophageal reflux disease) Obstructive sleep apnea Saddle thrombus of abdominal aorta History of prostate cancer Coronary artery disease Surgical History Stented coronary artery History of lumbar surgery History of cervical spinal surgery History of inguinal hernia repair History of tonsillectomy Family History Father No problems noted. Mother Hypertension Lung cancer Brother No problems noted. Sister No problems noted. Son No problems noted. Daughter No problems noted. Social History Housing: House Alcohol intake: current Alcohol intake frequency: 0-2 drinks per day Alcohol type: beer Comment: COUNTS CORRECT Patient Tobacco Use Status: Never used Tobacco e-Cigarette/Vaping Use: Never Used Second Hand Smoke Exposure: Yes service: Yes Current occupational status: retired Cognitive needs: Yes (Cane) Hearing needs: No Vision needs: Yes Questionnaire PHQ-9 Over the last 2 weeks, how often have you been bothered by any of the following problems? 1. Little interest or pleasure in doing things: several days 2. Feeling down, depressed, or hopeless: several days 3. Trouble falling or staying asleep, or sleeping too much: not at all 4. Feeling tired or having little energy: more than half the days 5. Poor appetite or overeating: not at all 6. Feeling bad about yourself - or that you are a failure or have let yourself or your family down: several days 7. Trouble concentrating on things, such as reading the newspaper or watching television: not at all 8. Moving or speaking so slowly that other people could have noticed. Or the opposite - being so fidgety or restless that you have been moving around a lot more than usual: not at all 9. Thoughts that you would be better off or of hurting yourself in some way: not at all Total score: 5 Depression Screening Interpretation: Positive Depression Screening Done: Yes Source: Developed by Drs. Michael Boothe, Cindi Montenegro, Michele Dukes and colleagues, with an educational elliott from [employer]. Thrive Questionnaire Date Thrive assessed: 10/18/24 I am a: Parent/Caregiver What is your living situation today?: I have a steady place to live Within the past 12 months, did the food you bought not last and you didn't have the money to get more?: Never true Within the past 12 months, did you worry whether your food would run out before you got money to buy more?: Never true Do you have trouble paying for medicines?: No Do you have trouble getting transportation to medical appointments?: No Do you have trouble paying your heating and electricity bill?: No Do you have trouble taking care of your child, family member or friend?: No Do you have trouble with day-to-day activities such as bathing, preparing meals, shopping, managing finances, etc.?: No Are you currently unemployed and looking for a job?: No Are you interested in more education?: No Please select the resources that you would like help with: Care for elder or disabled Currently or been in a relationship where the following occur: No concerns reported THRIVE Score: 0 AUDIT C Alcohol Use Questionnaire (AUDIT-C) 1. How often do you have a drink containing alcohol?: 2-4 times a month 2. How many drinks containing alcohol do you have on a typical day when you are drinking?: 1 or 2 3. How often do you have six or more drinks on one occasion?: Never Total Score: 2 SEJAL-7 AMB Questionnaire SEJAL-7 Date SEJAL - 7 assessed: 08/29/24 Feeling nervous, anxious, or on edge: 1 = Several days Not being able to stop or control worryin = Several days Worrying too much about different things: 1 = Several days Trouble relaxin = Several days Being so restless that it is hard to sit still: 0 = Not at all Becoming easily annoyed or irritable: 1 = Several days Feeling afraid as if something awful might happen: 0 = Not at all Total SEJAL-7 score (0-4 normal; 5-9 mild; 10-14 moderate; 15-21 severe): 5 Source: Developed by Drs. Michael Boothe, Cindi Montenegro, Michele Dukes and colleagues, with an educational elliott from [employer]. Physical exam (Primary Care) Vital Signs: Last Vital Signs Temp 97.1 F 02/18/25 10:08 Pulse 69 02/18/25 10:08 BP 126/82 02/18/25 10:08 Pulse Ox 97 02/18/25 10:08 Oxygen Delivery Method Room Air 02/18/25 10:08 BMI result Body Mass Index 26.9 Tobacco/Smoking Status: Tobacco use Status Tobacco use date assessed 02/18/25 02/18/25 10:13 Patient Tobacco Use Status Never used Tobacco 02/18/25 10:13 e-Cigarette/Vaping Use Never Used 02/18/25 10:13 PHQ-9: PHQ-9 Score PHQ-9: Total score 5 02/18/25 10:39 Depression Screening Interpretation: Positive Thrive Assessment: Date of Thrive Assessment Date Thrive assessed 10/18/24 02/18/25 10:13 Currently or been in a relationship where the following occur: No concerns reported Const General: alert; No acute distress Eyes Conjunctivae: conjunctivae normal Resp Auscultation: clear to auscultation bilaterally Cardio Rate: regular rate Rhythm: regular rhythm GI Inspection: Yes normal to inspection Extrem General: Yes normal to inspection and No edema Coding Level of Care Code Est Pt Level 4 (33845) Complex EM visit Add On G2211 Diagnoses Essential hypertension I10 Hypertension type: essential hypertension Aortic stenosis I35.0 Coronary artery disease involving [place] coronary artery of [place] heart without angina pectoris I25.10 Associated angina: without angina Coronary Disease-Associated Artery/Lesion type: [place] artery [place] vs. transplanted heart: [place] heart Hypercholesterolemia E78.00 Impaired glucose tolerance R73.02 Gastroesophageal reflux disease without esophagitis K21.9 Esophagitis presence: without esophagitis Benign prostatic hyperplasia with urinary frequency N40.1; R35.0 Lower urinary tract symptom detail: urinary frequency Lower urinary tract symptom presence: symptoms present Spinal stenosis of lumbar region M48.061 Obstructive sleep apnea G47.33 Actinic keratosis L57.0 Tinea cruris B35.6 Assessment & Plan Assessment & Plan (1) Hypertension: Code(s): I10 - Essential (primary) hypertension Category: Medical Qualifiers: Hypertension type: essential hypertension Qualified Code(s): I10 - Essential (primary) hypertension Plan: Continue with blood pressure medication. Decrease salt intake and exercise presently on lisinopril 10 mg once a day metoprolol 50 mg once a day (2) Aortic stenosis: Comment: Mild September 2021 1.04 September 2022 moderate aortic stenosis August 2023 1.5 cm September 2024 1.37 Code(s): I35.0 - Nonrheumatic aortic (valve) stenosis Category: Medical Plan: Continue to monitor. Mild to moderate (3) Coronary artery disease: Comment: Stent placement 2011 (ROMÁN x 2 to LAD) Code(s): I25.10 - Atherosclerotic heart disease of [place] coronary artery without angina pectoris Category: Medical Qualifiers: Associated angina: without angina Coronary Disease-Associated Artery/Lesion type: [place] artery [place] vs. transplanted heart: [place] heart Qualified Code(s): I25.10 - Atherosclerotic heart disease of [place] coronary artery without angina pectoris Plan: Control the cholesterol, weight, blood pressure, patient is on anticoagulation with Eliquis quarterly renal function testing (4) Hypercholesterolemia: Code(s): E78.00 - Pure hypercholesterolemia, unspecified Category: Medical Plan: Avoid fried foods, chicken skin, eggs, butter margarine, pastries and meat. Be it pork or beef they have a lot of cholesterol LDL goal of less than 70 and triglyceride of less than 150 August 2024 last blood work (5) Impaired glucose tolerance: Code(s): R73.02 - Impaired glucose tolerance (oral) Category: Medical Plan: Decrease the amount of carbohydrate intake, pasta, bread, rice and potatoes are all sugar and that is aside from all the sweet stuff, remember that fruits are good but they are Sweet also. (6) GERD (gastroesophageal reflux disease): Code(s): K21.9 - Gastro-esophageal reflux disease without esophagitis Category: Medical Qualifiers: Esophagitis presence: without esophagitis Qualified Code(s): K21.9 - Gastro-esophageal reflux disease without esophagitis Plan: Avoid the foods that causes that usually spicy foods, tomato products, juices, coffee, soda and foods that your sensitive to. After eating do not lie down, allow 3-4 hours before in lie down. And keep the head of bed above 30 degrees to avoid the acid from going up. (7) Benign prostatic hyperplasia: Code(s): N40.0 - Benign prostatic hyperplasia without lower urinary tract symptoms Category: Medical Qualifiers: Lower urinary tract symptom detail: urinary frequency Lower urinary tract symptom presence: symptoms present Qualified Code(s): N40.1 - Benign prostatic hyperplasia with lower urinary tract symptoms; R35.0 - Frequency of micturition Plan: Continuing on terazosin (8) Spinal stenosis of lumbar region: Code(s): M48.061 - Spinal stenosis, lumbar region without neurogenic claudication Category: Medical (9) Obstructive sleep apnea: Comment: CAT IS KNOWN TO HAVE MODERATELY SEVERE OBSTRUCTIVE SLEEP APNEA WITH TOTAL SLEEP TIME AHI 20.3. * THE MAIN ETIOLOGIC FACTOR FOR HIS SLEEP APNEA IS, RETROGNATHIA OF THE LOWER JAW., WHICH WILL BE A PERMANENT CAUSE OF THIS DISORDER. HE IS USING CPAP REGULARLY AND IS VERY COMPLIANT AND BENEFITING. ( NASAL PILLOWS WITH CHINSTRAP, AP 6-16 CM ) HE NEEDS TO HAVE A NEW CHINSTRAP. Code(s): G47.33 - Obstructive sleep apnea (adult) (pediatric) Category: Medical Plan: Continue to use the CPAP more than 4 hours a night and benefits from this. (10) Actinic keratosis: Code(s): L57.0 - Actinic keratosis Category: Medical (11) Tinea cruris: Code(s): B35.6 - Tinea cruris Category: Medical Plan History of Present Illness The patient is an 89-year-old male presenting for a follow-up visit. The patient has a history of coronary artery disease and is currently managing this condition with medication. He also has obstructive sleep apnea for which he uses a CPAP machine regularly, benefiting from more than 4 hours of use per day. The patient has been diagnosed with hypercholesterolemia and hypertension, both of which are being monitored and managed with medications including lisinopril and metoprolol. His last cholesterol check in May showed an LDL level of 69 mg/dL. He has a history of gastroesophageal reflux disease (GERD) and prostate cancer, both of which are currently stable. The patient also has lumbar spinal stenosis and atrial fibrillation, for which he is on metoprolol and anticoagulation therapy with Eliquis. Aortic stenosis is another condition being monitored, with the last echocardiogram conducted in September 2024. The patient has impaired glucose tolerance, with a blood sugar level of 115 mg/dL and a hemoglobin A1c of 6.3% as of May. He has a pacemaker in situ, which was last checked in December 2024. The patient reports a skin condition characterized by itching, which has been persistent and is being managed with topical treatments. He experiences urinary incontinence, particularly when changing positions, and uses pads to manage this condition. The patient reports fatigue and a decrease in energy levels, often requiring naps during the day. Health Maintenance - Vaccinations: Flu shot, tetanus, pneumonia, and shingles vaccines discussed. - Blood work: Scheduled to assess glucose levels and other parameters. Social History - Mobility: Patient uses a cane for ambulation but did not bring it to the visit. - Diet: Reports consuming cookies and other sweets, which may affect blood sugar levels. Review of Systems - Cardiovascular: Denies chest pain, reports fatigue and decreased energy levels. - Respiratory: Denies dyspnea. - Gastrointestinal: Reports regular bowel movements. - Genitourinary: Reports urinary incontinence, particularly when changing positions. - Dermatological: Reports itching skin condition. - Neurological: Reports fatigue and decreased energy levels. Physical Exam Results - Labs: Blood sugar 115 mg/dL, hemoglobin A1c 6.3% (May). - Cholesterol: LDL 69 mg/dL (May). Plan Patient was informed and verbally consented to the use of an ambient scribe for clinic note documentation during this visit. 1. Coronary Artery Disease The patient is managing coronary artery disease with medication and regular follow-ups. 2. Obstructive Sleep Apnea The patient uses a CPAP machine for obstructive sleep apnea, with more than 4 hours of use per day, which provides significant benefit. 3. Hypercholesterolemia Hypercholesterolemia is being managed with medication, and the patient's LDL cholesterol is at 69 mg/dL as of May. 4. Hypertension Hypertension is being managed with lisinopril and metoprolol, and the patient is advised to continue monitoring blood pressure. 5. Atrial Fibrillation The patient is on metoprolol and anticoagulation therapy with Eliquis for atrial fibrillation. 6. Aortic Stenosis Aortic stenosis is being monitored, with the last echocardiogram conducted in September 2024. 7. Impaired Glucose Tolerance The patient has impaired glucose tolerance, with a blood sugar level of 115 mg/dL and a hemoglobin A1c of 6.3% as of May. 8. Skin Condition With Itching The patient reports a skin condition characterized by itching, which is being managed with topical treatments and a dermatology referral is planned. 9. Urinary Incontinence The patient experiences urinary incontinence, particularly when changing positions, and uses pads to manage this condition. 10. Fatigue The patient reports fatigue and a decrease in energy levels, often requiring naps during the day. Discussion Notes During the visit, we discussed the management of the patient's multiple chronic conditions, including coronary artery disease, obstructive sleep apnea, and atrial fibrillation. We reviewed the importance of medication adherence and the use of CPAP for sleep apnea. A dermatology referral was planned for the persistent skin condition, and we discussed the need for regular blood work to monitor glucose levels and other health parameters. Patient Instructions - Continue using CPAP machine for sleep apnea for at least 4 hours nightly. - Maintain medication regimen for coronary artery disease, hypertension, and atrial fibrillation. - Schedule and attend dermatology appointment for skin condition. - Follow up with blood work as scheduled to monitor glucose and cholesterol levels. - Use cane for ambulation to prevent falls. - Avoid consuming excessive sweets to manage blood sugar levels. Orders: Orders Complete Blood Count Auto Diff Today E78.00 - Pure hypercholesterolemia, unspecified Hemoglobin A1c Today E78.00 - Pure hypercholesterolemia, unspecified Lipid Panel Today E78.00 - Pure hypercholesterolemia, unspecified Vitamin B12 and Folate Today E78.00 - Pure hypercholesterolemia, unspecified Uric Acid Today M79.671 - Pain in right foot UA CC w/rflx Micro + Cult Today E78.00 - Pure hypercholesterolemia, unspecified, R30.0 - Dysuria Comprehensive Met. Panel Today E78.00 - Pure hypercholesterolemia, unspecified Free T4 (Free Thyroxine) Today E78.00 - Pure hypercholesterolemia, unspecified Thyroid Stimulating Hormone Today E78.00 - Pure hypercholesterolemia, unspecified Magnesium Today E78.00 - Pure hypercholesterolemia, unspecified Referrals Dermatology Referral L57.0 - Actinic keratosis Medications: New clotrimazole 1% 1 appl topical BID 45 grams 0RF 4 weeks B35.6 - Tinea cruris
--- OUTSIDE RECORDS SUMMARY | 2025-02-18 12:16 | XMS_ITS | Clinical Summary ---
Author Organization [facility] Address [address] [place] [id number] Phone Care Team Providers Care Shove Up Name Role Phone Edmond Cevallos MD Primary Care Provider [phone] Allergies No known active allergies Medications terazosin (HYTRIN) 2 MG capsule Take 2 mg by mouth nightly at bedtime. 06/16/2024 Active atorvastatin (LIPITOR) 80 MG tablet Take 80 mg by mouth daily. 05/14/2024 Active ELIQUIS 5 mg tablet Take 5 mg by mouth 2 (two) times a day. 06/30/2024 Active lisinopril (PRINIVIL,ZESTR IL) 10 MG tablet Take 10 mg by mouth daily. 06/30/2024 Active metoprolol succinate (TOPROL-XL) 50 MG 24 hr tablet Take 50 mg by mouth daily. 07/23/2024 Active cholecalciferol (VITAMIN D3) 2,000 unit capsule Take 1,000 Units by mouth daily. Active nitroglycerin (NITROSTAT) 0.[address] 0.4 mg under the tongue every 5 (five) minutes as needed for chest pain. Active fluticasone propionate (FLONASE) 50 mcg/actuation nasal spray 1 spray by Nasal route daily as needed for rhinitis. Active acetaminophen (TYLENOL) 500 MG tablet Take 500 mg by mouth every 6 (six) hours as needed for pain (specific location in comments). Active tadalafiL (CIALIS) 20 MG tablet Take 20 mg by mouth daily as needed for erectile dysfunction. Active fexofenadine (KVNG) 180 MG tablet Take 180 mg by mouth daily as needed (Antihistamin e as needed). Active Social History Tobacco Use Types Packs/Day Years Used Date Smoking Tobacco: Never Smokeless Tobacco: Never Tobacco Cessation:Counseling Given: Not Answered Alcohol Use Standard Drinks/Week Comments Not Currently 0 (1 standard drink = 0.6 oz pur e alcohol) Education Answer Date Recorded Are you interested in more education? Not on anna e 09/23/2022 Are you concerned about learning? Not on file 09/23/2022 No 09/23/2022 No 09/23/2022 Food Answer Date Recorded Within the past 6 months we worried whether our food would run out before we got money to buy more. Never True 08/08/2024 Within the past 6 months the food we bought just didn't last and we didn't have enough money to get more. Never True Residential Stability Answer Date Recor ded What is your housing situation today? I have maura sing 08/08/2024 How many times have you move d in the past 12 months? Zero (I did not move) 08/08/2024 Transportation Answer Date Recorded Has the lack of transportati on kept you from medical appointments or from getting medications? No 08/08/2024 Digital Access Answer Date Recorded No 10/25/2022 No 10/25/2022 Reliable internet access at home? Not on file 10/25/2022 Device with a working camera? Not on file Intimate Partner Violence Answer Date R ecorded Are you denied basic needs s uch as food, clothing, or medical care? No 08/08/2024 In the past 12 months have y ou been in a relationship with a person who hurts, threatens, or tries to control you? No 08/08/2024 Are you denied basic needs s uch as food, clothing, or medical care? No 08/08/2024 In the past 12 months have y ou been in a relationship with a person who hurts, threatens, or tries to control you? No 08/08/2024 Sex and Gender Information Value Date Recorded Sex Assigned at Male 08/08/2024 12:10 PM EDT Legal Sex Male 7:29 PM EST Gender Identity Male 08/08/2024 12:10 PM EDT Sexual Orientation Not on file Last Filed Vital Signs Vital Sign Reading Time Taken Comments Blood Pressure 136/75 08/08/2024 3:45 PM EDT Pulse 56 08/08/2024 3:45 PM EDT Temperature 36.6 C (97.9 F) 08/08/2024 3:45 PM EDT Respiratory Rate 19 08/08/2024 3:45 PM EDT Oxygen Saturation 96% 08/08/2024 3:45 PM EDT Inhaled Oxygen Concentration - - Weight 86.9 kg (191 lb 9.3 oz) 08/08/2024 12:22 PM EDT Height 180.3 cm (5' 11 ) 08/08/2024 12:22 PM EDT Body Mass Index 26.72 08/08/2024 12:22 PM EDT Plan of Treatment Health Maintenance Due Date Last Done Comments Adult Td,Tdap Booster 1936 DEPRESSION SCREENING 1948 ZOSTER VACCINES (1 of 2) 1986 RSV VACCINE (1 - 1-dose 75+ series) 08/04/2011 INFLUENZA VACCINE (#1) 2024 8, 03/11/2017, 03/18/2016 COVID-19 VACCINE (3 - 2024-2 6 season) 2025 07/03/2020, 06/12/2020 CREATININE LEVEL 08/08/2025 08/08/2024 POTASSIUM LEVEL 08/08/2025 08/08/2024 PNEUMOCOCCAL VACCINES (50+ years) Completed 04/11/2018, 03/18/2016 HEPATITIS A VACCINES Aged Out No long er eligible based on patient's age to complete this topic HIB VACCINES Aged Out No longer eligi ble based on patient's age to complete this topic MENINGOCOCCAL VACCINES (ACWY) Aged Out No longer eligible based on patient's age to complete this topic MENINGOCOCCAL VACCINES (B) Aged Out N o longer eligible based on patient's age to complete this topic Medical Devices Not on file Procedures Procedure Name Priority Date/Time Associated Diagnosis Comments BASIC METABOLIC PANEL STAT 08/08/2024 1:43 PM EDT from Last 3 Months or Most Recently Relevant to Health Maintenance Results * (ABNORMAL) Basic metabolic panel (08/08/2024 1:43 PM EDT) SODIUM 141 133 - 146 mmol/L [facility] CHLORIDE 108 96 - 108 mmol/L [facility] POTASSIUM 4.8 3.3 - 5.1 mmol/L [facility] Comment:Specimen slightly he molyzed, result may be falsely elevated. CO2 24 21 - 35 mmol/L [facility] BUN 19 6 - 19 mg/dL [facility] CREATININE 1.20 0.5 - 1.5 mg/dL [facility] GLUCOSE 126(H) 70 - 99 mg/dL [facility] CALCIUM 9.0 8.4 - 10.3 mg/dL [facility] EGFR 58(L) >59 mL/min/1.7 3m2 [facility] Comment:Estimated glomerular filtration rate calculated using the CKD-EPI refit equation. ANION GAP 14 10 - 20 mmol/L [facility] Blood 08/08/2024 1:43 PM EDT 08/08/2024 1:46 PM EDT Asiya Medina PA-C LAB BLOOD ORDERABLES Final Result [facility] [address] [place] [address] from Last 3 Months or Most Recently Relevant to Health Maintenance Insurance MEDICARE PART A & B [facility] SUPPLEMENT MEDICARE PART A & B [facility] MEDICARE SUPPLEMENT MEDICARE PART A & B MEDICARE PART A & B MEDICARE PART A & B Member Subscriber Plan / Payer (Ef fective 2001-Present) Name:Yuriy Matthew Member ID:[id number] Relation to Subscriber:Self Name:Yuriy Matthew Subscriber ID:[id number] Payer ID:[id number] Group ID:Not on file Type:Medicare Address: [employer] [address] EXTENSION MEDICARE SUPPLEMENT [place] [phone] MEDICARE PART A & B [employer] MEDICARE SUPPLEMENT MEDICARE PART A & B [employer] MEDICARE SUPPLEMENT MEDICARE PART A & B MEDICARE PART A & B [employer] MEDICARE SUPPLEMENT Care Teams Shove Up Relationship Specialty Start Date End Date Edmond Cevallos MD [address] [place] [id number] PCP - General Internal Medicine 08/08/24 Additional Source Comments The information contained in this document represents components of the legal health record. It is not the complete legal health record.[facility]
--- OUTSIDE RECORDS SUMMARY | 2025-02-18 12:16 | XMS_ITS | Clinical Summary ---
Author Organization [facility] Address [address] [place] [address] Phone Care Team Providers Care Program Manager Environmental Planning Name Role Phone Edmond Cevallos MD Primary Care Provider [phone] Allergies Active Allergy Reactions Criticality Noted Date [...] of 2 - PCV) 08[birth year]04/1954 Influenza Vaccine (#1) 2025 Hepatitis B Vaccine Aged Out No longe r eligible based on patient's age to complete this topic Insurance Unicare Medicare [facility] Medicare Care Teams Program Manager Environmental Planning Relationship Specialty Start Date End Date Edmond Cevallos MD [address] [place] PCP - General 06/09/20
--- OUTSIDE RECORDS SUMMARY | 2025-02-18 12:16 | XMS_ITS | Patient Health Record ---
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
== END 2025-02-18 10:53 | disposition home or self-care (01) ==
LOC: HO.HMCH 10:02
PROVIDERS: PCP Internal Medicine; Visit Provider Internal Medicine
DX: I10 Essential (primary) hypertension (principal); I35.0 Nonrheumatic aortic (valve) stenosis; I25.10 Atherosclerotic heart disease of native coronary artery without angina pectoris; E78.00 Pure hypercholesterolemia, unspecified; R73.02 Impaired glucose tolerance (oral); K21.9 Gastro-esophageal reflux disease without esophagitis; N40.1 Benign prostatic hyperplasia with lower urinary tract symptoms; R35.0 Frequency of micturition; M48.061 Spinal stenosis, lumbar region without neurogenic claudication; G47.33 Obstructive sleep apnea (adult) (pediatric); L57.0 Actinic keratosis; B35.6 Tinea cruris

== ENCOUNTER → 2025-02-18 10:01 | Outpatient (BNVA) | payer MEDICARE, OTHER, SELFPAY | PROVIDERS: PCP Internal Medicine; Visit Provider Internal Medicine | DX: I10 Essential (primary) hypertension (principal); I35.0 Nonrheumatic aortic (valve) stenosis; I25.10 Atherosclerotic heart disease of native coronary artery without angina pectoris; E78.00 Pure hypercholesterolemia, unspecified; R73.02 Impaired glucose tolerance (oral); K21.9 Gastro-esophageal reflux disease without esophagitis; N40.1 Benign prostatic hyperplasia with lower urinary tract symptoms; R35.0 Frequency of micturition; M48.061 Spinal stenosis, lumbar region without neurogenic claudication; G47.33 Obstructive sleep apnea (adult) (pediatric); L57.0 Actinic keratosis; B35.6 Tinea cruris | CPT/HCPCS: 99212 ==

== ENCOUNTER 2025-03-12 09:01 | Outpatient (REF) | payer MEDICARE, OTHER, SELFPAY ==
[2025-03-12 09:16] LABS: MANUAL DIFF FLAG NO
--- OUTSIDE RECORDS SUMMARY | 2025-03-12 09:38 | XMS_ITS | Clinical Summary ---
Author Organization [facility] Address [address] [place] [address] Phone Care Team Providers Care Hob Machine Operator Name Role Phone Edmond Cevallos MD Primary Care Provider [phone] Allergies No known active allergies Medications terazosin [...] EDT) SODIUM 141 133 - 146 mmol/L [facility] CHLORIDE 108 96 - 108 mmol/L [facility] POTASSIUM 4.8 3.3 - 5.1 mmol/L [facility] Comment:Specimen slightly he molyzed, result may be falsely elevated. CO2 24 21 - 35 mmol/L [facility] BUN 19 6 - 19 mg/dL [facility] CREATININE 1.20 0.5 - 1.5 mg/dL [facility] GLUCOSE 126(H) 70 - 99 mg/dL [facility] CALCIUM 9.0 8.4 - 10.3 mg/dL [facility] EGFR 58(L) >59 mL/min/1.7 3m2 [facility] Comment:Estimated glomerular filtration rate calculated using the CKD-EPI refit equation. ANION GAP 14 10 - 20 mmol/L [facility] Blood 08/08/2024 1:43 PM EDT 08/08/2024 1:46 PM EDT Asiya Medina PA-C LAB BLOOD ORDERABLES Final Result [facility] [address] [place] [address] from Last 3 Months or Most Recently Relevant to Health Maintenance Insurance MEDICARE PART A & B [facility] MEDICARE SUPPLEMENT MEDICARE PART A & B [facility] MEDICARE SUPPLEMENT MEDICARE PART A & B MEDICARE PART A & B MEDICARE PART A & B Member Subscriber Plan / Payer (Ef fective 2001-Present) Name:Yuriy Matthew Member ID:[id number] Relation to Subscriber:Self Name:Yuriy Matthew Subscriber ID:[id number] Payer ID:[id number] Group ID:Not on file Type:Medicare Address: [id number] [address] EXTENSION MEDICARE SUPPLEMENT [place] [phone] MEDICARE PART A & B [employer] MEDICARE SUPPLEMENT MEDICARE PART A & B [employer] MEDICARE SUPPLEMENT MEDICARE PART A & B MEDICARE PART A & B [employer] MEDICARE SUPPLEMENT Care Teams Hob Machine Operator Relationship Specialty Start Date End Date Edmond Cevallos MD [address] [place] [phone] PCP - General Internal Medicine 08/08/24 Additional Source Comments The information contained in this document represents components of the legal health record. It is not the complete legal health record.[facility]
--- OUTSIDE RECORDS SUMMARY | 2025-03-12 09:39 | XMS_ITS | Patient Health Record ---
Author Organization [facility] Address [address] [place] [address] Care Team Providers Care Icebox Man Name Role Phone Po Edmond RAMOS Primary Care Provider Albert Lord Jr Unavailable Reason For Referral No Information Medications Medication SIG (Take, Route, Frequency, Duration) Notes Start Date End Date Status Fluticasone Propionate 50 MCG/ACT 1 spray in each nostril Nasally Once a day; Duration: 30 day(s) 07/14/2022 Active Fexofenadine HCl 180 MG 1 tablet Swallow whole with water; do not take with fruit juices. Orally Once a day; Duration: 30 day(s) 07/14/2022 Active Tamsulosin HCl 0.4 MG 1 capsule Orally O nce a day; Duration: 30 day(s) 07/14/2022 Active Atorvastatin Calcium 80 MG Oral; Duration: 90 Active Lisinopril 40 MG Oral; Duration: 90 Active Nitrostat 0.4 MG as directed Sublingual 07/14/2022 Active Cialis 20 MG 1 tablet as needed O rally Once a day; Duration: 30 day(s) 07/14/2022 Active Metoprolol Succinate ER 50 MG Oral; Duration: 90 Active Vitamin D-[address] 25 MCG (1000 UT) 1 tablet Orally Once a day; Duration: 30 day(s) 07/14/2022 Active Eliquis 5 MG Oral; Duration: 30 Active Terazosin HCl 2 MG Oral; Duration: 90 Active Immunizations Vaccine Route Administration Date Status Comme nts Influenza Unknown 03/16/2022 Administered Problems Problem Type SNOMED Code ICD Code Onset Dates Problem Status W/U Status Risk Notes Problem Incontinence of feces ([id number]) Incontinence of feces, unspecified fecal incontinence type (R15.9) Active confirmed Plan Of Treatment No Information Insurance Providers Payer Name Payer Address Payer Phone Subscriber Number Group Number Insured Name Patient Relationship to Insured Coverage Start Date Coverage End Date MEDICARE OF [place] [address] [place] [address] [id number] CAT AHUMADA Self - patient is the insured COUNTS INCLUDE [address] BEDS AT THE [facility] INDEMNITY [address] [place] [address] [id number] CAT AHUMADA Self - patient is the [...]
--- OUTSIDE RECORDS SUMMARY | 2025-03-12 09:39 | XMS_ITS | Clinical Summary ---
Author Organization [facility] Address [address] [place] [address] Phone Care Team Providers Care Bin Operator Name Role Phone Edmond Cevallos MD Primary Care Provider [phone] Allergies Active Allergy Reactions Criticality Noted Date [...] to complete this topic Insurance Unicare Medicare [facility] Medicare Care Teams Bin Operator Relationship Specialty Start Date End Date Edmond Cevallos MD [address] [place] PCP - General 06/09/20
[2025-03-12 10:12] LABS: Hematocrit 44.7 % (42.0-52.0); Hemoglobin 14.7 g/dl (14.0-18.0); Imm Gran Abs Auto 0.03 X10*3/uL (0.00-0.03); Imm Gran Pct Auto 0.4 % (0.0-0.4); Lymphocytes Absolute Auto 2.8 X10*3/uL (1.2-4.9); Mean Corpuscular HGB Conc 32.9 g/dl (31.0-36.0); Mean Corpuscular Hemoglobin 31.1 pg (27.0-33.0); Mean Corpuscular Volume 94.5 fL (80.0-98.0); NRBC Abs Auto 0.000 X10*3/uL (0.0-0.012); NRBC Pct Auto 0.0 /100WBC (0.0-0.2); Platelet Count 150 X10*3/uL (160-400); Red Blood Count 4.73 X10*6/uL (4.60-5.80); White Blood Count 7.4 X10*3/uL (4.8-10.8)
[2025-03-12 10:36] LABS: Appearance Urine Clear; Glucose Urine UA Negative (Negative); PH 5.5 (5.0-9.0); Specific Gravity - Urine 1.020 (1.005-1.025); UMIC TRIGGER UACC YES
[2025-03-12 10:44] LABS: UACC Culture Trigger YES
[2025-03-12 10:50] LABS: Alanine Aminotransferase 20 U/L (0-40); Albumin Level 4.4 g/dL (3.5-5.0); Alkaline Phosphatase 70 U/L (39-117); Anion Gap 10 (12-20); Aspartate Amino Transferase 28 U/L (5-37); Blood Urea Nitrogen 18 mg/dL (9-16); Calcium 9.0 mg/dL (8.4-10.2); Carbon Dioxide 27 mmol/L (22-29); Chloride 111 mmol/L (96-108); Cholesterol 108 mg/dL (<200); Estimated Glomerular Filt Rate > 60; HDL Cholesterol 32 mg/dL (>40); Magnesium 2.2 mg/dL (1.6-2.6); Potassium 4.3 mmol/L (3.3-5.1); Sodium 144 mmol/L (135-145); Total Protein 6.6 g/dL (6.5-8.0); Triglycerides 67 mg/dL (<150); Uric Acid 5.1 mg/dL (3.4-7.0)
[2025-03-12 11:13] LABS: Folate 10.6 ng/mL (> or = 4.0); Vitamin B12 325 pg/mL (200-900)
[2025-03-12 11:17] LABS: Free T4 (Free Thyroxine) 0.93 ng/dL (0.71-1.85); Thyroid Stimulating Hormone 2.17 uIU/mL (0.32-4.0)
== END 2025-03-12 09:02 | disposition home or self-care (01) ==
LOC: HO.LAB 09:01
PROVIDERS: PCP Internal Medicine; Visit Provider Internal Medicine
DX: R73.02 Impaired glucose tolerance (oral) (principal); M79.671 Pain in right foot; E78.00 Pure hypercholesterolemia, unspecified; R73.01 Impaired fasting glucose
CPT/HCPCS: 36415; 80053; 80061; 81001; 82607; 82746; 83036; 83735; 84439; 84443; 84550; 85025; 87086; 87088; 87186

== ENCOUNTER 2025-04-02 15:47 | Outpatient (AMB) | payer MEDICARE, OTHER, SELFPAY ==
[2025-04-02 15:52] VITALS: BP 130/72; PULSE 65; TEMP 36.3; O2SAT 96; BMI 27.2
--- NOTE | 2025-04-02 15:52 | MHC.PC.OV ---
Vital Signs 04/02/25 15:52 Height 5 ft 11 in Weight 195 lb 6 oz BMI 27.2 BP 130/72 Blood Pressure Location Lt brachial Position Sitting Pulse 65 Pulse Source Pulse Oximeter Temp 97.3 F Temp Source Temporal Artery Scan Pulse Oximetry (%) 96 Oxygen Delivery Method Room Air Intake Visit Reasons: Discuss labs Allergies No Known Allergies Allergy (Verified 04/02/25 15:57) Tobacco use date assessed: 04/02/25 Fall risk assessment: No Falls in past year Last assessed Fall Risk: 04/02/25 Dental Screening Dental Screen Date: 04/02/25 Did you have a dental visit in the last 12 months?: Yes Did you have a dental problem in the last 6 months where you did not have access to dental care?: No Was dental information given to patient?: Patient has dentist [facility] Medical History (Updated 04/02/25 @ 16:16 by Edmond Cevallos MD) Impaired fasting glucose Impaired glucose tolerance Subdural hematoma Benign prostatic hyperplasia Pure hypercholesterolemia Benign essential hypertension Gait instability Aortic stenosis Cardiac pacemaker in situ Paroxysmal atrial fibrillation Spinal stenosis of lumbar region Right foot drop Erectile dysfunction GERD (gastroesophageal reflux disease) Obstructive sleep apnea Saddle thrombus of abdominal aorta History of prostate cancer Coronary artery disease Surgical History Stented coronary artery History of lumbar surgery History of cervical spinal surgery History of inguinal hernia repair History of tonsillectomy Family History Father No problems noted. Mother Hypertension Lung cancer Brother No problems noted. Sister No problems noted. Son No problems noted. Daughter No problems noted. Social History Housing: House Alcohol intake: current Alcohol intake frequency: 0-2 drinks per day Alcohol type: beer Comment: COUNTS CORRECT Patient Tobacco Use Status: Never used Tobacco e-Cigarette/Vaping Use: Never Used Second Hand Smoke Exposure: Yes service: Yes Current occupational status: retired Cognitive needs: Yes (Cane) Hearing needs: No Vision needs: Yes Questionnaire PHQ-9 Over the last 2 weeks, how often have you been bothered by any of the following problems? 1. Little interest or pleasure in doing things: several days 2. Feeling down, depressed, or hopeless: several days 3. Trouble falling or staying asleep, or sleeping too much: not at all 4. Feeling tired or having little energy: more than half the days 5. Poor appetite or overeating: not at all 6. Feeling bad about yourself - or that you are a failure or have let yourself or your family down: several days 7. Trouble concentrating on things, such as reading the newspaper or watching television: not at all 8. Moving or speaking so slowly that other people could have noticed. Or the opposite - being so fidgety or restless that you have been moving around a lot more than usual: not at all 9. Thoughts that you would be better off or of hurting yourself in some way: not at all Total score: 5 Depression Screening Interpretation: Positive Depression Screening Done: Yes Source: Developed by Drs. Michael Boothe, Cindi Montenegro, Michele Dukes and colleagues, with an educational elliott from [employer]. Thrive Questionnaire Date Thrive assessed: 10/18/24 I am a: Parent/Caregiver What is your living situation today?: I have a steady place to live Within the past 12 months, did the food you bought not last and you didn't have the money to get more?: Never true Within the past 12 months, did you worry whether your food would run out before you got money to buy more?: Never true Do you have trouble paying for medicines?: No Do you have trouble getting transportation to medical appointments?: No Do you have trouble paying your heating and electricity bill?: No Do you have trouble taking care of your child, family member or friend?: No Do you have trouble with day-to-day activities such as bathing, preparing meals, shopping, managing finances, etc.?: No Are you currently unemployed and looking for a job?: No Are you interested in more education?: No Please select the resources that you would like help with: Care for elder or disabled Currently or been in a relationship where the following occur: No concerns reported THRIVE Score: 0 AUDIT C Alcohol Use Questionnaire (AUDIT-C) 1. How often do you have a drink containing alcohol?: 2-4 times a month 2. How many drinks containing alcohol do you have on a typical day when you are drinking?: 1 or 2 3. How often do you have six or more drinks on one occasion?: Never Total Score: 2 SEJAL-7 AMB Questionnaire SEJAL-7 Date SEJAL - 7 assessed: 08/29/24 Feeling nervous, anxious, or on edge: 1 = Several days Not being able to stop or control worryin = Several days Worrying too much about different things: 1 = Several days Trouble relaxin = Several days Being so restless that it is hard to sit still: 0 = Not at all Becoming easily annoyed or irritable: 1 = Several days Feeling afraid as if something awful might happen: 0 = Not at all Total SEJAL-7 score (0-4 normal; 5-9 mild; 10-14 moderate; 15-21 severe): 5 Source: Developed by Drs. Michael Boothe, Cindi Montenegro, Michele Dukes and colleagues, with an educational elliott from [employer]. Physical exam (Primary Care) Vital Signs: Last Vital Signs Temp 97.3 F 04/02/25 15:52 Pulse 65 04/02/25 15:52 BP 130/72 04/02/25 15:52 Pulse Ox 96 04/02/25 15:52 Oxygen Delivery Method Room Air 04/02/25 15:52 BMI result Body Mass Index 27.2 Tobacco/Smoking Status: Tobacco use Status Tobacco use date assessed 04/02/25 04/02/25 15:59 Patient Tobacco Use Status Never used Tobacco 04/02/25 15:59 e-Cigarette/Vaping Use Never Used 04/02/25 15:59 PHQ-9: PHQ-9 Score PHQ-9: Total score 5 04/02/25 16:08 Depression Screening Interpretation: Positive Thrive Assessment: Date of Thrive Assessment Date Thrive assessed 10/18/24 04/02/25 15:59 Currently or been in a relationship where the following occur: No concerns reported Const General: alert; No acute distress Eyes Conjunctivae: conjunctivae normal Resp Auscultation: clear to auscultation bilaterally Cardio Rate: regular rate Rhythm: regular rhythm GI Inspection: Yes normal to inspection Extrem General: Yes normal to inspection and No edema Office Procedures Flu Questionnaire Does the patient have a severe egg allergy?: No Does the patient have severe life threatening allergies?: No Does the patient have a fever or illness today?: No Has the patient ever had Guillain-Colquitt Syndrome?: No Has the patient ever had any past reaction to a flu shot?: No Immunizations Fluarix [id number] (PF) 45 mcg (15 mcg x 3)/0.5 mL IM syringe Performing Provider: Edmond Cevallos MD Performing Location: [facility] Administered by: Michelle Donis CMA on 04/02/25 16:29 Dose Route Admin Location Dispensed Lot Number Expiration Date [facility] [employer] 0.5 mL IM Left Deltoid 0.5 mL [id number] 11/26/25 [id number] [employer] VIS Given Date VIS Provided VIS Publication Date 04/02/25 Single Vaccine 24 Eligibility Eligibility Date Funding Source Not [facility] Eligible 04/02/25 Private Coding Level of Care Code Est Pt Level 4 (71379) Complex EM visit Add On G2211 Diagnoses Essential hypertension I10 Hypertension type: essential hypertension Aortic stenosis I35.0 Coronary artery disease involving mi'kmaq coronary artery of mi[place]kmaq heart without angina pectoris I25.10 Coronary Disease-Associated Artery/Lesion type: mi[place]kmaq artery [place] vs. transplanted heart: mi'kmaq heart Associated angina: without angina Paroxysmal atrial fibrillation I48.0 Hypercholesterolemia E78.00 Type 2 diabetes mellitus with hyperglycemia E11.65 Gastroesophageal reflux disease without esophagitis K21.9 Esophagitis presence: without esophagitis History of prostate cancer Z85.46 Obstructive sleep apnea G47.33 UTI (urinary tract infection) N39.0 Assessment & Plan Assessment & Plan (1) Hypertension: Code(s): I10 - Essential (primary) hypertension Category: Medical Qualifiers: Hypertension type: essential hypertension Qualified Code(s): I10 - Essential (primary) hypertension Plan: Continue with blood pressure medication. Decrease salt intake and exercise on lisinopril 10 mg once a day metoprolol 50 mg once a day (2) Aortic stenosis: Comment: Mild September 2021 1.04 September 2022 moderate aortic stenosis August 2023 1.5 cm September 2024 1.37 Code(s): I35.0 - Nonrheumatic aortic (valve) stenosis Category: Medical Plan: Continuing to monitor aortic stenosis. September 2024 last echocardiogram (3) Coronary artery disease: Comment: Stent placement 2011 (ROMÁN x 2 to LAD) Code(s): I25.10 - Atherosclerotic heart disease of mi'kmaq coronary artery without angina pectoris Category: Medical Qualifiers: Coronary Disease-Associated Artery/Lesion type: mi[place]kmaq artery [place] vs. transplanted heart: mi'kmaq heart Associated angina: without angina Qualified Code(s): I25.10 - Atherosclerotic heart disease of mi'kmaq coronary artery without angina pectoris Plan: Control the cholesterol, weight, blood pressure, diabetes on anticoagulation with Eliquis 5 mg twice a day (4) Paroxysmal atrial fibrillation: Code(s): I48.0 - Paroxysmal atrial fibrillation Category: Medical Plan: Continue with anticoagulation and metoprolol (5) Hypercholesterolemia: Code(s): E78.00 - Pure hypercholesterolemia, unspecified Category: Medical Plan: Avoid fried foods, chicken skin, eggs, butter margarine, pastries and meat. Be it pork or beef they have a lot of cholesterol LDL goal of less than 70 and triglyceride of less than 150 on atorvastatin 80 mg once a day (6) Type 2 diabetes mellitus with hyperglycemia: Comment: KELLY Code(s): E11.65 - Type 2 diabetes mellitus with hyperglycemia Category: Medical Plan: Decrease the amount of carbohydrate intake, pasta, bread, rice and potatoes are all sugar and that is aside from all the sweet stuff, remember that fruits are good but they are Sweet also. Hemoglobin A1c goall of less than 7.0 (7) GERD (gastroesophageal reflux disease): Code(s): K21.9 - Gastro-esophageal reflux disease without esophagitis Category: Medical Qualifiers: Esophagitis presence: without esophagitis Qualified Code(s): K21.9 - Gastro-esophageal reflux disease without esophagitis Plan: Avoid the foods that causes that usually spicy foods, tomato products, juices, coffee, soda and foods that your sensitive to. After eating do not lie down, allow 3-4 hours before in lie down. And keep the head of bed above 30 degrees to avoid the acid from going up. (8) History of prostate cancer: Comment: External beam radiation May 2011 Code(s): Z85.46 - Personal history of malignant neoplasm of prostate Category: Medical Plan: Continue to follow-up with urology (9) Obstructive sleep apnea: Comment: CAT IS KNOWN TO HAVE MODERATELY SEVERE OBSTRUCTIVE SLEEP APNEA WITH TOTAL SLEEP TIME AHI 20.3. * THE MAIN ETIOLOGIC FACTOR FOR HIS SLEEP APNEA IS, RETROGNATHIA OF THE LOWER JAW., WHICH WILL BE A PERMANENT CAUSE OF THIS DISORDER. HE IS USING CPAP REGULARLY AND IS VERY COMPLIANT AND BENEFITING. ( NASAL PILLOWS WITH CHINSTRAP, AP 6-16 CM ) HE NEEDS TO HAVE A NEW CHINSTRAP. Code(s): G47.33 - Obstructive sleep apnea (adult) (pediatric) Category: Medical Plan: Continue to use the CPAP more than 4 hours a night and benefits from this (10) UTI (urinary tract infection): Code(s): N39.0 - Urinary tract infection, site not specified Category: Medical Plan: This was treated but concerns about developing UTI. Plan History of Present Illness The patient is an 89-year-old male presenting for a follow-up visit for management of chronic conditions and review of recent laboratory results. His past medical history is significant for coronary artery disease, hypercholesterolemia, hypertension, gastroesophageal reflux disease, history of prostate cancer in 2011, lumbar radiculopathy with spinal stenosis, atrial fibrillation, and aortic stenosis. The patient's history of impaired glucose tolerance has progressed to a new diagnosis of diabetes mellitus. His hemoglobin A1c trended from 6.0% to 5.8%, to 6.3% in 2022, and was most recently 6.7% on March 12, with a fasting blood sugar of 122 mg/dL. He has a history of increased urinary frequency and was previously seen by Dr. Flores, who prescribed a medication that the patient discontinued due to dislike. He was recently seen by a new urology provider who prescribed a different medication. Regarding his mobility, the patient reports back pain and a scuffling gait, noting he has difficulty turning and experiences a disconnection when trying to move his feet, leading to occasional stumbles. 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 Recent blood work showed a normal blood count with mild thrombocytopenia, stable renal function with a creatinine of 1.12, and a high-normal sodium of 144. His LDL cholesterol is 63 mg/dL, and his liver and thyroid function tests are normal. For his obstructive sleep apnea, he uses a CPAP for more than 4 hours nightly. Health Maintenance The patient will receive an influenza vaccine during today's visit. The benefits of the shingles vaccine were discussed, and it is available to him at the pharmacy should he choose to receive it. 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 Social History - Functional Status: The patient reports a scuffling gait and instability, resulting in near-stumbles. - He does not currently use a walker. - Family Status: He is the primary caregiver for his , who has advancing Alzheimer's disease. - This role requires him to stay home frequently, and he is part of a caregiver's training program and considering hiring a helper. - Exercise: Activity is limited to water exercise once a week for about half an hour, constrained by his caregiving responsibilities. - Nutritional Intake: The patient eats a lot of bread, breakfast cereals such as bran flakes, and reports eating too many cookies and some cake. - He denies drinking coffee or soda. - Substance Use: The patient consumes one beer approximately every other day. Review of Systems - Respiratory: Reports cough. - Genitourinary: Reports increased urinary frequency. - Musculoskeletal: Reports back pain. - Neurological: Reports scuffling gait, difficulty with movement coordination, and near-stumbles. - Denies loss of sensation in his feet. Physical Exam Results - Labs: - Complete Blood Count: Normal blood count with mild thrombocytopenia. - Comprehensive Metabolic Panel: Sodium 144 mmol/L, Creatinine 1.12 mg/dL, Blood Sugar 122 mg/dL. Electrolytes are good and liver function is fine. - Hemoglobin A1c: 6.7%. - Lipid Panel: LDL 63 mg/dL. - Thyroid-Stimulating Hormone: Normal. - Vitamin B12 and Folic Acid: Normal. - Urinalysis: - Positive for WBCs, suggestive of UTI. - Imaging: - Echocardiogram: Last performed in September 2024 for aortic stenosis. Plan Patient was informed and verbally consented to the use of an ambient scribe for clinic note documentation during this visit. 1. Diabetes Mellitus, Type 2 The patient is newly diagnosed with diabetes mellitus based on a recent hemoglobin A1c of 6.7%, which is above the diagnostic threshold of 6.5%. His fasting glucose was 122 mg/dL. As hiss A1c is below the goal of 7.0%, medication will not be initiated at this time, with management focusing on diet and exercise. Dietary counseling was provided to reduce intake of sugar, pasta, bread, rice, potatoes, cookies, and alcohol. A follow-up is scheduled in 3 months with repeat blood work, including a hemoglobin A1c. A urine test will also be ordered at that time to screen for proteinuria. 2. Hypertension The patient will continue his current antihypertensive regimen of lisinopril 10 mg once a day and metoprolol 50 mg once a day. 3. Hypercholesterolemia The patient's LDL is well-controlled at 63 mg/dL, which is below the goal of less than 70 mg/dL. He will continue atorvastatin 80 mg once a day. 4. Atrial Fibrillation For stroke prevention, the patient will continue anticoagulation with Eliquis 5 mg twice a day. He will also continue metoprolol for rate control. 5. Aortic Stenosis The patient's aortic stenosis will continue to be monitored. His last echocardiogram was in September 2024. 6. Urinary Symptoms / Uti The patient is being managed by urology for his urinary symptoms and recent UTI. He will continue to follow up with urology for this issue. 7. Gait Abnormality And Fall Risk Due to the patient's report of a scuffling gait and near-stumbles, he was advised to use a walker to prevent falls. 8. Dehydration A high-normal sodium level of 144 suggested dehydration. The patient was counseled to increase his daily water intake. Discussion Notes I informed the patient that based on his recent hemoglobin A1c of 6.7%, he now officially has a diagnosis of diabetes mellitus. I explained that because his level is still under the control goal of 7.0%, we will manage this with diet and exercise modifications at this time rather than starting medication. We discussed specific dietary changes, including the reduction of pasta, bread, rice, potatoes, cookies, and alcohol, as these are all sources of sugar. I also reviewed that his high-normal sodium level of 144 indicates dehydration, and I counseled him to increase his daily water intake. We discussed his gait instability and near-stumbles, and I recommended he begin using a walker to prevent falls and potential injury. We acknowledged the challenges to exercise posed by his role as a caregiver for his . I informed him that his cholesterol is well-controlled on his current medication and that we will continue to monitor his mild thrombocytopenia. I explained the need for annual diabetic eye exams and for a urine test in three months to check for kidney complications. We arranged for an influenza vaccine to be administered today and discussed the optional two-dose shingles vaccine. A follow-up visit was scheduled for three months from now to re-evaluate his blood work. Patient Instructions - You now have a diagnosis of diabetes because your blood sugar levels have been high. - To help lower your blood sugar, you need to change your diet. - Avoid sugary foods like cookies and cake, and cut back on bread, pasta, rice, and potatoes. - Also, limit alcoholic drinks like beer, as alcohol is a form of sugar. - Try to increase your physical activity. - Even moving around more inside your house can help. - Please drink more water throughout the day. - Your lab tests show that you are a little dehydrated. - Because you have had some trouble walking and have almost stumbled, please start using a walker to prevent falls. - Continue to take your regular medications for blood pressure, cholesterol, and atrial fibrillation as prescribed. - You will get a flu shot today. - We also discussed the shingles vaccine, which you can get at the pharmacy if you choose to. - You must see an eye doctor every year for an eye exam. - Please ask them to send a copy of their notes to our office. - You need to return for a follow-up appointment in 3 months. - We will order blood and urine tests for you to complete before that visit. Orders: Orders Lipid Panel 3 Months E11.65 - Type 2 diabetes mellitus with hyperglycemia, E78.00 - Pure hypercholesterolemia, unspecified Hemoglobin A1c 3 Months E11.65 - Type 2 diabetes mellitus with hyperglycemia Comprehensive Met. Panel 3 Months E11.65 - Type 2 diabetes mellitus with hyperglycemia Creatinine Urine 3 Months E11.65 - Type 2 diabetes mellitus with hyperglycemia Influenza [id number] Immunization Today Z23 - Encounter for immunization
--- OUTSIDE RECORDS SUMMARY | 2025-04-02 18:19 | XMS_ITS | Clinical Summary ---
Author Organization Formerly [facility] Address [address] [place] [id number] Phone Care Team Providers Care Foreclosure Paralegal Name Role Phone Edmond Cevallos MD Primary Care Provider [phone] Allergies No known active allergies Medications terazosin [...] Date/Time Associated Diagnosis Comments BASIC METABOLIC PANEL (BMP) STAT 08/08/2024 1:43 PM EDT from Last 3 Months or Most Recently Relevant to Health Maintenance Results * (ABNORMAL) Basic metabolic panel (08/08/2024 1:43 PM EDT) SODIUM 141 133 - 146 mmol/L [facility] CHLORIDE 108 96 - 108 mmol/L [facility] POTASSIUM 4.8 3.3 - 5.1 mmol/L [facility] Comment:Specimen slightly he molyzed, result may be falsely elevated. CO2 24 21 - 35 mmol/L [facility] BUN 19 6 - 19 mg/dL [facility] CREATININE 1.20 0.5 - 1.5 mg/dL [facility] GLUCOSE 126(H) 70 - 99 mg/dL [facility] CALCIUM 9.0 8.4 - 10.3 mg/dL [facility] EGFR 58(L) >59 mL/min/1.7 3m2 [facility] Comment:Estimated glomerular filtration rate calculated using the CKD-EPI refit equation. ANION GAP 14 10 - 20 mmol/L [facility] Blood 08/08/2024 1:43 PM EDT 08/08/2024 1:46 PM EDT Asiya Medina PA-C LAB BLOOD BKR ORDERAB LES Final Result [facility] [address] [place] [address] from Last 3 Months or Most Recently Relevant to Health Maintenance Insurance MEDICARE PART A & B [facility] MEDICARE SUPPLEMENT MEDICARE PART A & B [facility] MEDICARE SUPPLEMENT MEDICARE PART A & B MEDICARE PART A & B MEDICARE PART A & B [employer] MED[employer]ARE SUPPLEMENT MEDICARE PART A & B [facility] MED[employer]ARE SUPPLEMENT MEDICARE PART A & B [employer] MED[employer]ARE SUPPLEMENT MEDICARE PART A & B MEDICARE PART A & B [employer] MEDICARE SUPPLEMENT Care Teams Foreclosure Paralegal Relationship Specialty Start Date End Date Edmond Cevallos MD [address] [place] [id number] PCP - General Internal Medicine 08/08/24 Additional Source Comments The information contained in this document represents components of the legal health record. It is not the complete legal health record.Formerly [facility]
--- OUTSIDE RECORDS SUMMARY | 2025-04-02 18:19 | XMS_ITS | Patient Health Record ---
Author Organization [facility] Address [address] [place] [address] Care Team Providers Care Color Checker Roving Or Yarn Name Role Phone Po Edmond RAMOS Primary [...] Status Risk Notes Problem Incontinence of feces ([id number]) Incontinence of feces, unspecified fecal incontinence type (R15.9) Active confirmed Plan Of Treatment No Information Insurance Providers Payer Name Payer Address Payer Phone Subscriber Number Group Number Insured Name Patient Relationship to Insured Coverage Start Date Coverage End Date MEDICARE OF [place] [address] [place] [address] [id number] CAT AHUMADA Self - patient is the insured [facility] [address] [place] [address] [id number] CAT AHUMADA Self - patient is the [...]
== END 2025-04-02 16:31 | disposition home or self-care (01) ==
LOC: HO.HMCH 15:47
PROVIDERS: PCP Internal Medicine; Visit Provider Internal Medicine
DX: I10 Essential (primary) hypertension (principal); I48.0 Paroxysmal atrial fibrillation; E11.65 Type 2 diabetes mellitus with hyperglycemia; I35.0 Nonrheumatic aortic (valve) stenosis; I25.10 Atherosclerotic heart disease of native coronary artery without angina pectoris; E78.00 Pure hypercholesterolemia, unspecified; K21.9 Gastro-esophageal reflux disease without esophagitis; Z85.46 Personal history of malignant neoplasm of prostate; G47.33 Obstructive sleep apnea (adult) (pediatric); N39.0 Urinary tract infection, site not specified; Z23 Encounter for immunization

== ENCOUNTER → 2025-04-02 15:47 | Outpatient (BNVA) | payer MEDICARE, OTHER, SELFPAY | PROVIDERS: PCP Internal Medicine; Visit Provider Internal Medicine | DX: I10 Essential (primary) hypertension (principal); I35.0 Nonrheumatic aortic (valve) stenosis; I25.10 Atherosclerotic heart disease of native coronary artery without angina pectoris; I48.0 Paroxysmal atrial fibrillation; E78.00 Pure hypercholesterolemia, unspecified; E11.65 Type 2 diabetes mellitus with hyperglycemia; K21.9 Gastro-esophageal reflux disease without esophagitis; G47.33 Obstructive sleep apnea (adult) (pediatric); N39.0 Urinary tract infection, site not specified; Z23 Encounter for immunization | CPT/HCPCS: 90471; 90656; 99212 ==

== ENCOUNTER 2025-04-08 11:32 | Outpatient (AMB) | payer MEDICARE, OTHER, SELFPAY ==
--- NOTE | 2025-04-08 11:36 | MHC.OFFVIS ---
Vital Signs 04/08/25 11:37 Height 5 ft 11 in Weight 195 lb 1.745 oz BMI 27.2 BP 110/72 Blood Pressure Location Lt brachial Position Sitting Pulse 60 Pulse Source Pulse Oximeter Pulse Oximetry (%) 97 Oxygen Delivery Method Room Air Intake Visit Reasons: Obstructive sleep apnea Intake Note: pt is here for follow up and states he is feeling good, but is now on antibiotic for UTI Milieu Counselor Required: No Allergies No Known Allergies Allergy (Verified 04/08/25 11:48) Medication List - Last Reconciled 04/08/25 by Satinder Fajardo MD acetaminophen 500 mg PO Q6H PRN apixaban (Eliquis) 5 mg PO BID 90 days atorvastatin 80 mg PO DAILY 90 days [AUTO PAP 6-16 cm humidified AIR full face nasal mask As directed] cane As directed cholecalciferol (vitamin D3) 25 mcg PO DAILY clotrimazole 1% 1 appl topical BID 4 weeks fexofenadine 180 mg PO DAILY PRN fluticasone propionate 50 mcg/actuation 2 sprays intranasal DAILY PRN lisinopril 10 mg PO DAILY metoprolol succinate ER 50 mg PO DAILY nitroglycerin (Nitrostat) 0.4 mg sublingual Q5M PRN tadalafil (Cialis) 20 mg PO DAILY PRN terazosin 4 mg PO BEDTIME Do you need a note to return to daycare/school/sports/work: No HPI HPI Obstructive sleep apnea: Details: CAT IS 89 YEARS OLD GENTLEMAN, WHO COMES TO SEE ME EVERY 6 MONTHS FOR MANAGEMENT OF HIS SLEEP APNEA. 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 HE USES CPAP VERY REGULARLY EVERY NIGHT AND SLEEPS WELL. HE SLEEPS UP TO 6 HOURS PER NIGHT AND THEN 1 OR 2 DURING THE DAYTIME WHEN HE USES THE CPAP. THERE IS NO ISSUE EXCEPT THAT SOMETIME THE CHINSTRAP GETS LOSE OR SLIPS OFF AND THEN HE HAS SOME AIR LEAK THROUGH THE MOUTH. HE IS ABLE TO READJUST AND GO BACK TO SLEEP. HE DOES GET MILD NASAL CONGESTION OFF AND ON AND USES FLONASE -50 PRN HIS GENERAL HEALTH IS ALSO STABLE . [facility] Medical History Impaired fasting glucose Impaired glucose tolerance Subdural hematoma Benign prostatic hyperplasia Pure hypercholesterolemia Benign essential hypertension Gait instability Aortic stenosis Cardiac pacemaker in situ Paroxysmal atrial fibrillation Spinal stenosis of lumbar region Right foot drop Erectile dysfunction GERD (gastroesophageal reflux disease) Obstructive sleep apnea Saddle thrombus of abdominal aorta History of prostate cancer Coronary artery disease Surgical History Stented coronary artery History of lumbar surgery History of cervical spinal surgery History of inguinal hernia repair History of tonsillectomy Family History Father No problems noted. Mother Hypertension Lung cancer Brother No problems noted. Sister No problems noted. Son No problems noted. Daughter No problems noted. Social History Housing: House Alcohol intake: current Alcohol intake frequency: 0-2 drinks per day Alcohol type: beer Comment: COUNTS CORRECT Patient Tobacco Use Status: Never used Tobacco e-Cigarette/Vaping Use: Never Used Second Hand Smoke Exposure: Yes service: Yes Current occupational status: retired Cognitive needs: Yes (Cane) Hearing needs: No Vision needs: Yes Review of Systems Const All systems reviewed & are unremarkable except as noted in HPI and below Eyes Reports no additional complaints ENT Denies nasal congestion, Denies nasal discharge and Reports other (Dry mouth in the morning) Card Reports irregular heart rhythm and Denies leg edema Resp Reports no additional complaints, Denies cough and Denies wheezing GI Reports no additional complaints Reports erectile dysfunction Musc Reports back pain and Reports arthralgias (Left lower extremity) Skin/Breast Reports system reviewed and no additional complaints, except as documented Neuro Reports no additional complaints Psych Reports no additional complaints Endo Reports no additional complaints Aller/Immun Denies wheezing Physical Exam He is only slightly overweight, Const General: healthy appearing, comfortable, no acute distress, alert and awake Orientation/consciousness: patient oriented x3 HEENT Head: Yes normal to inspection General nose exam: No nasal polyps present and No nasal discharge present Face and sinus: Yes sinuses nontender Mouth: oropharynx normal Teeth and gingiva: other (Has moderate retroganthia of the lower jaw.) Throat: Yes posterior oropharynx normal Eyes General: appearance normal, both eyes and all related structures Neck Neck: Yes normal visual inspection, Yes no lymphadenopathy, Yes trachea midline and Yes no JVD Thyroid: Thyroid normal Chest Chest palpation & inspection: normal inspection of the chest, normal palpation of entire chest wall and no tenderness Resp Effort & Inspection: normal respiratory effort Auscultation: clear to auscultation bilaterally, no crackles and no wheezes Percussion: percussion normal Cardio Palpation: normal PMI Rate: regular rate Rhythm: regular rhythm and abnormal rhythm (Atrial fib) Heart sounds: Gallop heart sound present and Murmur heart sound present GI Palpation (GI): Soft to palpation, nontender, No hepatosplenomegaly present and no masses Auscultation: normal bowel sounds Back/Spine/Pelvis Thoracic/Lumbar Spine: thoracic and lumbar spine normal to inspection, thoraco-lumbar ROM limited and thoraco-lumbar spasm Skin General skin exam: no rashes or lesions noted Neuro General: patient oriented x3 and no focal motor deficits Cranial nerves: Yes CN's II-XII intact bilaterally Extrem General: Yes normal to inspection, Yes no clubbing, cyanosis or edema and Yes no calf tenderness Psych Appearance: grossly normal and well kempt Speech and movement: Normal speech and movement present Results Reviewed Results Reviewed: COMPLIANCE REPORT NOT AVAILABLE HIS CPAP DEVICE DOES NOT TRANSMIT THE INFORMATION. Assessment & Plan Assessment & Plan (1) Obstructive sleep apnea: Comment: CAT IS KNOWN TO HAVE MODERATELY SEVERE OBSTRUCTIVE SLEEP APNEA WITH TOTAL SLEEP TIME AHI 20.3. * THE MAIN ETIOLOGIC FACTOR FOR HIS SLEEP APNEA IS, RETROGNATHIA OF THE LOWER JAW., WHICH WILL BE A PERMANENT CAUSE OF THIS DISORDER. HE IS USING CPAP REGULARLY AND IS VERY COMPLIANT AND BENEFITING. ( NASAL PILLOWS WITH CHINSTRAP, AP 6-16 CM ) Code(s): G47.33 - Obstructive sleep apnea (adult) (pediatric) Category: Medical Plan: COMMENDED FOR GOOD COMPLIANCE ALLIANCE AND ADVISED TO KEEP ON USING THE CPAP EVERY NIGHT Coding Level of Care Code Est Pt Level 3 (95222) Diagnoses Obstructive sleep apnea G47.33
[2025-04-08 11:37] VITALS: BP 110/72; PULSE 60; O2SAT 97; BMI 27.2
--- OUTSIDE RECORDS SUMMARY | 2025-04-08 13:56 | XMS_ITS | Encounter Summary ---
Author Organization [facility] Address [address] [place] [address] Care Team Providers Care Machine Hamper Maker Name Role Phone Edmond Cevallos MD Primary Care Provider [phone] Encounter Details Date Type Department Care Team (Late st Contact Info) Description 04/03/2025 Lab Requisition [facility] - Main Lab [address] [facility] [place] [address] Donell Villalta PA [address] [place] [address] Frequency of micturition Social History Tobacco Use Types Packs/Day Years Used Date Smoking Tobacco: Never Alcohol Use Standard Drinks/Week Comments Yes 5.8 (1 standard drink = 0.6 oz p ure alcohol) Sex and Gender Information Value Date Recorded Sex Assigned at Not on file Legal Sex Male 10:09 PM EST Gender Identity Not on file Sexual Orientation Not on file documented as of this encounter Plan of Treatment Not on file documented as of this encounter Procedures Procedure Name Priority Date/Time Associated Diagnosis Comments BACTERIAL IDENTIFICATION AND SUSCEPTIBILITY, AEROBIC Routine 04/02/2025 11:46 AM EST Frequency of micturition documented in this encounter Results * (ABNORMAL) Baterial identification and susceptibility, aerobic (04/02/2025 11:46 AM EST) Culture, Bacterial ID and Sensitivity Enterococcus faecalis(A) LIZ 04/04/2025 7:52 AM EST [facility] Comment: Edited result: Previously reported as Gram Positive Cocci on 04/03/2025 at 1355 EST. Urine Urine specimen from urethra / Unknown Non-blood Collection / Unknown 04/02/2025 11:46 AM EST 04/03/2025 1:25 PM EST Narrative Organism Antibiotic Method Susceptibility Enterococcus faecalis Benzylpenicillin LIZ 4 ug/ml: Susceptible Enterococcus faecalis Ampicillin LIZ <=2 ug/ml: Susceptible Enterococcus faecalis Ciprofloxacin LIZ <=0.5 ug/ml: Susceptible Enterococcus faecalis Levofloxacin LIZ 1 ug/ml: Susceptible Enterococcus faecalis Linezolid LIZ 2 ug/ml: Susceptible Enterococcus faecalis Vancomycin LIZ <=0.5 ug/ml: Susceptible Enterococcus faecalis Tetracycline LIZ >=16 ug/ml: Resistant Enterococcus faecalis Nitrofurantoin LIZ <=16 ug/ml: Susceptible us Donell SEAY LAB MICROBIOLOGY - GENERAL ORDERABLES Final Result Performing Organization Address City/State/[facility] Co de Phone Number [facility] [address] [place] [address], documented in this encounter Visit Diagnoses Diagnosis Frequency of micturition Urinary frequency documented in this encounter Care Teams Machine Hamper Maker Relationship Specialty Start Date End Date Edmond Cevallos MD [address] [place] [address] Dr [address] [facility] [place] [address] PCP - General 05/30/10 documented as of this encounter
--- OUTSIDE RECORDS SUMMARY | 2025-04-08 13:56 | XMS_ITS | Clinical Summary ---
Author Organization [facility] Address [address] [place] [address] Phone Care Team Providers Care Drill Press Tender Name Role Phone Edmond Cevallos MD Primary Care Provider [phone] Allergies Active Allergy Reactions Criticality Noted Date [...] this topic Insurance Unicare Medicare [facility] Medicare Care Teams Drill Press Tender Relationship Specialty Start Date End Date Edmond Cevallos MD [address] [place] PCP - General 06/09/20
--- OUTSIDE RECORDS SUMMARY | 2025-04-08 13:56 | XMS_ITS | Clinical Summary ---
Author Organization [facility] [place] Address [address] [place] [address] Phone Care Team Providers Care Pattern And Chain Maker Name Role Phone Edmond Cevallos MD Primary Care Provider [phone] Allergies No known active allergies Medications terazosin [...] EDT) SODIUM 141 133 - 146 mmol/L [facility] CHLORIDE 108 96 - 108 mmol/L [facility] POTASSIUM 4.8 3.3 - 5.1 mmol/L [facility] Comment:Specimen slightly he molyzed, result may be falsely elevated. CO2 24 21 - 35 mmol/L [facility] BUN 19 6 - 19 mg/dL [facility] CREATININE 1.20 0.5 - 1.5 mg/dL [facility] GLUCOSE 126(H) 70 - 99 mg/dL [facility] CALCIUM 9.0 8.4 - 10.3 mg/dL [facility] EGFR 58(L) >59 mL/min/1.7 3m2 [facility] Comment:Estimated glomerular filtration rate calculated using the CKD-EPI refit equation. ANION GAP 14 10 - 20 mmol/L [facility] Blood 08/08/2024 1:43 PM EDT 08/08/2024 1:46 PM EDT Asiya Medina PA-C LAB BLOOD BKR ORDERAB LES Final Result [facility] [address] [place] [address] from Last 3 Months or Most Recently Relevant to Health Maintenance Insurance MEDICARE PART A & B [facility] MEDICARE SUPPLEMENT MEDICARE PART A & B Member Subscriber Plan / Payer (Ef fective 2001-Present) Name:Yuriy Matthew Member ID:[id number] Relation to Subscriber:Self Name:Yuriy Matthew Subscriber ID:[id number] Payer ID:[id number] Group ID:Not on file Type:Medicare Address: [facility] [employer] [facility].[address] [place] [phone] [facility] MEDICARE SUPPLEMENT MEDICARE PART A & B MEDICARE PART A & B MEDICARE PART A & B [employer] MEDICARE SUPPLEMENT MEDICARE PART A & B [employer] MEDICARE SUPPLEMENT MEDICARE PART A & B [employer] MEDICARE SUPPLEMENT MEDICARE PART A & B MEDICARE PART A & B [employer] MEDICARE SUPPLEMENT Care Teams Pattern And Chain Maker Relationship Specialty Start Date End Date Edmond Cevallos MD [address] [place] [id number] PCP - General Internal Medicine 08/08/24 Additional Source Comments The information contained in this document represents components of the legal health record. It is not the complete legal health record.[facility] [place]
--- OUTSIDE RECORDS SUMMARY | 2025-04-08 13:56 | XMS_ITS | Clinical Summary ---
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 LBBB (left bundle branch block) 04/19/2012 DX:LBBB (left bundle branch block) Essential hypertension, benign 04/19/2012 D X:Essential hypertension, benign Other and unspecified hyperlipidemia 04/19/2012 DX:Other and unspecified hyperlipidemia Cervical spine disease 04/19/2012 DX:Cervic al spine disease H/O hernia repair 04/19/2012 DX:H/O hernia repair Pacemaker 04/19/2012 DX:Pacemaker Family History Medical History Relation Name Comments Other: no known CAD, SCD Other 1 Relation Name Status Comments Other 1 Other 2 Social History Tobacco Use Types Packs/Day Years Used Date Smoking Tobacco: Never Alcohol Use Standard Drinks/Week Comments Yes 5.8 (1 standard drink = 0.6 oz p ure alcohol) Sex and Gender Information Value Date Recorded Sex Assigned at Not on file Legal Sex Male 10:09 PM EST Gender Identity Not on file Sexual Orientation Not on file Obstetrics History Plan of Treatment Health Maintenance Due Date Last Done Comments DTaP,Tdap,and Td Vaccines (1 - Tdap) [birth year]04/1954 Pneumococcal Vaccine: 50+ Ye ars (1 of 1 - PCV) 1986 Zoster Vaccines (1 of 2) 1986 RSV Immunization Adult Patie nts (1 - 1-dose 75+ series) 08/04/2011 Cholesterol Screening (Lipid Panel) 05/08/2022 Falls Risk Assessment 05/08/2022 Medicare Annual Wellness Visit 05/08/2022 Social Influencers of Health Screening 05/08/2022 Hypertension/CHF/CAD Annual BMP Blood Test 05/15/2022 Depression Screening 05/30/2024 COVID-19 Vaccine (2023-2 5 season) 2025 Influenza Vaccine (#1) 2025 HIB Vaccines Aged Out No longer eligi ble based on patient's age to complete this topic HPV Vaccines Aged Out No longer eligi ble based on patient's age to complete this topic Hepatitis A Vaccines Aged Out No long er eligible based on patient's age to complete this topic Hepatitis B Vaccines Aged Out No long er eligible based on patient's age to complete this topic IPV Vaccines Aged Out No longer eligi ble based on patient's age to complete this topic MMR Vaccines Aged Out No longer eligi ble based on patient's age to complete this topic Meningococcal ACWY Vaccine Aged Out N o longer eligible based on patient's age to complete this topic Meningococcal B Vaccine Aged Out No l onger eligible based on patient's age to complete this topic RSV Immunization Patients Un lashay 20 months Aged Out No longer eligible b ased on patient's age to complete this topic Varicella Vaccines Aged Out No longer eligible based on patient's age to complete this topic Procedures Procedure Name Priority Date/Time Associated Diagnosis Comments BACTERIAL IDENTIFICATION AND SUSCEPTIBILITY, AEROBIC Routine 04/02/2025 11:46 AM EST Frequency of micturition from Last 3 Months Results * (ABNORMAL) Baterial identification and susceptibility, aerobic (04/02/2025 11:46 AM EST) Culture, Bacterial ID and Sensitivity Enterococcus faecalis(A) LIZ 04/04/2025 7:52 AM EST [facility] Comment: Edited result: Previously reported [...] LAB MICROBIOLOGY - GENERAL ORDERABLES Final Result [facility] [address] [place] [address], from Last 3 Months Insurance MEDICARE Care Teams Elevator Examiner And Adjuster Relationship Specialty Start Date End Date Edmond Cevallos MD [address] [place] [address] [address] [facility] [place] [address] PCP - General 05/30/10
== END 2025-04-08 12:01 | disposition home or self-care (01) ==
LOC: HO.HPS 11:32
PROVIDERS: PCP Internal Medicine; Visit Provider Internal Medicine
DX: G47.33 Obstructive sleep apnea (adult) (pediatric) (principal)
CPT/HCPCS: 99213

== ENCOUNTER → 2025-04-08 11:32 | Outpatient (BNVA) | payer MEDICARE, OTHER, SELFPAY | PROVIDERS: PCP Internal Medicine; Visit Provider Internal Medicine | DX: G47.33 Obstructive sleep apnea (adult) (pediatric) (principal); M26.19 Other specified anomalies of jaw-cranial base relationship; Z99.89 Dependence on other enabling machines and devices | CPT/HCPCS: 99212 ==

== ENCOUNTER 2025-04-16 14:37 | Outpatient (AMB) | payer MEDICARE, OTHER, SELFPAY ==
[2025-04-16 14:39] VITALS: BP 98/56; PULSE 67; TEMP 36.3; O2SAT 97; BMI 27.3
--- NOTE | 2025-04-16 14:39 | MHC.OFFWIV ---
Intake Vital Signs 04/16/25 14:39 Height 5 ft 11 in Weight 196 lb BMI 27.3 BP 98/56 L Blood Pressure Location Lt brachial Position Sitting Pulse 67 Pulse Source Pulse Oximeter Temp 97.4 F Temp Source Oral Pulse Oximetry (%) 97 Oxygen Delivery Method Room Air Comment Low Bp: pt denies any dyspnea, SOB or any cardiac concerns. provider aware Intake Visit Reasons: EP-lt foot pain Intake Note: pt presents with left great toe pain and swelling for about a week with worsening pain since yesterday Patient Tobacco Use Status: Never used Tobacco Allergies No Known Allergies Allergy (Verified 04/16/25 14:46) Do you need a note to return to daycare/school/sports/work: No HPI HPI Comments History of Present Illness Details History of Present Illness - The patient is an 89-year-old male presenting with pain in the big toe. - The issue started recently, with the patient experiencing significant pain while walking. - The patient attempted to manage the condition by trying to dig out the nail, which resulted in increased pain. - He has been having pain when he wears his shoe and walks. - The patient does not have a railway patrol officer for regular nail care. - He denies discharge, streaking, fever, chills, joint pain, numbness, tingling, or calf pain. Physical Exam General: Cooperative, healthy appearing, comfortable, no acute distress and well developed Orientation: Patient oriented x3 Respiratory: Normal respiratory effort and able to speak in complete sentences. Clear to auscultation bilaterally Cardiovascular: Regular rate and rhythm. Normal S1 and S2. Pulses are 1+ on the LE. Skin: No rashes or lesions noted Neuro: Sensation intact Extremities: Hardended thickened nails noted. Ingrown nail noted on the left great toe. Mild erythema noted with some swelling. No discharge noted. No streaking noted. No fluctuance noted. Patient was informed and verbally consented to the use of an ambient scribe for clinic note documentation during this visit. [facility] Medical History Impaired fasting glucose Impaired glucose tolerance Subdural hematoma Benign prostatic hyperplasia Pure hypercholesterolemia Benign essential hypertension Gait instability Aortic stenosis Cardiac pacemaker in situ Paroxysmal atrial fibrillation Spinal stenosis of lumbar region Right foot drop Erectile dysfunction GERD (gastroesophageal reflux disease) Obstructive sleep apnea Saddle thrombus of abdominal aorta History of prostate cancer Coronary artery disease Surgical History Stented coronary artery History of lumbar surgery History of cervical spinal surgery History of inguinal hernia repair History of tonsillectomy Family History Father No problems noted. Mother Hypertension Lung cancer Brother No problems noted. Sister No problems noted. Son No problems noted. Daughter No problems noted. Social History Housing: House Alcohol intake: current Alcohol intake frequency: 0-2 drinks per day Alcohol type: beer Comment: COUNTS CORRECT Patient Tobacco Use Status: Never used Tobacco e-Cigarette/Vaping Use: Never Used Second Hand Smoke Exposure: Yes service: Yes Current occupational status: retired Cognitive needs: Yes (Cane) Hearing needs: No Vision needs: Yes Review of Systems Const All systems reviewed & are unremarkable except as noted in HPI and below Physical Exam Vital Signs: Last Vital Signs Temp 97.4 F 04/16/25 14:39 Pulse 67 04/16/25 14:39 BP 98/56 L 04/16/25 14:39 Pulse Ox 97 04/16/25 14:39 Oxygen Delivery Method Room Air 04/16/25 14:39 BMI result Body Mass Index 27.3 Assessment & Plan Assessment & Plan (1) Ingrown nail of great toe: Code(s): L60.0 - Ingrowing nail Plan Most likely Ingrown Toenail vs paronychia vs fungal nails plan - Referral to podiatry for toenail resection was discussed. - Antibiotics were prescribed to address the possible infection. - The patient was advised to soak the toe in warm water with Epsom salt to alleviate symptoms. - Monitoring for signs of infection such as increased redness, swelling, or discharge was recommended. - follow up with PCP Orders: Referrals Podiatry Referral L60.0 - Ingrowing nail Medications: New doxycycline hyclate 100 mg PO BID 14 tabs 0RF Coding Level of Care Code Est Pt Level 3 (08176) Diagnoses Ingrown nail of great toe L60.0
== END 2025-04-16 15:30 | disposition home or self-care (01) ==
PROVIDERS: PCP Internal Medicine; Visit Provider Physician Assistant Medical
DX: L60.0 Ingrowing nail (principal)

== ENCOUNTER → 2025-04-16 14:37 | Outpatient (BNVA) | payer MEDICARE, OTHER, SELFPAY | PROVIDERS: PCP Internal Medicine; Visit Provider Physician Assistant Medical | DX: L60.0 Ingrowing nail (principal) | CPT/HCPCS: 99212 ==